=== PATIENT | female | born 1975 | race Caucasian/White ===

== ENCOUNTER 2019-03-17 13:46 | Emergency (ER) | payer MEDICARE, SELFPAY ==
[2019-03-17 13:48] VITALS: BP 171/89; PULSE 76; RESP 16; TEMP 37; O2SAT 97; BMI 28.3
--- NOTE | 2019-03-17 14:15 | ED.VISSUMM ---
- ER Visit Summary Date of Service: 03/17/19 Chief Complaint: [Blister to the left foot] History of Present Illness: The patient is a 43 F [presents to the emergency department with a left foot blister that encompasses the second third and fourth toes. Patient states that she took her shoes off 2 nights ago and noted the blister. Patient is concerned because she is diabetic. Patient states that she left the blister alone and did not pop it. Patient states she is had small blisters in the past of the foot that have resolved on their own. Patient states that she is a dialysis patient and sometimes her feet swell and she may not have noticed that her foot was swollen when it went into her tennis shoe and it may have rubbed the wrong way. Patient also has history of some neuropathy.] Physical Examination: [MIRANDA DO. Cranial nerves II through XII grossly intact. TMs clear. Mucous membranes moist. No adenopathy. Cardiovascular-regular rate and rhythm without murmur or ectopy Lungs-clear to auscultation, chest wall stable without crepitus or subcu emphysema Abdomen-normoactive bowel sounds, soft, nontender, no rebound or rigidity, no peritoneal signs. Extremities-intact ?4, normal range of motion, normal pulses, atraumatic. Left foot-patient has a large blister to the dorsum of the second third and fourth toes. There is clear fluid noted and no evidence of erythema or cellulitis. There is no evidence of abscess. Lymphangitic streaking.] Test Results: [None indicated] Emergency Department Course and Treatment: [Given a postop shoe. Patient will be given a prescription for Keflex should the blister and toes develop signs of infection. 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 Patient to follow-up with podiatry within next 3 to 5 days.] Disposition: [Discharged home in stable condition. Patient advised not to pop the blister.] Impression: [Blister to left foot dorsum of second, third and fourth toes.] This note was generated with [employer] software. It may contain incorrect words, spelling, and punctuation that were not noted in review of the chart prior to signing ED Disposition - Plan for ED Patient: Referrals: Gabriel Beaver MD [Primary Care Provider] -
--- NOTE | 2019-03-17 14:19 | ED.DEP ---
ED Disposition - Plan for ED Patient: Instructions: Blister Prescriptions: Cephalexin [Keflex] 500 mg PO Q6 #40 cap Prescription Printed Referrals: Gabriel Beaver MD [Primary Care Provider] - 3-5 Days Additional Instructions: See your foot doctor in 3-5 days
[2019-03-17 14:41] VITALS: BP 154/76; PULSE 80; RESP 17; O2SAT 97
== END 2019-03-17 14:40 | disposition home or self-care (01) ==
LOC: ED 14:25
PROVIDERS: Emergency Provider Emergency Medicine; Family Provider Family Medicine; PCP Family Medicine
DX: S90.425A Blister (nonthermal), left lesser toe(s), initial encounter (principal); X58.XXXA Exposure to other specified factors, initial encounter; Y93.9 Activity, unspecified; Y92.9 Unspecified place or not applicable; E11.40 Type 2 diabetes mellitus with diabetic neuropathy, unspecified; E11.22 Type 2 diabetes mellitus with diabetic chronic kidney disease; N18.6 End stage renal disease; Z99.2 Dependence on renal dialysis; Z79.02 Long term (current) use of antithrombotics/antiplatelets; Z79.4 Long term (current) use of insulin; Z79.899 Other long term (current) drug therapy
CPT/HCPCS: 99282

== ENCOUNTER 2020-01-23 11:39 | Outpatient (RCR) | payer MEDICARE, MEDICAID, SELFPAY ==
[2020-01-23 11:46] VITALS: BP 153/65; PULSE 78; RESP 16; BMI 27.7
--- NOTE | 2020-01-23 14:18 | HP.PCM_ITS ---
(1) Diabetic foot ulcer Status: Acute Current Visit: Yes Qualifiers: Diabetic foot ulcer location: midfoot Diabetes mellitus type: type 2 Laterality: right Non-pressure ulcer stage: with fat layer exposed Qualified Code(s): E11.621 - Type 2 diabetes mellitus with foot ulcer; L97.412 - Non- pressure chronic ulcer of right heel and midfoot with fat layer exposed Code(s): E11.621 - Type 2 diabetes mellitus with foot ulcer; L97.509 - Non- pressure chronic ulcer of other part of unspecified foot with unspecified severity Comment: berg 2 right 5th metatarsal (2) MRSA (methicillin resistant staph aureus) culture positive Status: Acute Current Visit: No Code(s): Z22.322 - Carrier or suspected carrier of Methicillin resistant Staphylococcus aureus (3) Anemia Status: Chronic Current Visit: No Code(s): D64.9 - Anemia, unspecified (4) Hypertension Status: Chronic Current Visit: No Code(s): I10 - Essential (primary) hypertension (5) Type 2 diabetes mellitus Status: Chronic Current Visit: No Code(s): E11.9 - Type 2 diabetes mellitus without complications History of Present Illness Date of Service: 01/23/20 Chief Complaint: Diabetic foot ulcer right fifth metatarsal History of Wound: This is a 44-year-old white female who presents to the wound [facility] center today after being referred by her territory sales representative to see if hyperbarics is an option. She has a past medical history as listed above significant for type 2 diabetes mellitus (most recent A1c 6.0), end-stage renal disease on dialysis, and also diabetic foot ulcers. The patient states that the ulceration on her right foot started about 1 month ago and has not made much improvement. She is currently using Keyla. She states that she has been following up with her territory sales representative Dr. Hightower who at one point was utilizing a wound VAC, however she is currently on a VAC holiday. She states that she recently completed doxycycline and Keflex after being told that she was positive for MRSA. She does note some drainage. She has an offloading boot and also a knee walker that she reports compliance with for the majority of the time. She does any localized or systemic signs of infection at this time. All other systems reviewed and negative with exception of those listed above. Past Medical History Past Medical History: Chronic Problems Anemia (Chronic) Noncompliance with medication regimen (Chronic) Hypertension (Chronic) Acute renal failure (Chronic) HLD (hyperlipidemia) (Chronic) Type 2 diabetes mellitus (Chronic) Surgical History: - - csection Allergies/Adverse Reactions: Allergies atorvastatin [From Lipitor] Adverse Reaction (Verified 01/23/20 12:00) Nausea/Vom/Diarrhea rosuvastatin [From Crestor] Adverse Reaction (Verified 01/23/20 12:00) Nausea/Vom/Diarrhea Home Medications: Ambulatory Orders Medication Instructions Recorded Insulin Glargine,Hum.rec.anlog 38 unit SQ QHS 02/09/16 [Lantus] Clopidogrel Bisulfate [Plavix] 75 mg PO DAILY #30 tablet 02/13/16 Pantoprazole Sodium [Protonix] 40 mg PO DAILY #14 tablet 02/13/16 Amlodipine [Norvasc] 10 mg PO MOWEFRSA 01/23/20 Fenofibrate Nanocrystallized 145 mg PO DAILY 01/23/20 [Fenofibrate] Insulin Aspart [Novolog Flexpen See Protocol SUBCUT TIDCM 01/23/20 ([facility])] Losartan Potassium [Cozaar] 4 tab PO DAILY 01/23/20 Lovastatin 40 mg PO DAILY 01/23/20 Sevelamer Carbonate 800 mg PO TID 01/23/20 - Family History Maternal - - mother at age 48 with enlarged heart Paternal Diabetes, Heart Disease Smoking Status: Never smoker Review of Systems Constitutional: Denies: Chills, Fever, Weight Change Eyes: Denies: Pain, Vision Change HEENT: Denies: Difficulty Hearing, Difficulty Swallowing, Sinus Congestion Cardiovascular: Denies: Chest Pain, Palpitations Respiratory: Denies: Cough, Shortness of Breath Gastrointestinal: Denies: Diarrhea, Nausea, Vomiting Genitourinary: Denies: Dysuria, Hematuria Skin: Reports: Wounds - See HPI Endocrine: Denies: Heat/ Cold Intolerance, Polydipsia, Polyuria Hematologic/ Lymphatic: Denies: Easy Bruising, Easy Bleeding - Physical Exam Vital Signs Pulse Resp BP 78 16 153/65 H 01/23/20 11:46 01/23/20 11:46 01/23/20 11:46 General: Alert, Oriented x3, Cooperative, No apparent distress HEENT: Atraumatic, PERRLA Oral: Moist Mucosa Lungs: Clear to auscultation, Normal air movement Cardiovascular: Regular rate, Regular Rhythm Abdomen: Soft, Non Tender Extremities: No clubbing, No cyanosis, No edema, Diminished Peripheral Pulses Skin: Ulcer/ Wound - See nursing documentation, diabetic foot ulcer present right fifth metatarsal with small amount of slough, otherwise granular without any signs of obvious infection at this time Wound Measurements and Assessment WC - Nurse 1 - General Ulcer Measurement Start: 01/23/20 11:46 Freq: Status: Active Protocol: Activity Type Activity Date Activity User E-Sign Co-Sign Detail Recorded Client Recorded Date Recorded By Document 01/23/20 11:46 BMF [id number] 01/23/20 11:59 BMF 01/23/20 11:46 Wound Center Nurse 1 [Ulcer Assessment] #2- R LATERAL PLANTAR -Combined with other wound No -Current Size (cm) - Length 0.7 -Current Size (cm) - Width 0.6 -Current Size (cm) - Depth 0.4 -Total Square Cm 0.42 -Date of Last Picture (Recall this 01/23/20 field) -Photo Taken Yes -Epithelialization None Present -Tunneling No -Undermining/Tunneling No -Circular Undermining No -Exudate Amt Small -Exudate Type Serosanguineous -Wound Margin Thickened -Granulation Amt Large (67-100%) -Granulation Quality Pale,Red -Slough/Fibrin No -Necrosis Amt None Present (0 %) -Texture (Colleen-wound Skin Appearance) Assessed, Scarring -Moisture (Colleen-wound Skin Appearance No Abnormality ) -Color (Colleen-wound Skin Appearance) Assessed -Temperature (Colleen-wound Skin No Abnormality Appearance) (Pt Warm) -Tenderness on Palpation (Colleen-wound No Skin Appearance) -Ulcer Cleansing Rinsed/ Irrigated with Saline -Foul Odor after Cleansing No -Anesthetic Used 5% Lidocaine Gel [Edema Assessment] -Lower Limb Edema Present No -Right Calf (cm) 33.2 -Right Ankle (cm) 21 -Left Calf (cm) 36.2 -Left Ankle (cm) 21 WC - Nurse 2 - General Ulcer CM Notes Start: 01/23/20 11:46 Freq: Status: Active Protocol: Activity Type Activity Date Activity User E-Sign Co-Sign Detail Recorded Client Recorded Date Recorded By Document 01/23/20 12:22 MW [id number] 01/23/20 12:30 MW 01/23/20 12:22 Wound Center Nurse 2 [Procedure/Treatment] #2- R LATERAL PLANTAR -Time 12:23 -Correct Patient Yes -Correct Side, Site, Position Yes -Correct Procedure Yes -Procedure Performed Yes -Type of Procedure Debridement -Clinical Debridement Subcutaneous -Tissue Removed Subcutaneous -Post Debridement (cm) - Length 1.0 -Post Debridement (cm) - Width 1.0 -Post Debridement (cm) - Depth 0.7 -Total Square (Post) (cm) 1.00 -Area of Debridement (cm) - Length 1.0 -Area of Debridement (cm) - Width 1.0 -Total Square (Area) (cm) 1.00 -Tunneling No -Undermining/Tunneling No -Circular Undermining No -Wound/Ulcer Outcome Not Healed -Ulcer Cleansing Rinsed/ Irrigated with Saline -Foul Odor after Cleansing No -Bioengineered Tissue No -Bleeding Controlled with Pressure -Offloading No -Treatment Response Procedure Tolerated Well -Debridement - Subq, 1st 20sq cm Yes [See Physician Procedure note for Specifics] Pain Scale: 0-10 Numeric [Pain] -Is Patient Pain Free? Yes - Nurse 3 - General Ulcer D/C NN Start: 01/23/20 11:46 Freq: Status: Active Protocol: Activity Type Activity Date Activity User E-Sign Co-Sign Detail Recorded Client Recorded Date Recorded By Document 01/23/20 12:39 [id number] 01/23/20 12:40 01/23/20 12:39 Wound Care Nurse 3 [Wound Dressing] #2- R LATERAL PLANTAR -Ulcer Cleansing Rinsed/ Irrigated with Saline -Primary Dressing Applied Promogran Keyla Matter -Primary Dressing Covered/Secured Dry Gauze,Dry with Gauze & Roll Gauze,Secured with Tape -Promogran Keyla Matter 1 [Post Procedure Tolerated] -Treatment Response Procedure Tolerated Well Pain Scale: 0-10 Numeric [Pain] -Is Patient Pain Free? Yes Teaching: Wound Center [Wound Center Education] (Items with an * have Printed Materials Available- Please identify what is given to patient under the Teaching materials given to patient and caregiver Section. Dressing Your Wound -Person Taught Patient -Teaching Method Discussion, Demonstration -Response to teaching Verbalize understanding WC - Visit Discharge [Visit Discharge Information] -Discharge Condition Stable -Ambulatory Status Ambulatory -Transportation Private Auto -Medication Reconcilliation completed No & provided to patient/care provider -Clinical Summary of Care Provided Yes Neurological: Neuro grossly intact Psych/Mental Status: Normal Affect, Appropriate, Alert and oriented to time, place, person, mood and affect Debridement Note Post-Debridement Measurements/Treatment NATHAN - Nurse 2 - General Ulcer CM Notes Start: 01/23/20 11:46 Freq: Status: Active Protocol: Activity Type Activity Date Activity User E-Sign Co-Sign Detail Recorded Client Recorded Date Recorded By Document 01/23/20 12:22 MW [id number] 01/23/20 12:30 MW 01/23/20 12:22 Wound Center Nurse 2 #2- R LATERAL PLANTAR -Time 12:23 -Correct Patient Yes -Correct Side, Site, Position Yes -Correct Procedure Yes -Procedure Performed Yes -Type of Procedure Debridement -Clinical Debridement Subcutaneous -Tissue Removed Subcutaneous -Post Debridement (cm) - Length 1.0 -Post Debridement (cm) - Width 1.0 -Post Debridement (cm) - Depth 0.7 -Total Square (Post) (cm) 1.00 -Area of Debridement (cm) - Length 1.0 -Area of Debridement (cm) - Width 1.0 -Total Square (Area) (cm) 1.00 -Tunneling No -Undermining/Tunneling No -Circular Undermining No -Wound/Ulcer Outcome Not Healed -Ulcer Cleansing Rinsed/ Irrigated with Saline -Foul Odor after Cleansing No -Bioengineered Tissue No -Bleeding Controlled with Pressure -Offloading No -Treatment Response Procedure Tolerated Well -Debridement - Subq, 1st 20sq cm Yes Pain Scale: 0-10 Numeric Is Patient Pain Free? Yes - Nurse 3 - General Ulcer D/C NN Start: 01/23/20 11:46 Freq: Status: Active Protocol: Activity Type Activity Date Activity User E-Sign Co-Sign Detail Recorded Client Recorded Date Recorded By Document 01/23/20 12:39 RB [id number] 01/23/20 12:40 RB 01/23/20 12:39 Wound Care Nurse 3 #2- R LATERAL PLANTAR -Ulcer Cleansing Rinsed/ Irrigated with Saline -Primary Dressing Applied Promogran Keyla Matter -Primary Dressing Covered/Secured with Dry Gauze,Dry Gauze & Roll Gauze,Secured with Tape -Promogran Keyla Matter 1 Treatment Response Procedure Tolerated Well Pain Scale: 0-10 Numeric Is Patient Pain Free? Yes Teaching: Wound Center Dressing Your Wound -Person Taught Patient -Teaching Method Discussion, Demonstration -Response to teaching Verbalize understanding WC - Visit Discharge Discharge Condition Stable Ambulatory Status Ambulatory Transportation Private Auto Medication Reconcilliation completed & No provided to patient/care provider Clinical Summary of Care Provided Yes Wound debrided: Berg 2 DFU right fifth metatarsal Laterality: Right Type of Debridement: Excisional debridement Anesthesia Used: 5% Lidocaine Gel Depth: Down to and including healthy tissue, in the subcutaneous layer Percentage of wound debrided: 100 Instrument Used: 3mm curette Tissue Removed: Slough and devitalized tissue Severity: Fat Layer Exposed Amount of bleeding with debridement: Mild Bleeding Controlled with: Pressure Patient tolerated procedure well Assessment/Plan Active Problems Diabetic foot ulcer (Acute) berg 2 right 5th metatarsal Assessment: Berg 2 Right DFU 5th metatarsal Plan: The patient was seen and examined at the wound center today and was updated on the plan of care. A subcutaneous debridement was performed today. The patient tolerated the procedure well. The patients wound care will consist of:continuing keyla dressing. Wound cultures were collected. Vascular studies ordered prior from podiatry, will request records. Patient also had a recent x- ray done which was normal and she has a pending MRI, at this point her diabetic foot ulcer is only a Berg grade 2 and therefore she is not going to be approved for hyperbaric oxygen treatment at this time. If the MRI shows suggestions of osteomyelitis, may change her status and will consider HBO at that time. Patient educated on the importance of diet on wound healing and instructed to increase protein and vitamin C intake. Patient verbalized understanding. Patient will follow up with podiatry. This note was generated with [employer] dictation software. It may contain incorrect words, spelling, and punctuation that were not noted in checking the note before signing. Office Visits / Consults: [id number] OV L4 Est [id number]: [id number] Cheri subq tissue 20 sq cm/<
== END 2020-02-05 23:59 ==
LOC: WC 11:39
PROVIDERS: PCP Family Medicine; Referring Provider Podiatrist Foot & Ankle Surgery; Visit Provider Nurse Practitioner Family
DX: E11.621 Type 2 diabetes mellitus with foot ulcer (principal); L97.412 Non-pressure chronic ulcer of right heel and midfoot with fat layer exposed; L97.512 Non-pressure chronic ulcer of other part of right foot with fat layer exposed; Z22.322 Carrier or suspected carrier of Methicillin resistant Staphylococcus aureus; E11.22 Type 2 diabetes mellitus with diabetic chronic kidney disease; I12.0 Hypertensive chronic kidney disease with stage 5 chronic kidney disease or end stage renal disease; N18.6 End stage renal disease; Z99.2 Dependence on renal dialysis; D64.9 Anemia, unspecified; E78.5 Hyperlipidemia, unspecified; Z91.14 Patient's other noncompliance with medication regimen; Z79.4 Long term (current) use of insulin; Z79.02 Long term (current) use of antithrombotics/antiplatelets; Z79.899 Other long term (current) drug therapy
CPT/HCPCS: 11042; 87070; 87075; 87077; 87186; 87205; 99213; G0463

== ENCOUNTER 2020-08-05 10:15 | Outpatient (RCR) | payer MEDICARE, MEDICAID, SELFPAY ==
[2020-07-08 09:53] VITALS: BP 142/58; PULSE 83; RESP 18; TEMP 37.1; BMI 26.7
--- NOTE | 2020-07-08 12:22 | HP.PCM_ITS ---
(1) Ulcer of right foot with fat layer exposed Status: Acute Code(s): L97.512 - Non-pressure chronic ulcer of other part of right foot with fat layer exposed (2) Pressure ulcer of right heel, stage 3 Status: Acute Code(s): L89.613 - Pressure ulcer of right heel, stage 3 (3) Type 2 diabetes mellitus with diabetic polyneuropathy Status: Chronic Code(s): E11.42 - Type 2 diabetes mellitus with diabetic polyneuropathy (4) Diabetic foot ulcer Status: Chronic Qualifiers: Diabetic foot ulcer location: heel Code(s): E11.621 - Type 2 diabetes mellitus with foot ulcer; L97.509 - Non- pressure chronic ulcer of other part of unspecified foot with unspecified severity Comment: berg 2 right 5th metatarsal (5) Acute renal failure Status: Chronic (6) Xerosis cutis Status: Chronic Code(s): L85.3 - Xerosis cutis History of Present Illness Date of Service: 07/08/20 Chief Complaint: Diabetic foot ulcer right fifth metatarsal History of Wound: This is a 45-year-old female who presents to the wound healing center today for left heel ulcer with an onset of approximately 3 weeks ago. Her is a cdl team truck driver and she had intended on traveling with him for approximately 1 day and then wanted going for several days. During most of the trip, she had her heels on the dashboard did not realize her skin was compromised. She had a black scab and was seen by Dr. Hightower at the [facility] who performed debridements. She also relates she had lab work done, x- rays, and possibly arterial studies. She does have a heel wedge offloading shoe however presents today with anodyne diabetic shoes and is walking on the wound. It is noted she has had chronic diabetes and is also on hemodialysis. She denies redness, odor. She completed a course of antibiotics within this past week and denies fever, chill, nausea, vomiting. She relates she has lotion at home however has not been applying this. Past Medical History Past Medical History: Chronic Problems Diabetic foot ulcer (Chronic) berg 2 right 5th metatarsal Type 2 diabetes mellitus with diabetic polyneuropathy (Chronic) Xerosis cutis (Chronic) Anemia (Chronic) Noncompliance with medication regimen (Chronic) Hypertension (Chronic) Acute renal failure (Chronic) HLD (hyperlipidemia) (Chronic) Type 2 diabetes mellitus (Chronic) Surgical History: - - csection Allergies/Adverse Reactions: Allergies atorvastatin [From Lipitor] Adverse Reaction (Verified 07/08/20 10:20) Nausea/Vom/Diarrhea rosuvastatin [From Crestor] Adverse Reaction (Verified 07/08/20 10:20) Nausea/Vom/Diarrhea Home Medications: Ambulatory Orders Medication Instructions Recorded Insulin Glargine,Hum.rec.anlog 38 unit SQ QHS 02/09/16 [Lantus] Clopidogrel Bisulfate [Plavix] 75 mg PO DAILY #30 tablet 02/13/16 Pantoprazole Sodium [Protonix] 40 mg PO DAILY #14 tablet 02/13/16 Amlodipine [Norvasc] 10 mg PO MOWEFRSA 01/23/20 Fenofibrate Nanocrystallized 145 mg PO DAILY 01/23/20 [Fenofibrate] Insulin Aspart [Novolog Flexpen See Protocol SUBCUT TIDCM 01/23/20 ([facility])] Losartan Potassium [Cozaar] 4 tab PO DAILY 01/23/20 Lovastatin 40 mg PO DAILY 01/23/20 Sevelamer Carbonate 800 mg PO TID 01/23/20 - Family History Maternal - - mother at age 48 with enlarged heart Paternal Diabetes, Heart Disease Smoking Status: Never smoker Review of Systems Constitutional: Denies: Chills, Fever Gastrointestinal: Denies: Nausea, Vomiting Musculoskeletal: Reports: Foot Pain. Denies: Leg Pain Skin: Reports: Skin Changes, Wounds Neurological: Reports: Numbness. Denies: Balance problems - Physical Exam Vital Signs Temp Pulse Resp BP 98.7 F 83 18 142/58 H 07/08/20 09:53 07/08/20 09:53 07/08/20 09:53 07/08/20 09:53 General: Alert, Oriented x3, Cooperative, No apparent distress HEENT: Atraumatic Extremities: No cyanosis, Capillary Refill Less than 3 Seconds - All digits bilateral, No Calf Tenderness - Negative Rani and Marie sign bilateral. Active range of motion digits x10. Compartments remain soft to left lower extremity, Edema - Mild, Peripheral Pulses Normal - 2 out of 4 PT and DP pulses bilateral Skin: Ulcer/ Wound - No purulence, erythema, streaking, odor, infection, or deep tissue exposure. The ulcer is 90% granular healthy base with some minimal fibrous tissue. The adjacent skin is hairless and atrophic., - - Left heel skin is very cracked and dry without skin discontinuity or infection Wound Measurements and Assessment WC - Nurse 1 - General Ulcer Measurement Start: 07/08/20 09:53 Freq: Status: Active Protocol: Activity Type Activity Date Activity User E-Sign Co-Sign Detail Recorded Client Recorded Date Recorded By Document 07/08/20 09:53 DL [id number] 07/08/20 10:18 DL 07/08/20 09:53 Wound Center Nurse 1 [Ulcer Assessment] #3 R Heel -Current Size (cm) - Length 2.8 -Current Size (cm) - Width 2.8 -Current Size (cm) - Depth 0.1 -Total Square Cm 7.84 -Photo Taken Yes -Classification - Berg Grading ( Grade 3 Diabetic Ulcer) -Exudate Amt Medium -Exudate Type Serosanguineous -Wound Margin Thickened -Granulation Amt Medium (34-66%) -Granulation Quality Red -Necrosis Amt Medium (34-66%) -Necrotic Tissue Type Adherent Slough -Structure Exposed N/A -Texture (Colleen-wound Skin Appearance) Callus,Scarring -Moisture (Colleen-wound Skin Appearance No Abnormality ) -Color (Colleen-wound Skin Appearance) No Abnormality -Temperature (Colleen-wound Skin No Abnormality Appearance) (Pt Warm) -Tenderness on Palpation (Colleen-wound No Skin Appearance) -Ulcer Cleansing Wound Cleanser -Foul Odor after Cleansing No -Anesthetic Used 4% Lidocaine Solution [facility] Nurse 2 - General Ulcer CM Notes Start: 07/08/20 09:53 Freq: Status: Active Protocol: Activity Type Activity Date Activity User E-Sign Co-Sign Detail Recorded Client Recorded Date Recorded By Document 07/08/20 10:35 VITO [id number] 07/08/20 10:44 VITO 07/08/20 10:35 Wound Center Nurse 2 [Procedure/Treatment] -Time 10:38 -Correct Patient Yes -Correct Side, Site, Position Yes -Correct Procedure Yes -Procedure Performed Yes -Type of Procedure Debridement -Clinical Debridement Subcutaneous -Tissue Removed Subcutaneous -Post Debridement (cm) - Length 2.9 -Post Debridement (cm) - Width 2.9 -Post Debridement (cm) - Depth 0.2 -Total Square (Post) (cm) 8.41 -Area of Debridement (cm) - Length 2.9 -Area of Debridement (cm) - Width 2.9 -Total Square (Area) (cm) 8.41 -Tunneling No -Undermining/Tunneling No -Circular Undermining No -Wound/Ulcer Outcome Not Healed -Ulcer Cleansing Rinsed/ Irrigated with Saline -Foul Odor after Cleansing No -Bioengineered Tissue No -Bleeding Controlled with Pressure -Offloading Yes -Type of Offloading Surgical Shoe -Treatment Response Procedure Tolerated Well -Debridement - Subq, 1st 20sq cm Yes [See Physician Procedure note for Specifics] Pain Scale: 0-10 Numeric [Pain] -Is Patient Pain Free? Yes - Nurse 3 - General Ulcer D/C NN Start: 07/08/20 09:53 Freq: Status: Active Protocol: Activity Type Activity Date Activity User E-Sign Co-Sign Detail Recorded Client Recorded Date Recorded By Document 07/08/20 10:57 DL [id number] 07/08/20 10:59 DL 07/08/20 10:57 Wound Care Nurse 3 [Wound Dressing] #3 R Heel -Ulcer Cleansing Wound Cleanser -Foul Odor after Cleansing No -Other Dressing hydrogel -Primary Dressing Covered/Secured Dry Gauze & with Roll Gauze, Secured with Tape [Post Procedure Tolerated] -Treatment Response Procedure Tolerated Well Pain Scale: 0-10 Numeric [Pain] -Is Patient Pain Free? Yes - Visit Discharge [Visit Discharge Information] -Discharge Condition Stable -Ambulatory Status Ambulatory -Transportation Private Auto -Notes: Pt to resume Santyl at home. Musculoskeletal: No Tenderness to Palpation of Joints or Extremities, Muscle Wasting Neurological: - - Lack of normal epicritic sensation light touch is consistent neuropathic status Psych/Mental Status: Normal Affect, Appropriate Debridement Note Post-Debridement Measurements/Treatment WC - Nurse 2 - General Ulcer CM Notes Start: 07/08/20 09:53 Freq: Status: Active Protocol: Activity Type Activity Date Activity User E-Sign Co-Sign Detail Recorded Client Recorded Date Recorded By Document 07/08/20 10:35 VITO [id number] 07/08/20 10:44 VITO 07/08/20 10:35 Wound Center Nurse 2 #3 R Heel -Time 10:38 -Correct Patient Yes -Correct Side, Site, Position Yes -Correct Procedure Yes -Procedure Performed Yes -Type of Procedure Debridement -Clinical Debridement Subcutaneous -Tissue Removed Subcutaneous -Post Debridement (cm) - Length 2.9 -Post Debridement (cm) - Width 2.9 -Post Debridement (cm) - Depth 0.2 -Total Square (Post) (cm) 8.41 -Area of Debridement (cm) - Length 2.9 -Area of Debridement (cm) - Width 2.9 -Total Square (Area) (cm) 8.41 -Tunneling No -Undermining/Tunneling No -Circular Undermining No -Wound/Ulcer Outcome Not Healed -Ulcer Cleansing Rinsed/ Irrigated with Saline -Foul Odor after Cleansing No -Bioengineered Tissue No -Bleeding Controlled with Pressure -Offloading Yes -Type of Offloading Surgical Shoe -Treatment Response Procedure Tolerated Well -Debridement - Subq, 1st 20sq cm Yes Pain Scale: 0-10 Numeric Is Patient Pain Free? Yes - Nurse 3 - General Ulcer D/C NN Start: 07/08/20 09:53 Freq: Status: Active Protocol: Activity Type Activity Date Activity User E-Sign Co-Sign Detail Recorded Client Recorded Date Recorded By Document 07/08/20 10:57 DL [id number] 07/08/20 10:59 DL 07/08/20 10:57 Wound Care Nurse 3 #3 R Heel -Ulcer Cleansing Wound Cleanser -Foul Odor after Cleansing No -Other Dressing hydrogel -Primary Dressing Covered/Secured with Dry Gauze & Roll Gauze, Secured with Tape Treatment Response Procedure Tolerated Well Pain Scale: 0-10 Numeric Is Patient Pain Free? Yes WC - Visit Discharge Discharge Condition Stable Ambulatory Status Ambulatory Transportation Private Auto Notes: Pt to resume Santyl at home. Wound debrided: heel Laterality: Right Wound Grade/Stage: grade 1 Type of Debridement: Excisional debridement Anesthesia Used: 5% Lidocaine Gel Depth: in the subcutaneous layer Percentage of wound debrided: 100 Instrument Used: #15 blade Tissue Removed: fibrous, devitalized subcutaneous, biofilm, slough Severity: Fat Layer Exposed Amount of bleeding with debridement: Mild Bleeding Controlled with: Pressure Patient tolerated procedure well Assessment/Plan Active Problems Diabetic foot ulcer (Chronic) berg 2 right 5th metatarsal Type 2 diabetes mellitus with diabetic polyneuropathy (Chronic) Acute renal failure (Chronic) Assessment: berg grade 1, right heel. cellulitis / infection resolved right foot. diabetes. renal failure no hemodialysis. malnutrition suspected. delayed healing. peripheral vascular disease work up in process Plan: The patient was seen and examined at the wound center today and was referred from the [facility]. A subcutaneous debridement was performed today as noted in the clinical panel. The patient tolerated the procedure well. She was advised no local signs of infection at this time and I do not recommend resuming antibiotics. She is already using Santyl and I advised her to continue with this. To apply a nickel thickness daily. To wash with soap and water. It is also okay to shower as her heel wound is not submerged in water. The purpose of offloading offloading techniques was reviewed. I do not recommend that she wears her close diabetic shoe even for short periods of getting in and out of medical facilities multiple times a week. She relates she already has a surgical shoe with heel offloading wedge and she was advised to resume use and to maintain compliance. Although she has palpable pulses I do recommend screening her with a noninvasive vascular study to evaluate for any potential perfusion deficits. She thinks she already had this done within the past 4 years but cannot remember for sure for what location this was performed. Her medical records from the [facility] will be requested including any potential arterial studies, recent labs, x-rays, and last podiatric physician office notes. If these diagnostic data tests have not been completed they will be ordered at her follow-up. I also offered her application of advanced wound healing product which would significantly reduce her healing time. This is medically necessary for limb salvage. We discussed various options and I recommended epifix, placental derived tissue. She is not amendable to proceed at this time. The indications, benefits sterilization process, anticipated application and management were reviewed. Educational information was provided in paper format. We will proceed forward with the a forementioned treatment plan at this time. I also recommended application of lotion to improve her adjacent skin integrity and the skin integrity on her contralateral foot to avoid other ulcers or infections. She has Vaseline intensive care and will proceed with daily use. I answered all of her questions. To return to the wound healing center in 1 week or call sooner if she has any questions or concerns or signs of infection. Note: [employer] speech recognition it technician software was used to create portions of this document. Sound-alike and misspelled words, as well as other it technician errors may be contained in the documentation. The problems addressed require a moderate decision making level which includes one or more chronic illnesses (w/ exacerbation, progression, or side effects), two or more stable chronic illnesses, one undiagnosed new problem w/ uncertain prognosis, one acute illness with systemic symptoms, or one acute complicated injury. The medical decision making level is moderate. There is noted moderate risk of morbidity after considering this treatment plan and diagnostic data. Considerations were given to prescription management, decisions regarding surgical options, or social determinants of health.
[2020-07-15 09:26] VITALS: BP 143/76; PULSE 80; RESP 18; TEMP 36.2; BMI 26.7
--- NOTE | 2020-07-15 09:48 | PN.PCM_ITS ---
(1) Ulcer of right foot with fat layer exposed Status: Acute Code(s): L97.512 - Non-pressure chronic ulcer of other part of right foot with fat layer exposed (2) Pressure ulcer of right heel, stage 3 Status: Acute Code(s): L89.613 - Pressure ulcer of right heel, stage 3 (3) Type 2 diabetes mellitus with diabetic polyneuropathy Status: Chronic Code(s): E11.42 - Type 2 diabetes mellitus with diabetic polyneuropathy (4) Diabetic foot ulcer Status: Chronic Qualifiers: Diabetic foot ulcer location: heel Code(s): E11.621 - Type 2 diabetes mellitus with foot ulcer; L97.509 - Non- pressure chronic ulcer of other part of unspecified foot with unspecified severity Comment: stinson 2 right 5th metatarsal (5) Acute renal failure Status: Chronic (6) Other specified peripheral vascular diseases Status: Ruled-out Code(s): I73.89 - Other specified peripheral vascular diseases Type of Wound Date of Service: 07/15/20 Chief Complaint: Diabetic foot ulcer right fifth metatarsal History of Wound: This is a 45-year-old female who presents to the wound healing center today for left heel ulcer with an onset of approximately 4 weeks ago. Her is a septic pump truck driver and she had intended on traveling with him for approximately 1 day and then wanted going for several days. During most of the trip, she had her heels on the dashboard did not realize her skin was compromised. She had a black scab and was seen by Dr. Hightower at the [facility] who performed debridements. Now wound is pink and she applies Santyl. She also relates she had lab work done, x-rays, and possibly arterial studies. These were requested from [facility] facility and reviewed today. She does have a heel wedge offloading shoe however presents today with anodyne diabetic shoes and is walking on the wound when she travels to all of her doctors appointments and dialysis sessions. It is noted she has had chronic diabetes and is also on hemodialysis. She denies redness, odor. She completed a course of antibiotics previously and denies fever, chill, nausea, vomiting. She refuses advanced wound healing products and relates she is just not this type of person that would use this medical tissue. Progress of Wound: Improving - Physical Exam Vital Signs Temp Pulse Resp BP 97.1 F L 80 18 143/76 H 03/10/21 09:26 07/15/20 09:26 07/15/20 09:26 07/15/20 09:26 General: Alert, Oriented x3, Cooperative, No apparent distress HEENT: Atraumatic Extremities: No cyanosis, Capillary Refill Less than 3 Seconds, No Calf Tenderness, Diminished Peripheral Pulses, Edema Skin: Ulcer/ Wound - No purulence, erythema, streaking, odor, infection. No deep probing, necrosis. The ulcer bed is granular with less than 15% fibrous tissue. There is no eschar. The adjacent skin is atrophic and hairless and is less dry Wound Measurements and Assessment WC - Nurse 1 - General Ulcer Measurement Start: 07/08/20 09:53 Freq: Status: Active Protocol: Activity Type Activity Date Activity User E-Sign Co-Sign Detail Recorded Client Recorded Date Recorded By Document 07/15/20 09:26 DL [id number] 07/15/20 09:28 DL 07/15/20 09:26 Wound Center Nurse 1 [Ulcer Assessment] #4 right heel -Current Size (cm) - Length 2.7 -Current Size (cm) - Width 3 -Current Size (cm) - Depth 0.1 -Total Square Cm 8.1 -Photo Taken No -Exudate Amt Small -Exudate Type Serosanguineous -Wound Margin Thickened -Granulation Amt Medium (34-66%) -Granulation Quality Red -Necrosis Amt Medium (34-66%) -Necrotic Tissue Type Adherent Slough -Structure Exposed N/A -Texture (Colleen-wound Skin Appearance) Callus,Scarring -Moisture (Colleen-wound Skin Appearance Dry/Scaly ) -Color (Colleen-wound Skin Appearance) No Abnormality -Temperature (Colleen-wound Skin No Abnormality Appearance) (Pt Warm) -Tenderness on Palpation (Colleen-wound No Skin Appearance) -Ulcer Cleansing Rinsed/ Irrigated with Saline -Foul Odor after Cleansing No -Anesthetic Used 4% Lidocaine Solution WC - Nurse 2 - General Ulcer CM Notes Start: 07/08/20 09:53 Freq: Status: Active Protocol: Activity Type Activity Date Activity User E-Sign Co-Sign Detail Recorded Client Recorded Date Recorded By Document 07/15/20 09:40 VITO [id number] 07/15/20 09:44 VITO 07/15/20 09:40 Wound Center Nurse 2 [Procedure/Treatment] -Time 09:40 -Correct Patient Yes -Correct Side, Site, Position Yes -Correct Procedure Yes -Procedure Performed Yes -Type of Procedure Debridement -Clinical Debridement Subcutaneous -Tissue Removed Subcutaneous -Post Debridement (cm) - Length 2.8 -Post Debridement (cm) - Width 3 -Post Debridement (cm) - Depth 0.2 -Total Square (Post) (cm) 8.4 -Area of Debridement (cm) - Length 2.8 -Area of Debridement (cm) - Width 3 -Total Square (Area) (cm) 8.4 -Tunneling No -Undermining/Tunneling No -Circular Undermining No -Wound/Ulcer Outcome Not Healed -Ulcer Cleansing Rinsed/ Irrigated with Saline -Foul Odor after Cleansing No -Bioengineered Tissue No -Bleeding Controlled with Pressure -Offloading Yes -Type of Offloading Surgical Shoe -Treatment Response Procedure Tolerated Well -Debridement - Subq, 1st 20sq cm Yes [See Physician Procedure note for Specifics] Pain Scale: 0-10 Numeric [Pain] -Is Patient Pain Free? Yes - Nurse 3 - General Ulcer D/C NN Start: 07/08/20 09:53 Freq: Status: Active Protocol: Activity Type Activity Date Activity User E-Sign Co-Sign Detail Recorded Client Recorded Date Recorded By Document 07/15/20 09:46 VITO [id number] 07/15/20 09:46 VITO 07/15/20 09:46 Wound Care Nurse 3 [Wound Dressing] #4 right heel -Ulcer Cleansing Rinsed/ Irrigated with Saline -Foul Odor after Cleansing No -Primary Dressing Applied C Hydrogel ($) -Primary Dressing Covered/Secured Dry Gauze & with Roll Gauze, Secured with Tape Pain Scale: 0-10 Numeric [Pain] -Is Patient Pain Free? Yes - Visit Discharge [Visit Discharge Information] -Discharge Condition Stable -Ambulatory Status Ambulatory -Transportation Private Auto -Medication Reconcilliation completed Yes & provided to patient/care provider -Clinical Summary of Care Provided Yes Musculoskeletal: No Tenderness to Palpation of Joints or Extremities, Muscle Wasting, - - Compartments soft Neurological: - - Lack of normal epicritic sensation to light touch Psych/Mental Status: Normal Affect, Appropriate Debridement Note Post-Debridement Measurements/Treatment WC - Nurse 2 - General Ulcer CM Notes Start: 07/08/20 09:53 Freq: Status: Active Protocol: Activity Type Activity Date Activity User E-Sign Co-Sign Detail Recorded Client Recorded Date Recorded By Document 07/08/20 10:35 [id number] 07/08/20 10:44 Document 07/15/20 09:40 [id number] 07/15/20 09:44 07/08/20 07/15/20 10:35 09:40 Wound Center Nurse 2 #4 right heel -Time 10:38 09:40 -Correct Patient Yes Yes -Correct Side, Site, Position Yes Yes -Correct Procedure Yes Yes -Procedure Performed Yes Yes -Type of Procedure Debridement Debridement -Clinical Debridement Subcutaneous Subcutaneous -Tissue Removed Subcutaneous Subcutaneous -Post Debridement (cm) - Length 2.9 2.8 -Post Debridement (cm) - Width 2.9 3 -Post Debridement (cm) - Depth 0.2 0.2 -Total Square (Post) (cm) 8.41 8.4 -Area of Debridement (cm) - Length 2.9 2.8 -Area of Debridement (cm) - Width 2.9 3 -Total Square (Area) (cm) 8.41 8.4 -Tunneling No No -Undermining/Tunneling No No -Circular Undermining No No -Wound/Ulcer Outcome Not Healed Not Healed -Ulcer Cleansing Rinsed/ Rinsed/ Irrigated with Irrigated with Saline Saline -Foul Odor after Cleansing No No -Bioengineered Tissue No No -Bleeding Controlled with Pressure Pressure -Offloading Yes Yes -Type of Offloading Surgical Shoe Surgical Shoe -Treatment Response Procedure Procedure Tolerated Well Tolerated Well -Debridement - Subq, 1st 20sq cm Yes Yes Pain Scale: 0-10 Numeric Is Patient Pain Free? Yes Yes - Nurse 3 - General Ulcer D/C NN Start: 07/08/20 09:53 Freq: Status: Active Protocol: Activity Type Activity Date Activity User E-Sign Co-Sign Detail Recorded Client Recorded Date Recorded By Document 07/08/20 10:57 DL [id number] 07/08/20 10:59 DL Document 07/15/20 09:46 [id number] [id number] 07/15/20 09:46 07/08/20 07/15/20 10:57 09:46 Wound Care Nurse 3 #4 right heel -Ulcer Cleansing Wound Cleanser Rinsed/ Irrigated with Saline -Foul Odor after Cleansing No No -Primary Dressing Applied C Hydrogel ($) -Other Dressing hydrogel -Primary Dressing Covered/Secured with Dry Gauze & Dry Gauze & Roll Gauze, Roll Gauze, Secured with Secured with Tape Tape Treatment Response Procedure Tolerated Well Pain Scale: 0-10 Numeric Is Patient Pain Free? Yes Yes WC - Visit Discharge Discharge Condition Stable Stable Ambulatory Status Ambulatory Ambulatory Transportation Private Auto Private Auto Medication Reconcilliation completed & Yes provided to patient/care provider Clinical Summary of Care Provided Yes Notes: Pt to resume Santyl at home. Wound debrided: heel Laterality: Right Wound Grade/Stage: grade 1 Type of Debridement: Excisional debridement Anesthesia Used: 5% Lidocaine Gel Depth: in the subcutaneous layer Percentage of wound debrided: 100 Instrument Used: #15 blade Tissue Removed: fibrous, devitalized subcutaneous, biofilm, slough Severity: Fat Layer Exposed Amount of bleeding with debridement: Mild Bleeding Controlled with: Pressure Patient tolerated procedure well Assessment/Plan Active Problems Diabetic foot ulcer (Chronic) stinson 2 right 5th metatarsal Type 2 diabetes mellitus with diabetic polyneuropathy (Chronic) Ulcer of right foot with fat layer exposed (Acute) Pressure ulcer of right heel, stage 3 (Acute) Xerosis cutis (Chronic) Acute renal failure (Chronic) Assessment: stinson grade 1, right heel. cellulitis / infection resolved right foot. diabetes. renal failure no hemodialysis. malnutrition suspected. delayed healing. peripheral vascular disease work up in process Plan: The patient was seen and examined at the wound center today and was referred from the [facility]. A subcutaneous debridement was performed today as noted in the clinical panel. The patient tolerated the procedure well. She was advised no local signs of infection at this time and I do not recommend resuming antibiotics. She is already using Santyl and I advised her to continue with this. To apply a nickel thickness daily. To wash with soap and water. It is also okay to shower as her heel wound is not submerged in water. The purpose of offloading offloading techniques was reviewed. I do not recommend that she wears her close diabetic shoe even for short periods of getting in and out of medical facilities multiple times a week. She relates she already has a surgical shoe with heel offloading wedge and she was advised to resume use and to maintain compliance. Although she has palpable pulses I do recommend screening her with a noninvasive vascular study to evaluate for any potential perfusion deficits. Her medical records from the [facility] will be requested. Her noninvasive vascular studies were reviewed from [facility] January 07, 2020 with triphasic waveforms bilateral and right ABIs of 1.21 and 1.07 and left ABIs of 1.201.09. The digital pressures were 105 mmHg on the right and 141 mmHg on the left. She also had normal PVR waveforms to the ankle and digital level bilateral. She also had foot x-rays performed on June 25, 2020 to the right foot in which a soft tissue ulceration was identified without radiographic evidence of osteomyelitis. It is noted her lab work from December 27, 2019 demonstrated an A1c level of 6.0%. I also offered her application of advanced wound healing product which would significantly reduce her healing time. This is medically necessary for limb salvage. We discussed various options and I recommended epifix, placental derived tissue. She is not amendable to proceed at this time to the placental derived tissue products, or other products such as TheraSkin. She is very adamant she will not be proceeding forward with any advanced wound healing products and her decision will be respected at this time. The indications, benefits sterilization process, anticipated application and management were reviewed. Educational information was also previously provided in paper format. I also recommended application of lotion to improve her adjacent skin integrity and the skin integrity on her contralateral foot to avoid other ulcers or infections. I answered all of her questions. To return to the wound healing center in 1 week or call sooner if she has any questions or concerns or signs of infection. Note: [employer] speech recognition blender machine operator software was used to create portions of this document. Sound-alike and misspelled words, as well as other blender machine operator errors may be contained in the documentation. The medical decision making level is moderate based on data including at least three of the following: review of prior external notes, review of a test, ordering a test, assessment requiring an independent historian. The medical decision making level is moderate based on data including independent interpretation of a test performed by another qualified health day care center director. The medical decision making level is moderate. There is noted moderate risk of morbidity after considering this treatment plan and diagnostic data. Considerations were given to prescription management, decisions regarding surgical options, or social determinants of health.
[2020-07-22 09:42] VITALS: BP 138/72; PULSE 75; RESP 18; TEMP 36.2; BMI 26.7
--- NOTE | 2020-07-22 10:01 | PCM.WC.PN ---
(1) Ulcer of right foot with fat layer exposed Status: Acute Code(s): L97.512 - Non-pressure chronic ulcer of other part of right foot with fat layer exposed (2) Pressure ulcer of right heel, stage 3 Status: Acute Code(s): L89.613 - Pressure ulcer of right heel, stage 3 (3) Type 2 diabetes mellitus with diabetic polyneuropathy Status: Chronic Code(s): E11.42 - Type 2 diabetes mellitus with diabetic polyneuropathy (4) Diabetic foot ulcer Status: Chronic Qualifiers: Diabetic foot ulcer location: heel Code(s): E11.621 - Type 2 diabetes mellitus with foot ulcer; L97.509 - Non-pressure chronic ulcer of other part of unspecified foot with unspecified severity Comment: stinson 2 right 5th metatarsal (5) Acute renal failure Status: Chronic (6) Other specified peripheral vascular diseases Status: Ruled-out Code(s): I73.89 - Other specified peripheral vascular diseases Type of Wound Date of Service: 07/22/20 Chief Complaint: Diabetic foot ulcer right fifth metatarsal History of Wound: This is a 45-year-old female who presents to the wound healing center today for left heel ulcer (chronic). Her is a national dedicated truck driver and she had intended on traveling with him for approximately 1 day and then wanted going for several days. During most of the trip, she had her heels on the dashboard did not realize her skin was compromised. She had a black scab and was seen by Dr. Hightower at the [facility] who performed debridements. Now wound is pink and she applies Santyl. She denies redness, odor. She completed a course of antibiotics previously and denies fever, chill, nausea, vomiting. Progress of Wound: Improving - Physical Exam Vital Signs Temp Pulse Resp BP 97.2 F L 75 18 138/72 H 07/22/20 09:42 07/22/20 09:42 07/22/20 09:42 07/22/20 09:42 General: Alert, Oriented x3, Cooperative, No apparent distress Extremities: No cyanosis, No edema, Capillary Refill Less than 3 Seconds, No Calf Tenderness, Peripheral Pulses Normal Skin: Ulcer/ Wound - No purulence, erythema, string, odor, infection. Ulcer bed is granular about 95% fibrous 5%. Wound Measurements and Assessment WC - Nurse 1 - General Ulcer Measurement Start: 07/08/20 09:53 Freq: Status: Active Protocol: Activity Type Activity Date Activity User E-Sign Co-Sign Detail Recorded Client Recorded Date Recorded By Document 07/22/20 09:42 RB [id number] 07/22/20 09:45 RB 07/22/20 09:42 Wound Center Nurse 1 [Ulcer Assessment] #4 right heel -Combined with other wound No -Current Size (cm) - Length 2.5 -Current Size (cm) - Width 2.5 -Current Size (cm) - Depth 0.3 -Total Square Cm 6.25 -Tunneling No -Undermining/Tunneling No -Circular Undermining No -Granulation Amt Large (67-100%) -Granulation Quality Paia -Slough/Fibrin Yes -Necrosis Amt Small (1-33%) -Necrotic Tissue Type Adherent Slough -Structure Exposed N/A -Texture (Colleen-wound Skin Appearance) Assessed -Moisture (Colleen-wound Skin Appearance Assessed,Dry/ ) Scaly -Color (Colleen-wound Skin Appearance) Assessed -Temperature (Colleen-wound Skin No Abnormality Appearance) (Pt Warm) -Tenderness on Palpation (Colleen-wound No Skin Appearance) -Ulcer Cleansing Wound Cleanser -Foul Odor after Cleansing No -Anesthetic Used 5% Lidocaine Gel WC - Nurse 2 - General Ulcer CM Notes Start: 07/08/20 09:53 Freq: Status: Active Protocol: Activity Type Activity Date Activity User E-Sign Co-Sign Detail Recorded Client Recorded Date Recorded By Document 07/22/20 09:55 [email or web address] [id number] 07/22/20 09:58 VITO 07/22/20 09:55 Wound Center Nurse 2 [Procedure/Treatment] -Time 09:56 -Correct Patient Yes -Correct Side, Site, Position Yes -Correct Procedure Yes -Procedure Performed Yes -Type of Procedure Debridement -Clinical Debridement Subcutaneous -Tissue Removed Subcutaneous -Post Debridement (cm) - Length 2.6 -Post Debridement (cm) - Width 2.5 -Post Debridement (cm) - Depth 0.3 -Total Square (Post) (cm) 6.50 -Area of Debridement (cm) - Length 2.6 -Area of Debridement (cm) - Width 2.6 -Total Square (Area) (cm) 6.76 -Tunneling No -Undermining/Tunneling No -Circular Undermining No -Wound/Ulcer Outcome Not Healed -Ulcer Cleansing Rinsed/ Irrigated with Saline -Foul Odor after Cleansing No -Bioengineered Tissue No -Bleeding Controlled with Pressure -Offloading Yes -Type of Offloading Surgical Shoe -Treatment Response Procedure Tolerated Well -Debridement - Subq, 1st 20sq cm Yes [See Physician Procedure note for Specifics] Pain Scale: 0-10 Numeric [Pain] -Is Patient Pain Free? Yes Musculoskeletal: Muscle Wasting Neurological: - - Lack of normal epicritic sensation Psych/Mental Status: Normal Affect, Appropriate Debridement Note Post-Debridement Measurements/Treatment WC - Nurse 2 - General Ulcer CM Notes Start: 07/08/20 09:53 Freq: Status: Active Protocol: Activity Type Activity Date Activity User E-Sign Co-Sign Detail Recorded Client Recorded Date Recorded By Document 07/08/20 10:35 [id number] 07/08/20 10:44 Document 07/15/20 09:40 [id number] 07/15/20 09:44 Document 07/22/20 09:55 [id number] 07/22/20 09:58 07/08/20 07/15/20 07/22/20 10:35 09:40 09:55 Wound Center Nurse 2 #4 right heel -Time 10:38 09:40 09:56 -Correct Patient Yes Yes Yes -Correct Side, Site, Position Yes Yes Yes -Correct Procedure Yes Yes Yes -Procedure Performed Yes Yes Yes -Type of Procedure Debridement Debridement Debridement -Clinical Debridement Subcutaneous Subcutaneous Subcutaneous -Tissue Removed Subcutaneous Subcutaneous Subcutaneous -Post Debridement (cm) - Length 2.9 2.8 2.6 -Post Debridement (cm) - Width 2.9 3 2.5 -Post Debridement (cm) - Depth 0.2 0.2 0.3 -Total Square (Post) (cm) 8.41 8.4 6.50 -Area of Debridement (cm) - Length 2.9 2.8 2.6 -Area of Debridement (cm) - Width 2.9 3 2.6 -Total Square (Area) (cm) 8.41 8.4 6.76 -Tunneling No No No -Undermining/Tunneling No No No -Circular Undermining No No No -Wound/Ulcer Outcome Not Healed Not Healed Not Healed -Ulcer Cleansing Rinsed/ Rinsed/ Rinsed/ Irrigated with Irrigated with Irrigated with Saline Saline Saline -Foul Odor after Cleansing No No No -Bioengineered Tissue No No No -Bleeding Controlled with Pressure Pressure Pressure -Offloading Yes Yes Yes -Type of Offloading Surgical Shoe Surgical Shoe Surgical Shoe -Treatment Response Procedure Procedure Procedure Tolerated Well Tolerated Well Tolerated Well -Debridement - Subq, 1st 20sq cm Yes Yes Yes Pain Scale: 0-10 Numeric Is Patient Pain Free? Yes Yes Yes - Nurse 3 - General Ulcer D/C NN Start: 07/08/20 09:53 Freq: Status: Active Protocol: Activity Type Activity Date Activity User E-Sign Co-Sign Detail Recorded Client Recorded Date Recorded By Document 07/08/20 10:57 DL [id number] 07/08/20 10:59 DL Document 07/15/20 09:46 [id number] 07/15/20 09:46 07/08/20 07/15/20 10:57 09:46 Wound Care Nurse 3 #4 right heel -Ulcer Cleansing Wound Cleanser Rinsed/ Irrigated with Saline -Foul Odor after Cleansing No No -Primary Dressing Applied C Hydrogel ($) -Other Dressing hydrogel -Primary Dressing Covered/Secured with Dry Gauze & Dry Gauze & Roll Gauze, Roll Gauze, Secured with Secured with Tape Tape Treatment Response Procedure Tolerated Well Pain Scale: 0-10 Numeric Is Patient Pain Free? Yes Yes - Visit Discharge Discharge Condition Stable Stable Ambulatory Status Ambulatory Ambulatory Transportation Private Auto Private Auto Medication Reconcilliation completed & Yes provided to patient/care provider Clinical Summary of Care Provided Yes Notes: Pt to resume Santyl at home. Wound debrided: heel Laterality: Right Wound Grade/Stage: grade 1 Type of Debridement: Excisional debridement Anesthesia Used: 5% Lidocaine Gel Depth: in the subcutaneous layer Percentage of wound debrided: 100 Instrument Used: #15 blade Tissue Removed: fibrous, devitalized subcutaneous, biofilm, slough Severity: Fat Layer Exposed Amount of bleeding with debridement: Mild Bleeding Controlled with: Pressure Patient tolerated procedure well Assessment/Plan Active Problems Diabetic foot ulcer (Chronic) stinson 2 right 5th metatarsal Type 2 diabetes mellitus with diabetic polyneuropathy (Chronic) Ulcer of right foot with fat layer exposed (Acute) Pressure ulcer of right heel, stage 3 (Acute) Xerosis cutis (Chronic) Acute renal failure (Chronic) Assessment: stinson grade 1, right heel (A1c: 5.8%). cellulitis / infection resolved right foot. diabetes. renal failure no hemodialysis. malnutrition suspected. delayed healing. peripheral vascular disease ruled out Plan: The patient was seen and examined at the wound center today and was referred from the [facility]. A subcutaneous debridement was performed today as noted in the clinical panel. The patient tolerated the procedure well. She was advised no local signs of infection at this time and I do not recommend resuming antibiotics. She is already using Santyl and I recommend transition to Maranda at this time. This was applied today. To wash with soap and water. It is also okay to shower as her heel wound is not submerged in water. The purpose of offloading offloading techniques was reviewed. I do not recommend that she wears her close diabetic shoe even for short periods of getting in and out of medical facilities multiple times a week. She relates she already has a surgical shoe with heel offloading wedge and she was advised to resume use and to maintain compliance. Although she has palpable pulses I do recommend screening her with a noninvasive vascular study to evaluate for any potential perfusion deficits. Her medical records from the [facility] will be requested. Her noninvasive vascular studies were reviewed from [facility] January 07, 2020 with triphasic waveforms bilateral and right ABIs of 1.21 and 1.07 and left ABIs of 1.201.09. The digital pressures were 105 mmHg on the right and 141 mmHg on the left. She also had normal PVR waveforms to the ankle and digital level bilateral. She also had foot x-rays performed on June 25, 2020 to the right foot in which a soft tissue ulceration was identified without radiographic evidence of osteomyelitis. It is noted her lab work from July 08, 2020 demonstrated an A1c level of 5.8 %. I also offered her application of advanced wound healing product which would significantly reduce her healing time. This is medically necessary for limb salvage. We discussed various options and I recommended epifix, placental derived tissue. She is not amendable to proceed at this time to the placental derived tissue products, or other products such as TheraSkin. She is very adamant she will not be proceeding forward with any advanced wound healing products and her decision will be respected at this time. The indications, benefits sterilization process, anticipated application and management were reviewed. Educational information was also previously provided in paper format. I also recommended application of lotion to improve her adjacent skin integrity and the skin integrity on her contralateral foot to avoid other ulcers or infections. I answered all of her questions. To return to the wound healing center in 1 week or call sooner if she has any questions or concerns or signs of infection. Note: [employer] speech recognition rescue boat operator software was used to create portions of this document. Sound-alike and misspelled words, as well as other rescue boat operator errors may be contained in the documentation.
--- NOTE | 2020-07-22 16:31 | WC ---
[facility] called stating Maranda is on backorder, Dr Schneider okay to order promogran instead and a message was sent to Ricky with [facility] to switch order to promogran. Patient was notified of change.
[2020-07-29 09:52] VITALS: BP 150/77; PULSE 84; RESP 16; TEMP 35.9; BMI 26.7
--- NOTE | 2020-07-29 11:13 | PCM.WC.PN ---
(1) Ulcer of right foot with fat layer exposed Status: Acute Code(s): L97.512 - Non-pressure chronic ulcer of other part of right foot with fat layer exposed (2) Pressure ulcer of right heel, stage 3 Status: Acute Code(s): L89.613 - Pressure ulcer of right heel, stage 3 (3) Type 2 diabetes mellitus with diabetic polyneuropathy Status: Chronic Code(s): E11.42 - Type 2 diabetes mellitus with diabetic polyneuropathy (4) Diabetic foot ulcer Status: Chronic Qualifiers: Diabetic foot ulcer location: heel Code(s): E11.621 - Type 2 diabetes mellitus with foot ulcer; L97.509 - Non-pressure chronic ulcer of other part of unspecified foot with unspecified severity Comment: stinson 2 right 5th metatarsal (5) Acute renal failure Status: Chronic (6) Other specified peripheral vascular diseases Status: Ruled-out Code(s): I73.89 - Other specified peripheral vascular diseases Type of Wound Date of Service: 07/29/20 Chief Complaint: heel ulcer History of Wound: This is a 45-year-old female who presents to the wound healing center today for left heel ulcer (chronic). Her is a regional company truck driver and she had intended on traveling with him for approximately 1 day and then wanted going for several days. During most of the trip, she had her heels on the dashboard did not realize her skin was compromised. She had a black scab and was seen by Dr. Hightower at the [facility] who performed debridements. Now wound is pink and she applies Santyl. She denies redness, odor. She completed a course of antibiotics previously and denies fever, chill, nausea, vomiting. She denies new concerns today. Progress of Wound: Improving - Physical Exam Vital Signs Temp Pulse Resp BP 96.6 F L 84 16 150/77 H 07/29/20 09:52 07/29/20 09:52 07/29/20 09:52 07/29/20 09:52 General: Alert, Oriented x3, Cooperative, No apparent distress Extremities: No cyanosis, Capillary Refill Less than 3 Seconds, No Calf Tenderness, Diminished Peripheral Pulses, Edema Skin: Ulcer/ Wound - No purulence, erythema, streaking, odor, infection., - - No deep tissue exposed Wound Measurements and Assessment WC - Nurse 1 - General Ulcer Measurement Start: 07/08/20 09:53 Freq: Status: Active Protocol: Activity Type Activity Date Activity User E-Sign Co-Sign Detail Recorded Client Recorded Date Recorded By Document 07/29/20 09:52 [facility] [id number] 07/29/20 09:58 [facility] 07/29/20 09:52 Wound Center Nurse 1 [Ulcer Assessment] #4 right heel -Combined with other wound No -Current Size (cm) - Length 2.2 -Current Size (cm) - Width 2.9 -Current Size (cm) - Depth 0.3 -Total Square Cm 6.38 -Photo Taken No -Epithelialization Small 1-33% -Tunneling No -Undermining/Tunneling No -Circular Undermining No -Exudate Amt Medium -Exudate Type Serosanguineous -Wound Margin Thickened -Granulation Amt Large (67-100%) -Granulation Quality Pale,Red -Slough/Fibrin Yes -Necrosis Amt Small (1-33%) -Necrotic Tissue Type Adherent Slough -Texture (Colleen-wound Skin Appearance) Assessed, Scarring -Moisture (Colleen-wound Skin Appearance Assessed ) -Color (Colleen-wound Skin Appearance) Assessed -Temperature (Colleen-wound Skin No Abnormality Appearance) (Pt Warm) -Tenderness on Palpation (Colleen-wound Yes Skin Appearance) -Ulcer Cleansing Rinsed/ Irrigated with Saline -Foul Odor after Cleansing No -Anesthetic Used 5% Lidocaine Gel - Nurse 2 - General Ulcer CM Notes Start: 07/08/20 09:53 Freq: Status: Active Protocol: Activity Type Activity Date Activity User E-Sign Co-Sign Detail Recorded Client Recorded Date Recorded By Document 07/29/20 10:24 [id number] 07/29/20 10:27 07/29/20 10:24 Wound Center Nurse 2 [Procedure/Treatment] -Time 10:24 -Correct Patient Yes -Correct Side, Site, Position Yes -Correct Procedure Yes -Procedure Performed Yes -Type of Procedure Debridement -Clinical Debridement Subcutaneous -Tissue Removed Subcutaneous -Post Debridement (cm) - Length 2.6 -Post Debridement (cm) - Width 2.3 -Post Debridement (cm) - Depth 0.2 -Total Square (Post) (cm) 5.98 -Area of Debridement (cm) - Length 2.6 -Area of Debridement (cm) - Width 2.3 -Total Square (Area) (cm) 5.98 -Tunneling No -Undermining/Tunneling No -Circular Undermining No -Wound/Ulcer Outcome Not Healed -Ulcer Cleansing Rinsed/ Irrigated with Saline -Foul Odor after Cleansing No -Bioengineered Tissue No -Bleeding Controlled with Pressure -Offloading Yes -Type of Offloading Surgical Shoe -Treatment Response Procedure Tolerated Well -Debridement - Subq, 1st 20sq cm Yes [See Physician Procedure note for Specifics] Pain Scale: 0-10 Numeric [Pain] -Is Patient Pain Free? Yes - Nurse 3 - General Ulcer D/C NN Start: 07/08/20 09:53 Freq: Status: Active Protocol: Activity Type Activity Date Activity User E-Sign Co-Sign Detail Recorded Client Recorded Date Recorded By Document 07/29/20 10:34 [facility] [id number] 07/29/20 10:34 [facility] 07/29/20 10:34 Wound Care Nurse 3 [Wound Dressing] #4 right heel -Ulcer Cleansing Rinsed/ Irrigated with Saline -Foul Odor after Cleansing No -Primary Dressing Applied Promogran Maranda Matter -Primary Dressing Covered/Secured Dry Gauze & with Roll Gauze, Secured with Tape -Promogran Maranda Matter 1 [Post Procedure Tolerated] -Treatment Response Procedure Tolerated Well Pain Scale: 0-10 Numeric [Pain] -Is Patient Pain Free? Yes - Visit Discharge [Visit Discharge Information] -Discharge Condition Stable -Ambulatory Status Ambulatory -Transportation Private Auto Musculoskeletal: No Tenderness to Palpation of Joints or Extremities, Muscle Wasting Neurological: - - Lack of full epicritic sensation light touch Psych/Mental Status: Normal Affect, Appropriate Debridement Note Post-Debridement Measurements/Treatment - Nurse 2 - General Ulcer CM Notes Start: 07/08/20 09:53 Freq: Status: Active Protocol: Activity Type Activity Date Activity User E-Sign Co-Sign Detail Recorded Client Recorded Date Recorded By Document 07/08/20 10:35 [id number] 07/08/20 10:44 Document 07/15/20 09:40 [id number] 07/15/20 09:44 Document 07/22/20 09:55 [id number] 07/22/20 09:58 Document 07/29/20 10:24 [id number] 07/29/20 10:27 JF 07/08/20 07/15/20 07/22/20 10:35 09:40 09:55 Wound Center Nurse 2 #4 right heel -Time 10:38 09:40 09:56 -Correct Patient Yes Yes Yes -Correct Side, Site, Position Yes Yes Yes -Correct Procedure Yes Yes Yes -Procedure Performed Yes Yes Yes -Type of Procedure Debridement Debridement Debridement -Clinical Debridement Subcutaneous Subcutaneous Subcutaneous -Tissue Removed Subcutaneous Subcutaneous Subcutaneous -Post Debridement (cm) - Length 2.9 2.8 2.6 -Post Debridement (cm) - Width 2.9 3 2.5 -Post Debridement (cm) - Depth 0.2 0.2 0.3 -Total Square (Post) (cm) 8.41 8.4 6.50 -Area of Debridement (cm) - Length 2.9 2.8 2.6 -Area of Debridement (cm) - Width 2.9 3 2.6 -Total Square (Area) (cm) 8.41 8.4 6.76 -Tunneling No No No -Undermining/Tunneling No No No -Circular Undermining No No No -Wound/Ulcer Outcome Not Healed Not Healed Not Healed -Ulcer Cleansing Rinsed/ Rinsed/ Rinsed/ Irrigated with Irrigated with Irrigated with Saline Saline Saline -Foul Odor after Cleansing No No No -Bioengineered Tissue No No No -Bleeding Controlled with Pressure Pressure Pressure -Offloading Yes Yes Yes -Type of Offloading Surgical Shoe Surgical Shoe Surgical Shoe -Treatment Response Procedure Procedure Procedure Tolerated Well Tolerated Well Tolerated Well -Debridement - Subq, 1st 20sq cm Yes Yes Yes Pain Scale: 0-10 Numeric Is Patient Pain Free? Yes Yes Yes 07/29/20 10:24 Wound Center Nurse 2 #4 right heel -Time 10:24 -Correct Patient Yes -Correct Side, Site, Position Yes -Correct Procedure Yes -Procedure Performed Yes -Type of Procedure Debridement -Clinical Debridement Subcutaneous -Tissue Removed Subcutaneous -Post Debridement (cm) - Length 2.6 -Post Debridement (cm) - Width 2.3 -Post Debridement (cm) - Depth 0.2 -Total Square (Post) (cm) 5.98 -Area of Debridement (cm) - Length 2.6 -Area of Debridement (cm) - Width 2.3 -Total Square (Area) (cm) 5.98 -Tunneling No -Undermining/Tunneling No -Circular Undermining No -Wound/Ulcer Outcome Not Healed -Ulcer Cleansing Rinsed/ Irrigated with Saline -Foul Odor after Cleansing No -Bioengineered Tissue No -Bleeding Controlled with Pressure -Offloading Yes -Type of Offloading Surgical Shoe -Treatment Response Procedure Tolerated Well -Debridement - Subq, 1st 20sq cm Yes Pain Scale: 0-10 Numeric Is Patient Pain Free? Yes - Nurse 3 - General Ulcer D/C NN Start: 07/08/20 09:53 Freq: Status: Active Protocol: Activity Type Activity Date Activity User E-Sign Co-Sign Detail Recorded Client Recorded Date Recorded By Document 07/08/20 10:57 DL [id number] 07/08/20 10:59 DL Document 07/15/20 09:46 JF [id number] 07/15/20 09:46 JF Document 07/22/20 10:02 JF [id number] 07/22/20 10:02 Document 07/29/20 10:34 [facility] [id number] 07/29/20 10:34 [facility] 07/08/20 07/15/20 07/22/20 10:57 09:46 10:02 Wound Care Nurse 3 #4 right heel -Ulcer Cleansing Wound Cleanser Rinsed/ Rinsed/ Irrigated with Irrigated with Saline Saline -Foul Odor after Cleansing No No No -Primary Dressing Applied C Hydrogel ($) Promogran Maranda Matter -Other Dressing hydrogel -Primary Dressing Covered/Secured with Dry Gauze & Dry Gauze & Dry Gauze & Roll Gauze, Roll Gauze, Roll Gauze, Secured with Secured with Secured with Tape Tape Tape -Promogran Maranda Matter 1 Treatment Response Procedure Tolerated Well Pain Scale: 0-10 Numeric Is Patient Pain Free? Yes Yes Yes - Visit Discharge Discharge Condition Stable Stable Stable Ambulatory Status Ambulatory Ambulatory Ambulatory Transportation Private Auto Private Auto Private Auto Medication Reconcilliation completed & Yes Yes provided to patient/care provider Clinical Summary of Care Provided Yes Yes Notes: Pt to resume Santyl at home. 07/29/20 10:34 Wound Care Nurse 3 #4 right heel -Ulcer Cleansing Rinsed/ Irrigated with Saline -Foul Odor after Cleansing No -Primary Dressing Applied Promogran Maranda Matter -Other Dressing -Primary Dressing Covered/Secured with Dry Gauze & Roll Gauze, Secured with Tape -Promogran Maranda Matter 1 Treatment Response Procedure Tolerated Well Pain Scale: 0-10 Numeric Is Patient Pain Free? Yes WC - Visit Discharge Discharge Condition Stable Ambulatory Status Ambulatory Transportation Private Auto Medication Reconcilliation completed & provided to patient/care provider Clinical Summary of Care Provided Notes: Wound debrided: heel Laterality: Right Wound Grade/Stage: grade 1 Type of Debridement: Excisional debridement Anesthesia Used: 5% Lidocaine Gel Depth: in the subcutaneous layer Percentage of wound debrided: 100 Instrument Used: #15 blade Tissue Removed: fibrous, devitalized subcutaneous, biofilm, slough Severity: Fat Layer Exposed Amount of bleeding with debridement: Mild Bleeding Controlled with: Pressure Patient tolerated procedure well Assessment/Plan Active Problems Diabetic foot ulcer (Chronic) stinson 2 right 5th metatarsal Type 2 diabetes mellitus with diabetic polyneuropathy (Chronic) Ulcer of right foot with fat layer exposed (Acute) Pressure ulcer of right heel, stage 3 (Acute) Xerosis cutis (Chronic) Acute renal failure (Chronic) Assessment: stinson grade 1, right heel (A1c: 5.8%). cellulitis / infection resolved right foot. diabetes. renal failure no hemodialysis. malnutrition suspected. delayed healing. peripheral vascular disease ruled out Plan: The patient was seen and examined at the wound center today and was referred from the [facility]. A subcutaneous debridement was performed today as noted in the clinical panel. The patient tolerated the procedure well. She was advised no local signs of infection at this time and I do not recommend resuming antibiotics. To continue Maranda dressing. This was applied today. To wash with soap and water. It is also okay to shower as her heel wound is not submerged in water. The purpose of offloading offloading techniques was reviewed. I do not recommend that she wears her close diabetic shoe even for short periods of getting in and out of medical facilities multiple times a week. She relates she already has a surgical shoe with heel offloading wedge and she was advised to resume use and to maintain compliance. Although she has palpable pulses I do recommend screening her with a noninvasive vascular study to evaluate for any potential perfusion deficits. Her medical records from the [facility] will be requested. Her noninvasive vascular studies were reviewed from [facility] January 07, 2020 with triphasic waveforms bilateral and right ABIs of 1.21 and 1.07 and left ABIs of 1.2 and 1.09. The digital pressures were 105 mmHg on the right and 141 mmHg on the left. She also had normal PVR waveforms to the ankle and digital level bilateral. She also had foot x-rays performed on June 25, 2020 to the right foot in which a soft tissue ulceration was identified without radiographic evidence of osteomyelitis. It is noted her lab work from July 08, 2020 demonstrated an A1c level of 5.8 %. I also offered her application of advanced wound healing product which would significantly reduce her healing time. This is medically necessary for limb salvage. We discussed various options and I recommended epifix, placental derived tissue. She is not amendable to proceed at this time to the placental derived tissue products, or other products such as TheraSkin. She is very adamant she will not be proceeding forward with any advanced wound healing products and her decision will be respected at this time. The indications, benefits sterilization process, anticipated application and management were reviewed. Full-thickness skin graft application and harvest is also an option and this will be discussed at her at future visits if she has delayed healing. The benefits are faster healing times and reduced risk of infection with chronic open ulcer. Risks include delayed or nonhealing continued at the ulcer site and also at the donor site. I also recommended application of lotion to improve her adjacent skin integrity and the skin integrity on her contralateral foot to avoid other ulcers or infections. I answered all of her questions. To return to the wound healing center in 1 week or call sooner if she has any questions or concerns or signs of infection. Note: [employer] speech recognition wool washing machine operator software was used to create portions of this document. Sound-alike and misspelled words, as well as other wool washing machine operator errors may be contained in the documentation.
[2020-08-05 10:15] VITALS: BP 134/72; PULSE 80; RESP 16; TEMP 36.4; BMI 26.7
--- NOTE | 2020-08-05 11:38 | PCM.WC.PN ---
(1) Ulcer of right foot with fat layer exposed Status: Chronic Code(s): L97.512 - Non-pressure chronic ulcer of other part of right foot with fat layer exposed (2) Pressure ulcer of right heel, stage 3 Status: Chronic Code(s): L89.613 - Pressure ulcer of right heel, stage 3 (3) Type 2 diabetes mellitus with diabetic polyneuropathy Status: Chronic Code(s): E11.42 - Type 2 diabetes mellitus with diabetic polyneuropathy (4) Diabetic foot ulcer Status: Chronic Qualifiers: Diabetic foot ulcer location: heel Code(s): E11.621 - Type 2 diabetes mellitus with foot ulcer; L97.509 - Non-pressure chronic ulcer of other part of unspecified foot with unspecified severity Comment: stinson 2 right 5th metatarsal (5) Acute renal failure Status: Chronic (6) Other specified peripheral vascular diseases Status: Ruled-out Code(s): I73.89 - Other specified peripheral vascular diseases Type of Wound Date of Service: 08/05/20 Chief Complaint: heel ulcer History of Wound: This is a 45-year-old female who presents to the wound healing center today for left heel ulcer (chronic). The wound is pink and she applies Santyl. She denies redness, odor. She completed a course of antibiotics previously and denies fever, chill, nausea, vomiting. She denies new concerns today. Progress of Wound: Improving - Physical Exam Vital Signs Temp Pulse Resp BP 97.5 F L 80 16 134/72 H 08/05/20 10:15 08/05/20 10:15 08/05/20 10:15 08/05/20 10:15 General: Alert, Oriented x3, Cooperative, No apparent distress Extremities: No cyanosis, No edema, Capillary Refill Less than 3 Seconds, No Calf Tenderness, Diminished Peripheral Pulses, Edema - Mild Skin: Ulcer/ Wound - No purulence, erythema, string, odor, infection Wound Measurements and Assessment WC - Nurse 1 - General Ulcer Measurement Start: 07/08/20 09:53 Freq: Status: Active Protocol: Activity Type Activity Date Activity User E-Sign Co-Sign Detail Recorded Client Recorded Date Recorded By Document 08/05/20 10:15 [facility] [id number] 08/05/20 10:22 [facility] 08/05/20 10:15 Wound Center Nurse 1 [Ulcer Assessment] #4 right heel -Combined with other wound No -Current Size (cm) - Length 2.8 -Current Size (cm) - Width 2.2 -Current Size (cm) - Depth 0.2 -Total Square Cm 6.16 -Photo Taken No -Epithelialization None Present -Tunneling No -Undermining/Tunneling No -Circular Undermining No -Exudate Amt Medium -Exudate Type Serosanguineous -Wound Margin Distinct, Outline Attached -Granulation Amt Medium (34-66%) -Granulation Quality Red -Slough/Fibrin Yes -Necrosis Amt Small (1-33%) -Necrotic Tissue Type Adherent Slough -Texture (Colleen-wound Skin Appearance) Scarring -Moisture (Colleen-wound Skin Appearance Assessed ) -Color (Colleen-wound Skin Appearance) Assessed -Temperature (Colleen-wound Skin No Abnormality Appearance) (Pt Warm) -Tenderness on Palpation (Colleen-wound No Skin Appearance) -Ulcer Cleansing Rinsed/ Irrigated with Saline -Foul Odor after Cleansing No -Anesthetic Used 5% Lidocaine Gel WC - Nurse 2 - General Ulcer CM Notes Start: 07/08/20 09:53 Freq: Status: Active Protocol: Activity Type Activity Date Activity User E-Sign Co-Sign Detail Recorded Client Recorded Date Recorded By Document 08/05/20 10:33 V[facility] [id number] 08/05/20 10:35 VIT[facility] 08/05/20 10:33 Wound Center Nurse 2 [Procedure/Treatment] -Time 10:33 -Correct Patient Yes -Correct Side, Site, Position Yes -Correct Procedure Yes -Procedure Performed Yes -Type of Procedure Debridement -Clinical Debridement Subcutaneous -Tissue Removed Subcutaneous -Post Debridement (cm) - Length 1.8 -Post Debridement (cm) - Width 2.3 -Post Debridement (cm) - Depth 0.2 -Total Square (Post) (cm) 4.14 -Area of Debridement (cm) - Length 1.8 -Area of Debridement (cm) - Width 2.3 -Total Square (Area) (cm) 4.14 -Tunneling No -Undermining/Tunneling No -Circular Undermining No -Wound/Ulcer Outcome Not Healed -Ulcer Cleansing Rinsed/ Irrigated with Saline -Foul Odor after Cleansing No -Bioengineered Tissue No -Bleeding Controlled with Pressure -Offloading Yes -Type of Offloading Surgical Shoe -Treatment Response Procedure Tolerated Well -Debridement - Subq, 1st 20sq cm Yes [See Physician Procedure note for Specifics] Pain Scale: 0-10 Numeric [Pain] -Is Patient Pain Free? Yes - Nurse 3 - General Ulcer D/C NN Start: 07/08/20 09:53 Freq: Status: Active Protocol: Activity Type Activity Date Activity User E-Sign Co-Sign Detail Recorded Client Recorded Date Recorded By Document 08/05/20 10:45 [facility] [id number] 08/05/20 10:47 [facility] 08/05/20 10:45 Wound Care Nurse 3 [Wound Dressing] #4 right heel -Ulcer Cleansing Rinsed/ Irrigated with Saline -Foul Odor after Cleansing No -Primary Dressing Applied Promogran Maranda Matter -Primary Dressing Covered/Secured Dry Gauze, with Secured with Tape -Promogran Maranda Matter 1 [Post Procedure Tolerated] -Treatment Response Procedure Tolerated Well Pain Scale: 0-10 Numeric [Pain] -Is Patient Pain Free? Yes - Visit Discharge [Visit Discharge Information] -Discharge Condition Stable -Ambulatory Status Ambulatory -Transportation Private Auto Musculoskeletal: Muscle Wasting Neurological: - - Lack of full epicritic sensation to light touch Psych/Mental Status: Normal Affect, Appropriate Debridement Note Post-Debridement Measurements/Treatment - Nurse 2 - General Ulcer CM Notes Start: 07/08/20 09:53 Freq: Status: Active Protocol: Activity Type Activity Date Activity User E-Sign Co-Sign Detail Recorded Client Recorded Date Recorded By Document 07/08/20 10:35 [id number] 07/08/20 10:44 Document 07/15/20 09:40 [id number] 07/15/20 09:44 Document 07/22/20 09:55 [id number] 07/22/20 09:58 Document 07/29/20 10:24 [id number] 07/29/20 10:27 Document 08/05/20 10:33 [id number] 08/05/20 10:35 07/08/20 07/15/20 07/22/20 10:35 09:40 09:55 Wound Center Nurse 2 #4 right heel -Time 10:38 09:40 09:56 -Correct Patient Yes Yes Yes -Correct Side, Site, Position Yes Yes Yes -Correct Procedure Yes Yes Yes -Procedure Performed Yes Yes Yes -Type of Procedure Debridement Debridement Debridement -Clinical Debridement Subcutaneous Subcutaneous Subcutaneous -Tissue Removed Subcutaneous Subcutaneous Subcutaneous -Post Debridement (cm) - Length 2.9 2.8 2.6 -Post Debridement (cm) - Width 2.9 3 2.5 -Post Debridement (cm) - Depth 0.2 0.2 0.3 -Total Square (Post) (cm) 8.41 8.4 6.50 -Area of Debridement (cm) - Length 2.9 2.8 2.6 -Area of Debridement (cm) - Width 2.9 3 2.6 -Total Square (Area) (cm) 8.41 8.4 6.76 -Tunneling No No No -Undermining/Tunneling No No No -Circular Undermining No No No -Wound/Ulcer Outcome Not Healed Not Healed Not Healed -Ulcer Cleansing Rinsed/ Rinsed/ Rinsed/ Irrigated with Irrigated with Irrigated with Saline Saline Saline -Foul Odor after Cleansing No No No -Bioengineered Tissue No No No -Bleeding Controlled with Pressure Pressure Pressure -Offloading Yes Yes Yes -Type of Offloading Surgical Shoe Surgical Shoe Surgical Shoe -Treatment Response Procedure Procedure Procedure Tolerated Well Tolerated Well Tolerated Well -Debridement - Subq, 1st 20sq cm Yes Yes Yes Pain Scale: 0-10 Numeric Is Patient Pain Free? Yes Yes Yes 07/29/20 08/05/20 10:24 10:33 Wound Center Nurse 2 #4 right heel -Time 10:24 10:33 -Correct Patient Yes Yes -Correct Side, Site, Position Yes Yes -Correct Procedure Yes Yes -Procedure Performed Yes Yes -Type of Procedure Debridement Debridement -Clinical Debridement Subcutaneous Subcutaneous -Tissue Removed Subcutaneous Subcutaneous -Post Debridement (cm) - Length 2.6 1.8 -Post Debridement (cm) - Width 2.3 2.3 -Post Debridement (cm) - Depth 0.2 0.2 -Total Square (Post) (cm) 5.98 4.14 -Area of Debridement (cm) - Length 2.6 1.8 -Area of Debridement (cm) - Width 2.3 2.3 -Total Square (Area) (cm) 5.98 4.14 -Tunneling No No -Undermining/Tunneling No No -Circular Undermining No No -Wound/Ulcer Outcome Not Healed Not Healed -Ulcer Cleansing Rinsed/ Rinsed/ Irrigated with Irrigated with Saline Saline -Foul Odor after Cleansing No No -Bioengineered Tissue No No -Bleeding Controlled with Pressure Pressure -Offloading Yes Yes -Type of Offloading Surgical Shoe Surgical Shoe -Treatment Response Procedure Procedure Tolerated Well Tolerated Well -Debridement - Subq, 1st 20sq cm Yes Yes Pain Scale: 0-10 Numeric Is Patient Pain Free? Yes Yes - Nurse 3 - General Ulcer D/C NN Start: 07/08/20 09:53 Freq: Status: Active Protocol: Activity Type Activity Date Activity User E-Sign Co-Sign Detail Recorded Client Recorded Date Recorded By Document 07/08/20 10:57 DL [id number] 07/08/20 10:59 DL Document 07/15/20 09:46 JF [id number] 07/15/20 09:46 JF Document 07/22/20 10:02 JF [id number] 07/22/20 10:02 JF Document 07/29/20 10:34 [facility] [id number] 07/29/20 10:34 BM Document 08/05/20 10:45 BM [id number] 08/05/20 10:47 BMF 07/08/20 07/15/20 07/22/20 10:57 09:46 10:02 Wound Care Nurse 3 #4 right heel -Ulcer Cleansing Wound Cleanser Rinsed/ Rinsed/ Irrigated with Irrigated with Saline Saline -Foul Odor after Cleansing No No No -Primary Dressing Applied C Hydrogel ($) Promogran Maranda Matter -Other Dressing hydrogel -Primary Dressing Covered/Secured with Dry Gauze & Dry Gauze & Dry Gauze & Roll Gauze, Roll Gauze, Roll Gauze, Secured with Secured with Secured with Tape Tape Tape -Promogran Maranda Matter 1 Treatment Response Procedure Tolerated Well Pain Scale: 0-10 Numeric Is Patient Pain Free? Yes Yes Yes - Visit Discharge Discharge Condition Stable Stable Stable Ambulatory Status Ambulatory Ambulatory Ambulatory Transportation Private Auto Private Auto Private Auto Medication Reconcilliation completed & Yes Yes provided to patient/care provider Clinical Summary of Care Provided Yes Yes Notes: Pt to resume Santyl at home. 07/29/20 08/05/20 10:34 10:45 Wound Care Nurse 3 #4 right heel -Ulcer Cleansing Rinsed/ Rinsed/ Irrigated with Irrigated with Saline Saline -Foul Odor after Cleansing No No -Primary Dressing Applied Promogran Promogran Maranda Matter Maranda Matter -Other Dressing -Primary Dressing Covered/Secured with Dry Gauze & Dry Gauze, Roll Gauze, Secured with Secured with Tape Tape -Promogran Maranda Matter 1 1 Treatment Response Procedure Procedure Tolerated Well Tolerated Well Pain Scale: 0-10 Numeric Is Patient Pain Free? Yes Yes WC - Visit Discharge Discharge Condition Stable Stable Ambulatory Status Ambulatory Ambulatory Transportation Private Auto Private Auto Medication Reconcilliation completed & provided to patient/care provider Clinical Summary of Care Provided Notes: Wound debrided: heel Laterality: Right Wound Grade/Stage: grade 1 Type of Debridement: Excisional debridement Anesthesia Used: 5% Lidocaine Gel Depth: in the subcutaneous layer Percentage of wound debrided: 100 Instrument Used: #15 blade Tissue Removed: fibrous, devitalized subcutaneous, biofilm, slough Severity: Fat Layer Exposed Amount of bleeding with debridement: Mild Bleeding Controlled with: Pressure Patient tolerated procedure well Assessment/Plan Active Problems Diabetic foot ulcer (Chronic) stinson 2 right 5th metatarsal Type 2 diabetes mellitus with diabetic polyneuropathy (Chronic) Ulcer of right foot with fat layer exposed (Chronic) Pressure ulcer of right heel, stage 3 (Chronic) Xerosis cutis (Chronic) Acute renal failure (Chronic) Assessment: stinson grade 1, right heel (A1c: 5.8%). cellulitis / infection resolved right foot. diabetes. renal failure no hemodialysis. malnutrition suspected. delayed healing. peripheral vascular disease ruled out Plan: The patient was seen and examined at the wound center today and was referred from the [facility]. A subcutaneous debridement was performed today as noted in the clinical panel. The patient tolerated the procedure well. She was advised no local signs of infection at this time and I do not recommend resuming antibiotics. To continue Maranda dressing. This was applied today. To wash with soap and water. It is also okay to shower as her heel wound is not submerged in water. The purpose of offloading offloading techniques was reviewed. I do not recommend that she wears her close diabetic shoe even for short periods of getting in and out of medical facilities multiple times a week. She relates she already has a surgical shoe with heel offloading wedge and she was advised to resume use and to maintain compliance. Although she has palpable pulses I do recommend screening her with a noninvasive vascular study to evaluate for any potential perfusion deficits. Her medical records from the [facility] will be requested. Her noninvasive vascular studies were reviewed from [facility] January 07, 2020 with triphasic waveforms bilateral and right ABIs of 1.21 and 1.07 and left ABIs of 1.2 and 1.09. The digital pressures were 105 mmHg on the right and 141 mmHg on the left. She also had normal PVR waveforms to the ankle and digital level bilateral. She also had foot x-rays performed on June 25, 2020 to the right foot in which a soft tissue ulceration was identified without radiographic evidence of osteomyelitis. It is noted her lab work from July 08, 2020 demonstrated an A1c level of 5.8 %. I also offered her application of advanced wound healing product which would significantly reduce her healing time. This is medically necessary for limb salvage. We discussed various options and I recommended epifix, placental derived tissue. She is not amendable to proceed at this time to the placental derived tissue products, or other products such as TheraSkin. She is very adamant she will not be proceeding forward with any advanced wound healing products and her decision will be respected at this time. The indications, benefits sterilization process, anticipated application and management were reviewed. Full-thickness skin graft application and harvest is also an option and this was discussed also today. She refuses this option.The benefits are faster healing times and reduced risk of infection with chronic open ulcer. Risks include delayed or nonhealing continued at the ulcer site and also at the donor site. I also recommended application of lotion to improve her adjacent skin integrity and the skin integrity on her contralateral foot to avoid other ulcers or infections. I answered all of her questions. To return to the wound healing center in 1 week or call sooner if she has any questions or concerns or signs of infection. Note: [employer] speech recognition showroom sales consultant software was used to create portions of this document. Sound-alike and misspelled words, as well as other showroom sales consultant errors may be contained in the documentation.
== END 2020-08-05 23:59 ==
LOC: WC 10:15
PROVIDERS: PCP Family Medicine; Visit Provider Podiatrist
DX: E11.621 Type 2 diabetes mellitus with foot ulcer (principal); L89.613 Pressure ulcer of right heel, stage 3; E11.51 Type 2 diabetes mellitus with diabetic peripheral angiopathy without gangrene; E11.42 Type 2 diabetes mellitus with diabetic polyneuropathy; E11.22 Type 2 diabetes mellitus with diabetic chronic kidney disease; I10 Essential (primary) hypertension; E78.5 Hyperlipidemia, unspecified; D64.9 Anemia, unspecified; L85.3 Xerosis cutis; Z91.14 Patient's other noncompliance with medication regimen; Z79.02 Long term (current) use of antithrombotics/antiplatelets; Z79.4 Long term (current) use of insulin; Z79.899 Other long term (current) drug therapy; Z99.2 Dependence on renal dialysis
CPT/HCPCS: 11042; 99213; G0463

== ENCOUNTER 2020-08-26 11:30 | Outpatient (RCR) | payer MEDICARE, MEDICAID, SELFPAY ==
[2020-08-06 00:18] VITALS: BP 134/72; PULSE 80; RESP 16; TEMP 36.4
[2020-08-12 09:53] VITALS: BP 156/84; PULSE 76; RESP 16; TEMP 36.2; BMI 26.7
[2020-08-12 10:49] VITALS: BP 150/70
--- NOTE | 2020-08-12 11:28 | PN.PCM_ITS ---
(1) Ulcer of right foot with fat layer exposed Status: Chronic Code(s): L97.512 - Non-pressure chronic ulcer of other part of right foot with fat layer exposed (2) Renal failure Status: Acute Code(s): N19 - Unspecified kidney failure (3) Type 2 diabetes mellitus with diabetic polyneuropathy Status: Chronic Code(s): E11.42 - Type 2 diabetes mellitus with diabetic polyneuropathy (4) Delayed wound healing Status: Acute Code(s): T14.8XXD - Other injury of unspecified body region, subsequent encounter Type of Wound Date of Service: 08/12/20 Chief Complaint: heel ulcer History of Wound: This is a 45-year-old female who presents to the wound healing center today for left heel ulcer (chronic). The wound is pink and she applies Santyl. She denies redness, odor. She completed a course of antibiotics previously and denies fever, chill, nausea, vomiting. She denies new concerns today. She does not want to proceed forth any advanced wound healing products or split-thickness skin graft. She is in the process of getting back on a kidney transplantation list. Progress of Wound: Stable - Physical Exam Vital Signs Temp Pulse Resp BP 97.2 F L 76 16 150/70 H 08/12/20 09:53 08/12/20 09:53 08/12/20 09:53 08/12/20 10:49 General: Alert, Oriented x3, Cooperative, No apparent distress HEENT: Atraumatic Extremities: No cyanosis, No edema, Capillary Refill Less than 3 Seconds, No Calf Tenderness, Diminished Peripheral Pulses Skin: Ulcer/ Wound - Granular base. No purulence, erythema, streaking, odor, infection. Adjacent skin is hairless and atrophic Wound Measurements and Assessment WC - Nurse 1 - General Ulcer Measurement Start: 08/12/20 09:53 Freq: Status: Active Protocol: Activity Type Activity Date Activity User E-Sign Co-Sign Detail Recorded Client Recorded Date Recorded By Document 08/12/20 09:53 MS [id number] 08/12/20 10:01 MS 08/12/20 09:53 Wound Center Nurse 1 [Ulcer Assessment] #4 right heel -Current Size (cm) - Length 2.5 -Current Size (cm) - Width 2.5 -Current Size (cm) - Depth 0.3 -Total Square Cm 6.25 -Exudate Amt Medium -Exudate Type Serosanguineous -Wound Margin Distinct, Outline Attached -Granulation Amt Medium (34-66%) -Slough/Fibrin Yes -Necrosis Amt Medium (34-66%) -Necrotic Tissue Type Adherent Slough -Texture (Colleen-wound Skin Appearance) No Abnormality -Moisture (Colleen-wound Skin Appearance No Abnormality ) -Color (Colleen-wound Skin Appearance) No Abnormality -Temperature (Colleen-wound Skin No Abnormality Appearance) (Pt Warm) -Tenderness on Palpation (Colleen-wound No Skin Appearance) -Ulcer Cleansing soap and water -Anesthetic Used 4% Lidocaine Solution NATHAN - Nurse 2 - General Ulcer CM Notes Start: 08/12/20 09:53 Freq: Status: Active Protocol: Activity Type Activity Date Activity User E-Sign Co-Sign Detail Recorded Client Recorded Date Recorded By Document 08/12/20 10:29 VITO [id number] 08/12/20 10:34 VITO 08/12/20 10:29 Wound Center Nurse 2 [Procedure/Treatment] -Time 10:31 -Correct Patient Yes -Correct Side, Site, Position Yes -Correct Procedure Yes -Procedure Performed Yes -Type of Procedure Debridement -Clinical Debridement Subcutaneous -Tissue Removed Subcutaneous -Post Debridement (cm) - Length 1.8 -Post Debridement (cm) - Width 2.3 -Post Debridement (cm) - Depth 0.2 -Total Square (Post) (cm) 4.14 -Area of Debridement (cm) - Length 1.8 -Area of Debridement (cm) - Width 2.3 -Total Square (Area) (cm) 4.14 -Tunneling No -Undermining/Tunneling No -Circular Undermining No -Wound/Ulcer Outcome Not Healed -Ulcer Cleansing Rinsed/ Irrigated with Saline -Foul Odor after Cleansing No -Bioengineered Tissue No -Bleeding Controlled with Pressure -Offloading Yes -Type of Offloading Surgical Shoe -Treatment Response Procedure Tolerated Well -Debridement - Subq, 1st 20sq cm Yes [See Physician Procedure note for Specifics] Pain Scale: 0-10 Numeric [Pain] -Is Patient Pain Free? Yes NATHAN - Nurse 3 - General Ulcer D/C NN Start: 08/12/20 09:53 Freq: Status: Active Protocol: Activity Type Activity Date Activity User E-Sign Co-Sign Detail Recorded Client Recorded Date Recorded By Document 08/12/20 10:49 RB [id number] 08/12/20 10:51 RB 08/12/20 10:49 Wound Care Nurse 3 [Wound Dressing] #4 right heel -Ulcer Cleansing Rinsed/ Irrigated with Saline -Other Dressing promogran -Primary Dressing Covered/Secured Dry Gauze,Dry with Gauze & Roll Gauze,Secured with Tape [Post Procedure Tolerated] -Treatment Response Procedure Tolerated Well Vital Signs [Blood Pressure] -Blood Pressure (90/60-120/80) 150/70 H -Blood Pressure Mean (mm Hg) 96 -Source Monitor -Position Semi-Fowlers -Blood Pressure Location Left Arm Pain Scale: 0-10 Numeric [Pain] -Is Patient Pain Free? Yes WC - Visit Discharge [Visit Discharge Information] -Discharge Condition Stable -Ambulatory Status Ambulatory -Transportation Private Auto -Medication Reconcilliation completed No & provided to patient/care provider -Clinical Summary of Care Provided Yes Musculoskeletal: Muscle Wasting Neurological: - - Lack of full epicritic sensation light touch is consistent with some neuropathy Psych/Mental Status: Normal Affect, Appropriate Debridement Note Post-Debridement Measurements/Treatment - Nurse 2 - General Ulcer CM Notes Start: 08/12/20 09:53 Freq: Status: Active Protocol: Activity Type Activity Date Activity User E-Sign Co-Sign Detail Recorded Client Recorded Date Recorded By Document 08/12/20 10:29 VITO [id number] 08/12/20 10:34 VITO 08/12/20 10:29 Wound Center Nurse 2 #4 right heel -Time 10:31 -Correct Patient Yes -Correct Side, Site, Position Yes -Correct Procedure Yes -Procedure Performed Yes -Type of Procedure Debridement -Clinical Debridement Subcutaneous -Tissue Removed Subcutaneous -Post Debridement (cm) - Length 1.8 -Post Debridement (cm) - Width 2.3 -Post Debridement (cm) - Depth 0.2 -Total Square (Post) (cm) 4.14 -Area of Debridement (cm) - Length 1.8 -Area of Debridement (cm) - Width 2.3 -Total Square (Area) (cm) 4.14 -Tunneling No -Undermining/Tunneling No -Circular Undermining No -Wound/Ulcer Outcome Not Healed -Ulcer Cleansing Rinsed/ Irrigated with Saline -Foul Odor after Cleansing No -Bioengineered Tissue No -Bleeding Controlled with Pressure -Offloading Yes -Type of Offloading Surgical Shoe -Treatment Response Procedure Tolerated Well -Debridement - Subq, 1st 20sq cm Yes Pain Scale: 0-10 Numeric Is Patient Pain Free? Yes - Nurse 3 - General Ulcer D/C NN Start: 08/12/20 09:53 Freq: Status: Active Protocol: Activity Type Activity Date Activity User E-Sign Co-Sign Detail Recorded Client Recorded Date Recorded By Document 08/12/20 10:49 RB [id number] 08/12/20 10:51 RB 08/12/20 10:49 Wound Care Nurse 3 #4 right heel -Ulcer Cleansing Rinsed/ Irrigated with Saline -Other Dressing promogran -Primary Dressing Covered/Secured with Dry Gauze,Dry Gauze & Roll Gauze,Secured with Tape Treatment Response Procedure Tolerated Well Vital Signs Blood Pressure (90/60-120/80) 150/70 H Blood Pressure Mean (mm Hg) 96 Source Monitor Position Semi-Fowlers Blood Pressure Location Left Arm Pain Scale: 0-10 Numeric Is Patient Pain Free? Yes - Visit Discharge Discharge Condition Stable Ambulatory Status Ambulatory Transportation Private Auto Medication Reconcilliation completed & No provided to patient/care provider Clinical Summary of Care Provided Yes Wound debrided: heel Laterality: Left Wound Grade/Stage: grade 1 Type of Debridement: Excisional debridement Anesthesia Used: 5% Lidocaine Gel Depth: in the subcutaneous layer Percentage of wound debrided: 100 Instrument Used: #15 blade Tissue Removed: fibrous, devitalized subcutaneous, biofilm, slough Severity: Fat Layer Exposed Amount of bleeding with debridement: Mild Bleeding Controlled with: Pressure Patient tolerated procedure well Assessment/Plan Active Problems Delayed wound healing (Acute) Renal failure (Acute) Type 2 diabetes mellitus with diabetic polyneuropathy (Chronic) Ulcer of right foot with fat layer exposed (Chronic) Assessment: stinson grade 1, right heel (A1c: 5.8%). cellulitis / infection resolved right foot. diabetes. renal failure no hemodialysis. malnutrition suspected. delayed healing. peripheral vascular disease ruled out Plan: The patient was seen and examined at the wound center today and was referred from the [facility]. A subcutaneous debridement was performed today as noted in the clinical panel. The patient tolerated the procedure well. She was advised no local signs of infection at this time and I do not recommend resuming antibiotics. To continue Maranda dressing. She defers advanced wound healing product application and even a split thickness skin graft. This would reduce her chance of delayed healing and infection loss of limb. We discussed an additional advanced product called for regranix which is in the gel format and has growth factors to stimulate healing as well. She is amendable to try this. Is medically necessary for limb salvage. Prior authorization will be initiated. To wash with soap and water. It is also okay to shower as her heel wound is not submerged in water. The purpose of offloading offloading techniques was reviewed. I do not recommend that she wears her close diabetic shoe even for short periods of getting in and out of medical facilities multiple times a week. She relates she already has a surgical shoe with heel offloading wedge and she was advised to resume use and to maintain compliance. Although she has palpable pulses I do recommend screening her with a noninvasive vascular study to evaluate for any potential perfusion deficits. Her medical records from the [facility] will be requested. Her noninvasive vascular studies were reviewed from [facility] January 07, 2020 with triphasic waveforms bilateral and right ABIs of 1.21 and 1.07 and left ABIs of 1.2 and 1.09. The digital pressures were 105 mmHg on the right and 141 mmHg on the left. She also had normal PVR waveforms to the ankle and digital level bilateral. She also had foot x-rays performed on June 25, 2020 to the right foot in which a soft tissue ulceration was identified without radiographic evidence of osteomyelitis. It is noted her lab work from July 08, 2020 demonstrated an A1c level of 5.8 %. I also recommended application of lotion to improve her adjacent skin int egrity and the skin integrity on her contralateral foot to avoid other ulcers or infections. I answered all of her questions. To return to the wound healing center in 1 week or call sooner if she has any questions or concerns or signs of infection. Note: [employer] speech recognition pest control worker helper software was used to create portions of this document. Sound-alike and misspelled words, as well as other pest control worker helper errors may be contained in the documentation.
[2020-08-19 11:01] VITALS: BP 130/61; PULSE 82; RESP 18; TEMP 36.6; BMI 26.7
--- NOTE | 2020-08-19 12:07 | PCM.WC.PN ---
(1) Ulcer of right foot with fat layer exposed Status: Chronic Code(s): L97.512 - Non-pressure chronic ulcer of other part of right foot with fat layer exposed (2) Renal failure Status: Acute Code(s): N19 - Unspecified kidney failure (3) Type 2 diabetes mellitus with diabetic polyneuropathy Status: Chronic Code(s): E11.42 - Type 2 diabetes mellitus with diabetic polyneuropathy (4) Delayed wound healing Status: Acute Code(s): T14.8XXD - Other injury of unspecified body region, subsequent encounter Type of Wound Date of Service: 08/19/20 Chief Complaint: heel ulcer History of Wound: This is a 45-year-old female who presents to the wound healing center today for left heel ulcer (chronic). The wound is pink and she applies Santyl. She denies redness, odor. She completed a course of antibiotics previously and denies fever, chill, nausea, vomiting. She does not know the current status of her regranix advanced wound healing product that was ordered last week. She obtained foam boots to wear in bed to protect her heel. Progress of Wound: Stable - Physical Exam Vital Signs Temp Pulse Resp BP 97.9 F 82 18 130/61 H 08/19/20 11:01 08/19/20 11:01 08/19/20 11:01 08/19/20 11:01 General: Alert, Oriented x3, Cooperative, No apparent distress Extremities: No cyanosis, Capillary Refill Less than 3 Seconds, No Calf Tenderness, Diminished Peripheral Pulses, Edema - Mild Skin: Ulcer/ Wound - No purulence, erythema, streaking, odor, infection. Adjacent skin atrophic Wound Measurements and Assessment WC - Nurse 1 - General Ulcer Measurement Start: 08/12/20 09:53 Freq: Status: Active Protocol: Activity Type Activity Date Activity User E-Sign Co-Sign Detail Recorded Client Recorded Date Recorded By Document 08/19/20 11:01 YANETH [id number] 08/19/20 11:07 DL 08/19/20 11:01 Wound Center Nurse 1 [Ulcer Assessment] #4 right heel -Current Size (cm) - Length 1.8 -Current Size (cm) - Width 2 -Current Size (cm) - Depth 0.7 -Total Square Cm 3.6 -Photo Taken No -Exudate Amt Medium -Exudate Type Serosanguineous -Wound Margin Thickened & Rolled Under -Granulation Amt Medium (34-66%) -Granulation Quality Red -Necrosis Amt Medium (34-66%) -Necrotic Tissue Type Adherent Slough -Structure Exposed Fat Layer Exposed -Texture (Colleen-wound Skin Appearance) Callus,Scarring -Moisture (Colleen-wound Skin Appearance No Abnormality ) -Color (Colleen-wound Skin Appearance) No Abnormality -Tenderness on Palpation (Colleen-wound No Skin Appearance) -Ulcer Cleansing Wound Cleanser -Foul Odor after Cleansing No -Anesthetic Used 4% Lidocaine Solution WC - Nurse 2 - General Ulcer CM Notes Start: 08/12/20 09:53 Freq: Status: Active Protocol: Activity Type Activity Date Activity User E-Sign Co-Sign Detail Recorded Client Recorded Date Recorded By Document 08/19/20 11:24 VITO [id number] 08/19/20 11:26 08/19/20 11:24 Wound Center Nurse 2 [Procedure/Treatment] -Time 11:24 -Correct Patient Yes -Correct Side, Site, Position Yes -Correct Procedure Yes -Procedure Performed Yes -Type of Procedure Debridement -Clinical Debridement Subcutaneous -Tissue Removed Subcutaneous -Post Debridement (cm) - Length 1.6 -Post Debridement (cm) - Width 2 -Post Debridement (cm) - Depth 0.3 -Total Square (Post) (cm) 3.2 -Area of Debridement (cm) - Length 1.6 -Area of Debridement (cm) - Width 2 -Total Square (Area) (cm) 3.2 -Tunneling No -Undermining/Tunneling No -Circular Undermining No -Wound/Ulcer Outcome Not Healed -Ulcer Cleansing Rinsed/ Irrigated with Saline -Foul Odor after Cleansing No -Bioengineered Tissue No -Bleeding Controlled with Pressure -Offloading No -Treatment Response Procedure Tolerated Well -Debridement - Subq, 1st 20sq cm Yes [See Physician Procedure note for Specifics] Pain Scale: 0-10 Numeric [Pain] -Is Patient Pain Free? Yes NATHAN - Nurse 3 - General Ulcer D/C NN Start: 08/12/20 09:53 Freq: Status: Active Protocol: Activity Type Activity Date Activity User E-Sign Co-Sign Detail Recorded Client Recorded Date Recorded By Document 08/19/20 11:31 JF [id number] 08/19/20 11:31 VITO 08/19/20 11:31 Wound Care Nurse 3 [Wound Dressing] #4 right heel -Ulcer Cleansing Rinsed/ Irrigated with Saline -Foul Odor after Cleansing No -Primary Dressing Applied Promogran Maranda Matter -Primary Dressing Covered/Secured Dry Gauze & with Roll Gauze, Secured with Tape -Promogran Maranda Matter 0 Pain Scale: 0-10 Numeric [Pain] -Is Patient Pain Free? Yes - Visit Discharge [Visit Discharge Information] -Discharge Condition Stable -Ambulatory Status Ambulatory -Transportation Private Auto -Medication Reconcilliation completed Yes & provided to patient/care provider -Clinical Summary of Care Provided Yes Musculoskeletal: No Tenderness to Palpation of Joints or Extremities, Muscle Wasting Neurological: - - Lack of epicritic sensation to light touch is consistent with neuropathy Psych/Mental Status: Normal Affect, Appropriate Debridement Note Post-Debridement Measurements/Treatment - Nurse 2 - General Ulcer CM Notes Start: 08/12/20 09:53 Freq: Status: Active Protocol: Activity Type Activity Date Activity User E-Sign Co-Sign Detail Recorded Client Recorded Date Recorded By Document 08/12/20 10:29 [id number] 08/12/20 10:34 Document 08/19/20 11:24 [id number] 08/19/20 11:26 08/12/20 08/19/20 10:29 11:24 Wound Center Nurse 2 #4 right heel -Time 10:31 11:24 -Correct Patient Yes Yes -Correct Side, Site, Position Yes Yes -Correct Procedure Yes Yes -Procedure Performed Yes Yes -Type of Procedure Debridement Debridement -Clinical Debridement Subcutaneous Subcutaneous -Tissue Removed Subcutaneous Subcutaneous -Post Debridement (cm) - Length 1.8 1.6 -Post Debridement (cm) - Width 2.3 2 -Post Debridement (cm) - Depth 0.2 0.3 -Total Square (Post) (cm) 4.14 3.2 -Area of Debridement (cm) - Length 1.8 1.6 -Area of Debridement (cm) - Width 2.3 2 -Total Square (Area) (cm) 4.14 3.2 -Tunneling No No -Undermining/Tunneling No No -Circular Undermining No No -Wound/Ulcer Outcome Not Healed Not Healed -Ulcer Cleansing Rinsed/ Rinsed/ Irrigated with Irrigated with Saline Saline -Foul Odor after Cleansing No No -Bioengineered Tissue No No -Bleeding Controlled with Pressure Pressure -Offloading Yes No -Type of Offloading Surgical Shoe -Treatment Response Procedure Procedure Tolerated Well Tolerated Well -Debridement - Subq, 1st 20sq cm Yes Yes Pain Scale: 0-10 Numeric Is Patient Pain Free? Yes Yes - Nurse 3 - General Ulcer D/C NN Start: 08/12/20 09:53 Freq: Status: Active Protocol: Activity Type Activity Date Activity User E-Sign Co-Sign Detail Recorded Client Recorded Date Recorded By Document 08/12/20 10:49 RB [id number] 08/12/20 10:51 RB Document 08/19/20 11:31 [id number] 08/19/20 11:31 08/12/20 08/19/20 10:49 11:31 Wound Care Nurse 3 #4 right heel -Ulcer Cleansing Rinsed/ Rinsed/ Irrigated with Irrigated with Saline Saline -Foul Odor after Cleansing No -Primary Dressing Applied Promogran Maranda Matter -Other Dressing promogran -Primary Dressing Covered/Secured with Dry Gauze,Dry Dry Gauze & Gauze & Roll Roll Gauze, Gauze,Secured Secured with with Tape Tape -Promogran Maranda Matter 0 Treatment Response Procedure Tolerated Well Vital Signs Blood Pressure (90/60-120/80) 150/70 H Blood Pressure Mean (mm Hg) 96 Source Monitor Position Semi-Fowlers Blood Pressure Location Left Arm Pain Scale: 0-10 Numeric Is Patient Pain Free? Yes Yes - Visit Discharge Discharge Condition Stable Stable Ambulatory Status Ambulatory Ambulatory Transportation Private Auto Private Auto Medication Reconcilliation completed & No Yes provided to patient/care provider Clinical Summary of Care Provided Yes Yes Wound debrided: heel Laterality: Right Wound Grade/Stage: grade 1 Type of Debridement: Excisional debridement Anesthesia Used: 5% Lidocaine Gel Depth: in the subcutaneous layer Percentage of wound debrided: 100 Instrument Used: #15 blade Tissue Removed: fibrous, devitalized subcuteanous, biofilm, slough Severity: Fat Layer Exposed Amount of bleeding with debridement: Mild Bleeding Controlled with: Pressure Patient tolerated procedure well Assessment/Plan Active Problems Delayed wound healing (Acute) Renal failure (Acute) Type 2 diabetes mellitus with diabetic polyneuropathy (Chronic) Ulcer of right foot with fat layer exposed (Chronic) Assessment: stinson grade 1, right heel (A1c: 5.8%). cellulitis / infection resolved right foot. diabetes. renal failure no hemodialysis. malnutrition suspected. delayed healing. peripheral vascular disease ruled out Plan: The patient was seen and examined at the wound center today and was referred from the [facility]. A subcutaneous debridement was performed today as noted in the clinical panel. The patient tolerated the procedure well. She was advised no local signs of infection at this time and I do not recommend resuming antibiotics. To continue Maranda dressing. She defers advanced wound healing product application and even a split thickness skin graft. This would reduce her chance of delayed healing and infection loss of limb. We discussed an additional advanced product called for regranix which is in the gel format and has growth factors to stimulate healing as well. She is amendable to try this and prior authorization is still pending. This is medically necessary for limb salvage. Prior authorization will be initiated. To wash with soap and water. It is also okay to shower as her heel wound is not submerged in water. The purpose of offloading offloading techniques was reviewed. I do not recommend that she wears her close diabetic shoe even for short periods of getting in and out of medical facilities multiple times a week. She relates she already has a surgical shoe with heel offloading wedge and she was advised to resume use and to maintain compliance. She relates she also obtained an offloading foam boots to in bed. I advised her to bring these in next week for evaluation to see if they are appropriate. Although she has palpable pulses I do recommend screening her with a noninvasive vascular study to evaluate for any potential perfusion deficits. Her medical records from the [facility] will be requested. Her noninvasive vascular studies were reviewed from [facility] January 07, 2020 with triphasic waveforms bilateral and right ABIs of 1.21 and 1.07 and left ABIs of 1.2 and 1.09. The digital pressures were 105 mmHg on the right and 141 mmHg on the left. She also had normal PVR waveforms to the ankle and digital level bilateral. She also had foot x-rays performed on June 25, 2020 to the right foot in which a soft tissue ulceration was identified without radiographic evidence of osteomyelitis. It is noted her lab work from July 08, 2020 demonstrated an A1c level of 5.8 %. I also recommended application of lotion to improve her adjacent skin integrity and the skin integrity on her contralateral foot to avoid other ulcers or infections. I answered all of her questions. To return to the wound healing center in 1 week or call sooner if she has any questions or concerns or signs of infection. Note: [employer] speech recognition security intelligence analyst software was used to create portions of this document. Sound-alike and misspelled words, as well as other security intelligence analyst errors may be contained in the documentation.
[2020-08-26 11:32] VITALS: BP 127/74; PULSE 92; RESP 18; TEMP 37; BMI 26.7
--- NOTE | 2020-08-26 14:55 | PCM.WC.PN ---
(1) Ulcer of right foot with fat layer exposed Status: Chronic Code(s): L97.512 - Non-pressure chronic ulcer of other part of right foot with fat layer exposed (2) Renal failure Status: Acute Code(s): N19 - Unspecified kidney failure (3) Type 2 diabetes mellitus with diabetic polyneuropathy Status: Chronic Code(s): E11.42 - Type 2 diabetes mellitus with diabetic polyneuropathy (4) Delayed wound healing Status: Acute Code(s): T14.8XXD - Other injury of unspecified body region, subsequent encounter Type of Wound Date of Service: 08/26/20 Chief Complaint: heel ulcer History of Wound: This is a 45-year-old female who presents to the wound healing center today for left heel ulcer (chronic). The wound is pink and she applies keyla. She denies redness, odor. She completed a course of antibiotics previously and denies fever, chill, nausea, vomiting. She does not know the current status of her regranix advanced wound healing product that was ordered last week. She obtained foam boots to wear in bed to protect her heel. She forgot to bring this today for evaluation. Progress of Wound: Stable - Physical Exam Vital Signs Temp Pulse Resp BP 98.6 F 92 18 127/74 H 08/26/20 11:32 08/26/20 11:32 08/26/20 11:32 08/26/20 11:32 General: Alert, Oriented x3, Cooperative, No apparent distress HEENT: Atraumatic Extremities: No cyanosis, Capillary Refill Less than 3 Seconds, No Calf Tenderness, Diminished Peripheral Pulses, Edema Skin: Ulcer/ Wound - No purulence, erythema, string, odor, infection Wound Measurements and Assessment WC - Nurse 1 - General Ulcer Measurement Start: 08/12/20 09:53 Freq: Status: Active Protocol: Activity Type Activity Date Activity User E-Sign Co-Sign Detail Recorded Client Recorded Date Recorded By Document 08/26/20 11:32 RB [id number] 08/26/20 11:38 RB 08/26/20 11:32 Wound Center Nurse 1 [Ulcer Assessment] #4 right heel -Combined with other wound No -Current Size (cm) - Length 1.5 -Current Size (cm) - Width 2 -Current Size (cm) - Depth 0.3 -Total Square Cm 3.0 -Tunneling No -Undermining/Tunneling No -Circular Undermining No -Exudate Amt Small -Exudate Type Serosanguineous -Wound Margin Thickened -Granulation Amt Medium (34-66%) -Granulation Quality [place] -Slough/Fibrin Yes -Necrosis Amt Small (1-33%) -Necrotic Tissue Type Adherent Slough -Structure Exposed N/A -Texture (Colleen-wound Skin Appearance) Assessed,Callus -Moisture (Colleen-wound Skin Appearance Assessed ) -Color (Colleen-wound Skin Appearance) Assessed -Temperature (Colleen-wound Skin No Abnormality Appearance) (Pt Warm) -Tenderness on Palpation (Colleen-wound No Skin Appearance) -Ulcer Cleansing Wound Cleanser -Foul Odor after Cleansing No -Anesthetic Used 4% Lidocaine Solution NATHAN - Nurse 2 - General Ulcer CM Notes Start: 08/12/20 09:53 Freq: Status: Active Protocol: Activity Type Activity Date Activity User E-Sign Co-Sign Detail Recorded Client Recorded Date Recorded By Document 08/26/20 12:00 VITO [id number] 08/26/20 12:07 VITO 08/26/20 12:00 Wound Center Nurse 2 [Procedure/Treatment] -Time 12:06 -Correct Patient Yes -Correct Side, Site, Position Yes -Correct Procedure Yes -Procedure Performed Yes -Type of Procedure Debridement -Clinical Debridement Subcutaneous -Tissue Removed Subcutaneous -Post Debridement (cm) - Length 1.5 -Post Debridement (cm) - Width 2.1 -Post Debridement (cm) - Depth 0.3 -Total Square (Post) (cm) 3.15 -Area of Debridement (cm) - Length 1.5 -Area of Debridement (cm) - Width 2.1 -Total Square (Area) (cm) 3.15 -Tunneling No -Undermining/Tunneling No -Circular Undermining No -Wound/Ulcer Outcome Not Healed -Ulcer Cleansing Rinsed/ Irrigated with Saline -Foul Odor after Cleansing No -Bioengineered Tissue No -Bleeding Controlled with Pressure -Offloading No -Treatment Response Procedure Tolerated Well -Debridement - Subq, 1st 20sq cm Yes [See Physician Procedure note for Specifics] Pain Scale: 0-10 Numeric [Pain] -Is Patient Pain Free? Yes NATHAN - Nurse 3 - General Ulcer D/C NN Start: 08/12/20 09:53 Freq: Status: Active Protocol: Activity Type Activity Date Activity User E-Sign Co-Sign Detail Recorded Client Recorded Date Recorded By Document 08/26/20 12:07 [id number] 08/26/20 12:07 08/26/20 12:07 Wound Care Nurse 3 [Wound Dressing] #4 right heel -Ulcer Cleansing Rinsed/ Irrigated with Saline -Foul Odor after Cleansing No -Primary Dressing Applied Promogran Keyla Matter -Primary Dressing Covered/Secured Dry Gauze & with Roll Gauze, Secured with Tape -Promogran Keyla Matter 1 Pain Scale: 0-10 Numeric [Pain] -Is Patient Pain Free? Yes WC - Visit Discharge [Visit Discharge Information] -Discharge Condition Stable -Ambulatory Status Ambulatory -Transportation Private Auto -Medication Reconcilliation completed Yes & provided to patient/care provider -Clinical Summary of Care Provided Yes Musculoskeletal: No Tenderness to Palpation of Joints or Extremities, Muscle Wasting Neurological: - - Altered limited sensation to light touch Psych/Mental Status: Normal Affect, Appropriate Debridement Note Post-Debridement Measurements/Treatment - Nurse 2 - General Ulcer CM Notes Start: 08/12/20 09:53 Freq: Status: Active Protocol: Activity Type Activity Date Activity User E-Sign Co-Sign Detail Recorded Client Recorded Date Recorded By Document 08/12/20 10:29 [id number] 08/12/20 10:34 Document 08/19/20 11:24 [id number] 08/19/20 11:26 Document 08/26/20 12:00 [id number] 08/26/20 12:07 08/12/20 08/19/20 08/26/20 10:29 11:24 12:00 Wound Center Nurse 2 #4 right heel -Time 10:31 11:24 12:06 -Correct Patient Yes Yes Yes -Correct Side, Site, Position Yes Yes Yes -Correct Procedure Yes Yes Yes -Procedure Performed Yes Yes Yes -Type of Procedure Debridement Debridement Debridement -Clinical Debridement Subcutaneous Subcutaneous Subcutaneous -Tissue Removed Subcutaneous Subcutaneous Subcutaneous -Post Debridement (cm) - Length 1.8 1.6 1.5 -Post Debridement (cm) - Width 2.3 2 2.1 -Post Debridement (cm) - Depth 0.2 0.3 0.3 -Total Square (Post) (cm) 4.14 3.2 3.15 -Area of Debridement (cm) - Length 1.8 1.6 1.5 -Area of Debridement (cm) - Width 2.3 2 2.1 -Total Square (Area) (cm) 4.14 3.2 3.15 -Tunneling No No No -Undermining/Tunneling No No No -Circular Undermining No No No -Wound/Ulcer Outcome Not Healed Not Healed Not Healed -Ulcer Cleansing Rinsed/ Rinsed/ Rinsed/ Irrigated with Irrigated with Irrigated with Saline Saline Saline -Foul Odor after Cleansing No No No -Bioengineered Tissue No No No -Bleeding Controlled with Pressure Pressure Pressure -Offloading Yes No No -Type of Offloading Surgical Shoe -Treatment Response Procedure Procedure Procedure Tolerated Well Tolerated Well Tolerated Well -Debridement - Subq, 1st 20sq cm Yes Yes Yes Pain Scale: 0-10 Numeric Is Patient Pain Free? Yes Yes Yes - Nurse 3 - General Ulcer D/C NN Start: 08/12/20 09:53 Freq: Status: Active Protocol: Activity Type Activity Date Activity User E-Sign Co-Sign Detail Recorded Client Recorded Date Recorded By Document 08/12/20 10:49 [id number] 08/12/20 10:51 RB Document 08/19/20 11:31 [id number] 08/19/20 11:31 Document 08/26/20 12:07 [id number] 08/26/20 12:07 08/12/20 08/19/20 08/26/20 10:49 11:31 12:07 Wound Care Nurse 3 #4 right heel -Ulcer Cleansing Rinsed/ Rinsed/ Rinsed/ Irrigated with Irrigated with Irrigated with Saline Saline Saline -Foul Odor after Cleansing No No -Primary Dressing Applied Promogran Promogran Keyla Matter Keyla Matter -Other Dressing promogran -Primary Dressing Covered/Secured with Dry Gauze,Dry Dry Gauze & Dry Gauze & Gauze & Roll Roll Gauze, Roll Gauze, Gauze,Secured Secured with Secured with with Tape Tape Tape -Promogran Keyla Matter 0 1 Treatment Response Procedure Tolerated Well Vital Signs Blood Pressure (90/60-120/80) 150/70 H Blood Pressure Mean (mm Hg) 96 Source Monitor Position Semi-Fowlers Blood Pressure Location Left Arm Pain Scale: 0-10 Numeric Is Patient Pain Free? Yes Yes Yes - Visit Discharge Discharge Condition Stable Stable Stable Ambulatory Status Ambulatory Ambulatory Ambulatory Transportation Private Auto Private Auto Private Auto Medication Reconcilliation completed & No Yes Yes provided to patient/care provider Clinical Summary of Care Provided Yes Yes Yes Wound debrided: posterior heel Laterality: Left Wound Grade/Stage: 1 Type of Debridement: Excisional debridement Anesthesia Used: 5% Lidocaine Gel Depth: in the subcutaneous layer Percentage of wound debrided: 100 Instrument Used: #15 blade Tissue Removed: fibrous, devitalized subcutaneous, biofilm, slough Severity: Fat Layer Exposed Amount of bleeding with debridement: Mild Bleeding Controlled with: Pressure Patient tolerated procedure well Assessment/Plan Active Problems Delayed wound healing (Acute) Renal failure (Acute) Type 2 diabetes mellitus with diabetic polyneuropathy (Chronic) Ulcer of right foot with fat layer exposed (Chronic) Assessment: stinson grade 1, right heel (A1c: 5.8%). cellulitis / infection resolved right foot. diabetes. renal failure no hemodialysis. malnutrition suspected. delayed healing. peripheral vascular disease ruled out Plan: The patient was seen and examined at the wound center today and was referred from the [facility]. A subcutaneous debridement was performed today as noted in the clinical panel. The patient tolerated the procedure well. She was advised no local signs of infection at this time and I do not recommend resuming antibiotics. To continue Keyla dressing. She defers advanced wound healing product application and even a split thickness skin graft. This would reduce her chance of delayed healing and infection loss of limb. We discussed an additional advanced product called for regranix which is in the gel format and has growth factors to stimulate healing as well. She is amendable to try this and prior authorization is still pending. This is medically necessary for limb salvage. Prior authorization will be initiated. To wash with soap and water. It is also okay to shower as her heel wound is not submerged in water. The purpose of offloading offloading techniques was reviewed. I do not recommend that she wears her close diabetic shoe even for short periods of getting in and out of medical facilities multiple times a week. She relates she already has a surgical shoe with heel offloading wedge and she was advised to resume use and to maintain compliance. She relates she also obtained an offloading foam boots to in bed. I advised her to bring these in next week for evaluation to see if they are appropriate. Although she has palpable pulses I do recommend screening her with a noninvasive vascular study to evaluate for any potential perfusion deficits. Her medical records from the [facility] will be requested. Her noninvasive vascular studies were reviewed from [facility] January 07, 2020 with triphasic waveforms bilateral and right ABIs of 1.21 and 1.07 and left ABIs of 1.2 and 1.09. The digital pressures were 105 mmHg on the right and 141 mmHg on the left. She also had normal PVR waveforms to the ankle and digital level bilateral. She also had foot x-rays performed on June 25, 2020 to the right foot in which a soft tissue ulceration was identified without radiographic evidence of osteomyelitis. It is noted her lab work from July 08, 2020 demonstrated an A1c level of 5.8 %. I also recommended application of lotion to improve her adjacent skin integrity and the skin integrity on her contralateral foot to avoid other ulcers or infections. I answered all of her questions. To return to the wound healing center in 1 week or call sooner if she has any questions or concerns or signs of infection. Note: [employer] speech recognition loss prevention and safety manager software was used to create portions of this document. Sound-alike and misspelled words, as well as other loss prevention and safety manager errors may be contained in the documentation.
== END 2020-09-04 23:59 ==
LOC: WC 11:30
PROVIDERS: PCP Family Medicine; Visit Provider Podiatrist
DX: E11.621 Type 2 diabetes mellitus with foot ulcer (principal); L97.422 Non-pressure chronic ulcer of left heel and midfoot with fat layer exposed; E11.22 Type 2 diabetes mellitus with diabetic chronic kidney disease; N18.9 Chronic kidney disease, unspecified; E11.42 Type 2 diabetes mellitus with diabetic polyneuropathy; Z79.02 Long term (current) use of antithrombotics/antiplatelets; Z79.4 Long term (current) use of insulin; Z79.899 Other long term (current) drug therapy
CPT/HCPCS: 11042

== ENCOUNTER 2020-09-14 23:58 | Inpatient (IN) | payer MEDICARE, MEDICAID, SELFPAY ==
[2020-09-09 09:59] VITALS: BMI 26.7
[2020-09-14 23:59] VITALS: BP 152/73; PULSE 94; RESP 16; TEMP 36.9; O2SAT 96; BMI 29.4
[2020-09-15] VITALS (9 sets, daily range): BP systolic 125–152; BP diastolic 47–73; PULSE 74–94; RESP 14–16; TEMP 36.6–37.2; O2SAT 90–96; BMI 27.1
--- NOTE | 2020-09-15 00:10 | EX.ED.DYSGE1 ---
HPI History of Present Illness Chief Complaint: Wound Narrative Narrative: Patient presents with right foot pain redness and swelling that started yesterday. She has a chronic right heel ulcer over her great toe is involved right now. She has significant neuropathy and has no feelings in her foot and just does not remember if she had any injury. She has no fever or chills. She had dialysis today and has no respiratory symptoms. [facility] Medical History (Updated 09/15/20 @ 01:[address] Rebel Valderrama MD) Acute hemodialysis patient Diabetes Dialysis patient Non-smoker TIA (transient ischemic attack) Home Medications Lantus U-100 Insulin 38 unit SQ QHS 02/09/16 [History Last Taken 02/08/16] clopidogrel 75 mg PO DAILY #30 tablet 02/13/16 [Rx Last Taken Unknown] pantoprazole 40 mg PO DAILY #14 tablet 02/13/16 [Rx Last Taken Unknown] amlodipine 10 mg PO MOWEFRSA 01/23/20 [History Last Taken Unknown] fenofibrate nanocrystallized 145 mg PO DAILY 01/23/20 [History Last Taken Unknown] insulin aspart U-100 See Protocol SUBCUT TIDCM 01/23/20 [History Last Taken Unknown] losartan 4 tab PO DAILY 01/23/20 [History Last Taken Unknown] lovastatin 40 mg PO DAILY 01/23/20 [History Last Taken Unknown] sevelamer carbonate 800 mg PO TID 01/23/20 [History Last Taken Unknown] Allergy/AdvReac Type Severity Reaction Status Date / Time atorvastatin [From Lipitor] AdvReac Nausea/Vom/ Verified 07/08/20 10:20 Diarrhea rosuvastatin [From Crestor] AdvReac Nausea/Vom/ Verified 07/08/20 10:20 Diarrhea Social History Smoking Status: Never smoker ROS ROS ED ROS Narrative Past medical history: Reviewed, includes diabetes with chronic renal failure on hemodialysis Monday, hypertension, hyperlipidemia, diabetic foot ulcer Medications: Reviewed Social history: Noncontributory Review of systems: All systems negative except as indicated General: No fever Eyes: No visual changes ENT: No upper airway congestion, normal voice Neck: No neck pain Cardiovascular: No chest pain Respiratory: No shortness of breath or cough Gastrointestinal: No abdominal pain, nausea vomiting or diarrhea Genitourinary: No dysuria Musculoskeletal: Foot redness as in HPI Skin: Redness is in HPI no other rash. Neurological: No memory loss, confusion or any focal weakness Psych: No recent behavioral changes Hematologic: No easy bleeding or easy bruising EXAM Physical Exam Narrative Exam Narrative: Physical exam General: Patient appears chronically ill. Head: Normocephalic, Atraumatic Eyes: Conjunctiva not pale ENT: Moist mucous membranes Neck: Supple, Nontender, No lymphadenopathy Cardiovascular: Regular rate, Regular rhythm Respiratory: No distress, CTA bilaterally Abdomen: Soft, Nontender, Nondistended Back: Nontender, Normal Inspection. Negative for: CVA tenderness Extremities: Left upper extremity shows the fistula with palpable thrill no signs of infection. Right foot exam shows a heel ulcer which does not show any signs of infection. There is quite a bit of edema and contusion to the great toe although there is the beginning of lymphangitic streaking which goes to the ankle. There is no leg involvement. No calf pain no lower extremity edema. Skin: As above Neurological: Alert, Normal Strength, decreased peripheral sensation Psychological: Normal affect Const Vital Signs: 09/14/20 23:59 09/15/20 00:00 Temperature 98.5 F 98.5 F Temperature Source Oral Oral Pulse Rate 94 94 Respiratory Rate 16 16 Blood Pressure 152/73 H 152/73 H Blood Pressure Mean 99 99 Pulse Ox 96 96 Oxygen Delivery Method Room Air Room Air MDM MDM MDM Narrative Medical decision making narrative: Patient has a toe infection with lymphangitic streaking she is diabetic on dialysis she has impaired wound healing ability. I will put her on IV antibiotics and admit her for observation. At this time there is no evidence of osteomyelitis. Lab Data Labs: Laboratory Results - last 24 hr 09/15/20 09/15/20 00:33 00:33 WBC 10.7 RBC 2.63 L Hgb 9.0 L Hct 28.4 L MCV 108.0 H MCH 34.2 H MCHC 31.7 L RDW Std Deviation 47.7 H RDW Coeff of Bassem 12.0 Plt Count 392 MPV 9.8 Immature Gran % (Auto) 0.600 Neut % (Auto) 81.6 H Lymph % (Auto) 6.3 L [place] % (Auto) 10.8 H Eos % (Auto) 0.3 Baso % (Auto) 0.4 Absolute Neuts (auto) 8.8 H Absolute Lymphs (auto) 0.68 L Nucleated RBC % 0 ESR 116 H Sodium Cancelled Potassium Cancelled Chloride Cancelled Carbon Dioxide Cancelled Anion Gap Cancelled BUN Cancelled Creatinine Cancelled Estim Creat Clear Calc Cancelled Est GFR (MDRD) Af Amer Cancelled Est GFR (MDRD) Non-Af Cancelled BUN/Creatinine Ratio Cancelled Glucose Cancelled Calcium Cancelled Total Bilirubin Cancelled AST Cancelled ALT Cancelled Alkaline Phosphatase Cancelled C-React Prot Ext Range Cancelled Total Protein Cancelled Albumin Cancelled Globulin Cancelled Albumin/Globulin Ratio Cancelled Radiography Diagnostic Testing: Radiology Impression Foot X-Ray 09/15/20 00:40 IMPRESSION: Soft tissue swelling of the great toe. No definitive osteomyelitis Electronically Signed: Phu DO Leo at 1:11 EDT Tel , Service support , Foot x-ray read by radiologist and reviewed by myself soft tissue swelling. No fracture. Discharge Plan Triage Chief Complaint: Wound ED Provider: Rebel Valderrama Dx/Rx/DC Orders Clinical Impression: Diabetic foot Prescriptions: No Action Lantus U-100 Insulin 100 UNIT/ML solution 38 unit SQ QHS RF: 0 pantoprazole 40 MG tablet 40 mg PO DAILY Qty: 14 RF: 0 clopidogrel 75 MG tablet 75 mg PO DAILY Qty: 30 RF: 0 lovastatin 40 MG tablet 40 mg PO DAILY RF: 0 losartan 25 MG tablet 4 tab PO DAILY RF: 0 insulin aspart U-100 100 UNITS/ML insulin pen See Protocol units subcut TIDCM RF: 0 fenofibrate nanocrystallized 145 MG tablet 145 mg PO DAILY RF: 0 sevelamer carbonate 800 MG tablet 800 mg PO TID RF: 0 amlodipine 10 MG tablet 10 mg PO MOWEFRSA RF: 0 Primary Care Provider: Gabriel Beaver Referrals: Gabriel Beaver MD [Primary Care Provider] - Disposition Disposition: Acute Care Hospital [facility]
--- NOTE | 2020-09-15 00:40 | RAD_ITS ---
STUDY: X-RAY - RIGHT FOOT CLINICAL: Female, 45 years old. pain, worsening infection in right great toe. TECHNIQUE: 3 view(s) of the foot. COMPARISON: None. FINDINGS: No acute fracture or dislocation. Soft tissue swelling involving the great toe. No evidence of osteomyelitis. Remainder is within normal limits RAD/Foot min 3 Views IMPRESSION: Soft tissue swelling of the great toe. No definitive osteomyelitis Electronically Signed: Phu Bailey DO at 1:11 EDT Tel , Service support ,
[2020-09-15 00:44] LABS: Absolute Lymphocyte Count 0.68 X10^3/uL (0.83-4.51); Absolute Neutrophil Count 8.8 X10^3/uL (2.0-7.7); Basophil# 0.04 X10^3/uL; Basophil% 0.4 % (0-1); Eosinophil# 0.03 X10^3/uL; Eosinophils% 0.3 % (0-5); Hematocrit 28.4 % (37-47); Lymphocyte # 0.68 X10^3/ul (0.83-4.51); Lymphocyte % 6.3 % (19-41); Mean Corp Hgb Conc 31.7 g/dL (32-36); Mean Corpuscular Hgb 34.2 pg (27.0-32.0); Mean Platelet Vol. 9.8 fl (6.2-12.0); Monocyte# 1.16 X10^3/uL; Monocyte% 10.8 % (0-10); NRBC Flagged by Analyzer 0 % (0-5); Neutrophil # 8.77 X10^3/uL (2.7-7.7); Neutrophil % 81.6 % (47-70); Platelet Count 392 K/mm3 (150-450); RBC Distribution Width SD 47.7 fl (35.1-43.9); Red Blood Count 2.63 M/mm3 (4.2-5.4); White Blood Count 10.7 K/mm3 (4.4-11.0)
[2020-09-15 00:46] LABS: Erythrocyte Sedimentation Rate 116 mm/hr (0-30)
[2020-09-15 01:53] LABS: ALB/GLOB Ratio 0.6 RATIO (0.9-2.4); AST(SGOT) 13 U/L (15-37); Alanine Aminotransfer ALT/SGPT 19 U/L (13-56); Albumin, Serum 2.8 g/dL (3.2-5.0); Alkaline Phosphatase 41 U/L (45-117); Anion Gap 8 (5-15); BUN 46 mg/dL (7-18); BUN/Creat Ratio 6.2 RATIO (10-20); Calcium,Total 8.8 mg/dL (8.5-10.1); Chloride 96 mmol/L (98-107); Creatinine, Serum 7.37 mg/dL (0.55-1.02); EST Glomerular Filtration Rate 6 mL/min (>60); Est Glom Filt Rate - Afr Amer 8 mL/min (>60); Estimated Creatinine Clearance 8.32 ml/min; Globulin 4.4 g/dL (2.2-4.2); Glucose 268 mg/dL (74-106); Potassium 4.4 mmol/L (3.5-5.1); Protein, Total 7.2 g/dL (6.4-8.2); Sodium Level 130 mmol/L (136-145)
--- NOTE | 2020-09-15 01:56 | HP.PCM_ITS ---
HPI - General HPI Narrative PERCY BENJAMIN, is a 45 F who presents today with a right infected toe. Patient reports that she has a chronic right heel ulcer but earlier today she noticed her right big toe was red swollen and tender. Patient is diabetic and has neuropathy and does not remember injuring toe however reports that they were walking on rugged terrain and is concerned patient may have injured it during this time. Right toe and foot noted to have lymphangitic streaking up to ankle. Patient has also on dialysis and had dialysis earlier today. PENDING SALE TO [facility] Medical History (Updated 09/15/20 @ 02:07 by Natalie Moran NP-C) Acute hemodialysis patient Diabetes Dialysis patient Non-smoker TIA (transient ischemic attack) Home Medications Lantus U-100 Insulin 38 unit SQ QHS 02/09/16 [History Last Taken 02/08/16] clopidogrel 75 mg PO DAILY #30 tablet 02/13/16 [Rx Last Taken Unknown] pantoprazole 40 mg PO DAILY #14 tablet 02/13/16 [Rx Last Taken Unknown] amlodipine 10 mg PO MOWEFRSA 01/23/20 [History Last Taken Unknown] fenofibrate nanocrystallized 145 mg PO DAILY 01/23/20 [History Last Taken Unknown] insulin aspart U-100 See Protocol SUBCUT TIDCM 01/23/20 [History Last Taken Unknown] losartan 4 tab PO DAILY 01/23/20 [History Last Taken Unknown] lovastatin 40 mg PO DAILY 01/23/20 [History Last Taken Unknown] sevelamer carbonate 800 mg PO TID 01/23/20 [History Last Taken Unknown] Allergy/AdvReac Type Severity Reaction Status Date / Time atorvastatin [From Lipitor] AdvReac Nausea/Vom/ Verified 07/08/20 10:20 Diarrhea rosuvastatin [From Crestor] AdvReac Nausea/Vom/ Verified 07/08/20 10:20 Diarrhea Social History Smoking Status: Never smoker ROS Constitutional Constitutional: Denies anorexia, chills, fatigue or fever(s) Cardiovascular Cardiovascular: Denies chest pain, edema, palpitations or syncope Respiratory/Chest Respiratory/Chest: Denies cough, hemoptysis or shortness of breath at rest Gastrointestinal Gastrointestinal: Denies abdominal pain, constipation, diarrhea, nausea or vomiting Genitourinary Genitourinary: Denies dysuria Musculoskeletal Musculoskeletal: Denies back pain, extremity pain or joint pain Integumentary Integumentary: Reports wounds; Denies dry skin or rash Neurologic Neurologic: Denies abnormal gait, abnormal speech, confusion or dizziness Psychiatric Psychiatric: Denies anxiety or depression Endocrine Endocrinology: Denies change in body appearance, cold intolerance or heat intolerance Hematologic/Lymphatic Hematologic/Lymphatic: Denies easy bleeding or easy bruising Vital Signs Vital Signs Vital Signs: 09/14/20 23:59 09/15/20 00:00 Temperature 98.5 F 98.5 F Temperature Source Oral Oral Pulse Rate 94 94 Respiratory Rate 16 16 Blood Pressure 152/73 H 152/73 H Blood Pressure Mean 99 99 Pulse Ox 96 96 Oxygen Delivery Method Room Air Room Air Physical Exam Const alert and oriented x3 General Appearance: cooperative HEENT normocephalic and head/scalp atraumatic Eyes PERRL and EOMs intact bilaterally Neck supple, no JVD and thyroid normal General: trachea midline Lymph Lymphatic: no lymphadenopathy noted Resp normal respiratory effort, normal air movement and clear to auscultation bilaterally Cardio regular rate, regular rhythm, S1 normal heart sound and S2 normal heart sound GI normal to inspection, nondistended, normoactive bowel sounds, soft to palpation and non-tender Extremity normal capillary refill and no clubbing, cyanosis or edema General Extremity: no tenderness to palpation of joints or extremities Skin General Skin Exam: no breakdown and turgor normal Lesions: no lesions Rashes: no rashes Wounds: wounds noted bed dusky red, drainage purulent and yellow, margins surrounding erythema and edilma Neuro CN's II-XII intact bilaterally Psych thought process normal, cooperative and affect normal Appearance: appropriate Lab / Micro Data Result Diagrams: 09/15/20 00:33 09/15/20 01:25 Labs: Laboratory Results - last 24 hr 09/15/20 09/15/20 09/15/20 00:33 00:33 01:25 WBC 10.7 RBC 2.63 L Hgb 9.0 L Hct 28.4 L MCV 108.0 H MCH 34.2 H MCHC 31.7 L RDW Std Deviation 47.7 H RDW Coeff of Bassem 12.0 Plt Count 392 MPV 9.8 Immature Gran % (Auto) 0.600 Neut % (Auto) 81.6 H Lymph % (Auto) 6.3 L [place] % (Auto) 10.8 H Eos % (Auto) 0.3 Baso % (Auto) 0.4 Absolute Neuts (auto) 8.8 H Absolute Lymphs (auto) 0.68 L Nucleated RBC % 0 ESR 116 H Sodium Cancelled 130 L Potassium Cancelled 4.4 Chloride Cancelled 96 L Carbon Dioxide Cancelled 26.0 Anion Gap Cancelled 8 BUN Cancelled 46 H Creatinine Cancelled 7.37 H Estim Creat Clear Calc Cancelled 8.32 Est GFR (MDRD) Af Amer Cancelled 8 L Est GFR (MDRD) Non-Af Cancelled 6 L BUN/Creatinine Ratio Cancelled 6.2 L Glucose Cancelled 268 H Calcium Cancelled 8.8 Total Bilirubin Cancelled 0.50 AST Cancelled 13 L ALT Cancelled 19 Alkaline Phosphatase Cancelled 41 L C-React Prot Ext Range Cancelled 241.00 H Total Protein Cancelled 7.2 Albumin Cancelled 2.8 L Globulin Cancelled 4.4 H Albumin/Globulin Ratio Cancelled 0.6 L Radiology Impression Foot X-Ray 09/15/20 00:40 IMPRESSION: Soft tissue swelling of the great toe. 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 Diabetic foot -Admit to MedSurg -Continue IV clindamycin, first dose given in ER -Consult wound nurse -Trend CBC and CMP daily -Vital signs per protocol 2. Type 2 diabetes mellitus -Continue home regimen of Lantus -AC at bedtime blood sugar checks with sliding scale insulin ordered 3. Hyperlipidemia -Continue lovastatin. 4. Hypertension -Continue losartan and amlodipine -Vital signs per protocol 5. Dialysis patient -Patient is Monday dialysis received dialysis prior to coming in -Continue Renvela and fenofibrate 6. Noncompliance with medication regimen DVT prophylaxis-subcu Lovenox This patient was seen by TIEN Allan under the supervision of Dr. Preciado.
[2020-09-15] MEDS: Clopidogrel Bisulfate 75 MG Tablet PO (08:53)
[2020-09-15] MEDS: SEVELAMER CARBONATE 800 MG TABLET PO ×3 (08:53→17:00)
[2020-09-15] MEDS: Losartan Potassium 100 MG Tablet PO (08:53)
[2020-09-15] MEDS: Insulin Lispro 100 UNIT/ML INSULN.PEN SC ×4 (08:53→21:08)
[2020-09-15] MEDS: Pantoprazole Sodium 40 MG Tablet PO (08:53)
[2020-09-15] MEDS: Fenofibrate 145 MG Tablet PO (09:02)
[2020-09-15] MEDS: Enoxaparin 30 MG/0.3 ML Syringe SC (09:04)
[2020-09-15 09:40] LABS: Bedside Glucose 235 mg/dL (70-110)
--- NOTE | 2020-09-15 09:47 | PCM.PN.BLA ---
Progress Note 45-year-old diabetic who was admitted with a 1 day history of right great toe infection She follows with Dr. Schneider in the outpatient. She had a chronic right heel ulcer. Admitting foot x-ray showed no osteomyelitis, showed soft tissue swelling in toe area Vitals are stable. Labs reviewed She had had dialysis yesterday -Monday?Monday?Monday Her last HbA1c was 9.7 in 2016. We will consult podiatry and nephrology Continue on Lantus and insulin sliding scale
[2020-09-15 10:24] LABS: Hemoglobin A1c 6.7 % (3.8-5.6)
--- NOTE | 2020-09-15 11:17 | NURSING ---
wound photo: right great toe
--- NOTE | 2020-09-15 11:17 | NURSING ---
wound photo: right great toe
--- NOTE | 2020-09-15 11:18 | ONC.PHONE ---
wound photo: right heel
[2020-09-15 11:55] LABS: Bedside Glucose 308 mg/dL (70-110)
--- NOTE | 2020-09-15 12:00 | PCM.CONS.R ---
HPI Consult Data Date of Consult: 09/15/20 HPI Narrative HPI Narrative: PERCY BENJAMIN, is a 45 F who presents with a right great toe infection.?She has ESRD due to diabetes on HD MWF at [facility] dialysis center, Dr. Knapp as primary air intercept controller. She received full treatment yesterday. Patient reports that she has a chronic right heel ulcer but earlier today she noticed her right big toe was red swollen and tender.? Patient is a diabetic and has neuropathy and does not remember injuring toe however reported that they were walking on rugged terrain and is concerned patient may have injured it during this time.? Right toe and foot noted to have lymphangitic streaking up to ankle on presentation. Denies fever, chills.? PFSH Medical History Acute hemodialysis patient Diabetes Dialysis patient Non-smoker TIA (transient ischemic attack) Home Medications Lantus U-100 Insulin 38 unit SQ QHS 02/09/16 [History Last Taken 02/08/16] clopidogrel 75 mg PO DAILY #30 tablet 02/13/16 [Rx Last Taken Unknown] pantoprazole 40 mg PO DAILY #14 tablet 02/13/16 [Rx Last Taken Unknown] amlodipine 10 mg PO MOWEFRSA 01/23/20 [History Last Taken Unknown] fenofibrate nanocrystallized 145 mg PO DAILY 01/23/20 [History Last Taken Unknown] insulin aspart U-100 See Protocol SUBCUT TIDCM 01/23/20 [History Last Taken Unknown] losartan 4 tab PO DAILY 01/23/20 [History Last Taken Unknown] lovastatin 40 mg PO DAILY 01/23/20 [History Last Taken Unknown] sevelamer carbonate 800 mg PO TID 01/23/20 [History Last Taken Unknown] Allergy/AdvReac Type Severity Reaction Status Date / Time atorvastatin [From Lipitor] AdvReac Nausea/Vom/ Verified 07/08/20 10:20 Diarrhea rosuvastatin [From Crestor] AdvReac Nausea/Vom/ Verified 07/08/20 10:20 Diarrhea Social History Smoking Status: Never smoker Physical Exam Const alert, oriented x3 and no apparent distress Eyes PERRL Resp clear to auscultation bilaterally Cardio regular rate GI non-tender and non-distended Auscultation: normoactive bowel sounds Palpation: soft no CVA tenderness Extremity General Extremity: AV fistula; Negative for edema Skin Skin Narrative: rt great toe infection with erythema, tenderness Neuro moves all extremities Sensorium / Orientation: awake and alert Psych cooperative Lab / Micro Data Result Diagrams: 09/15/20 00:33 09/15/20 01:25 Labs: Laboratory Results - last 24 hr 09/15/20 09/15/20 09/15/20 00:33 00:33 00:33 WBC 10.7 RBC 2.63 L Hgb 9.0 L Hct 28.4 L MCV 108.0 H MCH 34.2 H MCHC 31.7 L RDW Std Deviation 47.7 H RDW Coeff of Bassem 12.0 Plt Count 392 MPV 9.8 Immature Gran % (Auto) 0.600 Neut % (Auto) 81.6 H Lymph % (Auto) 6.3 L [place] % (Auto) 10.8 H Eos % (Auto) 0.3 Baso % (Auto) 0.4 Absolute Neuts (auto) 8.8 H Absolute Lymphs (auto) 0.68 L Nucleated RBC % 0 ESR 116 H Sodium Cancelled Potassium Cancelled Chloride Cancelled Carbon Dioxide Cancelled Anion Gap Cancelled BUN Cancelled Creatinine Cancelled Estim Creat Clear Calc Cancelled Est GFR (MDRD) Af Amer Cancelled Est GFR (MDRD) Non-Af Cancelled BUN/Creatinine Ratio Cancelled Glucose Cancelled Hemoglobin A1c 6.7 H Calcium Cancelled Total Bilirubin Cancelled AST Cancelled ALT Cancelled Alkaline Phosphatase Cancelled C-React Prot Ext Range Cancelled Total Protein Cancelled Albumin Cancelled Globulin Cancelled Albumin/Globulin Ratio Cancelled POC Glucose 09/15/20 09/15/20 09/15/20 01:25 08:37 11:50 WBC RBC Hgb Hct MCV MCH MCHC RDW Std Deviation RDW Coeff of Bassem Plt Count MPV Immature Gran % (Auto) Neut % (Auto) Lymph % (Auto) [place] % (Auto) Eos % (Auto) Baso % (Auto) Absolute Neuts (auto) Absolute Lymphs (auto) Nucleated RBC % ESR Sodium 130 L Potassium 4.4 Chloride 96 L Carbon Dioxide 26.0 Anion Gap 8 BUN 46 H Creatinine 7.37 H Estim Creat Clear Calc 8.32 Est GFR (MDRD) Af Amer 8 L Est GFR (MDRD) Non-Af 6 L BUN/Creatinine Ratio 6.2 L Glucose 268 H Hemoglobin A1c Calcium 8.8 Total Bilirubin 0.50 AST 13 L ALT 19 Alkaline Phosphatase 41 L C-React Prot Ext Range 241.00 H Total Protein 7.2 Albumin 2.8 L Globulin 4.4 H Albumin/Globulin Ratio 0.6 L POC Glucose 235 H 308 H Radiology Impression Foot X-Ray 09/15/20 00:40 IMPRESSION: Soft tissue swelling of the great toe. No definitive osteomyelitis Electronically Signed: Phu Bailey DO at 1:11 EDT Tel , Service support ,
[2020-09-15 13:28] LABS: M R Staph aureus DNA By PCR POSITIVE (Negative); Probe Check PASS; Specimen Processing Control PASS; Staph aureus DNA By PCR POSITIVE (Negative)
--- NOTE | 2020-09-15 15:52 | PHA.PHARE_ITS ---
Consult Pharmacy has been consulted to manage selected antiobiotic: Vancomycin Type of Consult: New start Suspected Infection: Skin/Soft tissue Labs: Sodium 130 mmol/L (136-145) L 09/15/20 01:25 Potassium 4.4 mmol/L (3.5-5.1) 09/15/20 01:25 Chloride 96 mmol/L (98-107) L 09/15/20 01:25 Carbon Dioxide 26.0 mmol/L (21.0-32.0) 09/15/20 01:25 Anion Gap 8 (5-15) 09/15/20 01:25 BUN 46 mg/dL (7-18) H 09/15/20 01:25 Creatinine 7.37 mg/dL (0.55-1.02) H 09/15/20 01:25 Est GFR (MDRD) Af Amer 8 mL/min (>60) L 09/15/20 01:25 Est GFR (MDRD) Non-Af 6 mL/min (>60) L 09/15/20 01:25 BUN/Creatinine Ratio 6.2 RATIO (10-20) L 09/15/20 01:25 Glucose 268 mg/dL (74-106) H 09/15/20 01:25 Microbiology: Microbiology 09/15/20 10:20 Wound - Toe Gram Stain - Final Weight used for dosin.9 kg Estimated Creatinine Clearance: 8ML/MIN Goal Trough: 15-20 mcg/mL Pharmacy Plan for Drug Dosing: Per [facility] vancomycin dosing for patients on hemodialysis, will give initial dose of 1000mg IV x1 today. The patient gets dialysis on // so after the next dialysis session tomorrow will schedule a 500mg vanc dose (7.5 mg/kg) to be given after dialysis tomorrow. Futher dosing after tomorrow will be guided by pre-dialysis random vanc levels, the first level which will be on Monday. Pharmacy Service will continue to monitor and adjust dosing as required. Follow-Up Labs: Trough Vancomycin - pre-dialysis random level Labs to be done on [date and time ordered]: 09/18/20 0600
--- NOTE | 2020-09-15 17:47 | CON.PCM_ITS ---
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 insulin use: with snf use Qualified Code(s): E11.69 - Type 2 diabetes mellitus with other specified complication; Z79.4 - adjunct faculty for medical terminology (current) use of insulin (4) Onycholysis: (5) Chronic heel ulcer with fat layer exposed: QUALIFIERS: Laterality: right Qualified Code(s): L97.412 - Non- pressure chronic ulcer of right heel and midfoot with fat layer exposed (6) Type 2 diabetes mellitus with diabetic polyneuropathy: QUALIFIERS: Diabetes mellitus long chain dyeing machine operator insulin use: unspecified long chain dyeing machine operator insulin use status Qualified Code(s): E11.42 - Type 2 diabetes mellitus with diabetic polyneuropathy PLAN: Reviewed diagnostic data. Reviewed right foot xrays. There is concern for deep infection to the right 1st toe. The right 1st toenail is lysed and was removed simply without incident, there was purulence noted from the dorsal and medial right 1st toe ulceration which was milked and was flushed out using normal saline solution. A deep wound culture was obtained. There was some superficial slough which was selectively debrided using a 15 blade. Site painted with betadine soln and gauze dressing applied. Change daily - otherwise keep clean, dry and intact. MRI has been ordered for further evaluation and is pending at this time. Discussed with patient she may possibly lose toe due to extent of infection. We will check MRI was noted above and follow cultures at this time. Patient is on IV antibiotics at this time. Noninvasive lower extremity arterial studies were ordered for further evaluation of lower extremity arterial flow. Thank you for consult, podiatry will continue to follow. HPI Consult Data Date of Consult: 09/15/20 HPI Narrative HPI Narrative: PERCY BENJAMIN, is a 45 F who presents for right 1st toe infection. She relates she follows with Dr. Schneider [facility], was last seen last monday. She relates right 1st toe was fine at that time, she relates over weekend she went to look at some property with her husb and and she tripped over a root. She has peripheral neuropathy but thinks she may have injured the toe. The toe has become red, swollen, and discolored, there is some drainage. Patient had xrays of the right foot which were negative for fracture or gas. There has been some drainage. Patient has been admitted for further workup and IV antibiotics. Patient has diabetes, also on dialysis. She denies any pain to the toe. Right heel ulcer has been doing well, has been using keyla. She relates she is suppose to wear surgical shoe but she admits she does not wear it all of the time when on her foot. [facility] Medical History (Updated 09/15/20 @ 18:[address] Aaron Green, DPM) Acute hemodialysis patient Diabetes Dialysis patient Non-smoker TIA (transient ischemic attack) Home Medications Lantus U-100 Insulin 38 unit SQ QHS 02/09/16 [History Last Taken 02/08/16] clopidogrel 75 mg PO DAILY #30 tablet 02/13/16 [Rx Last Taken Unknown] pantoprazole 40 mg PO DAILY #14 tablet 02/13/16 [Rx Last Taken Unknown] amlodipine 10 mg PO MOWEFRSA 01/23/20 [History Last Taken Unknown] fenofibrate nanocrystallized 145 mg PO DAILY 01/23/20 [History Last Taken Unknown] insulin aspart U-100 See Protocol SUBCUT TIDCM 01/23/20 [History Last Taken Unknown] losartan 4 tab PO DAILY 01/23/20 [History Last Taken Unknown] lovastatin 40 mg PO DAILY 01/23/20 [History Last Taken Unknown] sevelamer carbonate 800 mg PO TID 01/23/20 [History Last Taken Unknown] Allergy/AdvReac Type Severity Reaction Status Date / Time atorvastatin [From Lipitor] AdvReac Nausea/Vom/ Verified 07/08/20 10:20 Diarrhea rosuvastatin [From Crestor] AdvReac Nausea/Vom/ Verified 07/08/20 10:20 Diarrhea Social History Smoking Status: Never smoker ROS Constitutional Constitutional: Denies chills or fever(s) Gastrointestinal Gastrointestinal: Denies nausea or vomiting Integumentary Integumentary: Reports wounds Physical Exam Const alert, oriented x3 and no apparent distress General Appearance: cooperative and comfortable Extremity Extremity Narrative: Right 1st toe: there is subungual hematoma with lysed nail and underlying ulcer, there is ulcer to the dorsal aspect of the toe at level of the IPJ, also noted ulcer to the medial toe, there is purulent drainage, there is erythema and edema, there is devitalized tissue to most of the medial aspect - appears deep; there is no maloder, there is some light streaking to the dorsal foot. Right heel ulceration down to subcutaneous tissue, and viable and healthy in appears with no evidence of infection. No other open lesions to the right foot or ankle. CFT< 2 seconds to all toes on the right foot, pedal pulses are palpable. The medial 1st toe on the right foot is devitalized. Sensation significant diminished to the right foot c/w chronic peripheral neuropathy. Lab / Micro Data Result Diagrams: 09/15/20 00:33 09/15/20 01:25 Labs: Laboratory Results - last 24 hr 09/15/20 09/15/20 09/15/20 00:33 00:33 00:33 WBC 10.7 RBC 2.63 L Hgb 9.0 L Hct 28.4 L MCV 108.0 H MCH 34.2 H MCHC 31.7 L RDW Std Deviation 47.7 H RDW Coeff of Bassem 12.0 Plt Count 392 MPV 9.8 Immature Gran % (Auto) 0.600 Neut % (Auto) 81.6 H Lymph % (Auto) 6.3 L [place] % (Auto) 10.8 H Eos % (Auto) 0.3 Baso % (Auto) 0.4 Absolute Neuts (auto) 8.8 H Absolute Lymphs (auto) 0.68 L Nucleated RBC % 0 ESR 116 H Sodium Cancelled Potassium Cancelled Chloride Cancelled Carbon Dioxide Cancelled Anion Gap Cancelled BUN Cancelled Creatinine Cancelled Estim Creat Clear Calc Cancelled Est GFR (MDRD) Af Amer Cancelled Est GFR (MDRD) Non-Af Cancelled BUN/Creatinine Ratio Cancelled Glucose Cancelled Hemoglobin A1c 6.7 H Calcium Cancelled Total Bilirubin Cancelled AST Cancelled ALT Cancelled Alkaline Phosphatase Cancelled C-React Prot Ext Range Cancelled Total Protein Cancelled Albumin Cancelled Globulin Cancelled Albumin/Globulin Ratio Cancelled S.aureus Protein A PCR MRSA (PCR) POC Glucose 09/15/20 09/15/20 09/15/20 01:25 08:37 10:20 WBC RBC Hgb Hct MCV MCH MCHC RDW Std Deviation RDW Coeff of Bassem Plt Count MPV Immature Gran % (Auto) Neut % (Auto) Lymph % (Auto) [place] % (Auto) Eos % (Auto) Baso % (Auto) Absolute Neuts (auto) Absolute Lymphs (auto) Nucleated RBC % ESR Sodium 130 L Potassium 4.4 Chloride 96 L Carbon Dioxide 26.0 Anion Gap 8 BUN 46 H Creatinine 7.37 H Estim Creat Clear Calc 8.32 Est GFR (MDRD) Af Amer 8 L Est GFR (MDRD) Non-Af 6 L BUN/Creatinine Ratio 6.2 L Glucose 268 H Hemoglobin A1c Calcium 8.8 Total Bilirubin 0.50 AST 13 L ALT 19 Alkaline Phosphatase 41 L C-React Prot Ext Range 241.00 H Total Protein 7.2 Albumin 2.8 L Globulin 4.4 H Albumin/Globulin Ratio 0.6 L S.aureus Protein A PCR POSITIVE H MRSA (PCR) POSITIVE H POC Glucose 235 H 09/15/20 11:50 WBC RBC Hgb Hct MCV MCH MCHC RDW Std Deviation RDW Coeff of Bassem Plt Count MPV Immature Gran % (Auto) Neut % (Auto) Lymph % (Auto) [place] % (Auto) Eos % (Auto) Baso % (Auto) Absolute Neuts (auto) Absolute Lymphs (auto) Nucleated RBC % ESR Sodium Potassium Chloride Carbon Dioxide Anion Gap BUN Creatinine Estim Creat Clear Calc Est GFR (MDRD) Af Amer Est GFR (MDRD) Non-Af BUN/Creatinine Ratio Glucose Hemoglobin A1c Calcium Total Bilirubin AST ALT Alkaline Phosphatase C-React Prot Ext Range Total Protein Albumin Globulin Albumin/Globulin Ratio S.aureus Protein A PCR MRSA (PCR) POC Glucose 308 H Micro: Microbiology 09/15/20 10:20 Gram Stain - Final Wound - Toe Radiology Impression Foot X-Ray 09/15/20 00:40 IMPRESSION: Soft tissue swelling of the great toe. No definitive osteomyelitis Electronically Signed: Phu Bailey DO at 1:11 EDT Tel , Service support ,
--- NOTE | 2020-09-15 18:32 | ART_ITS ---
Reason For Study: Ulcer Procedure A bilateral lower extremity continuous wave Doppler with analog waveform analysis,segmental pressures,and ankle brachial indexes without exercise. Left Segmental Pressures Left posterior tibial artery = 136mmHg. Left dorsalis pedis artery = >254mmHg. Left digit = 93 mmHg. The left dorsalis pedis waveforms are triphasic. The left posterior tibial artery waveforms are biphasic. Right Segmental Pressures Right brachial= 118mmHg. Right dorsalis pedis artery = 133mmHg. The right dorsalis pedis waveforms are triphasic. Indices The right ankle brachial index by the dorsalis pedis is 1.13. The left ankle brachial index by the dorsalis pedis is NC. The left ankle brachial index by the posterior tibial artery is 1.15. The left digital-brachial index is 0.79. VL/Lower Ext Art Exam w/o Exercis Interpretation Summary Triphasic Doppler waveforms are noted at ankle level on the right. Triphasic an d biphasic Doppler waveforms are noted at ankle level on the left. Pulse-volume recordings appear satisfactory at all levels bilaterally, though not assessed at digital level on the right. Resting ankle-brachial indices are normal bilaterally. The right digital-brachial index was not determ ined due to the presence of bandages. The left digital-brachial index is normal. There is no evidence of significant arterial occlusive disease in the lower ext remities bilaterally. Ordering Physician: Aaron Green Referring Physician: Gerardo Beaver Performed By: Mercedez Koroma RVT
[2020-09-15] MEDS: Vancomycin IV 1,000 MG/200 ML BAG 200 MG IV (19:27)
[2020-09-15 19:30] LABS: Bedside Glucose 212 mg/dL (70-110)
[2020-09-15 21:15] LABS: Bedside Glucose 296 mg/dL (70-110)
[2020-09-15 22:11] LABS: M R Staph aureus DNA By PCR POSITIVE (Negative); Probe Check PASS; Staph aureus DNA By PCR POSITIVE (Negative)
[2020-09-16] VITALS (7 sets, daily range): BP systolic 113–131; BP diastolic 59–77; PULSE 67–75; RESP 15–20; TEMP 36.1–36.8; O2SAT 95–100
[2020-09-16 05:10] LABS: Absolute Lymphocyte Count 0.91 X10^3/uL (0.83-4.51); Absolute Neutrophil Count 6.1 X10^3/uL (2.0-7.7); Basophil# 0.04 X10^3/uL; Basophil% 0.5 % (0-1); Eosinophil# 0.27 X10^3/uL; Eosinophils% 3.2 % (0-5); Hemoglobin 8.6 g/dL (12.0-15.0); Lymphocyte # 0.91 X10^3/ul (0.83-4.51); Lymphocyte % 10.9 % (19-41); Mean Corp Hgb Conc 31.9 g/dL (32-36); Mean Corpuscular Hgb 33.9 pg (27.0-32.0); Mean Corpuscular Volume 106.3 fL (81-99); Mean Platelet Vol. 9.4 fl (6.2-12.0); Monocyte# 0.94 X10^3/uL; Monocyte% 11.3 % (0-10); NRBC Flagged by Analyzer 0 % (0-5); Neutrophil # 6.12 X10^3/uL (2.7-7.7); Neutrophil % 73.5 % (47-70); Platelet Count 411 K/mm3 (150-450); RBC Distribution Width CV 11.9 % (11.6-14.6); RBC Distribution Width SD 46.9 fl (35.1-43.9); Red Blood Count 2.54 M/mm3 (4.2-5.4); White Blood Count 8.3 K/mm3 (4.4-11.0)
[2020-09-16 05:33] LABS: ALB/GLOB Ratio 0.6 RATIO (0.9-2.4); AST(SGOT) 13 U/L (15-37); Alanine Aminotransfer ALT/SGPT 15 U/L (13-56); Albumin, Serum 2.5 g/dL (3.2-5.0); Alkaline Phosphatase 40 U/L (45-117); Anion Gap 11 (5-15); BUN 68 mg/dL (7-18); BUN/Creat Ratio 7.4 RATIO (10-20); Calcium,Total 8.9 mg/dL (8.5-10.1); Chloride 96 mmol/L (98-107); Creatinine, Serum 9.21 mg/dL (0.55-1.02); EST Glomerular Filtration Rate 5 mL/min (>60); Est Glom Filt Rate - Afr Amer 6 mL/min (>60); Estimated Creatinine Clearance 6.94 ml/min; Globulin 4.3 g/dL (2.2-4.2); Glucose 115 mg/dL (74-106); Potassium 4.8 mmol/L (3.5-5.1); Protein, Total 6.8 g/dL (6.4-8.2); Sodium Level 133 mmol/L (136-145)
--- NOTE | 2020-09-16 07:56 | MRI_ITS ---
STUDY: MRI RIGHT ANKLE WITHOUT CONTRAST REASON FOR EXAM: Female, 45 years old. foot osteomyelitis, HEEL ULCER TECHNIQUE: Standardized fat and water weighted pulse sequences were obtained in all 3 orthogonal planes. COMPARISON: None. FINDINGS: Patient motion. No acute osteomyelitis. No acute fracture or dislocation. Shallow heel ulcer. Soft tissue swelling/cellulitis. Mild plantar surface muscle atrophy with myositis/muscle edema (coronal image 7 series 4). No organized fluid collection. Mild peroneus longus tenosynovitis at the undersurface of the foot. Mild PTT tenosynovitis. Remainder of flexor tendons unremarkable. Normal extensor tendons. Normal Achilles tendon and teno-osseous insertion. Normal plantar fascia. Normal plantar calcaneal tubercles. Normal distal tibiofibular syndesmotic ligamentous complex. Normal lateral ligamentous complex. Normal subtalar ligaments and sinus tarsi. Normal deltoid ligamentous complexes. Normal plantar calcaneonavicular (spring) ligament. Normal tibiotalar articulation. Normal talar dome. Normal subtalar articulations. Normal talonavicular articulation. Normal calcaneocuboid articulation. Normal navicular-cuneiform articulations. MRI/Lower Ext Joint Only (Routine) IMPRESSION: No acute osteomyelitis or abscess Soft tissue swelling/cellulitis with heel ulcer Muscle atrophy with myositis/muscle edema Mild PTT and peroneus longus tenosynovitis Electronically Signed: Shin Dupree DO at 10:49 EDT Tel , Service support ,
[2020-09-16 08:16] LABS: Bedside Glucose 98 mg/dL (70-110)
[2020-09-16] MEDS: Pantoprazole Sodium 40 MG Tablet PO (08:48)
[2020-09-16] MEDS: SEVELAMER CARBONATE 800 MG TABLET PO ×2 (08:49→17:45)
[2020-09-16] MEDS: Losartan Potassium 100 MG Tablet PO (08:49)
[2020-09-16] MEDS: Fenofibrate 145 MG Tablet PO (08:49)
[2020-09-16] MEDS: amLODIPine 10 MG Tablet PO (08:49)
[2020-09-16] MEDS: Enoxaparin 30 MG/0.3 ML Syringe SC (08:49)
--- NOTE | 2020-09-16 09:00 | MRI_ITS ---
STUDY: MRI RIGHT FOREFOOT WITHOUT CONTRAST REASON FOR EXAM: Female, 45 years old. osteomyelitis 1st toe, heel ulcer TECHNIQUE: Standardized fat and water weighted pulse sequences were obtained in all 3 orthogonal planes. COMPARISON: X-ray dated 09/15/2020. FINDINGS: Acute osteomyelitis at the first distal phalanx (sagittal image 8 series 7 and series 8). No acute fracture line. No acute dislocation. Minimal first interphalangeal joint fluid. Fluid collection at the first digit distally measuring 2.2 cm x 2.1 cm x 2 cm. Mild first interphalangeal joint arthrosis. Minimal first metatarsophalangeal joint arthrosis. Second through fifth digits acutely intact with mild joint space narrowing. Second through fifth tarsometatarsal joints intact without significant degenerative changes. Normal midfoot articulations. Normal distal flexor tendons. Normal distal extensor tendons. Normal Lisfranc ligament. Soft tissue swelling/cellulitis. Mild muscle atrophy with diffuse muscle edema/myositis. MRI/Lower Ext/No Jt/w/o IMPRESSION: Acute first distal phalanx osteomyelitis First digit fluid collection/abscess with accompanying cellulitis Mild muscle atrophy with diffuse muscle edema/myositis Trace first IP joint effusion with osseous degenerative changes Electronically Signed: Shin Dupree DO at 11:00 EDT Tel , Service support ,
--- NOTE | 2020-09-16 10:43 | PCM.PN.HOSP ---
Objective Data Objective Data Vital Signs: Vital Signs Temp Pulse Resp BP Pulse Ox 97.0 F L 71 16 129/74 H 99 09/16/20 08:00 09/16/20 08:00 09/16/20 08:00 09/16/20 08:00 09/16/20 08:00 Oxygen Delivery Method Room Air Weight: 73.9 kg Body Mass Index (BMI) 27.1 Finger Stick Blood Glucose 134 Intake & Output: Intake and Output for Last 24 Hours 09/14/20 09/15/20 09/16/20 23:59 23:59 23:59 Intake Total 716.75 / 716.75 50 / 50 Output Total 0 / 0 Balance 716.75 / 716.75 50 / 50 Lab / Micro Data Result Diagrams: 09/16/20 05:00 09/16/20 05:00 Labs: Laboratory Results - last 24 hr 09/15/20 09/15/20 09/15/20 10:20 11:50 16:59 WBC RBC Hgb Hct MCV MCH MCHC RDW Std Deviation RDW Coeff of Bassem Plt Count MPV Immature Gran % (Auto) Neut % (Auto) Lymph % (Auto) [place] % (Auto) Eos % (Auto) Baso % (Auto) Absolute Neuts (auto) Absolute Lymphs (auto) Nucleated RBC % Sodium Potassium Chloride Carbon Dioxide Anion Gap BUN Creatinine Estim Creat Clear Calc Est GFR (MDRD) Af Amer Est GFR (MDRD) Non-Af BUN/Creatinine Ratio Glucose Calcium Total Bilirubin AST ALT Alkaline Phosphatase Total Protein Albumin Globulin Albumin/Globulin Ratio S.aureus Protein A PCR POSITIVE H MRSA (PCR) POSITIVE H POC Glucose 308 H 212 H 09/15/20 09/15/20 09/16/20 18:30 21:07 05:00 WBC 8.3 RBC 2.54 L Hgb 8.6 L Hct 27.0 L MCV 106.3 H MCH 33.9 H MCHC 31.9 L RDW Std Deviation 46.9 H RDW Coeff of Bassem 11.9 Plt Count 411 MPV 9.4 Immature Gran % (Auto) 0.600 Neut % (Auto) 73.5 H Lymph % (Auto) 10.9 L [place] % (Auto) 11.3 H Eos % (Auto) 3.2 Baso % (Auto) 0.5 Absolute Neuts (auto) 6.1 Absolute Lymphs (auto) 0.91 Nucleated RBC % 0 Sodium Potassium Chloride Carbon Dioxide Anion Gap BUN Creatinine Estim Creat Clear Calc Est GFR (MDRD) Af Amer Est GFR (MDRD) Non-Af BUN/Creatinine Ratio Glucose Calcium Total Bilirubin AST ALT Alkaline Phosphatase Total Protein Albumin Globulin Albumin/Globulin Ratio S.aureus Protein A PCR POSITIVE H MRSA (PCR) POSITIVE H POC Glucose 296 H 09/16/20 09/16/20 05:00 08:08 WBC RBC Hgb Hct MCV MCH MCHC RDW Std Deviation RDW Coeff of Bassem Plt Count MPV Immature Gran % (Auto) Neut % (Auto) Lymph % (Auto) [place] % (Auto) Eos % (Auto) Baso % (Auto) Absolute Neuts (auto) Absolute Lymphs (auto) Nucleated RBC % Sodium 133 L Potassium 4.8 Chloride 96 L Carbon Dioxide 26.0 Anion Gap 11 BUN 68 H Creatinine 9.21 H* Estim Creat Clear Calc 6.94 Est GFR (MDRD) Af Amer 6 L Est GFR (MDRD) Non-Af 5 L BUN/Creatinine Ratio 7.4 L Glucose 115 H Calcium 8.9 Total Bilirubin 0.40 AST 13 L ALT 15 Alkaline Phosphatase 40 L Total Protein 6.8 Albumin 2.5 L Globulin 4.3 H Albumin/Globulin Ratio 0.6 L S.aureus Protein A PCR MRSA (PCR) POC Glucose 98 Micro: Microbiology 09/15/20 18:30 Wound Abcess - Toe Gram Stain - Final 09/15/20 10:20 Wound - Toe Gram Stain - Final Physical Exam Narrative General: Alert, Oriented x3, Cooperative, No apparent distress, Well developed HEENT: Atraumatic Oral: Moist Mucosa Neck: Supple Lungs: Clear to auscultation Cardiovascular: HS I+II, regular, no murmurs Abdomen: Bowel Sounds Present, Soft, Non Tender Extremities: No edema Skin: No rashes, No breakdown Neurological: Grossly intact Psych/Mental Status: Appropriate Assessment & Plan Assessment/Plan (1) Diabetic foot: (2) Type 2 diabetes mellitus: QUALIFIERS: Diabetes mellitus complication status: with other specified complication 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 Acute right great toe distal phalanx osteomyelitis/abscess Status post bedside I&D by podiatry MRI of the right foot shows above In a known diabetic diabetic, MRSA PCR positive, wound cultures growing staph aureus Podiatry following, on IV vancomycin and Zosyn ID consulted 2. Rest of chronic medical conditions -ESRD on hemodialysis, hypertension, type II DM Home medications continued Visit Charges Inpatient E&M: 84884 Subs Hosp L2
--- NOTE | 2020-09-16 11:39 | CON.PCM.RE_ITS ---
HPI Consult Data Date of Consult: 09/16/20 HPI Narrative HPI Narrative: PERCY BENJAMIN, is a 45 F who presents [facility] Medical History (Updated 09/16/20 @ 11:[address] Carlos Serrato MD) Acute hemodialysis patient Diabetes Dialysis patient Non-smoker TIA (transient ischemic attack) Home Medications Lantus U-100 Insulin 38 unit SQ QHS 02/09/16 [History Last Taken 02/08/16] clopidogrel 75 mg PO DAILY #30 tablet 02/13/16 [Rx Last Taken Unknown] pantoprazole 40 mg PO DAILY #14 tablet 02/13/16 [Rx Last Taken Unknown] amlodipine 10 mg PO MOWEFRSA 01/23/20 [History Last Taken Unknown] fenofibrate nanocrystallized 145 mg PO DAILY 01/23/20 [History Last Taken Unknown] insulin aspart U-100 See Protocol SUBCUT TIDCM 01/23/20 [History Last Taken Unknown] losartan 4 tab PO DAILY 01/23/20 [History Last Taken Unknown] lovastatin 40 mg PO DAILY 01/23/20 [History Last Taken Unknown] sevelamer carbonate 800 mg PO TID 01/23/20 [History Last Taken Unknown] Allergy/AdvReac Type Severity Reaction Status Date / Time atorvastatin [From Lipitor] AdvReac Nausea/Vom/ Verified 07/08/20 10:20 Diarrhea rosuvastatin [From Crestor] AdvReac Nausea/Vom/ Verified 07/08/20 10:20 Diarrhea Social History Smoking Status: Never smoker Lab / Micro Data Result Diagrams: 09/16/20 05:00 09/16/20 05:00 Labs: Laboratory Results - last 24 hr 09/15/20 09/15/20 09/15/20 10:20 11:50 16:59 WBC RBC Hgb Hct MCV MCH MCHC RDW Std Deviation RDW Coeff of Bassem Plt Count MPV Immature Gran % (Auto) Neut % (Auto) Lymph % (Auto) [place] % (Auto) Eos % (Auto) Baso % (Auto) Absolute Neuts (auto) Absolute Lymphs (auto) Nucleated RBC % Sodium Potassium Chloride Carbon Dioxide Anion Gap BUN Creatinine Estim Creat Clear Calc Est GFR (MDRD) Af Amer Est GFR (MDRD) Non-Af BUN/Creatinine Ratio Glucose Calcium Total Bilirubin AST ALT Alkaline Phosphatase Total Protein Albumin Globulin Albumin/Globulin Ratio S.aureus Protein A PCR POSITIVE H MRSA (PCR) POSITIVE H POC Glucose 308 H 212 H 09/15/20 09/15/20 09/16/20 18:30 21:07 05:00 WBC 8.3 RBC 2.54 L Hgb 8.6 L Hct 27.0 L MCV 106.3 H MCH 33.9 H MCHC 31.9 L RDW Std Deviation 46.9 H RDW Coeff of Bassem 11.9 Plt Count 411 MPV 9.4 Immature Gran % (Auto) 0.600 Neut % (Auto) 73.5 H Lymph % (Auto) 10.9 L [place] % (Auto) 11.3 H Eos % (Auto) 3.2 Baso % (Auto) 0.5 Absolute Neuts (auto) 6.1 Absolute Lymphs (auto) 0.91 Nucleated RBC % 0 Sodium Potassium Chloride Carbon Dioxide Anion Gap BUN Creatinine Estim Creat Clear Calc Est GFR (MDRD) Af Amer Est GFR (MDRD) Non-Af BUN/Creatinine Ratio Glucose Calcium Total Bilirubin AST ALT Alkaline Phosphatase Total Protein Albumin Globulin Albumin/Globulin Ratio S.aureus Protein A PCR POSITIVE H MRSA (PCR) POSITIVE H POC Glucose 296 H 09/16/20 09/16/20 05:00 08:08 WBC RBC Hgb Hct MCV MCH MCHC RDW Std Deviation RDW Coeff of Bassem Plt Count MPV Immature Gran % (Auto) Neut % (Auto) Lymph % (Auto) [place] % (Auto) Eos % (Auto) Baso % (Auto) Absolute Neuts (auto) Absolute Lymphs (auto) Nucleated RBC % Sodium 133 L Potassium 4.8 Chloride 96 L Carbon Dioxide 26.0 Anion Gap 11 BUN 68 H Creatinine 9.21 H* Estim Creat Clear Calc 6.94 Est GFR (MDRD) Af Amer 6 L Est GFR (MDRD) Non-Af 5 L BUN/Creatinine Ratio 7.4 L Glucose 115 H Calcium 8.9 Total Bilirubin 0.40 AST 13 L ALT 15 Alkaline Phosphatase 40 L Total Protein 6.8 Albumin 2.5 L Globulin 4.3 H Albumin/Globulin Ratio 0.6 L S.aureus Protein A PCR MRSA (PCR) POC Glucose 98 Micro: Microbiology 09/15/20 18:30 Gram Stain - Final Wound Abcess - Toe 09/15/20 10:20 Gram Stain - Final Wound - Toe Radiology Impression Lower Extremity MRI 09/16/20 07:56 IMPRESSION: No acute osteomyelitis or abscess Soft tissue swelling/cellulitis with heel ulcer Muscle atrophy with myositis/muscle edema Mild PTT and peroneus longus tenosynovitis Electronically Signed: hSin Dupree DO at 10:49 EDT Tel , Service support , Lower Extremity MRI 09/16/20 09:00 IMPRESSION: Acute first distal phalanx osteomyelitis First digit fluid collection/abscess with accompanying cellulitis Mild muscle atrophy with diffuse muscle edema/myositis Trace first IP joint effusion with osseous degenerative changes Electronically Signed: Shin Dupree DO at 11:00 EDT Tel , Service support ,
--- NOTE | 2020-09-16 11:43 | PCM.CONS.R ---
Assessment & Plan Assessment/Plan (1) ESRD (end stage renal disease): PLAN: Continue Monday dialysis seen on dialysis tolerating well (2) Secondary renal hyperparathyroidism: PLAN: Continue binders monitor periodically calcium and phosphorus (3) Hypertension: QUALIFIERS: Hypertension type: essential hypertension Qualified Code(s): I10 - Essential (primary) hypertension PLAN: Controlled continue losartan and amlodipine (4) Anemia: PLAN: KELLI if prolonged hospital stay (5) Cellulitis of toe of right foot: PLAN: Antibiotics per primary team. Follow-up MRI. Podiatry following. HPI Consult Data Date of Consult: 09/16/20 HPI Narrative Reason for Consultation: ESRD HPI Narrative: PERCY BENJAMIN, is a 45 F with past medical history as below who presents with infected right toe. She has a chronic right heel ulcer but earlier she noticed that her big toe was red swollen and tender. The patient has diabetic neuropathy and does not recall any injury to her toe. Per family she was walking on a rug terrain and there was a concern that she might have injured it during that time. She was noted to have lymphangitic streaking up to the ankle. She is on Monday dialysis. The patient had some chills on Monday but no fever no chest pain or shortness of breath no abdominal pain no nausea vomiting diarrhea. She still has minimal residual urine output. She has no other complaints. Review of systems is otherwise negative unless noted in the HPI. [facility] Medical History (Updated 09/16/20 @ 11:[address] Carlos Serrato MD) Acute hemodialysis patient Diabetes Dialysis patient Non-smoker TIA (transient ischemic attack) Home Medications Lantus U-100 Insulin 38 unit SQ QHS 02/09/16 [History Last Taken 02/08/16] clopidogrel 75 mg PO DAILY #30 tablet 02/13/16 [Rx Last Taken Unknown] pantoprazole 40 mg PO DAILY #14 tablet 02/13/16 [Rx Last Taken Unknown] amlodipine 10 mg PO MOWEFRSA 01/23/20 [History Last Taken Unknown] fenofibrate nanocrystallized 145 mg PO DAILY 01/23/20 [History Last Taken Unknown] insulin aspart U-100 See Protocol SUBCUT TIDCM 01/23/20 [History Last Taken Unknown] losartan 4 tab PO DAILY 01/23/20 [History Last Taken Unknown] lovastatin 40 mg PO DAILY 01/23/20 [History Last Taken Unknown] sevelamer carbonate 800 mg PO TID 01/23/20 [History Last Taken Unknown] Allergy/AdvReac Type Severity Reaction Status Date / Time atorvastatin [From Lipitor] AdvReac Nausea/Vom/ Verified 07/08/20 10:20 Diarrhea rosuvastatin [From Crestor] AdvReac Nausea/Vom/ Verified 07/08/20 10:20 Diarrhea Social History Smoking Status: Never smoker Physical Exam Const alert and no apparent distress General Appearance: comfortable HEENT normocephalic HEENT Narrative: atraumatic Neck General: normal visual inspection and trachea midline Resp normal respiratory effort and clear to auscultation bilaterally Cardio regular rate, regular rhythm, S1 normal heart sound and S2 normal heart sound GI soft to palpation and non-tender Extremity no clubbing, cyanosis or edema Extremity Narrative: Boot on the right foot no discharge. Left forearm AV fistula dialysis needles seen no discharge Neuro Sensorium / Orientation: awake and alert Lab / Micro Data Result Diagrams: 09/16/20 05:00 09/16/20 05:00 Labs: Laboratory Results - last 24 hr 09/15/20 09/15/20 09/15/20 10:20 11:50 16:59 WBC RBC Hgb Hct MCV MCH MCHC RDW Std Deviation RDW Coeff of Bassem Plt Count MPV Immature Gran % (Auto) Neut % (Auto) Lymph % (Auto) [place] % (Auto) Eos % (Auto) Baso % (Auto) Absolute Neuts (auto) Absolute Lymphs (auto) Nucleated RBC % Sodium Potassium Chloride Carbon Dioxide Anion Gap BUN Creatinine Estim Creat Clear Calc Est GFR (MDRD) Af Amer Est GFR (MDRD) Non-Af BUN/Creatinine Ratio Glucose Calcium Total Bilirubin AST ALT Alkaline Phosphatase Total Protein Albumin Globulin Albumin/Globulin Ratio S.aureus Protein A PCR POSITIVE H MRSA (PCR) POSITIVE H POC Glucose 308 H 212 H 09/15/20 09/15/20 09/16/20 18:30 21:07 05:00 WBC 8.3 RBC 2.54 L Hgb 8.6 L Hct 27.0 L MCV 106.3 H MCH 33.9 H MCHC 31.9 L RDW Std Deviation 46.9 H RDW Coeff of Bassem 11.9 Plt Count 411 MPV 9.4 Immature Gran % (Auto) 0.600 Neut % (Auto) 73.5 H Lymph % (Auto) 10.9 L [place] % (Auto) 11.3 H Eos % (Auto) 3.2 Baso % (Auto) 0.5 Absolute Neuts (auto) 6.1 Absolute Lymphs (auto) 0.91 Nucleated RBC % 0 Sodium Potassium Chloride Carbon Dioxide Anion Gap BUN Creatinine Estim Creat Clear Calc Est GFR (MDRD) Af Amer Est GFR (MDRD) Non-Af BUN/Creatinine Ratio Glucose Calcium Total Bilirubin AST ALT Alkaline Phosphatase Total Protein Albumin Globulin Albumin/Globulin Ratio S.aureus Protein A PCR POSITIVE H MRSA (PCR) POSITIVE H POC Glucose 296 H 09/16/20 09/16/20 05:00 08:08 WBC RBC Hgb Hct MCV MCH MCHC RDW Std Deviation RDW Coeff of Bassem Plt Count MPV Immature Gran % (Auto) Neut % (Auto) Lymph % (Auto) [place] % (Auto) Eos % (Auto) Baso % (Auto) Absolute Neuts (auto) Absolute Lymphs (auto) Nucleated RBC % Sodium 133 L Potassium 4.8 Chloride 96 L Carbon Dioxide 26.0 Anion Gap 11 BUN 68 H Creatinine 9.21 H* Estim Creat Clear Calc 6.94 Est GFR (MDRD) Af Amer 6 L Est GFR (MDRD) Non-Af 5 L BUN/Creatinine Ratio 7.4 L Glucose 115 H Calcium 8.9 Total Bilirubin 0.40 AST 13 L ALT 15 Alkaline Phosphatase 40 L Total Protein 6.8 Albumin 2.5 L Globulin 4.3 H Albumin/Globulin Ratio 0.6 L S.aureus Protein A PCR MRSA (PCR) POC Glucose 98 Micro: Microbiology 09/15/20 18:30 Gram Stain - Final Wound Abcess - Toe 09/15/20 10:20 Gram Stain - Final Wound - Toe Radiology Impression Lower Extremity MRI 09/16/20 07:56 IMPRESSION: No acute osteomyelitis or abscess Soft tissue swelling/cellulitis with heel ulcer Muscle atrophy with myositis/muscle edema Mild PTT and peroneus longus tenosynovitis Electronically Signed: Shin Dupree DO at 10:49 EDT Tel , Service support , Lower Extremity MRI 09/16/20 09:00 IMPRESSION: Acute first distal phalanx osteomyelitis First digit fluid collection/abscess with accompanying cellulitis Mild muscle atrophy with diffuse muscle edema/myositis Trace first IP joint effusion with osseous degenerative changes Electronically Signed: Shin Dupree DO at 11:00 EDT Tel , Service support ,
--- NOTE | 2020-09-16 11:45 | NURSING ---
RN CM Assessment Introduced role of RN CM to patient. Patient is alert, oriented and able to participate in RN CM Assessment. Care providers, pharmacy, and demographics verified. Admit Dx: Right big toe infection Re-Admit: No Barriers/Issues: HD at [facility] M/W/F, chair start: 629. 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 Per patient his work will keep his routes local while patient is in the hospital. PCP: Gerardo Beaver Specialists: None Preferred Pharmacy: [facility] Insurance: [employer] [facility] Rx Benefit: Yes LNOK: [place] LW/HPOA: None, information provided. Made aware can complete as an outpatient and if chooses to complete on this admission to notify staff. Living Arrangements: Lives with her in a Mobile home. 5 steps to enter home. ADL?s: Independent with ambulation and ADLs. Has a [employer] shoe on that she has been walking with recently. Transportation: Both patient and DME: [employer] HHC: Past with [facility] SNF: Past in 2011 in [place] Goal: Home and does not think will have any needs, issues or concerns. States if HH needed for wound care or IV Abx she can be taught. RNCM remains available for any emerging needs. RNCM f/u on MRI and podiatry consult for plan of care. DC PLAN: Home and possible HH. DYLON Curry
[2020-09-16 13:01] LABS: Bedside Glucose 124 mg/dL (70-110)
--- NOTE | 2020-09-16 13:48 | CON.PCM.ID_ITS ---
Assessment & Plan Assessment/Plan (1) Osteomyelitis: PLAN: R 1st toe MRSA abscess and osteo - pcr (+), wound cx with staph aureus so far. On vanc/zosyn. Podiatry following. Getting HD today. Counseled her re:importance of covid vaccine and gave printed material, she will think about it. Will follow, thank you (2) ESRD (end stage renal disease): (3) Type 2 diabetes mellitus with diabetic polyneuropathy: QUALIFIERS: Diabetes mellitus senior living insulin use: unspecified senior living insulin use status Qualified Code(s): E11.42 - Type 2 diabetes mellitus with diabetic polyneuropathy HPI Consult Data Date of Consult: 09/16/20 HPI Narrative HPI Narrative: PERCY BENJAMIN, is a 45 F with h/o ESRD, DM neuropathy, previous MRSA abscess, admitted 09/15 from the ED with 2-3 days of R 1st toe swelling, redness, drainage. Thinks she tripped over something a day or two prior. No pain due to neuropathy. Had fever and chills, no outpt abx. Redness streaking up her foot. Came to ED, admitted on vanc/zosyn, seen by podiatry, purulence expressed at the bedside, MRI done. Pt reports having covid in April, refuses vaccine. Full ROS performed and neg except as noted above. [facility] Medical History Acute hemodialysis patient Diabetes Dialysis patient Non-smoker TIA (transient ischemic attack) Home Medications Lantus U-100 Insulin 38 unit SQ QHS 02/09/16 [History Last Taken 02/08/16] clopidogrel 75 mg PO DAILY #30 tablet 02/13/16 [Rx Last Taken Unknown] pantoprazole 40 mg PO DAILY #14 tablet 02/13/16 [Rx Last Taken Unknown] amlodipine 10 mg PO MOWEFRSA 01/23/20 [History Last Taken Unknown] fenofibrate nanocrystallized 145 mg PO DAILY 01/23/20 [History Last Taken Unknown] insulin aspart U-100 See Protocol SUBCUT TIDCM 01/23/20 [History Last Taken Unknown] losartan 4 tab PO DAILY 01/23/20 [History Last Taken Unknown] lovastatin 40 mg PO DAILY 01/23/20 [History Last Taken Unknown] sevelamer carbonate 800 mg PO TID 01/23/20 [History Last Taken Unknown] Allergy/AdvReac Type Severity Reaction Status Date / Time atorvastatin [From Lipitor] AdvReac Nausea/Vom/ Verified 07/08/20 10:20 Diarrhea rosuvastatin [From Crestor] AdvReac Nausea/Vom/ Verified 07/08/20 10:20 Diarrhea Social History Smoking Status: Never smoker Physical Exam Const alert, oriented x3 and no apparent distress General Appearance: cooperative HEENT normocephalic and head/scalp atraumatic Eyes PERRL and EOMs intact bilaterally Neck supple and No nodes Resp normal air movement and clear to auscultation bilaterally Cardio regular rate and regular rhythm GI normal to inspection, nondistended, normoactive bowel sounds Extremity no clubbing, cyanosis or edema Skin Skin Narrative: reviewed photos of R foot Neuro CN's II-XII intact bilaterally Lab / Micro Data Result Diagrams: 09/16/20 05:00 09/16/20 05:00 Labs: Laboratory Results - last 24 hr 09/15/20 09/15/20 09/15/20 10:20 16:59 18:30 WBC RBC Hgb Hct MCV MCH MCHC RDW Std Deviation RDW Coeff of Bassem Plt Count MPV Immature Gran % (Auto) Neut % (Auto) Lymph % (Auto) [place] % (Auto) Eos % (Auto) Baso % (Auto) Absolute Neuts (auto) Absolute Lymphs (auto) Nucleated RBC % Sodium Potassium Chloride Carbon Dioxide Anion Gap BUN Creatinine Estim Creat Clear Calc Est GFR (MDRD) Af Amer Est GFR (MDRD) Non-Af BUN/Creatinine Ratio Glucose Calcium Total Bilirubin AST ALT Alkaline Phosphatase Total Protein Albumin Globulin Albumin/Globulin Ratio S.aureus Protein A PCR POSITIVE H POSITIVE H MRSA (PCR) POSITIVE H POSITIVE H POC Glucose 212 H 09/15/20 09/16/20 09/16/20 21:07 05:00 05:00 WBC 8.3 RBC 2.54 L Hgb 8.6 L Hct 27.0 L MCV 106.3 H MCH 33.9 H MCHC 31.9 L RDW Std Deviation 46.9 H RDW Coeff of Bassem 11.9 Plt Count 411 MPV 9.4 Immature Gran % (Auto) 0.600 Neut % (Auto) 73.5 H Lymph % (Auto) 10.9 L [place] % (Auto) 11.3 H Eos % (Auto) 3.2 Baso % (Auto) 0.5 Absolute Neuts (auto) 6.1 Absolute Lymphs (auto) 0.91 Nucleated RBC % 0 Sodium 133 L Potassium 4.8 Chloride 96 L Carbon Dioxide 26.0 Anion Gap 11 BUN 68 H Creatinine 9.21 H* Estim Creat Clear Calc 6.94 Est GFR (MDRD) Af Amer 6 L Est GFR (MDRD) Non-Af 5 L BUN/Creatinine Ratio 7.4 L Glucose 115 H Calcium 8.9 Total Bilirubin 0.40 AST 13 L ALT 15 Alkaline Phosphatase 40 L Total Protein 6.8 Albumin 2.5 L Globulin 4.3 H Albumin/Globulin Ratio 0.6 L S.aureus Protein A PCR MRSA (PCR) POC Glucose 296 H 09/16/20 09/16/20 08:08 12:55 WBC RBC Hgb Hct MCV MCH MCHC RDW Std Deviation RDW Coeff of Bassem Plt Count MPV Immature Gran % (Auto) Neut % (Auto) Lymph % (Auto) [place] % (Auto) Eos % (Auto) Baso % (Auto) Absolute Neuts (auto) Absolute Lymphs (auto) Nucleated RBC % Sodium Potassium Chloride Carbon Dioxide Anion Gap BUN Creatinine Estim Creat Clear Calc Est GFR (MDRD) Af Amer Est GFR (MDRD) Non-Af BUN/Creatinine Ratio Glucose Calcium Total Bilirubin AST ALT Alkaline Phosphatase Total Protein Albumin Globulin Albumin/Globulin Ratio S.aureus Protein A PCR MRSA (PCR) POC Glucose 98 124 H Micro: Microbiology 09/15/20 18:30 Gram Stain - Final Wound Abcess - Toe Wound Culture - Preliminary Staphylococcus aureus 09/15/20 10:20 Gram Stain - Final Wound - Toe Wound Culture - Preliminary Staphylococcus aureus Radiology Impression Lower Extremity MRI 09/16/20 07:56 IMPRESSION: No acute osteomyelitis or abscess Soft tissue swelling/cellulitis with heel ulcer Muscle atrophy with myositis/muscle edema Mild PTT and peroneus longus tenosynovitis Electronically Signed: Shin Dupree DO at 10:49 EDT Tel , Service support , Lower Extremity MRI 09/16/20 09:00 IMPRESSION: Acute first distal phalanx osteomyelitis First digit fluid collection/abscess with accompanying cellulitis Mild muscle atrophy with diffuse muscle edema/myositis Trace first IP joint effusion with osseous degenerative changes Electronically Signed: Shin Dupree DO at 11:00 EDT Tel , Service support ,
--- NOTE | 2020-09-16 14:56 | NURSING ---
wound photo: right great toe (medial view)
--- NOTE | 2020-09-16 14:56 | NURSING ---
wound photo: right great toe (dorsal view)
[2020-09-16] MEDS: DAKIN'S SOL HALF STRENGTH (=0.25%) 1 APPLIC TOPICAL (15:13)
[2020-09-16] MEDS: 0.9% Saline Lock 10 ML Syringe IV (15:13)
--- NOTE | 2020-09-16 16:22 | DIALYSIS ---
Pt tolerated 3hr HD tx well. Net UF -1000ml using crit line. See flow record for tx data.
[2020-09-16 17:30] LABS: Bedside Glucose 235 mg/dL (70-110)
--- NOTE | 2020-09-16 17:31 | PCM.PROGNOTE ---
Subjective Subjective Patient was seen today for follow up on right 1st toe. Patient does not relate to any fever, chills, nausea, or vomiting. She had MRI today. Objective Data Objective Data Vital Signs: Vital Signs Temp Pulse Resp BP Pulse Ox 97.1 F L 72 20 H 120/67 100 09/16/20 15:00 09/16/20 15:00 09/16/20 15:00 09/16/20 15:00 09/16/20 14:30 Oxygen Delivery Method Room Air Weight: 73.9 kg Body Mass Index (BMI) 27.1 Finger Stick Blood Glucose 134 Intake & Output: Intake and Output for Last 24 Hours 09/14/20 09/15/20 09/16/20 23:59 23:59 23:59 Intake Total 716.75 / 716.75 50 / 50 Output Total 0 / 0 1999 Balance 716.75 / 716.75 -1950 / -1950 Lab / Micro Data Result Diagrams: 09/16/20 05:00 09/16/20 05:00 Labs: Laboratory Results - last 24 hr 09/15/20 09/15/20 09/15/20 10:20 16:59 18:30 WBC RBC Hgb Hct MCV MCH MCHC RDW Std Deviation RDW Coeff of Bassem Plt Count MPV Immature Gran % (Auto) Neut % (Auto) Lymph % (Auto) [place] % (Auto) Eos % (Auto) Baso % (Auto) Absolute Neuts (auto) Absolute Lymphs (auto) Nucleated RBC % Sodium Potassium Chloride Carbon Dioxide Anion Gap BUN Creatinine Estim Creat Clear Calc Est GFR (MDRD) Af Amer Est GFR (MDRD) Non-Af BUN/Creatinine Ratio Glucose Calcium Total Bilirubin AST ALT Alkaline Phosphatase Total Protein Albumin Globulin Albumin/Globulin Ratio S.aureus Protein A PCR POSITIVE H POSITIVE H MRSA (PCR) POSITIVE H POSITIVE H POC Glucose 212 H 09/15/20 09/16/20 09/16/20 21:07 05:00 05:00 WBC 8.3 RBC 2.54 L Hgb 8.6 L Hct 27.0 L MCV 106.3 H MCH 33.9 H MCHC 31.9 L RDW Std Deviation 46.9 H RDW Coeff of Bassem 11.9 Plt Count 411 MPV 9.4 Immature Gran % (Auto) 0.600 Neut % (Auto) 73.5 H Lymph % (Auto) 10.9 L [place] % (Auto) 11.3 H Eos % (Auto) 3.2 Baso % (Auto) 0.5 Absolute Neuts (auto) 6.1 Absolute Lymphs (auto) 0.91 Nucleated RBC % 0 Sodium 133 L Potassium 4.8 Chloride 96 L Carbon Dioxide 26.0 Anion Gap 11 BUN 68 H Creatinine 9.21 H* Estim Creat Clear Calc 6.94 Est GFR (MDRD) Af Amer 6 L Est GFR (MDRD) Non-Af 5 L BUN/Creatinine Ratio 7.4 L Glucose 115 H Calcium 8.9 Total Bilirubin 0.40 AST 13 L ALT 15 Alkaline Phosphatase 40 L Total Protein 6.8 Albumin 2.5 L Globulin 4.3 H Albumin/Globulin Ratio 0.6 L S.aureus Protein A PCR MRSA (PCR) POC Glucose 296 H 09/16/20 09/16/20 09/16/20 08:08 12:55 17:25 WBC RBC Hgb Hct MCV MCH MCHC RDW Std Deviation RDW Coeff of Bassem Plt Count MPV Immature Gran % (Auto) Neut % (Auto) Lymph % (Auto) [place] % (Auto) Eos % (Auto) Baso % (Auto) Absolute Neuts (auto) Absolute Lymphs (auto) Nucleated RBC % Sodium Potassium Chloride Carbon Dioxide Anion Gap BUN Creatinine Estim Creat Clear Calc Est GFR (MDRD) Af Amer Est GFR (MDRD) Non-Af BUN/Creatinine Ratio Glucose Calcium Total Bilirubin AST ALT Alkaline Phosphatase Total Protein Albumin Globulin Albumin/Globulin Ratio S.aureus Protein A PCR MRSA (PCR) POC Glucose 98 124 H 235 H Micro: Microbiology 09/15/20 18:30 Wound Abcess - Toe Gram Stain - Final 09/15/20 18:30 Wound Abcess - Toe Wound Culture - Preliminary Staphylococcus aureus 09/15/20 10:20 Wound - Toe Gram Stain - Final 09/15/20 10:20 Wound - Toe Wound Culture - Preliminary Staphylococcus aureus Radiography Diagnostic Testing: Radiology Impression Lower Extremity MRI 09/16/20 07:56 IMPRESSION: No acute osteomyelitis or abscess Soft tissue swelling/cellulitis with heel ulcer Muscle atrophy with myositis/muscle edema Mild PTT and peroneus longus tenosynovitis Electronically Signed: Shin Dupree DO at 10:49 EDT Tel , Service support , Lower Extremity MRI 09/16/20 09:00 IMPRESSION: Acute first distal phalanx osteomyelitis First digit fluid collection/abscess with accompanying cellulitis Mild muscle atrophy with diffuse muscle edema/myositis Trace first IP joint effusion with osseous degenerative changes Electronically Signed: Shin Dupree, DO at 11:00 EDT Tel , Service support , Physical Exam Const alert, oriented x3 and no apparent distress General Appearance: cooperative and comfortable Extremity normal capillary refill Extremity Narrative: There is cellulitis and abscess formation to the right 1st toe, there is nonviable tissue to the dorsal and medial 1st toe with ulceration present with purulent drainage x 2, streaking is resolved. Heel ulcer right side is viable with no evidence of infection. There no evidence of acute ischemia to the foot or ankle, right. CFT < 2 seconds to all toes right foot. Assessment & Plan Assessment/Plan (1) Abscess: PLAN: Reviewed MRI right foot - there is evidence of osteomyelitis and abscess right 1st toe. This was discussed with patient. There is noted to be some clinical improvement to the right 1st toe today compared to yesterday, however there is still purulent drainage from the toe. We discussed bedside I+D to the right 1st toe - this was discussed with patient in detail. The consent form was reviewed with her and she freely signed it. After consent was obtained the right 1st toe was cleansed with 70% Isopropyl alcohol, and I+D was performed to the right 1st toe in which two incisions were made - dorsal medial and plantar medial at site of the abscess site clinically with the most purulence. The site was debrided of nonviable and necrotic tissue in selective fashion using a 15 blade. Was debrided down to more healthy and viable tissue and all purulence was expressed. However there was still nonviable questionable tissue which may not survive - this extended down to deep subcutaneous tissue. Site was cleansed with normal saline solution. Site was packed with betadine gauze dressing and overlying dry gauze dressing applied. Patient tolerated well with no complications. There was minimal blood loss. Area debrided measured 6cm x 3.5cm x 0.5cm in depth. We will monitor the toe let it demarcate, the toe may be salvageable, however advised patient is may not be salvageable. We will follow the toe and see how it does. She will remain on IV antibiotics - she is on Vanc and Zosyn, and ID/Dr. Herrera will be consulted. Reviewed culture results which are available at this time. New LEAS have been ordered and pending. Podiatry will continue to follow. Discussed with Dr. Hernandez. (2) Osteomyelitis: QUALIFIERS: Laterality: right Osteomyelitis location: foot Osteomyelitis type: other acute Qualified Code(s): M86.171 - Other acute osteomyelitis, right ankle and foot (3) Type 2 diabetes mellitus with diabetic polyneuropathy: QUALIFIERS: Diabetes mellitus nursing home insulin use: unspecified rehab/pre vocational counselor insulin use status Qualified Code(s): E11.42 - Type 2 diabetes mellitus with diabetic polyneuropathy (4) Chronic heel ulcer with fat layer exposed: QUALIFIERS: Laterality: right Qualified Code(s): L97.412 - Non-pressure chronic ulcer of right heel and midfoot with fat layer exposed (5) Onycholysis: (6) Cellulitis of toe of right foot:
[2020-09-16] MEDS: Insulin Lispro 100 UNIT/ML INSULN.PEN SC ×2 (17:45→23:34)
[2020-09-16] MEDS: Vancomycin IV 500 MG/100 ML BAG 100 MG IV (21:34)
[2020-09-16 23:45] LABS: Bedside Glucose 286 mg/dL (70-110)
[2020-09-17 02:00] VITALS: BP 129/64; PULSE 51; RESP 16; TEMP 36.6; O2SAT 90
[2020-09-17 04:00] VITALS: BP 128/65; PULSE 89; RESP 16; TEMP 36.2; O2SAT 96
[2020-09-17 05:05] LABS: Absolute Lymphocyte Count 1.07 X10^3/uL (0.83-4.51); Absolute Neutrophil Count 4.7 X10^3/uL (2.0-7.7); Basophil# 0.05 X10^3/uL; Basophil% 0.7 % (0-1); Eosinophil# 0.34 X10^3/uL; Eosinophils% 4.9 % (0-5); Lymphocyte # 1.07 X10^3/ul (0.83-4.51); Lymphocyte % 15.4 % (19-41); Mean Corp Hgb Conc 32.1 g/dL (32-36); Mean Corpuscular Hgb 34.9 pg (27.0-32.0); Mean Corpuscular Volume 108.5 fL (81-99); Mean Platelet Vol. 9.6 fl (6.2-12.0); Monocyte% 10.1 % (0-10); NRBC Flagged by Analyzer 0 % (0-5); Neutrophil # 4.74 X10^3/uL (2.7-7.7); Neutrophil % 68.2 % (47-70); Platelet Count 411 K/mm3 (150-450); RBC Distribution Width SD 47.7 fl (35.1-43.9); Red Blood Count 2.58 M/mm3 (4.2-5.4)
[2020-09-17 05:23] LABS: ALB/GLOB Ratio 0.6 RATIO (0.9-2.4); AST(SGOT) 14 U/L (15-37); Alanine Aminotransfer ALT/SGPT 14 U/L (13-56); Albumin, Serum 2.5 g/dL (3.2-5.0); Alkaline Phosphatase 34 U/L (45-117); Anion Gap 11 (5-15); BUN 41 mg/dL (7-18); BUN/Creat Ratio 6.7 RATIO (10-20); Calcium,Total 8.6 mg/dL (8.5-10.1); Chloride 95 mmol/L (98-107); Creatinine, Serum 6.12 mg/dL (0.55-1.02); EST Glomerular Filtration Rate 8 mL/min (>60); Est Glom Filt Rate - Afr Amer 10 mL/min (>60); Estimated Creatinine Clearance 10.45 ml/min; Globulin 4.4 g/dL (2.2-4.2); Glucose 164 mg/dL (74-106); Potassium 4.2 mmol/L (3.5-5.1); Protein, Total 6.9 g/dL (6.4-8.2); Sodium Level 133 mmol/L (136-145)
[2020-09-17] MEDS: DAKIN'S SOL HALF STRENGTH (=0.25%) 1 APPLIC TOPICAL ×2 (07:35→22:00)
--- NOTE | 2020-09-17 07:37 | PN_ITS ---
Subjective Subjective Patient was seen this morning for follow up on right foot. She denies any pain, no complaints of fever, chills, nausea or vomiting. Objective Data Objective Data Vital Signs: Vital Signs Temp Pulse Resp BP Pulse Ox 97.2 F L 89 16 128/65 H 96 09/17/20 04:00 09/17/20 04:00 09/17/20 04:00 09/17/20 04:00 09/17/20 04:00 Oxygen Delivery Method Room Air Weight: 73.6 kg Body Mass Index (BMI) 27.1 Finger Stick Blood Glucose 134 Intake & Output: Intake and Output for Last 24 Hours 09/15/20 09/16/20 09/17/20 23:59 23:59 23:59 Intake Total 716.75 / 716.75 399.25 / 759.25 510 / 510 Output Total 0 / 0 1999 Balance 716.75 / 716.75 -1600.75 / -1240.75 510 / 510 Lab / Micro Data Result Diagrams: 09/17/20 04:55 09/17/20 04:55 Labs: Laboratory Results - last 24 hr 09/15/20 09/16/20 09/16/20 10:20 08:08 12:55 WBC RBC Hgb Hct MCV MCH MCHC RDW Std Deviation RDW Coeff of Bassem Plt Count MPV Immature Gran % (Auto) Neut % (Auto) Lymph % (Auto) [place] % (Auto) Eos % (Auto) Baso % (Auto) Absolute Neuts (auto) Absolute Lymphs (auto) Nucleated RBC % Sodium Potassium Chloride Carbon Dioxide Anion Gap BUN Creatinine Estim Creat Clear Calc Est GFR (MDRD) Af Amer Est GFR (MDRD) Non-Af BUN/Creatinine Ratio Glucose Calcium Total Bilirubin AST ALT Alkaline Phosphatase Total Protein Albumin Globulin Albumin/Globulin Ratio S.aureus Protein A PCR POSITIVE H MRSA (PCR) POSITIVE H POC Glucose 98 124 H 09/16/20 09/16/20 09/17/20 17:25 23:31 04:55 WBC RBC Hgb Hct MCV MCH MCHC RDW Std Deviation RDW Coeff of Bassem Plt Count MPV Immature Gran % (Auto) Neut % (Auto) Lymph % (Auto) [place] % (Auto) Eos % (Auto) Baso % (Auto) Absolute Neuts (auto) Absolute Lymphs (auto) Nucleated RBC % Sodium 133 L Potassium 4.2 Chloride 95 L Carbon Dioxide 27.0 Anion Gap 11 BUN 41 H Creatinine 6.12 H Estim Creat Clear Calc 10.45 Est GFR (MDRD) Af Amer 10 L Est GFR (MDRD) Non-Af 8 L BUN/Creatinine Ratio 6.7 L Glucose 164 H Calcium 8.6 Total Bilirubin 0.40 AST 14 L ALT 14 Alkaline Phosphatase 34 L Total Protein 6.9 Albumin 2.5 L Globulin 4.4 H Albumin/Globulin Ratio 0.6 L S.aureus Protein A PCR MRSA (PCR) POC Glucose 235 H 286 H 09/17/20 04:55 WBC 7.0 RBC 2.58 L Hgb 9.0 L Hct 28.0 L MCV 108.5 H MCH 34.9 H MCHC 32.1 RDW Std Deviation 47.7 H RDW Coeff of Bassem 12.0 Plt Count 411 MPV 9.6 Immature Gran % (Auto) 0.700 Neut % (Auto) 68.2 Lymph % (Auto) 15.4 L [place] % (Auto) 10.1 H Eos % (Auto) 4.9 Baso % (Auto) 0.7 Absolute Neuts (auto) 4.7 Absolute Lymphs (auto) 1.07 Nucleated RBC % 0 Sodium Potassium Chloride Carbon Dioxide Anion Gap BUN Creatinine Estim Creat Clear Calc Est GFR (MDRD) Af Amer Est GFR (MDRD) Non-Af BUN/Creatinine Ratio Glucose Calcium Total Bilirubin AST ALT Alkaline Phosphatase Total Protein Albumin Globulin Albumin/Globulin Ratio S.aureus Protein A PCR MRSA (PCR) POC Glucose Micro: Microbiology 09/15/20 18:30 Wound Abcess - Toe Gram Stain - Final 09/15/20 18:30 Wound Abcess - Toe Wound Culture - Preliminary Staphylococcus aureus 09/15/20 10:20 Wound - Toe Gram Stain - Final 09/15/20 10:20 Wound - Toe Wound Culture - Preliminary Staphylococcus aureus Radiography Diagnostic Testing: Radiology Impression Lower Extremity MRI 09/16/20 07:56 IMPRESSION: No acute osteomyelitis or abscess Soft tissue swelling/cellulitis with heel ulcer Muscle atrophy with myositis/muscle edema Mild PTT and peroneus longus tenosynovitis Electronically Signed: Shin Dupree DO at 10:49 EDT Tel , Service support , Lower Extremity MRI 09/16/20 09:00 IMPRESSION: Acute first distal phalanx osteomyelitis First digit fluid collection/abscess with accompanying cellulitis Mild muscle atrophy with diffuse muscle edema/myositis Trace first IP joint effusion with osseous degenerative changes Electronically Signed: Shin Dupree, DO at 11:00 EDT Tel , Service support , Physical Exam Const alert, oriented x3 and no apparent distress Extremity normal capillary refill Extremity Narrative: There is resolving cellulitis to the right 1st toe, there is improved tissue to the dorsal and medial 1st toe with ulceration present with scant purulent drainage - much improved, there is some residual nonviable tissue but improved, streaking is resolved. Heel ulcer right side is viable with no evidence of infection. There no evidence of acute ischemia to the foot or ankle, right. CFT < 2 seconds to all toes right foot. Assessment & Plan Assessment/Plan (1) Abscess: (2) Osteomyelitis: QUALIFIERS: Osteomyelitis type: other acute Osteomyelitis location: foot Laterality: right Qualified Code(s): M86.171 - Other acute osteomyelitis, right ankle and foot (3) Cellulitis of toe of right foot: (4) Onycholysis: (5) Dialysis patient: (6) Diabetic foot: (7) Type 2 diabetes mellitus: QUALIFIERS: Diabetes mellitus complication status: with other s pecified complication Diabetes mellitus long term acute care registered nurse insulin use: with long term acute care registered nurse use Qualified Code(s): E11.69 - Type 2 diabetes mellitus with other specified complication; Z79.4 - prison (current) use of insulin (8) Chronic heel ulcer with fat layer exposed: QUALIFIERS: Laterality: right Qualified Code(s): L97.412 - Non- pressure chronic ulcer of right heel and midfoot with fat layer exposed (9) Type 2 diabetes mellitus with diabetic polyneuropathy: QUALIFIERS: Diabetes mellitus fdc insulin use: unspecified long term acute care registered nurse insulin use status Qualified Code(s): E11.42 - Type 2 diabetes mellitus with diabetic polyneuropathy PLAN: Reviewed diagnostic data. Reviewed MRI right foot - there is evidence of osteomyelitis and abscess right 1st toe. I+D has been completed. There is noted improvement to the toe today. Continue to monitor the toe let it demarcate. We will follow the toe and see how it does. She is on IV antibiotics - she is on Vanc and Zosyn, and ID/Dr. Herrera is on consult. Reviewed culture results which are available at this time. Wound care right 1st toe: Hystat gauze wet to dry dressing changes. Right heel - keyla daily dressing changes. Keep offloaded at all times. New LEAS have been ordered and have been obtained - formal read pending but appears to have good arterial flow to foot based on results. Podiatry will continue to follow.
[2020-09-17 08:00] VITALS: BP 118/74; PULSE 72; RESP 18; TEMP 36.6; O2SAT 100
[2020-09-17 08:11] LABS: Bedside Glucose 97 mg/dL (70-110)
[2020-09-17] MEDS: Enoxaparin 30 MG/0.3 ML Syringe SC (09:00)
[2020-09-17] MEDS: Pantoprazole Sodium 40 MG Tablet PO (09:00)
[2020-09-17] MEDS: Losartan Potassium 100 MG Tablet PO (09:00)
[2020-09-17] MEDS: SEVELAMER CARBONATE 800 MG TABLET PO ×2 (09:00→12:30)
[2020-09-17] MEDS: Fenofibrate 145 MG Tablet PO (09:01)
--- NOTE | 2020-09-17 09:58 | PCM.PN.ID ---
Physical Exam Narrative Feeling better, minimal pain. Had episode of diarrhea last night, not since. No fever. Const alert General Appearance: cooperative Resp normal air movement and clear to auscultation bilaterally Cardio regular rate and regular rhythm GI normal to inspection, nondistended, normoactive bowel sounds Skin Skin Narrative: foot wrapped ID ID: Route of nutrition/ use of supplements: [] Nutritional Intake: [] IV Site: [] Echevarria Catheter: [] Assessment & Plan Assessment/Plan (1) Osteomyelitis: QUALIFIERS: Osteomyelitis type: other acute Osteomyelitis location: foot Laterality: right Qualified Code(s): M86.171 - Other acute osteomyelitis, right ankle and foot PLAN: R 1st toe MRSA abscess and osteo - pcr (+), wound cx with MRSA so far. On vanc/zosyn. Podiatry following. Will order picc. Counseled her re:importance of covid vaccine and gave printed material, she will think about it. 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
[2020-09-17] MEDS: 0.9% Saline Lock 10 ML Syringe IV ×2 (10:19→21:59)
--- NOTE | 2020-09-17 10:38 | CASEMGMT ---
Social Work SW informed by physician that pt is requesting to go to [facility] at discharge. SW met with pt and introduced self and role. Pt states she lives at home with her but he is an over the road tier truck driver and is unable to assist with wound care or IV ATB at home. Pt states she has no other friends or family that can assist. Pt was provided a list of SNF providers including quality and resource use data and consistent with the patient's preferred geographic region, medical needs, and insurance network. Pt preferred provider continues to be [facility]. Second choice is [facility]. Pt [facility] go [facility] for Dialysis MWF 6:30. Pt states she ususally drives herself or uses transportation through insurance ( [employer]) provide a ride). Pt states she would not have anyone who can transport pt to dialysis while at SNF. Referral made to [facility]. Will await return call for determination. ROSE Peña
--- NOTE | 2020-09-17 11:29 | PN.HOSP_ITS ---
Subjective Subjective Patient was seen and examined. Denied any new complaints. She feels improved. Objective Data Objective Data Vital Signs: Vital Signs Temp Pulse Resp BP Pulse Ox 97.9 F 72 18 118/74 100 09/17/20 08:00 09/17/20 08:00 09/17/20 08:00 09/17/20 08:00 09/17/20 08:00 Oxygen Delivery Method Room Air Weight: 73.6 kg Body Mass Index (BMI) 27.1 Intake & Output: Intake and Output for Last 24 Hours 09/15/20 09/16/20 09/17/20 23:59 23:59 23:59 Intake Total 716.75 / 716.75 399.25 / 759.25 710 / 710 Output Total 0 / 0 1999 / 1999 Balance 716.75 / 716.75 -1600.75 / -1240.75 710 / 710 Lab / Micro Data Result Diagrams: 09/17/20 04:55 09/17/20 04:55 Labs: Laboratory Results - last 24 hr 09/15/20 09/16/20 09/16/20 10:20 12:55 17:25 WBC RBC Hgb Hct MCV MCH MCHC RDW Std Deviation RDW Coeff of Bassem Plt Count MPV Immature Gran % (Auto) Neut % (Auto) Lymph % (Auto) [place] % (Auto) Eos % (Auto) Baso % (Auto) Absolute Neuts (auto) Absolute Lymphs (auto) Nucleated RBC % Sodium Potassium Chloride Carbon Dioxide Anion Gap BUN Creatinine Estim Creat Clear Calc Est GFR (MDRD) Af Amer Est GFR (MDRD) Non-Af BUN/Creatinine Ratio Glucose Calcium Total Bilirubin AST ALT Alkaline Phosphatase Total Protein Albumin Globulin Albumin/Globulin Ratio S.aureus Protein A PCR POSITIVE H MRSA (PCR) POSITIVE H POC Glucose 124 H 235 H 09/16/20 09/17/20 09/17/20 23:31 04:55 04:55 WBC 7.0 RBC 2.58 L Hgb 9.0 L Hct 28.0 L MCV 108.5 H MCH 34.9 H MCHC 32.1 RDW Std Deviation 47.7 H RDW Coeff of Bassem 12.0 Plt Count 411 MPV 9.6 Immature Gran % (Auto) 0.700 Neut % (Auto) 68.2 Lymph % (Auto) 15.4 L [place] % (Auto) 10.1 H Eos % (Auto) 4.9 Baso % (Auto) 0.7 Absolute Neuts (auto) 4.7 Absolute Lymphs (auto) 1.07 Nucleated RBC % 0 Sodium 133 L Potassium 4.2 Chloride 95 L Carbon Dioxide 27.0 Anion Gap 11 BUN 41 H Creatinine 6.12 H Estim Creat Clear Calc 10.45 Est GFR (MDRD) Af Amer 10 L Est GFR (MDRD) Non-Af 8 L BUN/Creatinine Ratio 6.7 L Glucose 164 H Calcium 8.6 Total Bilirubin 0.40 AST 14 L ALT 14 Alkaline Phosphatase 34 L Total Protein 6.9 Albumin 2.5 L Globulin 4.4 H Albumin/Globulin Ratio 0.6 L S.aureus Protein A PCR MRSA (PCR) POC Glucose 286 H 09/17/20 08:07 WBC RBC Hgb Hct MCV MCH MCHC RDW Std Deviation RDW Coeff of Bassem Plt Count MPV Immature Gran % (Auto) Neut % (Auto) Lymph % (Auto) [place] % (Auto) Eos % (Auto) Baso % (Auto) Absolute Neuts (auto) Absolute Lymphs (auto) Nucleated RBC % Sodium Potassium Chloride Carbon Dioxide Anion Gap BUN Creatinine Estim Creat Clear Calc Est GFR (MDRD) Af Amer Est GFR (MDRD) Non-Af BUN/Creatinine Ratio Glucose Calcium Total Bilirubin AST ALT Alkaline Phosphatase Total Protein Albumin Globulin Albumin/Globulin Ratio S.aureus Protein A PCR MRSA (PCR) POC Glucose 97 Micro: Microbiology 09/15/20 18:30 Wound Abcess - Toe Gram Stain - Final 09/15/20 18:30 Wound Abcess - Toe Wound Culture - Final Meth. resistant Staph. aureus 09/15/20 10:20 Wound - Toe Gram Stain - Final 09/15/20 10:20 Wound - Toe Wound Culture - Final Meth. resistant Staph. aureus 09/15/20 00:33 Blood Culture (Wb) - Right Hand Blood Culture - Preliminary No growth in 48 hours. 09/15/20 01:25 Blood Culture (Wb) - Right Wrist Blood Culture - Preliminary No growth in 48 hours. Physical Exam Narrative General: Alert, Oriented x3, Cooperative, No apparent distress, Well developed HEENT: Atraumatic Oral: Moist Mucosa Neck: Supple Lungs: Clear to auscultation Cardiovascular: HS I+II, regular, no murmurs Abdomen: Bowel Sounds Present, Soft, Non Tender Extremities: No edema, dressing over the right foot Skin: No rashes, No breakdown Neurological: Grossly intact Psych/Mental Status: Appropriate Assessment & Plan Assessment/Plan (1) Diabetic foot: (2) Type 2 diabetes mellitus: QUALIFIERS: Diabetes mellitus complication status: with other specified complication Diabetes mellitus long term acute care registered nurse insulin use: with long term acute care registered nurse use Qualified Code(s): E11.69 - Type 2 diabetes mellitus with other specified complication; 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 (3) HLD (hyperlipidemia): QUALIFIERS: Hyperlipidemia type: mixed hyperlipidemia Qualified Code(s): E78.2 - Mixed hyperlipidemia (4) Hypertension: QUALIFIERS: Hypertension type: essential hypertension Qualified Code(s): I10 - Essential (primary) hypertension (5) Noncompliance with medication regimen: (6) Osteomyelitis: QUALIFIERS: Osteomyelitis type: other acute Osteomyelitis location: foot Laterality: right Qualified Code(s): M86.171 - Other acute osteomyelitis, right ankle and foot (7) MRSA (methicillin resistant staph aureus) culture positive: (8) Abscess: (9) ESRD (end stage renal disease): (10) Anemia: PLAN: 1. Acute right great toe distal phalanx osteomyelitis/abscess/diabetic foot infection Status post bedside I&D on 09/15/20 by podiatry MRI of the right foot shows above MRSA PCR positive, wound cultures growing MRSA Blood cultures are negative Podiatry and ID following, on IV vancomycin and Zosyn Antibiotics planned after dialysis 2. Acute Hyponatremia related to ESRD, will trend whilst on dialysis 3. Anemia of CKD, chronic, Hb appears stable at 9.0 4. ESRD on HD. Nephrology consulted 5. Rest of chronic medical conditions -hypertension, type II DM -remains stable, complicates USP medications continued Visit Charges Inpatient E&M: 91634 Subs Hosp L2
[2020-09-17 12:30] LABS: Bedside Glucose 233 mg/dL (70-110)
[2020-09-17] MEDS: Insulin Lispro 100 UNIT/ML INSULN.PEN SC ×3 (12:31→22:01)
[2020-09-17 14:00] VITALS: BP 117/70; PULSE 83; RESP 18; TEMP 36.8; O2SAT 94
--- NOTE | 2020-09-17 14:11 | CASEMGMT ---
Social Work Return call from [facility] and they are unable to accept pt. Pt second choice is [facility]. Referral made to the [facility], they do have beds available. SW will await determination if they can accept patient. Pt made aware. ROSE Peña
--- NOTE | 2020-09-17 14:56 | PN.RENAL_ITS ---
Subjective Subjective no pain in the foot no c/o Objective Data Objective Data Vital Signs: Vital Signs Temp Pulse Resp BP Pulse Ox 97.9 F 72 18 118/74 100 09/17/20 08:00 09/17/20 08:00 09/17/20 08:00 09/17/20 08:00 09/17/20 08:00 Oxygen Delivery Method Room Air Weight: 73.6 kg Body Mass Index (BMI) 27.1 Intake & Output: Intake and Output for Last 24 Hours 09/15/20 09/16/20 09/17/20 23:59 23:59 23:59 Intake Total 716.75 / 716.75 399.25 / 759.25 930 / 930 Output Total 0 / 0 1999 Balance 716.75 / 716.75 -1600.75 / -1240.75 930 / 930 Lab / Micro Data Result Diagrams: 09/17/20 04:55 09/17/20 04:55 Labs: Laboratory Results - last 24 hr 09/16/20 09/16/20 09/17/20 17:25 23:31 04:55 WBC RBC Hgb Hct MCV MCH MCHC RDW Std Deviation RDW Coeff of Bassem Plt Count MPV Immature Gran % (Auto) Neut % (Auto) Lymph % (Auto) [place] % (Auto) Eos % (Auto) Baso % (Auto) Absolute Neuts (auto) Absolute Lymphs (auto) Nucleated RBC % Sodium 133 L Potassium 4.2 Chloride 95 L Carbon Dioxide 27.0 Anion Gap 11 BUN 41 H Creatinine 6.12 H Estim Creat Clear Calc 10.45 Est GFR (MDRD) Af Amer 10 L Est GFR (MDRD) Non-Af 8 L BUN/Creatinine Ratio 6.7 L Glucose 164 H Calcium 8.6 Total Bilirubin 0.40 AST 14 L ALT 14 Alkaline Phosphatase 34 L Total Protein 6.9 Albumin 2.5 L Globulin 4.4 H Albumin/Globulin Ratio 0.6 L POC Glucose 235 H 286 H 09/17/20 09/17/20 09/17/20 04:55 08:07 12:28 WBC 7.0 RBC 2.58 L Hgb 9.0 L Hct 28.0 L MCV 108.5 H MCH 34.9 H MCHC 32.1 RDW Std Deviation 47.7 H RDW Coeff of Bassem 12.0 Plt Count 411 MPV 9.6 Immature Gran % (Auto) 0.700 Neut % (Auto) 68.2 Lymph % (Auto) 15.4 L [place] % (Auto) 10.1 H Eos % (Auto) 4.9 Baso % (Auto) 0.7 Absolute Neuts (auto) 4.7 Absolute Lymphs (auto) 1.07 Nucleated RBC % 0 Sodium Potassium Chloride Carbon Dioxide Anion Gap BUN Creatinine Estim Creat Clear Calc Est GFR (MDRD) Af Amer Est GFR (MDRD) Non-Af BUN/Creatinine Ratio Glucose Calcium Total Bilirubin AST ALT Alkaline Phosphatase Total Protein Albumin Globulin Albumin/Globulin Ratio POC Glucose 97 233 H Micro: Microbiology 09/15/20 18:30 Wound Abcess - Toe Gram Stain - Final 09/15/20 18:30 Wound Abcess - Toe Wound Culture - Final Meth. resistant Staph. aureus 09/15/20 10:20 Wound - Toe Gram Stain - Final 09/15/20 10:20 Wound - Toe Wound Culture - Final Meth. resistant Staph. aureus 09/15/20 00:33 Blood Culture (Wb) - Right Hand Blood Culture - Preliminary No growth in 48 hours. 09/15/20 01:25 Blood Culture (Wb) - Right Wrist Blood Culture - Preliminary No growth in 48 hours. Physical Exam Const alert and no apparent distress General Appearance: comfortable HEENT normocephalic HEENT Narrative: atraumatic Neck General: normal visual inspection and trachea midline Resp normal respiratory effort and clear to auscultation bilaterally Cardio regular rate, regular rhythm, S1 normal heart sound and S2 normal heart sound GI soft to palpation and non-tender Extremity no clubbing, cyanosis or edema Neuro Sensorium / Orientation: awake and alert Assessment & Plan Assessment/Plan (1) ESRD (end stage renal disease): PLAN: Continue Monday dialysis for dialysis tomorrow (2) Secondary renal hyperparathyroidism: PLAN: Continue binders monitor periodically calcium and phosphorus (3) Hypertension: QUALIFIERS: Hypertension type: essential hypertension Qualified Code(s): I10 - Essential (primary) hypertension PLAN: Controlled continue losartan and amlodipine (4) Anemia: QUALIFIERS: Anemia type: due to chronic kidney disease Chronic kidney disease stage: on chronic dialysis Qualified Code(s): N18.6 - End stage renal disease; D63.1 - Anemia in chronic kidney disease; Z99.2 - Dependence on renal dialysis PLAN: [facility]I if prolonged hospital stay (5) Cellulitis of toe of right foot: PLAN: Antibiotics per ID . Podiatry following. (6) Osteomyelitis: QUALIFIERS: Osteomyelitis type: other acute Osteomyelitis location: foot Laterality: right Qualified Code(s): M86.171 - Other acute osteomyelitis, right ankle and foot PLAN: abx per ID and podiatry on board too.
[2020-09-17 16:40] LABS: Bedside Glucose 250 mg/dL (70-110)
[2020-09-17 18:58] VITALS: BP 121/75; PULSE 78; RESP 18; TEMP 36.7; O2SAT 93
[2020-09-17 21:42] VITALS: BP 135/73; PULSE 78; RESP 18; TEMP 36.3; O2SAT 100
[2020-09-17] MEDS: Ondansetron 4 MG/2 ML Vial IV (22:00)
[2020-09-17 22:35] LABS: Bedside Glucose 242 mg/dL (70-110)
[2020-09-18 02:31] VITALS: BP 119/61; PULSE 70; RESP 18; TEMP 36.6; O2SAT 100
[2020-09-18 06:41] LABS: Bedside Glucose 97 mg/dL (70-110)
--- NOTE | 2020-09-18 07:19 | PN_ITS ---
Subjective Subjective Patient was seen this morning for follow up on right 1st toe and heel ulcer. She is resting comfortably in bed, no complaints of fever, chills, nausea, vomiting or calf pain. Objective Data Objective Data Vital Signs: Vital Signs Temp Pulse Resp BP Pulse Ox 97.9 F 70 18 119/61 100 09/18/20 02:31 09/18/20 02:31 09/18/20 02:31 09/18/20 02:31 09/18/20 02:31 Oxygen Delivery Method Room Air Weight: 73.5 kg Body Mass Index (BMI) 27.1 Intake & Output: Intake and Output for Last 24 Hours 09/16/20 09/17/20 09/18/20 23:59 23:59 23:59 Intake Total 399.25 / 759.25 1525.75 / 1525.75 90 / 90 Output Total 1999 Balance -1600.75 / -1240.75 1525.75 / 1525.75 90 / 90 Lab / Micro Data Result Diagrams: 09/17/20 04:55 09/17/20 04:55 Labs: Laboratory Results - last 24 hr 09/17/20 09/17/20 09/17/20 08:07 12:28 16:36 POC Glucose 97 233 H 250 H 09/17/20 09/18/20 21:49 06:38 POC Glucose 242 H 97 Micro: Microbiology 09/15/20 18:30 Wound Abcess - Toe Gram Stain - Final 09/15/20 18:30 Wound Abcess - Toe Wound Culture - Final Meth. resistant Staph. aureus 09/15/20 10:20 Wound - Toe Gram Stain - Final 09/15/20 10:20 Wound - Toe Wound Culture - Final Meth. resistant Staph. aureus 09/15/20 00:33 Blood Culture (Wb) - Right Hand Blood Culture - Preliminary No growth in 48 hours. 09/15/20 01:25 Blood Culture (Wb) - Right Wrist Blood Culture - Preliminary No growth in 48 hours. Radiography Diagnostic Testing: Radiology Impression Extremity Arterial Study 09/15/20 18:32 Interpretation Summary Triphasic Doppler waveforms are noted at ankle level on the right. Triphasic and biphasic Doppler waveforms are noted at ankle level on the left. Pulse-volume recordings appear satisfactory at all levels bilaterally, though not assessed at digital level on the right. Resting ankle-brachial indices are normal bilaterally. The right digital-brachial index was not determined due to the presence of bandages. The left digital-brachial index is normal. There is no evidence of significant arterial occlusive disease in the lower extremities bilaterally. Ordering Physician: Aaron Green Referring Physician: Gerardo Beaver Performed By: Mercedez Koroma RVT Physical Exam Const alert, oriented x3 and no apparent distress General Appearance: cooperative and comfortable Extremity normal capillary refill Extremity Narrative: There is significant less cellulitis to the right 1st toe, there is improved tissue to the dorsal and medial 1st toe with ulceration present with scant purulent drainage dorsally - much improved, there is residual stable nonviable tissue but continues to improve, streaking is resolved. Heel ulcer right side is viable with no evidence of infection. There no evidence of acute ischemia to the foot or ankle, right. CFT < 2 seconds to all toes right foot. 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 MRI right foot - there is evidence of osteomyelitis and abscess right 1st toe. I+D has been completed. There is continued improvement to the toe today. Continue to monitor the toe let it demarcate. We will follow the toe and see how it does. Reviewed cultures of the toe which are MRSA+ ; she is on IV antibiotics - she is on Vanc and Zosyn, and ID/Dr. Herrera is on consult. Wound care right 1st toe: Hysept gauze wet to dry dressing changes. Right heel - keyla daily dressing changes. Keep offloaded at all times. New LEAS have been ordered and have been obtained - appears to have good arterial flow to foot based on results. Podiatry will continue to follow. 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
[2020-09-18 07:29] VITALS: BP 122/71; PULSE 63; RESP 16; TEMP 36.7; O2SAT 96
[2020-09-18 07:35] VITALS: PULSE 70
[2020-09-18 07:42] LABS: Vancomycin, Random Level 18.7 ug/mL (0.0-15.0)
--- NOTE | 2020-09-18 08:05 | PCM.RX.CS ---
Consult Pharmacy has been consulted to manage selected antiobiotic: Vancomycin Type of Consult: Follow-up Suspected Infection: Skin/Soft tissue, Osteomyelitis Prior Doses of Antibiotics Received/Current Regimen: Last dose was 500mg iv x 1 post dialysis on 09.16.20. Labs: Sodium 133 mmol/L (136-145) L 09/17/20 04:55 Potassium 4.2 mmol/L (3.5-5.1) 09/17/20 04:55 Chloride 95 mmol/L (98-107) L 09/17/20 04:55 Carbon Dioxide 27.0 mmol/L (21.0-32.0) 09/17/20 04:55 Anion Gap 11 (5-15) 09/17/20 04:55 BUN 41 mg/dL (7-18) H 09/17/20 04:55 Creatinine 6.12 mg/dL (0.55-1.02) H 09/17/20 04:55 Est GFR (MDRD) Af Amer 10 mL/min (>60) L 09/17/20 04:55 Est GFR (MDRD) Non-Af 8 mL/min (>60) L 09/17/20 04:55 BUN/Creatinine Ratio 6.7 RATIO (10-20) L 09/17/20 04:55 Glucose 164 mg/dL (74-106) H 09/17/20 04:55 Random Vancomycin 18.7 ug/mL (0.0-15.0) H 09/18/20 06:20 Microbiology: Microbiology 09/15/20 18:30 Wound Abcess - Toe Gram Stain - Final 09/15/20 18:30 Wound Abcess - Toe Wound Culture - Final Meth. resistant Staph. aureus 09/15/20 10:20 Wound - Toe Gram Stain - Final 09/15/20 10:20 Wound - Toe Wound Culture - Final Meth. resistant Staph. aureus 09/15/20 00:33 Blood Culture (Wb) - Right Hand Blood Culture - Preliminary No growth in 48 hours. 09/15/20 01:25 Blood Culture (Wb) - Right Wrist Blood Culture - Preliminary No growth in 48 hours. Weight used for dosin.5 kg Estimated Creatinine Clearance: ~11ml/min Goal Trough: 15-20 mcg/mL Pharmacy Plan for Drug Dosing: Today's random level was 18.7. Will order 500mg iv x 1 post dialysis today per protocol. Another random level ordered for 09.21.20 in AM pre dialysis. Pharmacy Service will continue to monitor and adjust dosing as required. Follow-Up Labs: Trough Vancomycin - random level 09.21.20 @0600
[2020-09-18] MEDS: SEVELAMER CARBONATE 800 MG TABLET PO ×3 (09:26→17:10)
[2020-09-18] MEDS: Enoxaparin 30 MG/0.3 ML Syringe SC (09:26)
[2020-09-18] MEDS: DAKIN'S SOL HALF STRENGTH (=0.25%) 1 APPLIC TOPICAL ×2 (09:26→22:41)
[2020-09-18] MEDS: Pantoprazole Sodium 40 MG Tablet PO (09:27)
--- NOTE | 2020-09-18 09:29 | CASEMGMT ---
Social Work Call received from the [facility] and they are able to accept and precert will be started at this time. Physical Therapy notes faxed to [facility]. ROSE Tabares. ROSE Peña
[2020-09-18 09:31] VITALS: O2SAT 98
--- NOTE | 2020-09-18 09:52 | PN.RENAL_ITS ---
Subjective Subjective no worsening breathing. No N/V Objective Data Objective Data Vital Signs: Vital Signs Temp Pulse Resp BP Pulse Ox 98.0 F 63 16 122/71 H 98 09/18/20 07:29 09/18/20 07:29 09/18/20 07:29 09/18/20 07:29 09/18/20 09:31 Oxygen Delivery Method Room Air Weight: 73.5 kg Body Mass Index (BMI) 27.1 Intake & Output: Intake and Output for Last 24 Hours 09/16/20 09/17/20 09/18/20 23:59 23:59 23:59 Intake Total 399.25 / 759.25 1525.75 / 1525.75 90 / 90 Output Total 1999 Balance -1600.75 / -1240.75 1525.75 / 1525.75 90 / 90 Lab / Micro Data Result Diagrams: 09/17/20 04:55 09/17/20 04:55 Labs: Laboratory Results - last 24 hr 09/17/20 09/17/20 09/17/20 12:28 16:36 21:49 Random Vancomycin POC Glucose 233 H 250 H 242 H 09/18/20 09/18/20 06:20 06:38 Random Vancomycin 18.7 H POC Glucose 97 Micro: Microbiology 09/15/20 18:30 Wound Abcess - Toe Gram Stain - Final 09/15/20 18:30 Wound Abcess - Toe Wound Culture - Final Meth. resistant Staph. aureus 09/15/20 18:30 Wound Abcess - Toe Anaerobic Culture - Preliminary Checking for anaerobes, further studies to follow. 09/15/20 10:20 Wound - Toe Gram Stain - Final 09/15/20 10:20 Wound - Toe Wound Culture - Final Meth. resistant Staph. aureus 09/15/20 00:33 Blood Culture (Wb) - Right Hand Blood Culture - Preliminary No growth in 48 hours. 09/15/20 01:25 Blood Culture (Wb) - Right Wrist Blood Culture - Preliminary No growth in 48 hours. Radiography Diagnostic Testing: Radiology Impression Extremity Arterial Study 09/15/20 18:32 Interpretation Summary Triphasic Doppler waveforms are noted at ankle level on the right. Triphasic and biphasic Doppler waveforms are noted at ankle level on the left. Pulse-volume recordings appear satisfactory at all levels bilaterally, though not assessed at digital level on the right. Resting ankle-brachial indices are normal bilaterally. The right digital-brachial index was not determined due to the presence of bandages. The left digital-brachial index is normal. There is no evidence of significant arterial occlusive disease in the lower extremities bilaterally. Ordering Physician: Aaron Green Referring Physician: Gerardo Beaver Performed By: Mercedez Koroma RVT Physical Exam Const alert and no apparent distress General Appearance: comfortable HEENT normocephalic Neck General: normal visual inspection and trachea midline Resp normal respiratory effort and clear to auscultation bilaterally Cardio regular rate, regular rhythm, S1 normal heart sound and S2 normal heart sound GI soft to palpation and non-tender Extremity no clubbing, cyanosis or edema Neuro Sensorium / Orientation: awake and alert Assessment & Plan Assessment/Plan (1) ESRD (end stage renal disease): PLAN: Continue Monday . HD today (2) Secondary renal hyperparathyroidism: PLAN: Continue binders monitor periodically calcium and phosphorus (3) Hypertension: QUALIFIERS: Hypertension type: essential hypertension Qualified Code(s): I10 - Essential (primary) hypertension PLAN: Controlled continue losartan and amlodipine (4) Anemia: QUALIFIERS: Anemia type: due to chronic kidney disease Chronic kidney disease stage: on chronic dialysis Qualified Code(s): N18.6 - End stage renal disease; D63.1 - Anemia in chronic kidney disease; Z99.2 - Dependence on renal dialysis PLAN: KELLI if prolonged hospital stay. Hgb is close to target for KELLI (5) Cellulitis of toe of right foot: PLAN: Antibiotics per ID . Podiatry following. (6) Osteomyelitis: QUALIFIERS: Osteomyelitis type: other acute Osteomyelitis location: foot Laterality: right Qualified Code(s): M86.171 - Other acute o steomyelitis, right ankle and foot PLAN: abx per ID and podiatry on board too.
--- NOTE | 2020-09-18 10:30 | CASEMGMT ---
Palliative screening tool completed at this time. Patient meets criteria for palliative referral. Hospitalist updated and no referral at this time.
--- NOTE | 2020-09-18 10:39 | CASEMGMT ---
Addendum entered by Mercedez Mann 09/18/20 12:59: SW faxed IV antibiotic script to [facility]. Original Note: Social Work Note SW placed a call to Destinee at [facility] and let her know pt is now on this worker's floor and to call this worker when pre-cert is obtained. Destinee states understanding. SW in to speak with pt. BESS introduced self and role at [facility]. SW updated pt that [facility] is not able to accept pt but [facility] is pending pre-cert approval. Pt states understanding. Plan: [facility] pending pre-cert Mercedez Mann SALES ASSISTANT, REHAB ASSISTANT
[2020-09-18 10:41] VITALS: O2SAT 96
[2020-09-18] MEDS: Insulin Lispro 100 UNIT/ML INSULN.PEN SC ×2 (11:34→22:40)
[2020-09-18 11:41] LABS: Bedside Glucose 186 mg/dL (70-110)
[2020-09-18] MEDS: Lidocaine/Prilocaine HCl 5 GM Tube TOPICAL (13:03)
--- NOTE | 2020-09-18 14:17 | CASEMGMT ---
ZHANG VASQUEZ called and updated [facility] HD center in [place] that patient will be discharging with IV ATB with HD. Per [facility], SNF will need to supply IV ATB and send with patient. ZHANG VASQUEZ faxed script to [facility]. ZHANG VASQUEZ called [facility] and updated regarding [facility]B with HD and that they would need to supply IV ATB. Destinee voiced understanding.
--- NOTE | 2020-09-18 15:13 | CASEMGMT ---
Social Work Note BESS placed a call to Destinee at [facility], pre-cert is still pending. BESS completed convalescent 7000 in HENS. BESS placed Green sheet, transport forms, HENS, and COVID tool on pt's chart in the event pre-cert is obtained. Pt will need COVID test on the day of discharge. Plan: [facility] pending pre-cert Mercedez Mann ROUGE MIXER, STOCK LIFTER
--- NOTE | 2020-09-18 15:59 | PN.HOSP_ITS ---
Subjective Subjective Patient was seen and examined. No new complaints. Waiting on pre-CERT for discharge. Objective Data Objective Data Vital Signs: Vital Signs Temp Pulse Resp BP Pulse Ox 98.0 F 70 16 122/71 H 96 09/18/20 07:29 09/18/20 07:35 09/18/20 07:29 09/18/20 07:29 09/18/20 10:41 Oxygen Delivery Method Room Air Weight: 73.5 kg Body Mass Index (BMI) 27.1 Intake & Output: Intake and Output for Last 24 Hours 09/16/20 09/17/20 09/18/20 23:59 23:59 23:59 Intake Total 399.25 / 759.25 1525.75 / 1525.75 90 / 90 Output Total 1999 Balance -1600.75 / -1240.75 1525.75 / 1525.75 90 / 90 Lab / Micro Data Result Diagrams: 09/17/20 04:55 09/17/20 04:55 Labs: Laboratory Results - last 24 hr 09/17/20 09/17/20 09/18/20 16:36 21:49 06:20 Random Vancomycin 18.7 H POC Glucose 250 H 242 H 09/18/20 09/18/20 06:38 11:32 Random Vancomycin POC Glucose 97 186 H Micro: Microbiology 09/15/20 18:30 Wound Abcess - Toe Gram Stain - Final 09/15/20 18:30 Wound Abcess - Toe Wound Culture - Final Meth. resistant Staph. aureus 09/15/20 18:30 Wound Abcess - Toe Anaerobic Culture - Preliminary Checking for anaerobes, further studies to follow. 09/15/20 10:20 Wound - Toe Gram Stain - Final 09/15/20 10:20 Wound - Toe Wound Culture - Final Meth. resistant Staph. aureus 09/15/20 00:33 Blood Culture (Wb) - Right Hand Blood Culture - Preliminary No growth in 48 hours. 09/15/20 01:25 Blood Culture (Wb) - Right Wrist Blood Culture - Preliminary No growth in 48 hours. Radiography Diagnostic Testing: Radiology Impression Extremity Arterial Study 09/15/20 18:32 Interpretation Summary Triphasic Doppler waveforms are noted at ankle level on the right. Triphasic and biphasic Doppler waveforms are noted at ankle level on the left. Pulse-volume recordings appear satisfactory at all levels bilaterally, though not assessed at digital level on the right. Resting ankle-brachial indices are normal bilaterally. The right digital-brachial index was not determined due to the presence of bandages. The left digital-brachial index is normal. There is no evidence of significant arterial occlusive disease in the lower extremities bilaterally. Ordering Physician: Aaron Green Referring Physician: Gerardo Beaver Performed By: Mercedez Koroma RVT Physical Exam Narrative General: Alert, Oriented x3, Cooperative, No apparent distress, Well developed HEENT: Atraumatic Oral: Moist Mucosa Neck: Supple Lungs: Clear to auscultation Cardiovascular: HS I+II, regular, no murmurs Abdomen: Bowel Sounds Present, Soft, Non Tender Extremities: No edema, dressing over the right foot Skin: No rashes, No breakdown Neurological: Grossly intact Psych/Mental Status: Appropriate Const alert and oriented x3 General Appearance: cooperative HEENT normocephalic and head/scalp atraumatic Eyes PERRL and EOMs intact bilaterally Neck supple, no JVD and thyroid normal General: trachea midline Lymph Lymphatic: no lymphadenopathy noted Resp normal respiratory effort, normal air movement and clear to auscultation bilaterally Cardio regular rate, regular rhythm, S1 normal heart sound and S2 normal heart sound GI normal to inspection, nondistended, normoactive bowel sounds, soft to palpation and non-tender Extremity normal capillary refill and no clubbing, cyanosis or edema General Extremity: no tenderness to palpation of joints or extremities Skin General Skin Exam: no breakdown and turgor normal Lesions: no lesions Rashes: no rashes Wounds: wounds noted bed dusky red, drainage purulent and yellow, margins surrounding erythema and edilma Neuro CN's II-XII intact bilaterally Psych thought process normal, cooperative and affect normal Appearance: appropriate Assessment & Plan Assessment/Plan (1) Diabetic foot: (2) Type 2 diabetes mellitus: QUALIFIERS: Diabetes mellitus complication status: with other specified complication Diabetes mellitus long-term insulin use: with keno terminal operator use Qualified Code(s): E11.69 - Type 2 diabetes mellitus with other specified complication; Z79.4 - skilled nursing (current) use of insulin (3) HLD (hyperlipidemia): QUALIFIERS: Hyperlipidemia type: mixed hyperlipidemia Qualified Code(s): E78.2 - Mixed hyperlipidemia (4) Hypertension: QUALIFIERS: Hypertension type: essential hypertension Qualified Code(s): I10 - Essential (primary) hypertension (5) Noncompliance with medication regimen: (6) Osteomyelitis: QUALIFIERS: Osteomyelitis type: other acute Osteomyelitis location: foot Laterality: right Qualified Code(s): M86.171 - Other acute osteomyelitis, right ankle and foot (7) MRSA (methicillin resistant staph aureus) culture positive: (8) Abscess: (9) ESRD (end stage renal disease): (10) Anemia: QUALIFIERS: Anemia type: due to chronic kidney disease Chronic kidney disease stage: on chronic dialysis Qualified Code(s): N18.6 - End stage renal disease; D63.1 - Anemia in chronic kidney disease; Z99.2 - Dependence on renal dialysis PLAN: 1. Acute right great toe distal phalanx osteomyelitis/abscess/diabetic foot infection Status post bedside I&D on 09/15/20 by podiatry MRI of the right foot shows above MRSA PCR positive, wound cultures growing MRSA Blood cultures are negative Podiatry and ID following, on IV vancomycin and Zosyn Antibiotics planned after dialysis 2. Acute Hyponatremia related to ESRD, will trend whilst on dialysis 3. Anemia of CKD, chronic, Hb appears stable at 9.0 4. ESRD on HD. Nephrology consulted 5. Rest of chronic medical conditions -hypertension, type II DM -remains stable, complicates nursing home medications continued Visit Charges Inpatient E&M: 91147 Subs Hosp L2
[2020-09-18 16:06] LABS: Bedside Glucose 101 mg/dL (70-110)
[2020-09-18] MEDS: 0.9% Saline Lock 10 ML Syringe IV (16:43)
--- NOTE | 2020-09-18 16:56 | DIALYSIS ---
HD X 3 HOURS ON 3K BATH UF-1500ML TOLERATED TX WELL. STASIS AT [facility] AT SITES REPORT TO TRAY RN
[2020-09-18 19:47] VITALS: BP 131/62; PULSE 74; RESP 18; TEMP 36.7; O2SAT 100
[2020-09-18] MEDS: Vancomycin IV 500 MG/100 ML BAG 100 MG IV (22:40)
[2020-09-18 23:10] LABS: Bedside Glucose 213 mg/dL (70-110)
[2020-09-19 02:05] VITALS: BP 128/71; PULSE 74; RESP 16; TEMP 36.8; O2SAT 96
[2020-09-19 06:55] LABS: Bedside Glucose 87 mg/dL (70-110)
[2020-09-19 08:02] VITALS: BP 100/67; PULSE 68; RESP 16; TEMP 36.6; O2SAT 98
[2020-09-19] MEDS: SEVELAMER CARBONATE 800 MG TABLET PO ×3 (08:41→16:19)
--- NOTE | 2020-09-19 09:43 | PN_ITS ---
Subjective Subjective Patient was seen this morning for follow up on left foot. She denies any fever, chills, nausea, vomiting, chest pain, shortness of breath or calf pain. Objective Data Objective Data Vital Signs: Vital Signs Temp Pulse Resp BP Pulse Ox 97.8 F 68 16 100/67 98 09/19/20 08:02 09/19/20 08:02 09/19/20 08:02 09/19/20 08:02 09/19/20 08:02 Oxygen Delivery Method Room Air Weight: 73.261 kg Body Mass Index (BMI) 27.1 Intake & Output: Intake and Output for Last 24 Hours 09/17/20 09/18/20 09/19/20 23:59 23:59 23:59 Intake Total 1525.75 / 1525.75 474.25 / 474.25 Output Total 1800 / 1800 Balance 1525.75 / 1525.75 -1325.75 / -1325.75 Lab / Micro Data Result Diagrams: 09/17/20 04:55 09/17/20 04:55 Labs: Laboratory Results - last 24 hr 09/18/20 09/18/20 09/18/20 11:32 16:01 22:39 POC Glucose 186 H 101 213 H 09/19/20 06:38 POC Glucose 87 Micro: Microbiology 09/15/20 18:30 Wound Abcess - Toe Gram Stain - Final 09/15/20 18:30 Wound Abcess - Toe Wound Culture - Final Meth. resistant Staph. aureus 09/15/20 18:30 Wound Abcess - Toe Anaerobic Culture - Preliminary Checking for anaerobes, further studies to follow. 09/15/20 10:20 Wound - Toe Gram Stain - Final 09/15/20 10:20 Wound - Toe Wound Culture - Final Meth. resistant Staph. aureus 09/15/20 00:33 Blood Culture (Wb) - Right Hand Blood Culture - Preliminary No growth in 48 hours. 09/15/20 01:25 Blood Culture (Wb) - Right Wrist Blood Culture - Preliminary No growth in 48 hours. Physical Exam Const alert, oriented x3 and no apparent distress General Appearance: cooperative and comfortable Extremity normal capillary refill Extremity Narrative: Cellulitis right 1st toe resolved, there is improved tissue to the dorsal and medial 1st toe with ulceration present with very scant purulent drainage dorsally - overall much improved, there is residual stable nonviable tissue but continues to improve, streaking is resolved. Heel ulcer right side is viable, granular, with no evidence of infection - down to subcutaneous tissue. There no evidence of acute ischemia to the foot or ankle, right. CFT < 2 seconds to all toes right foot. Assessment & Plan Assessment/Plan (1) Abscess: (2) Osteomyelitis: QUALIFIERS: Osteomyelitis type: other acute Osteomyelitis location: foot Laterality: right Qualified Code(s): M86.171 - Other acute osteomyelitis, right ankle and foot (3) Chronic heel ulcer with fat layer exposed: QUALIFIERS: Laterality: right Qualified Code(s): L97.412 - Non- pressure chronic ulcer of right heel and midfoot with fat layer exposed (4) Type 2 diabetes mellitus with diabetic polyneuropathy: QUALIFIERS: Diabetes mellitus senior living insulin use: unspecified senior living insulin use status Qualified Code(s): E11.42 - Type 2 diabetes mellitus with diabetic polyneuropathy PLAN: Reviewed diagnostic data. MRI right foot - there is evidence of osteomyelitis and abscess right 1st toe. I+D has been completed. There is continued improvement to the toe today. Continue to monitor the toe let it demarcate. It is improving. We will follow the toe and see how it does. Reviewed cultures of the toe which are MRSA+ ; she is on IV antibiotics - she is on Vanc and Zosyn, and ID/Dr. Herrera is on consult. Wound care right 1st toe: Hysept gauze wet to dry dressing changes. Right heel - keyla daily dressing changes. Keep offloaded at all times. New LEAS have been ordered and have been obtained - appears to have good arterial flow to foot based on results. Podiatry will continue to follow. (5) ESRD (end stage renal disease): (6) Cellulitis of toe of right foot: (7) Onycholysis: (8) Dialysis patient: (9) Diabetic foot: (10) Type 2 diabetes mellitus: QUALIFIERS: Diabetes mellitus complication status: with other specified complication Diabetes mellitus supervisor intermediates insulin use: with senior living use Qualified Code(s): E11.69 - Type 2 diabetes mellitus with other specified complication; Z79.4 - supervisor intermediates (current) use of insulin
[2020-09-19] MEDS: Losartan Potassium 100 MG Tablet PO (10:03)
[2020-09-19] MEDS: Fenofibrate 145 MG Tablet PO (10:03)
[2020-09-19] MEDS: amLODIPine 10 MG Tablet PO (10:03)
[2020-09-19] MEDS: Pantoprazole Sodium 40 MG Tablet PO (10:04)
[2020-09-19] MEDS: DAKIN'S SOL HALF STRENGTH (=0.25%) 1 APPLIC TOPICAL ×2 (10:04→22:09)
[2020-09-19] MEDS: Enoxaparin 30 MG/0.3 ML Syringe SC (10:08)
[2020-09-19] MEDS: 0.9% Saline Lock 10 ML Syringe IV ×2 (10:08→22:14)
[2020-09-19] MEDS: Insulin Lispro 100 UNIT/ML INSULN.PEN SC ×2 (11:26→22:09)
[2020-09-19 11:31] LABS: Bedside Glucose 151 mg/dL (70-110)
--- NOTE | 2020-09-19 11:54 | PN.HOSP_ITS ---
Subjective Subjective No acute events. Waiting on insurance precertification for discharge. Objective Data Objective Data Vital Signs: Vital Signs Temp Pulse Resp BP Pulse Ox 97.8 F 68 16 100/67 98 09/19/20 08:02 09/19/20 08:02 09/19/20 08:02 09/19/20 08:02 09/19/20 08:02 Oxygen Delivery Method Room Air Weight: 73.261 kg Body Mass Index (BMI) 27.1 Intake & Output: Intake and Output for Last 24 Hours 09/17/20 09/18/20 09/19/20 23:59 23:59 23:59 Intake Total 1525.75 / 1525.75 474.25 / 474.25 Output Total 1800 / 1800 Balance 1525.75 / 1525.75 -1325.75 / -1325.75 Lab / Micro Data Result Diagrams: 09/17/20 04:55 09/17/20 04:55 Labs: Laboratory Results - last 24 hr 09/18/20 09/18/20 09/19/20 16:01 22:39 06:38 POC Glucose 101 213 H 87 09/19/20 11:25 POC Glucose 151 H Micro: Microbiology 09/15/20 18:30 Wound Abcess - Toe Gram Stain - Final 09/15/20 18:30 Wound Abcess - Toe Wound Culture - Final Meth. resistant Staph. aureus 09/15/20 18:30 Wound Abcess - Toe Anaerobic Culture - Preliminary Checking for anaerobes, further studies to follow. 09/15/20 10:20 Wound - Toe Gram Stain - Final 09/15/20 10:20 Wound - Toe Wound Culture - Final Meth. resistant Staph. aureus 09/15/20 00:33 Blood Culture (Wb) - Right Hand Blood Culture - Preliminary No growth in 48 hours. 09/15/20 01:25 Blood Culture (Wb) - Right Wrist Blood Culture - Preliminary No growth in 48 hours. Physical Exam Narrative General: Alert, Oriented x3, Cooperative, No apparent distress, Well developed HEENT: Atraumatic Oral: Moist Mucosa Neck: Supple Lungs: Clear to auscultation Cardiovascular: HS I+II, regular, no murmurs Abdomen: Bowel Sounds Present, Soft, Non Tender Extremities: No edema, dressing over the right foot Skin: No rashes, No breakdown Neurological: Grossly intact Psych/Mental Status: Appropriate Assessment & Plan Assessment/Plan (1) Diabetic foot: (2) Type 2 diabetes mellitus: QUALIFIERS: Diabetes mellitus complication status: with other specified complication Diabetes mellitus truck terminal manager insulin use: with truck terminal manager use Qualified Code(s): E11.69 - Type 2 diabetes mellitus with other specified complication; Z79.4 - residential (current) use of insulin (3) HLD (hyperlipidemia): QUALIFIERS: Hyperlipidemia type: mixed hyperlipidemia Qualified Code(s): E78.2 - Mixed hyperlipidemia (4) Hypertension: QUALIFIERS: Hypertension type: essential hypertension Qualified Code(s): I10 - Essential (primary) hypertension (5) Noncompliance with medication regimen: (6) Osteomyelitis: QUALIFIERS: Laterality: right Osteomyelitis location: foot Osteomyelitis type: other acute Qualified Code(s): M86.171 - Other acute osteomyelitis, right ankle and foot (7) MRSA (methicillin resistant staph aureus) culture positive: (8) Abscess: (9) ESRD (end stage renal disease): (10) Anemia: QUALIFIERS: Anemia type: due to chronic kidney disease Chronic kidney disease stage: on chronic dialysis Qualified Code(s): N18.6 - End stage renal disease; D63.1 - Anemia in chronic kidney disease; Z99.2 - Dependence on renal dialysis PLAN: 1. Acute right great toe distal phalanx os teomyelitis/abscess/diabetic foot infection Status post bedside I&D on 09/15/20 by podiatry MRI of the right foot shows above MRSA PCR positive, wound cultures growing MRSA Blood cultures are negative Podiatry and ID following, on IV vancomycin and Zosyn IV vancomycin after dialysis 2. Acute Hyponatremia related to ESRD, will trend whilst on dialysis 3. Anemia of CKD, chronic, Hb appears stable at 9.0 4. ESRD on HD. Nephrology consulted 5. Rest of chronic medical conditions -hypertension, type II DM -remains stable, complicates residential medications continued Visit Charges Inpatient E&M: 14648 Subs Hosp L2
[2020-09-19 13:31] VITALS: O2SAT 98
[2020-09-19 14:01] VITALS: BP 122/62; PULSE 76; RESP 16; TEMP 36.8; O2SAT 97
[2020-09-19 16:46] LABS: Bedside Glucose 136 mg/dL (70-110)
[2020-09-19 20:10] VITALS: BP 106/69; PULSE 71; RESP 16; TEMP 37.2; O2SAT 97
[2020-09-19 22:35] LABS: Bedside Glucose 167 mg/dL (70-110)
[2020-09-20 02:10] VITALS: BP 104/68; PULSE 72; RESP 16; TEMP 36.8; O2SAT 98
[2020-09-20 04:46] LABS: Bedside Glucose 54 mg/dL (70-110)
[2020-09-20 05:06] LABS: Bedside Glucose 71 mg/dL (70-110)
[2020-09-20 06:31] LABS: Bedside Glucose 147 mg/dL (70-110)
--- NOTE | 2020-09-20 08:13 | PN_ITS ---
Subjective Subjective Patient was seen this morning for follow up on right 1st toe and heel ulcer. Patient resting comfortably in bed. She relates she had an episode of low blood sugar overnight, but not corrected. No complaints. Objective Data Objective Data Vital Signs: Vital Signs Temp Pulse Resp BP Pulse Ox 98.3 F 72 16 104/68 98 09/20/20 02:10 09/20/20 02:10 09/20/20 02:10 09/20/20 02:10 09/20/20 02:10 Oxygen Delivery Method Room Air Weight: 73.261 kg Body Mass Index (BMI) 27.1 Intake & Output: Intake and Output for Last 24 Hours 09/18/20 09/19/20 09/20/20 23:59 23:59 23:59 Intake Total 474.25 / 474.25 50 / 50 530 / 530 Output Total 1800 / 1800 Balance -1325.75 / -1325.75 50 / 50 530 / 530 Lab / Micro Data Result Diagrams: 09/17/20 04:55 09/17/20 04:55 Labs: Laboratory Results - last 24 hr 09/19/20 09/19/20 09/19/20 11:25 16:13 22:06 POC Glucose 151 H 136 H 167 H 09/20/20 09/20/20 09/20/20 04:38 05:02 06:24 POC Glucose 54 L 71 147 H Micro: Microbiology 09/15/20 01:25 Blood Culture (Wb) - Right Wrist Blood Culture - Final No growth in 5 days. 09/15/20 00:33 Blood Culture (Wb) - Right Hand Blood Culture - Final No growth in 5 days. 09/15/20 18:30 Wound Abcess - Toe Gram Stain - Final 09/15/20 18:30 Wound Abcess - Toe Wound Culture - Final Meth. resistant Staph. aureus 09/15/20 18:30 Wound Abcess - Toe Anaerobic Culture - Preliminary Checking for anaerobes, further studies to follow. 09/15/20 10:20 Wound - Toe Gram Stain - Final 09/15/20 10:20 Wound - Toe Wound Culture - Final Meth. resistant Staph. aureus Physical Exam Const alert, oriented x3 and no apparent distress General Appearance: cooperative and comfortable Extremity normal capillary refill Extremity Narrative: Cellulitis right 1st toe resolved, there is improved tissue to the dorsal and medial 1st toe with ulceration present with no purulent drainage - continues to improve, there is residual stable nonviable tissue but again continues to improve, streaking is resolved. Heel ulcer right side is viable, granular, with no evidence of infection - down to subcutaneous tissue. There no evidence of acute ischemia to the foot or ankle, right. CFT < 2 seconds to all toes right foot. No calf pain present. Assessment & Plan Assessment/Plan (1) Abscess: (2) Osteomyelitis: QUALIFIERS: Osteomyelitis type: other acute Osteomyelitis location: foot Laterality: right Qualified Code(s): M86.171 - Other acute osteomyelitis, right ankle and foot (3) Chronic heel ulcer with fat layer exposed: QUALIFIERS: Laterality: right Qualified Code(s): L97.412 - Non- pressure chronic ulcer of right heel and midfoot with fat layer exposed (4) Type 2 diabetes mellitus with diabetic polyneuropathy: QUALIFIERS: Diabetes mellitus buttermaker helper insulin use: unspecified [place] [facility] insulin use status Qualified Code(s): E11.42 - Type 2 diabetes mellitus with diabetic polyneuropathy PLAN: Reviewed diagnostic data. MRI right foot - there is evidence of osteomyelitis and abscess right 1st toe. I+D has been completed. There is continued improvement to the toe. Continue to monitor the toe let it demarcate. We will continue to follow the toe and see how it does. Reviewed cultures of the toe which are MRSA+ ; she is on IV antibiotics - she is on Vanc and Zosyn, and ID/Dr. Herrera is on consult. Wound care right 1st toe: Hysept gauze wet to dry dressing changes. Right heel - keyla daily dressing changes. Keep offloaded at all times. New LEAS have been ordered and have been obtained - appears to have good arterial flow to foot based on results. Podiatry will continue to follow. (5) ESRD (end stage renal disease): (6) Cellulitis of toe of right foot: (7) Onycholysis: (8) Dialysis patient: (9) Diabetic foot: (10) Type 2 diabetes mellitus: QUALIFIERS: Diabetes mellitus complication status: with other specified complication Diabetes mellitus buttermaker helper insulin use: with buttermaker helper use Qualified Code(s): E11.69 - Type 2 diabetes mellitus with other specified complication; Z79.4 - long term acute care registered nurse (current) use of insulin
[2020-09-20 08:30] VITALS: BP 130/79; PULSE 71; RESP 18; TEMP 36.4; O2SAT 98
[2020-09-20] MEDS: SEVELAMER CARBONATE 800 MG TABLET PO ×3 (09:08→17:21)
[2020-09-20] MEDS: Losartan Potassium 100 MG Tablet PO (09:08)
[2020-09-20] MEDS: Pantoprazole Sodium 40 MG Tablet PO (09:08)
[2020-09-20] MEDS: DAKIN'S SOL HALF STRENGTH (=0.25%) 1 APPLIC TOPICAL ×2 (09:09→22:24)
[2020-09-20] MEDS: Fenofibrate 145 MG Tablet PO (09:09)
[2020-09-20] MEDS: Enoxaparin 30 MG/0.3 ML Syringe SC (09:14)
[2020-09-20] MEDS: 0.9% Saline Lock 10 ML Syringe IV ×2 (09:14→22:32)
[2020-09-20] MEDS: Insulin Lispro 100 UNIT/ML INSULN.PEN SC ×3 (12:05→22:26)
[2020-09-20 12:20] LABS: Bedside Glucose 170 mg/dL (70-110)
--- NOTE | 2020-09-20 12:21 | PCM.PN.HOSP ---
Subjective Subjective Patient was seen and examined. No new complaints. No acute event. Objective Data Objective Data Vital Signs: Vital Signs Temp Pulse Resp BP Pulse Ox 97.6 F L 71 18 130/79 H 98 09/20/20 08:30 09/20/20 08:30 09/20/20 08:30 09/20/20 08:30 09/20/20 08:30 Oxygen Delivery Method Room Air Weight: 73.261 kg Body Mass Index (BMI) 27.1 Intake & Output: Intake and Output for Last 24 Hours 09/18/20 09/19/20 09/20/20 23:59 23:59 23:59 Intake Total 474.25 / 474.25 50 / 50 530 / 530 Output Total 1800 / 1800 Balance -1325.75 / -1325.75 50 / 50 530 / 530 Lab / Micro Data Result Diagrams: 09/17/20 04:55 09/17/20 04:55 Labs: Laboratory Results - last 24 hr 09/19/20 09/19/20 09/20/20 16:13 22:06 04:38 POC Glucose 136 H 167 H 54 L 09/20/20 09/20/20 09/20/20 05:02 06:24 12:03 POC Glucose 71 147 H 170 H Micro: Microbiology 09/15/20 01:25 Blood Culture (Wb) - Right Wrist Blood Culture - Final No growth in 5 days. 09/15/20 00:33 Blood Culture (Wb) - Right Hand Blood Culture - Final No growth in 5 days. 09/15/20 18:30 Wound Abcess - Toe Gram Stain - Final 09/15/20 18:30 Wound Abcess - Toe Wound Culture - Final Meth. resistant Staph. aureus 09/15/20 18:30 Wound Abcess - Toe Anaerobic Culture - Preliminary Checking for anaerobes, further studies to follow. 09/15/20 10:20 Wound - Toe Gram Stain - Final 09/15/20 10:20 Wound - Toe Wound Culture - Final Meth. resistant Staph. aureus Physical Exam Narrative General: Alert, Oriented x3, Cooperative, No apparent distress, Well developed HEENT: Atraumatic Oral: Moist Mucosa Neck: Supple Lungs: Clear to auscultation Cardiovascular: HS I+II, regular, no murmurs Abdomen: Bowel Sounds Present, Soft, Non Tender Extremities: No edema, dressing over the right foot Skin: No rashes, No breakdown Neurological: Grossly intact Psych/Mental Status: Appropriate Assessment & Plan Assessment/Plan (1) Diabetic foot: (2) Type 2 diabetes mellitus: QUALIFIERS: Diabetes mellitus complication status: with other specified complication Diabetes mellitus prison insulin use: with prison use Qualified Code(s): E11.69 - Type 2 diabetes mellitus with other specified complication; Z79.4 - half-way (current) use of insulin (3) HLD (hyperlipidemia): QUALIFIERS: Hyperlipidemia type: mixed hyperlipidemia Qualified Code(s): E78.2 - Mixed hyperlipidemia (4) Hypertension: QUALIFIERS: Hypertension type: essential hypertension Qualified Code(s): I10 - Essential (primary) hypertension (5) Noncompliance with medication regimen: (6) Osteomyelitis: QUALIFIERS: Osteomyelitis type: other acute Osteomyelitis location: foot Laterality: right Qualified Code(s): M86.171 - Other acute osteomyelitis, right ankle and foot (7) MRSA (methicillin resistant staph aureus) culture positive: (8) Abscess: (9) ESRD (end stage renal disease): (10) Anemia: QUALIFIERS: Anemia type: due to chronic kidney disease Chronic kidney disease stage: on chronic dialysis Qualified Code(s): N18.6 - End stage renal disease; D63.1 - Anemia in chronic kidney disease; Z99.2 - Dependence on renal dialysis PLAN: Summary: 45-year-old female with past medical history of ESRD on hemodialysis?Monday?Monday?Monday, type II DM complicated by neuropathy and chronic right heel ulcer, follows with Dr. Schneidre in the outpatient who comes in with a right great toe pain and wound that was noticed on the day of admission. 1. Acute right great toe distal phalanx osteomyelitis/abscess/diabetic foot infection Status post bedside I&D on 09/15/20 by podiatry. MRI of the right foot shows osteomyelitis MRSA PCR positive, wound cultures growing MRSA. Blood cultures are negative Podiatry and ID following, on IV vancomycin and Zosyn Plan is for patient to receive IV vancomycin after dialysis. PICC line in place for IV Zosyn 2. Acute Hyponatremia related to ESRD, stable, labs in am 3. Anemia of CKD, chronic, stable 4. ESRD on HD. Nephrology consulted 5. Rest of chronic medical conditions -hypertension, type II DM -remains stable, complicates residential medications continued Disposition: Awaiting pre-CERT for discharge to assisted facility Visit Charges Inpatient E&M: 74072 Subs Hosp L2
[2020-09-20 14:30] VITALS: BP 123/61; PULSE 72; RESP 18; TEMP 36.6; O2SAT 99
[2020-09-20 17:26] LABS: Bedside Glucose 246 mg/dL (70-110)
[2020-09-20 20:30] VITALS: BP 160/76; PULSE 72; RESP 16; TEMP 36.8; O2SAT 98
[2020-09-20 22:31] LABS: Bedside Glucose 254 mg/dL (70-110)
[2020-09-21 02:30] VITALS: BP 125/66; PULSE 72; RESP 16; TEMP 36.7; O2SAT 98
[2020-09-21 03:01] LABS: Bedside Glucose 183 mg/dL (70-110)
[2020-09-21 06:08] LABS: Absolute Lymphocyte Count 1.59 X10^3/uL (0.83-4.51); Basophil# 0.07 X10^3/uL; Basophil% 0.7 % (0-1); Eosinophil# 0.29 X10^3/uL; Hematocrit 27.8 % (37-47); Hemoglobin 8.7 g/dL (12.0-15.0); Lymphocyte # 1.59 X10^3/ul (0.83-4.51); Lymphocyte % 16.4 % (19-41); Mean Corp Hgb Conc 31.3 g/dL (32-36); Mean Corpuscular Volume 108.6 fL (81-99); Mean Platelet Vol. 9.7 fl (6.2-12.0); Monocyte# 0.58 X10^3/uL; NRBC Flagged by Analyzer 0 % (0-5); Neutrophil # 7.04 X10^3/uL (2.7-7.7); Neutrophil % 72.7 % (47-70); Platelet Count 497 K/mm3 (150-450); RBC Distribution Width CV 11.9 % (11.6-14.6); Red Blood Count 2.56 M/mm3 (4.2-5.4); White Blood Count 9.7 K/mm3 (4.4-11.0)
--- NOTE | 2020-09-21 06:16 | PCM.PROGNOTE ---
Subjective Subjective This patient was seen bedside for chronic heel ulcer and also hallux wound with underlying osteomyelitis (acute). She had prior bedside procedure performed and is on IV antibiotics. She denies fever, chills, nausea, vomiting, calf pain, or foot pain. Objective Data Objective Data Vital Signs: Vital Signs Temp Pulse Resp BP Pulse Ox 98.1 F 72 16 125/66 H 98 09/21/20 02:30 09/21/20 02:30 09/21/20 02:30 09/21/20 02:30 09/21/20 02:30 Oxygen Delivery Method Room Air Weight: 73.261 kg Body Mass Index (BMI) 27.1 Intake & Output: Intake and Output for Last 24 Hours 09/19/20 09/20/20 09/21/20 23:59 23:59 23:59 Intake Total 50 / 50 584 / 584 57.25 / 57.25 Balance 50 / 50 584 / 584 57.25 / 57.25 Lab / Micro Data Result Diagrams: 09/21/20 05:22 09/21/20 05:22 Labs: Laboratory Results - last 24 hr 09/20/20 09/20/20 09/20/20 06:24 12:03 17:19 WBC RBC Hgb Hct MCV MCH MCHC RDW Std Deviation RDW Coeff of Bassem Plt Count MPV Immature Gran % (Auto) Neut % (Auto) Lymph % (Auto) Morrison % (Auto) Eos % (Auto) Baso % (Auto) Absolute Neuts (auto) Absolute Lymphs (auto) Nucleated RBC % POC Glucose 147 H 170 H 246 H 09/20/20 09/21/20 09/21/20 22:23 02:53 05:22 WBC 9.7 RBC 2.56 L Hgb 8.7 L Hct 27.8 L MCV 108.6 H MCH 34.0 H MCHC 31.3 L RDW Std Deviation 47.0 H RDW Coeff of Bassem 11.9 Plt Count 497 H MPV 9.7 Immature Gran % (Auto) 1.200 H Neut % (Auto) 72.7 H Lymph % (Auto) 16.4 L Morrison % (Auto) 6.0 Eos % (Auto) 3.0 Baso % (Auto) 0.7 Absolute Neuts (auto) 7.0 Absolute Lymphs (auto) 1.59 Nucleated RBC % 0 POC Glucose 254 H 183 H Micro: Microbiology 09/15/20 18:30 Wound Abcess - Toe Gram Stain - Final 09/15/20 18:30 Wound Abcess - Toe Wound Culture - Final Meth. resistant Staph. aureus 09/15/20 18:30 Wound Abcess - Toe Anaerobic Culture - Final Anaerobic cocci 09/15/20 01:25 Blood Culture (Wb) - Right Wrist Blood Culture - Final No growth in 5 days. 09/15/20 00:33 Blood Culture (Wb) - Right Hand Blood Culture - Final No growth in 5 days. 09/15/20 10:20 Wound - Toe Gram Stain - Final 09/15/20 10:20 Wound - Toe Wound Culture - Final Meth. resistant Staph. aureus Physical Exam Const alert, oriented x3 and no apparent distress General Appearance: cooperative and comfortable HEENT normocephalic Extremity normal capillary refill Extremity Narrative: no cyanosis, no calf tenderness, diminished pulses muscle wasting noted. no tenderness. General Extremity: edema Skin Skin Narrative: no purulence, no erythema, no streaking, no odor, no infection. Adjacent skin is atrophic. Reduced heel ulcer size noted with granular healthy base. Hallus ulcer dorsal and medial aspect with exposed white bone noted with granular and peripheral fibrous base; no necrosis Neuro Neuro Narrative: lack of normal epicritic sensation via light touch consistent with neuropathy Assessment & Plan Assessment/Plan (1) Abscess: (2) Osteomyelitis: QUALIFIERS: Osteomyelitis type: other acute Osteomyelitis location: foot Laterality: right Qualified Code(s): M86.171 - Other acute osteomyelitis, right ankle and foot (3) Chronic heel ulcer with fat layer exposed: QUALIFIERS: Laterality: right Qualified Code(s): L97.412 - Non-pressure chronic ulcer of right heel and midfoot with fat layer exposed (4) Type 2 diabetes mellitus with diabetic polyneuropathy: QUALIFIERS: Diabetes mellitus exterminator helper insulin use: unspecified exterminator helper insulin use status Qualified Code(s): E11.42 - Type 2 diabetes mellitus with diabetic polyneuropathy (5) ESRD (end stage renal disease): (6) Cellulitis of toe of right foot: (7) Onycholysis: (8) Dialysis patient: (9) Diabetic foot: (10) Type 2 diabetes mellitus: QUALIFIERS: Diabetes mellitus complication status: with other specified complication Diabetes mellitus exterminator helper insulin use: with correction use Qualified Code(s): E11.69 - Type 2 diabetes mellitus with other specified complication; Z79.4 - correction (current) use of insulin PLAN: I reviewed and discussed her case including diagnostic data. Prior MRI right foot - there is evidence of osteomyelitis and abscess right 1st toe. I+D has been completed. There is continued improvement to the toe. Continue to monitor the toe let it demarcate. We will continue to follow the toe and see how it does to proceed with wound care vs amputation. Reviewed cultures of the toe which are MRSA+ and anaerobic cocci; she is on IV antibiotics - she is on Vanc and Zosyn, and ID/Dr. Herrera is on consult. Blood cultures negative so far. Wound care right 1st toe: Hysept gauze wet to dry dressing changes. Right heel - keyla daily dressing changes. Keep offloaded at all times. Changed this morning. New LEAS have been ordered and have been obtained - appears to have good arterial flow to foot based on results. Non weightbearing status recommended. Medical management and DVT prophylaxis per hospitalist is appreciated. Continue with nutritional supplementation to optimize healing. Prior authorization to [place] [facility] facility placement is pending. Ok to d/c from a podiatry standpoint. To follow up at wound care center within a week of discharge is recommended. Podiatry will continue to follow. Please call if questions. Hanane Schneider DPM, [facility] [phone]
[2020-09-21] MEDS: Insulin Lispro 100 UNIT/ML INSULN.PEN SC ×2 (06:20→17:10)
[2020-09-21] MEDS: 0.9% Saline Lock 10 ML Syringe IV ×2 (06:22→17:10)
[2020-09-21 06:39] LABS: Vancomycin, Random Level 16.3 ug/mL (0.0-15.0)
[2020-09-21 06:40] LABS: ALB/GLOB Ratio 0.6 RATIO (0.9-2.4); AST(SGOT) 19 U/L (15-37); Alanine Aminotransfer ALT/SGPT 18 U/L (13-56); Albumin, Serum 2.5 g/dL (3.2-5.0); Alkaline Phosphatase 36 U/L (45-117); Anion Gap 10 (5-15); BUN 68 mg/dL (7-18); BUN/Creat Ratio 8.4 RATIO (10-20); Chloride 102 mmol/L (98-107); Creatinine, Serum 8.05 mg/dL (0.55-1.02); EST Glomerular Filtration Rate 6 mL/min (>60); Est Glom Filt Rate - Afr Amer 7 mL/min (>60); Estimated Creatinine Clearance 7.94 ml/min; Globulin 4.3 g/dL (2.2-4.2); Glucose 197 mg/dL (74-106); Potassium 5.4 mmol/L (3.5-5.1); Protein, Total 6.8 g/dL (6.4-8.2); Sodium Level 134 mmol/L (136-145)
[2020-09-21 06:45] LABS: Bedside Glucose 173 mg/dL (70-110)
--- NOTE | 2020-09-21 07:48 | NURSING ---
Dr Schneider had been in and changed dressing to the right foot today.
[2020-09-21] MEDS: SEVELAMER CARBONATE 800 MG TABLET PO ×2 (08:15→17:10)
[2020-09-21 08:30] VITALS: BP 142/71; PULSE 60; RESP 16; TEMP 36.4; O2SAT 100
--- NOTE | 2020-09-21 09:22 | PCM.RX.CS ---
Consult Pharmacy has been consulted to manage selected antiobiotic: Vancomycin Type of Consult: Follow-up Suspected Infection: Other Labs: Sodium 134 mmol/L (136-145) L 09/21/20 05:22 Potassium 5.4 mmol/L (3.5-5.1) H 09/21/20 05:22 Chloride 102 mmol/L (98-107) 09/21/20 05:22 Carbon Dioxide 22.0 mmol/L (21.0-32.0) 09/21/20 05:22 Anion Gap 10 (5-15) 09/21/20 05:22 BUN 68 mg/dL (7-18) H 09/21/20 05:22 Creatinine 8.05 mg/dL (0.55-1.02) H* 09/21/20 05:22 Est GFR (MDRD) Af Amer 7 mL/min (>60) L 09/21/20 05:22 Est GFR (MDRD) Non-Af 6 mL/min (>60) L 09/21/20 05:22 BUN/Creatinine Ratio 8.4 RATIO (10-20) L 09/21/20 05:22 Glucose 197 mg/dL (74-106) H 09/21/20 05:22 Random Vancomycin 16.3 ug/mL (0.0-15.0) H 09/21/20 05:22 Microbiology: Microbiology 09/15/20 18:30 Wound Abcess - Toe Gram Stain - Final 09/15/20 18:30 Wound Abcess - Toe Wound Culture - Final Meth. resistant Staph. aureus 09/15/20 18:30 Wound Abcess - Toe Anaerobic Culture - Final Anaerobic cocci 09/15/20 01:25 Blood Culture (Wb) - Right Wrist Blood Culture - Final No growth in 5 days. 09/15/20 00:33 Blood Culture (Wb) - Right Hand Blood Culture - Final No growth in 5 days. 09/15/20 10:20 Wound - Toe Gram Stain - Final 09/15/20 10:20 Wound - Toe Wound Culture - Final Meth. resistant Staph. aureus Pharmacy Plan for Drug Dosing: VANCOMYCIN LEVEL RECEIVED Current Vancomycin Dose: Last dose received was 500mg x1 on 09/18/20 post dialysis Number of Doses Received: x3 Vancomycin Level: 16.3 (random level drawn 09/21/20 at 0522) Hours Since Last Dose: ~54.5 Renal Function: SrCr 8.05 Renal Function Trend: relatively stable (pt on HD) Lab/Micro: Vancomycin Plan/Comments: recommend 500mg IV x1 starting 09/21/20 to be given post dialysis Pending Level: 09/23/20 at 0600 Pharmacy Service will continue to monitor and adjust dosing as required. Follow-Up Labs: Trough Vancomycin - 09/23/20 @ 0600
--- NOTE | 2020-09-21 09:51 | CASEMGMT ---
Social Work Note SW faxed updated clinicals to Destinee at [facility]. Plan: [facility] pending pre-cert [employer] DATABASE MANAGEMENT SPECIALIST, COMMISSIONED SALES ASSOCIATE
--- NOTE | 2020-09-21 10:17 | TREXTCAR_ITS ---
Diet 09/16/20 15:13 Diet: Renal - ConsCHO - Lloyd Cont Food consistency:: Regular Liquid Consistency:: Regular/Thin Dietary Modifications:: Sodium Restricted Potassium Restricted Phosphorus Restricted Type of Dietary Supplement:: Varun Is pt able to select menu?: Yes Fluid restriction:: 1500 mL Diet Comments: no pro-restriction;Varun in cran juice BID w/B & D;120ml van Nepro w/ lunch How many daily calories?: 2000 calorie Routine Orders/Code Status Suppository Type: Dulcolax 10mg Suppository Frequency: Daily PRN Routine Lab Work: CBC, BMP (Weekly on IV vancomycin during dialysis) and - (LFT weekly while on vancomycin.) Wound(s) RIGHT GREAT TOE: Wound Type: Neuropathic/Diabetic Foot Ulcer Dressing Change: packing with Dakins right heel: Wound Type: Neuropathic/Diabetic Foot Ulcer Dressing Change: Keyla Therapies Weight Bearing: Non weight bearing Extremity Affected:: Bilateral Lower Physical Therapy: Eval and Treat Occupational Therapy: Eval and Treat Speech Therapy: Eval and Treat Problem/Diagnosis (1) Abscess: Status: Acute (2) Osteomyelitis: Status: Acute (3) Chronic heel ulcer with fat layer exposed: Status: Chronic (4) Type 2 diabetes mellitus with diabetic polyneuropathy: Status: Acute (5) ESRD (end stage renal disease): Status: Acute (6) Cellulitis of toe of right foot: Status: Acute (7) Onycholysis: Status: Acute (8) Dialysis patient: Status: Acute (9) Diabetic foot: Status: Acute (10) Type 2 diabetes mellitus: Status: Chronic Allergies/Procedures Done in Hospital Allergies atorvastatin [From Lipitor] Adverse Reaction (Verified 07/08/20 10:20) Nausea/Vom/Diarrhea rosuvastatin [From Crestor] Adverse Reaction (Verified 07/08/20 10:20) Nausea/Vom/Diarrhea Type of Care/Length of Stay Estimated LOS: Convalescent Care Less Than 30 days Type of Care Needed: Skilled Rehab Potential: Good Prognosis: Good Additional Orders/Day of Discharge Day of Discharge: 09/21/20 Dietary and Speech Recommendations Dietitian Recommendations/Changes: Continue 2000 calorie; consistent carbohydrate; renal diet without protein-restriction. Will add Varun BID mixed in cranberry juice w/ breakfast and dinner; will add 120ml vanilla Nepro w/ lunch. Additional diet education as needed--pt seems well informed on renal/carb- controlled diet; will call dietitian as needed. Follow Up Care Please follow up with your Primary Care Physician in: in 2 weeks Discharge Plan Admission Admit Date/Time: 09/16/20 11:26 Primary Reason for Your Visit: Abscess and osteomyelitis of right first toe Attending Provider: Mike Matute Primary Care Provider: Gabriel Beaver Consulting Providers: Aaron Green ; Jayson Price ; Sagar Herrera ; Hanane Schneider Instructions Patient Instructions: ED Diabetic Foot Care Additional Instructions / Restrictions: To remain non weight bearing right foot with surgical shoe and use of assistive devices. Offload heel by hanging foot over stacked blankets or pillows to float heel in the air. Change heel dressing daily with keyla and gauze. Change hallux ulcer daily with quarter strength dakin solution. Wash foot with antibacterial soap and water between dressing changes; do not soak. Follow up at the wound healing center on Monday (~ 1 week after hospital discharge) with Dr. Schneider. Call [phone] to confirm appointment time and date. Discharge Orders/Prescriptions Prescriptions: New vancomycin in 0.9 % sodium chl 500 mg/100 mL piggyback 500 mg IV .as directed 38 Days Qty: 16 RF: 0 acetaminophen [Tylenol] 325 mg Tablet 650 mg PO Q6H PRN PRN (Reason: Pain Score 1-10/Temp > 100.7 F) Qty: 0 RF: 0 enoxaparin 30 mg/0.3 mL Syringe 30 mg subcut DAILY Qty: 0 RF: 0 insulin lispro [Humalog KwikPen Insulin] 100 unit/mL Insulin Pen See Protocol unit subcut ACHS Qty: 0 RF: 0 oxycodone 5 mg Tablet 5 mg PO Q4H PRN PRN (Reason: Pain Score 4-5) Qty: 0 RF: 0 Continued pantoprazole 40 MG tablet 40 mg PO DAILY Qty: 14 RF: 0 clopidogrel 75 MG tablet 75 mg PO DAILY Qty: 30 RF: 0 lovastatin 40 MG tablet 40 mg PO DAILY RF: 0 losartan 25 MG tablet 4 tab PO DAILY RF: 0 fenofibrate nanocrystallized 145 MG tablet 145 mg PO DAILY RF: 0 sevelamer carbonate 800 MG tablet 800 mg PO TID RF: 0 amlodipine 10 MG tablet 10 mg PO MOWE RF: 0 Discontinued insulin aspart U-100 100 UNITS/ML insulin pen See Protocol units subcut TIDCM RF: 0 No Action Lantus U-100 Insulin 100 UNIT/ML solution 38 unit SQ QHS RF: 0 Referrals / Follow Up: Gabriel Beaver MD [Primary Care Provider] - Hanane Schneider DPM [STAFF PHYSICIAN] - Disposition Disposition (needs filled in before D/C Order can be placed): Nursing Home Facility
--- NOTE | 2020-09-21 10:17 | DS.PCM_ITS ---
Providers Date of Admission: 09/16/20 Primary Care Physician: Dr. Gabriel Beaver MD Consultations 09/15/20 03:13 Consult: Onc/Wound/criminal research specialist Routine Comment: Reason for Consult:: chronic right foot ulcer 09/15/20 09:41 Consult: Podiatry Routine Consulting Provider: Aaron Green Reason for Consult: Right diabetic foot infection EMERGENT Consult: No MD Notified: Yes Date Notified:: 09/15/20 Time Notified: 10:19 Method of Notification: Verbal 09/15/20 12:29 Consult: Nephrology Routine Consulting Provider: Jayson Hewitt Reason for Consult: ESRD on HD EMERGENT Consult: No MD Notified: Yes Date Notified:: 09/15/20 Time Notified: 12:29 Method of Notification: Answering Service 09/16/20 13:00 Consult: Infectious Disease Routine Consulting Provider: Sagar Herrera Reason for Consult: osteomyelitis EMERGENT Consult: No MD Notified: Yes Date Notified:: 09/16/20 Time Notified: 13:00 Method of Notification: Text Reason For Visit: RIGHT BIG TOE INFECTION Diagnosis Discharge Diagnosis (1) Abscess: Status: Acute Code(s): L02.91 - Cutaneous abscess, unspecified (2) Osteomyelitis: Status: Acute Code(s): M86.9 - Osteomyelitis, unspecified Qualifiers: Laterality: right Osteomyelitis location: foot Osteomyelitis type: other acute Qualified Code(s): M86.171 - Other acute osteomyelitis, right ankle and foot (3) Chronic heel ulcer with fat layer exposed: Status: Chronic Code(s): L97.402 - Non-pressure chronic ulcer of unspecified heel and midfoot with fat layer exposed Qualifiers: Laterality: right Qualified Code(s): L97.412 - Non-pressure chronic ulcer of right heel and midfoot with fat layer exposed (4) Type 2 diabetes mellitus with diabetic polyneuropathy: Status: Acute Code(s): E11.42 - Type 2 diabetes mellitus with diabetic polyneuropathy Qualifiers: Diabetes mellitus prison insulin use: unspecified prison insulin use status Qualified Code(s): E11.42 - Type 2 diabetes mellitus with diabetic polyneuropathy (5) ESRD (end stage renal disease): Status: Acute Code(s): N18.6 - End stage renal disease (6) Cellulitis of toe of right foot: Status: Acute Code(s): L03.031 - Cellulitis of right toe (7) Onycholysis: Status: Acute Code(s): L60.1 - Onycholysis (8) Dialysis patient: Status: Acute Code(s): Z99.2 - Dependence on renal dialysis (9) Diabetic foot: Status: Acute Code(s): E11.8 - Type 2 diabetes mellitus with unspecified complications (10) Type 2 diabetes mellitus: Status: Chronic Code(s): E11.9 - Type 2 diabetes mellitus without complications Qualifiers: Diabetes mellitus complication status: with other specified complication Diabetes mellitus prison insulin use: with prison use Qualified Code(s): E11.69 - Type 2 diabetes mellitus with other specified complication; Z79.4 - intermediate manager (current) use of insulin Medications at Discharge Home Medications Lantus U-100 Insulin 38 unit SQ QHS 02/09/16 clopidogrel 75 mg PO DAILY #30 tablet 02/13/16 pantoprazole 40 mg PO DAILY #14 tablet 02/13/16 amlodipine 10 mg PO MOWEFRSA 01/23/20 fenofibrate nanocrystallized 145 mg PO DAILY 01/23/20 lovastatin 40 mg PO DAILY 01/23/20 sevelamer carbonate 800 mg PO TID 01/23/20 vancomycin in 0.9 % sodium chl 500 mg IV .as directed 38 Days #16 dose 09/18/20 acetaminophen [Tylenol] 650 mg PO Q6H PRN PRN #0 tab 09/21/20 enoxaparin 30 mg SUBCUT DAILY #0 ml 09/21/20 insulin lispro [Humalog KwikPen Insulin] See Protocol SUBCUT ACHS #0 ml 09/21/20 losartan 100 mg PO DAILY #0 tab 09/21/20 Hospital Course Summary of Care Provided Minutes Spent on Discharge: 35 Hospital Course: This is 45-year-old female with past medical history of ESRD on hemodialysis?Monday?Monday?Monday, type II DM complicated by neuropathy, left eye retinopathy with retinal detachment and chronic right heel ulcer, follows with Dr. Schneider in the outpatient was admitted with right great toe pain and wound that was noticed on the day of admission. 1.? Acute right great toe distal phalanx osteomyelitis with abscess and localized cellulitis: Patient was admitted to [facility] floor. Patient had bedside incision and drainage in department on 09/15/2020 by water treatment technician. MRI of the right foot shows osteomyelitis.MRSA PCR positive, wound cultures growing MRSA. Blood cultures are negative. No fever or chills. Lower extremity arterial study showed good arterial flow to foot. On nonweightbearing. Initially started on IV vancomycin and Zosyn but was narrowed to vancomycin for MRSA coverage. ID recommended vancomycin on the days of hemodialysis. 2. Acute Hyponatremia related to ESRD, stable, patient follows [facility] specialist Dr. HEWITT. Potassium 5.4. Avoid medications which can cause hyperkalemia. 3. Anemia of CKD, H&H stable 8.7. 4. ESRD on HD. Nephrology consulted 5. 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 Continue Lantus and short-acting insulin. Glucose is less than 200 mg/dL. Rest of chronic medical conditions -hypertension, stable. Discharge medication reconciliation done. Discharge follow-up instructions completed. Discharge process discussed with the patient and all questions were answered to patient's satisfaction. Total time spent, exact 35 minutes on discharge meds reconciliation, examination, coordination of care with nurses and ancillary staff, review of imaging and blood test and discussion with the patient on follow-up instructions Physical Exam Narrative General: Alert, Oriented x3, Cooperative HEENT: Atraumatic, PERRLA, EOMI, Normocephalic Oral: No Gingival or Mucosal Lesions/ Ulcerations Neck: Supple, No JVD, Negative Carotid Bruits Lungs: Air entry diminished in bilateral lung bases. No crepitation/rhonchi Cardiovascular: Regular rate, Regular Rhythm, Normal S1, Normal S2, No murmurs Abdomen: Bowel Sounds Present, Soft, Non Tender, Non-Distended : No renal angle tenderness. No suprapubic tenderness. Extremities: No edema, Capillary Refill Less than 3 Seconds Skin: Ulcer over right great toe with osteomyelitis. Adjacent to skin is atrophic. Decreased heel ulcer size with internal healthy tissue on base. Musculoskeletal: No Tenderness to Palpation of Joints or Extremities Neurological: Decreased sensation in the plantar aspect of both feet, right more than left. Cranial nerves II-XII grossly intact, Deep Tendon Reflexes 2+/4 and Symmetrical. Psych/Mental Status: Normal Affect, Appropriate. ABG / Lab / Microbiology Data Result Diagrams: 09/21/20 05:22 09/21/20 05:22 Laboratory: Laboratory Results - last 24 hr 09/20/20 09/20/20 09/20/20 12:03 17:19 22:23 WBC RBC Hgb Hct MCV MCH MCHC RDW Std Deviation RDW Coeff of Bassem Plt Count MPV Immature Gran % (Auto) Neut % (Auto) Lymph % (Auto) Bradley % (Auto) Eos % (Auto) Baso % (Auto) Absolute Neuts (auto) Absolute Lymphs (auto) Nucleated RBC % Sodium Potassium Chloride Carbon Dioxide Anion Gap BUN Creatinine Estim Creat Clear Calc Est GFR (MDRD) Af Amer Est GFR (MDRD) Non-Af BUN/Creatinine Ratio Glucose Calcium Total Bilirubin AST ALT Alkaline Phosphatase Total Protein Albumin Globulin Albumin/Globulin Ratio Random Vancomycin POC Glucose 170 H 246 H 254 H 09/21/20 09/21/20 09/21/20 02:53 05:22 05:22 WBC 9.7 RBC 2.56 L Hgb 8.7 L Hct 27.8 L MCV 108.6 H MCH 34.0 H MCHC 31.3 L RDW Std Deviation 47.0 H RDW Coeff of Bassem 11.9 Plt Count 497 H MPV 9.7 Immature Gran % (Auto) 1.200 H Neut % (Auto) 72.7 H Lymph % (Auto) 16.4 L Bradley % (Auto) 6.0 Eos % (Auto) 3.0 Baso % (Auto) 0.7 Absolute Neuts (auto) 7.0 Absolute Lymphs (auto) 1.59 Nucleated RBC % 0 Sodium Potassium Chloride Carbon Dioxide Anion Gap BUN Creatinine Estim Creat Clear Calc Est GFR (MDRD) Af Amer Est GFR (MDRD) Non-Af BUN/Creatinine Ratio Glucose Calcium Total Bilirubin AST ALT Alkaline Phosphatase Total Protein Albumin Globulin Albumin/Globulin Ratio Random Vancomycin 16.3 H POC Glucose 183 H 09/21/20 09/21/20 05:22 06:19 WBC RBC Hgb Hct MCV MCH MCHC RDW Std Deviation RDW Coeff of Bassem Plt Count MPV Immature Gran % (Auto) Neut % (Auto) Lymph % (Auto) Bradley % (Auto) Eos % (Auto) Baso % (Auto) Absolute Neuts (auto) Absolute Lymphs (auto) Nucleated RBC % Sodium 134 L Potassium 5.4 H Chloride 102 Carbon Dioxide 22.0 Anion Gap 10 BUN 68 H Creatinine 8.05 H* Estim Creat Clear Calc 7.94 Est GFR (MDRD) Af Amer 7 L Est GFR (MDRD) Non-Af 6 L BUN/Creatinine Ratio 8.4 L Glucose 197 H Calcium 9.0 Total Bilirubin 0.40 AST 19 ALT 18 Alkaline Phosphatase 36 L Total Protein 6.8 Albumin 2.5 L Globulin 4.3 H Albumin/Globulin Ratio 0.6 L Random Vancomycin POC Glucose 173 H Microbiology: Microbiology 09/15/20 18:30 Gram Stain - Final Wound Abcess - Toe Wound Culture - Final Meth. resistant Staph. aureus Anaerobic Culture - Final Anaerobic cocci 09/15/20 01:25 Blood Culture - Final Blood Culture (Wb) - Right Wrist No growth in 5 days. 09/15/20 00:33 Blood Culture - Final Blood Culture (Wb) - Right Hand No growth in 5 days. Microbiology 09/15/20 18:30 Wound Abcess - Toe Gram Stain - Final 09/15/20 18:30 Wound Abcess - Toe Wound Culture - Final Meth. resistant Staph. aureus 09/15/20 18:30 Wound Abcess - Toe Anaerobic Culture - Final Anaerobic cocci 09/15/20 01:25 Blood Culture (Wb) - Right Wrist Blood Culture - Final No growth in 5 days. 09/15/20 00:33 Blood Culture (Wb) - Right Hand Blood Culture - Final No growth in 5 days. 09/15/20 10:20 Wound - Toe Gram Stain - Final 09/15/20 10:20 Wound - Toe Wound Culture - Final Meth. resistant Staph. aureus Meaningful Use Info Meaningful Use Diagnoses (Choose all that apply): None applicable Discharge Plan Admission Admit Date/Time: 09/16/20 11:26 Primary Reason for Your Visit: Abscess and osteomyelitis of right first toe Attending Provider: Mike Matute Primary Care Provider: Gabriel Beaver Consulting Providers: Aaron Green ; Jayson Hewitt ; Sagar Herrera ; Hanane Schneider Instructions Patient Instructions: ED Diabetic Foot Care Additional Instructions / Restrictions: To remain non weight bearing right foot with surgical shoe and use of assistive devices. Offload heel by hanging foot over stacked blankets or pillows to float heel in the air. Change heel dressing daily with keyla and gauze. Change hallux ulcer daily with quarter strength dakin solution. Wash foot with antibacterial soap and water between dressing changes; do not soak. Follow up at the wound healing center on Monday (~ 1 week after hospital discharge) with Dr. Schneider. Call [phone] to confirm appointment time and date. Discharge Orders/Prescriptions Prescriptions: New vancomycin in 0.9 % sodium chl 500 mg/100 mL piggyback 500 mg IV .as directed 38 Days Qty: 16 RF: 0 acetaminophen [Tylenol] 325 mg Tablet 650 mg PO Q6H PRN PRN (Reason: Pain Score 1-10/Temp > 100.7 F) Qty: 0 RF: 0 enoxaparin 30 mg/0.3 mL Syringe 30 mg subcut DAILY Qty: 0 RF: 0 insulin lispro [Humalog KwikPen Insulin] 100 unit/mL Insulin Pen See Protocol unit subcut ACHS Qty: 0 RF: 0 losartan 100 mg Tablet 100 mg PO DAILY Qty: 0 RF: 0 Continued pantoprazole 40 MG tablet 40 mg PO DAILY Qty: 14 RF: 0 clopidogrel 75 MG tablet 75 mg PO DAILY Qty: 30 RF: 0 lovastatin 40 MG tablet 40 mg PO DAILY RF: 0 fenofibrate nanocrystallized 145 MG tablet 145 mg PO DAILY RF: 0 sevelamer carbonate 800 MG tablet 800 mg PO TID RF: 0 amlodipine 10 MG tablet 10 mg PO MOWEFRSA RF: 0 Discontinued losartan 25 MG tablet 4 tab PO DAILY RF: 0 insulin aspart U-100 100 UNITS/ML insulin pen See Protocol units subcut TIDCM RF: 0 No Action Lantus U-100 Insulin 100 UNIT/ML solution 38 unit SQ QHS RF: 0 Referrals / Follow Up: Gabriel Beaver MD [Primary Care Provider] - (In 2 weeks) Jayson Hewitt MD [STAFF PHYSICIAN] - (In 2 weeks) Hanane Schneider DPM [STAFF PHYSICIAN] - (Every week in wound center) Disposition Disposition (needs filled in before D/C Order can be placed): [facility] Facility Visit Charges Inpatient E&M: 65644 Disch Hosp
--- NOTE | 2020-09-21 11:55 | NURSING ---
Patients iv site has been taken out. This nurse and another tried to restart. Dr. Matute aware that we are unable to get another site. No new orders.
--- NOTE | 2020-09-21 14:11 | PHA.DC.MR ---
Pharmacy Service has performed discharge medication reconciliation for this patient. The patient's discharge medication list was reviewed for discrepancies and discrepancies were resolved. Home Medications Lantus U-100 Insulin 38 unit SQ QHS 02/09/16 clopidogrel 75 mg PO DAILY #30 tablet 02/13/16 pantoprazole 40 mg PO DAILY #14 tablet 02/13/16 amlodipine 10 mg PO MOWEFRSA 01/23/20 fenofibrate nanocrystallized 145 mg PO DAILY 01/23/20 lovastatin 40 mg PO DAILY 01/23/20 sevelamer carbonate 800 mg PO TID 01/23/20 vancomycin in 0.9 % sodium chl 500 mg IV .as directed 38 Days #16 dose 09/18/20 acetaminophen [Tylenol] 650 mg PO Q6H PRN PRN #0 tab 09/21/20 enoxaparin 30 mg SUBCUT DAILY #0 ml 09/21/20 insulin lispro [Humalog KwikPen Insulin] See Protocol SUBCUT ACHS #0 ml 09/21/20 losartan 100 mg PO DAILY #0 tab 09/21/20
--- NOTE | 2020-09-21 14:26 | PN.ID_ITS ---
Physical Exam Narrative Feeling better, HD this afternoon, no fever Const alert and no apparent distress General Appearance: cooperative Resp normal air movement and clear to auscultation bilaterally Cardio regular rate and regular rhythm GI normal to inspection, nondistended, normoactive bowel sounds Skin Skin Narrative: wound bandaged ID ID: Route of nutrition/ use of supplements: [] Nutritional Intake: [] IV Site: [] Echevarria Catheter: [] Assessment & Plan Assessment/Plan (1) Osteomyelitis: QUALIFIERS: Osteomyelitis type: other acute Osteomyelitis location: foot Laterality: right Qualified Code(s): M86.171 - Other acute osteomyelitis, right ankle and foot PLAN: R 1st toe MRSA abscess and osteo - pcr (+), wound cx with MRSA and anaerobe. On vanc/zosyn. Podiatry following. Discharge to [facility]CF on iv vanc dosed with HD, stop date 10/27/20, and po augmentin. Counseled her re:importance of covid vaccine and gave printed material, she will think about it. Will follow, ID followup in 2 weeks. (2) ESRD (end stage renal disease): (3) Type 2 diabetes mellitus with diabetic polyneuropathy: QUALIFIERS: Diabetes mellitus group home insulin use: unspecified group home insulin use status Qualified Code(s): E11.42 - Type 2 diabetes mellitus with diabetic polyneuropathy
[2020-09-21 14:30] VITALS: BP 126/70; PULSE 73; RESP 16; TEMP 36.7; O2SAT 99
--- NOTE | 2020-09-21 14:48 | CASEMGMT ---
Social Work Note SW received call from Destinee at [facility] stating pre-cert has been obtained and pt can discharge to [facility] today. Pt will need dialysis before pt can discharge. BESS faxed completed discharge paperwork to [facility] including transfer to extended care facility, signed medication list, any scripts, COVID test and COVID tool. Original in SNF folder and copy on pt's chart. BESS spoke with RN, Pt's dialysis will be done at 5:30pm and pt can transport via wheelchair van. SW accessed trip assist and arranged transportation via wheelchair van for 6:30pm. Transportation form completed and placed on SNF folder and copy on pt's chart. SW updated RN on transportation time. BESS placed a call to Destinee at [facility] and updated her on transportation time. SW updated pt on discharge and transportation time. Pt states understanding. Plan: [facility] today with physician's transporting pt via wheelchair van at 6:30pm Mercedez Mann MSW, REFRIGERATED CARGO CLERK
[2020-09-21 16:01] LABS: Bedside Glucose 161 mg/dL (70-110)
[2020-09-21] MEDS: Vancomycin IV 500 MG/100 ML BAG 100 MG IV (18:05)
--- NOTE | 2020-09-21 18:48 | NURSING ---
Report called to [facility]. I spoke with Jen.
[2020-09-21 18:50] VITALS: BP 126/70; PULSE 73; RESP 18; TEMP 36.7; O2SAT 97
== END 2020-09-21 19:10 | disposition skilled nursing facility (03) | DRG 623 ==
LOC: ED 09-15 01:24 → ICU 09-15 04:43 → MS3 09-17 18:49
PROVIDERS: Internal Medicine; Podiatrist; Admitting Provider Family Medicine; Emergency Provider Emergency Medicine; PCP Family Medicine; Visit Provider Internal Medicine
DX: E11.621 Type 2 diabetes mellitus with foot ulcer (principal); I12.0 Hypertensive chronic kidney disease with stage 5 chronic kidney disease or end stage renal disease; L97.412 Non-pressure chronic ulcer of right heel and midfoot with fat layer exposed; L02.611 Cutaneous abscess of right foot; M86.171 Other acute osteomyelitis, right ankle and foot; L03.031 Cellulitis of right toe; B95.62 Methicillin resistant Staphylococcus aureus infection as the cause of diseases classified elsewhere; D63.1 Anemia in chronic kidney disease; E11.22 Type 2 diabetes mellitus with diabetic chronic kidney disease; R19.7 Diarrhea, unspecified; L60.1 Onycholysis; E11.42 Type 2 diabetes mellitus with diabetic polyneuropathy; E11.69 Type 2 diabetes mellitus with other specified complication; E78.2 Mixed hyperlipidemia; N18.6 End stage renal disease; Z79.4 Long term (current) use of insulin; Z86.14 Personal history of Methicillin resistant Staphylococcus aureus infection; Z86.16 Personal history of COVID-19; Z91.14 Patient's other noncompliance with medication regimen; Z99.2 Dependence on renal dialysis; Z86.73 Personal history of transient ischemic attack (TIA), and cerebral infarction without residual deficits; Z79.899 Other long term (current) drug therapy; Z79.02 Long term (current) use of antithrombotics/antiplatelets
CPT/HCPCS: 36415; 73630; 73718; 73721; 80053; 80202; 82962; 83036; 85025; 85652; 86140; 87040; 87070; 87075; 87077; 87186; 87205; 87426; 87640; 90937; 93923; 97110; 97162; 97530; 99284; J7030; J7050; A4216; G0257; J2405

== ENCOUNTER 2020-09-30 13:30 | Outpatient (RCR) | payer MEDICARE, MEDICAID, SELFPAY ==
[2020-09-05 00:20] VITALS: BP 127/74; PULSE 92; RESP 18; TEMP 37
[2020-09-09 09:59] VITALS: BP 126/61; PULSE 84; RESP 18; TEMP 36.1; BMI 26.7
--- NOTE | 2020-09-09 13:22 | PN.PCM_ITS ---
History of Present Illness Date of Service: 09/09/20 Chief Complaint: heel ulcer History of Wound: This is a 45-year-old female who presents to the wound healing center today for right heel ulcer (chronic). The wound is pink and she applies keyla. She denies redness, odor. She completed a course of antibiotics previously and denies fever, chill, nausea, vomiting. She does not know the current status of her regranix advanced wound healing product that was ordered previously. She obtained foam boots to wear in bed to protect her heel. She brought this for evaluation today. She wears a close athletic sneaker while going in and out of dialysis and medical appointments. She also has a new ulcer to the forefoot that she is unaware of. She relates several months ago she stepped on a Lego and is not sure if this is related. Progress of Wound: Stable Objective Data Objective Data Vital Signs: Vital Signs Temp Pulse Resp BP 97 F L 84 18 126/61 H 09/09/20 09:59 09/09/20 09:59 09/09/20 09:59 09/09/20 09:59 Weight: 72.91 kg Body Mass Index (BMI) 26.7 Finger Stick Blood Glucose 134 Assessment & Plan Assessment/Plan (1) Other specified peripheral vascular diseases: Status: Ruled-out Code(s): I73.89 - Other specified peripheral vascular diseases (2) Delayed wound healing: Status: Acute Code(s): T14.8XXD - Other injury of unspecified body region, subsequent encounter (3) Type 2 diabetes mellitus with diabetic polyneuropathy: Status: Chronic Code(s): E11.42 - Type 2 diabetes mellitus with diabetic polyneuropathy (4) Ulcer of right foot with fat layer exposed: Status: Chronic Code(s): L97.512 - Non-pressure chronic ulcer of other part of right foot with fat layer exposed (5) Pressure ulcer of right heel, stage 3: Status: Chronic Code(s): L89.613 - Pressure ulcer of right heel, stage 3 (6) Renal failure: Status: Acute Code(s): N19 - Unspecified kidney failure Plan: The patient was seen and examined at the wound center today and was referred from the [facility]. A subcutaneous debridement was performed today as noted in the clinical panel. It is noted she has a new ulcer to the plantar forefoot. The patient tolerated the procedure well. She was advised no local signs of infection at this time and I do not recommend resuming antibiotics. To continue Keyla dressing. To wash with soap and water. She defers advanced wound healing product application and even a split thickness skin graft. This would reduce her chance of delayed healing and infection loss of limb. We discussed an additional advanced product called for regranix which is in the gel format and has growth factors to stimulate healing as well. She is amendable to try this and prior authorization is still pending. This is medically necessary for limb salvage. Prior authorization will be initiated. The purpose of offloading offloading techniques was reviewed. I do not recommend that she wears her close diabetic shoe even for short periods of getting in and out of medical facilities multiple times a week. She relates she already has a surgical shoe with heel offloading wedge and she was advised to resume use and to maintain compliance. It is noted she continues to wear closed athletic sneakers which is a problem for healing. She relates she also obtained an offloading foam boots to in bed. She brought in her offloading boot which will not reduce significant pressure. I recommend she hangs her heel over stacked blankets or pillows while in bed to keep pressure off of the ulcer. Although she has palpable pulses I do recommend screening her with a noninvasive vascular study to evaluate for any potential perfusion deficits. Her medical records from the [facility] will be requested. Her noninvasive vascular studies were reviewed from [facility] January 07, 2020 with triphasic waveforms bilateral and right ABIs of 1.21 and 1.07 and left ABIs of 1.2 and 1.09. The digital pressures were 105 mmHg on the right and 141 mmHg on the left. She also had normal PVR waveforms to the ankle and digital level bilateral. She also had foot x-rays performed on June 25, 2020 to the right foot in which a soft tissue ulceration was identified without radiographic evidence of osteomyelitis. It is noted her lab work from July 08, 2020 demonstrated an A1c level of 5.8 %. I also recommended application of lotion to improve her adjacent skin integrity and the skin integrity on her contralateral foot to avoid other ulcers or infections. I answered all of her questions. To return to the wound healing center in 1 week or call sooner if she has any questions or concerns or signs of infection. Note: [employer] speech recognition machine sweeper brush maker software was used to create portions of this document. Sound-alike and misspelled words, as well as other machine sweeper brush maker errors may be contained in the documentation. 20 minutes was spent on this encounter. This included face to face and non face to face care including preparing for the visit, reviewing the history, performing the exam, counseling and providing education to the patient, family, or caregiver, ordering medications/test/ procedures if indicated as documented, communicating with other healthcare providers, documenting information in the medical record, interpreting / sharing this information when indicated as documented, and care coordination. Physical Exam Const alert and oriented x3 General Appearance: cooperative HEENT normocephalic Extremity Extremity Narrative: No calf tenderness Diminished pulses Muscle wasting noted General Extremity: edema and no tenderness to palpation of joints or extremities; Negative for cyanosis Skin Skin Narrative: no purulence, no streaking, no odor, no infection. Granular base with intermittent fibrous tissue. No deep tissue necrosis. New skin discontinuity plantar central metatarsal head is superficial without deep tissue exposure or infection or fluctuance on palpation General Skin Exam: Negative for erythema Neuro Neuro Narrative: lack of normal epicritic sensation via light touch is consistent with neuropathy status Psych cooperative and affect normal Debridement Note Debridement Note Post-Debridement Measurements and Additional Note: [predebridement right heel 1.4x1.4x0.2 cm, plantar forefoot right 1x 2 x 1 mm] Post-Debridement Measurements/Treatment WC - Nurse 2 - General Ulcer CM Notes Start: 09/09/20 09:58 Freq: Status: Active Protocol: Activity Type Activity Date Activity User E-Sign Co-Sign Detail Recorded Client Recorded Date Recorded By Document 09/09/20 10:17 VITO [id number] 09/09/20 10:21 VITO 09/09/20 10:17 Wound Center Nurse 2 5-right plantar foot -Time 10:20 -Correct Patient Yes -Correct Side, Site, Position Yes -Correct Procedure Yes -Procedure Performed Yes -Type of Procedure Debridement -Clinical Debridement Subcutaneous -Tissue Removed Subcutaneous -Post Debridement (cm) - Length 0.3 -Post Debridement (cm) - Width 0.2 -Post Debridement (cm) - Depth 0.1 -Total Square (Post) (cm) 0.06 -Area of Debridement (cm) - Length 0.3 -Area of Debridement (cm) - Width 0.2 -Total Square (Area) (cm) 0.06 -Tunneling No -Undermining/Tunneling No -Circular Undermining No -Wound/Ulcer Outcome Not Healed -Bioengineered Tissue No -Bleeding Controlled with Pressure -Offloading No -Type of Offloading Knee Walker -Debridement - Subq, 1st 20sq cm No #4 right heel -Time 10:18 -Correct Patient Yes -Correct Side, Site, Position Yes -Correct Procedure Yes -Procedure Performed Yes -Type of Procedure Debridement -Clinical Debridement Subcutaneous -Tissue Removed Subcutaneous -Post Debridement (cm) - Length 1.5 -Post Debridement (cm) - Width 1.5 -Post Debridement (cm) - Depth 0.2 -Total Square (Post) (cm) 2.25 -Area of Debridement (cm) - Length 1.5 -Area of Debridement (cm) - Width 1.5 -Total Square (Area) (cm) 2.25 -Tunneling No -Undermining/Tunneling No -Circular Undermining No -Wound/Ulcer Outcome Not Healed -Ulcer Cleansing Rinsed/ Irrigated with Saline -Foul Odor after Cleansing No -Bioengineered Tissue No -Bleeding Controlled with Pressure -Offloading Yes -Type of Offloading Surgical Shoe -Treatment Response Procedure Tolerated Well -Debridement - Subq, 1st 20sq cm Yes Pain Scale: 0-10 Numeric Is Patient Pain Free? Yes - Nurse 3 - General Ulcer D/C NN Start: 09/09/20 09:58 Freq: Status: Active Protocol: Activity Type Activity Date Activity User E-Sign Co-Sign Detail Recorded Client Recorded Date Recorded By Document 09/09/20 11:17 VITO [id number] 09/09/20 11:18 VITO 09/09/20 11:17 Wound Care Nurse 3 5-right plantar foot -Ulcer Cleansing Rinsed/ Irrigated with Saline -Foul Odor after Cleansing No -Primary Dressing Applied Promogran Keyla Matter -Primary Dressing Covered/Secured with Dry Gauze & Roll Gauze, Secured with Tape -Promogran Keyla Matter 0 #4 right heel -Ulcer Cleansing Rinsed/ Irrigated with Saline -Foul Odor after Cleansing No -Primary Dressing Applied Promogran Keyla Matter -Primary Dressing Covered/Secured with Dry Gauze & Roll Gauze, Secured with Tape -Promogran Keyla Matter 0 Pain Scale: 0-10 Numeric Is Patient Pain Free? Yes - Visit Discharge Discharge Condition Stable Ambulatory Status Ambulatory Transportation Private Auto Medication Reconcilliation completed & Yes provided to patient/care provider Clinical Summary of Care Provided Yes Wound debrided: right heel and plantar forefoot Wound Grade/Stage: 1 Type of Debridement: Excisional debridement Anesthesia Used: 4% Lidocaine Solution Depth: in the subcutaneous layer Percentage of wound debrided: 100 Instrument Used: #15 blade Tissue Removed: fibrous, devitalized subcutaneous, biofilm, slough Severity: Fat Layer Exposed Amount of bleeding with debridement: Mild Bleeding Controlled with: Pressure Patient tolerated procedure: Patient tolerated procedure well
[2020-09-30 13:20] VITALS: BP 122/73; PULSE 88; RESP 18; TEMP 36.4; BMI 26.7
--- NOTE | 2020-09-30 16:05 | PCM.WC.PN ---
History of Present Illness Date of Service: 10/02/20 Chief Complaint: heel ulcer History of Wound: She [facility] after her recent hospital admission. She was diagnosed with right hallux osteomyelitis and had a bedside debridement performed by Dr. Green. The onset of this ulcer was 09-12-20 when she had increased toe walking while looking at some property with her . She has neuropathy and really does not feel her foot. She was also seen by infectious disease and is currently continuing on IV vancomycin and Zosyn. The vancomycin is scheduled with hemodialysis. She is also on oral Augmentin with a stop date of 10/27 completing an antibiotic course for treatment of osteomyelitis. This is a 45-year-old female who presents to the wound healing center today for right heel ulcer (chronic). The wound is pink, reduced in size. she applies keyla. She currently does not wear shoe and is residing in a jail facility. She denies redness, odor. She denies current fever, chill, nausea, vomiting. She is worried about needing an amputation and is amendable to proceed forward with advanced wound healing products and other advanced treatments at this time. Progress of Wound: improving heel new toe ulcer Objective Data Objective Data Vital Signs: Vital Signs Temp Pulse Resp BP 97.6 F L 88 18 122/73 H 09/30/20 13:20 09/30/20 13:20 09/30/20 13:20 09/30/20 13:20 Weight: 72.91 kg Body Mass Index (BMI) 26.7 Physical Exam Const alert and oriented x3 General Appearance: cooperative HEENT normocephalic Extremity Extremity Narrative: No calf tenderness Diminished pulses Muscle wasting noted General Extremity: edema and no tenderness to palpation of joints or extremities; Negative for cyanosis Skin Skin Narrative: no purulence, no streaking, no odor. Granular base with intermittent fibrous tissue; significant ulcer size reduction noted.skin discontinuity plantar central metatarsal head has healed and is fully epithelialized. Right hallux ulcer x2 has exposed bone that is white and firm and this corresponds with osteomyelitis findings on MRI. There is no necrosis. There is improvement in granulation tissue however over half of the wound bed is still fibrous. Upon debridement there is hematogenous drainage General Skin Exam: Negative for erythema Neuro Neuro Narrative: lack of normal epicritic sensation via light touch is consistent with neuropathy status Psych cooperative and affect normal Debridement Note Debridement Note Post-Debridement Measurements and Additional Note: Post-Debridement Measurements/Treatment - Nurse 1 - General Ulcer Assessment Start: 09/09/20 09:58 Freq: Status: Active Protocol: DAVID Activity Type Activity Date Activity User E-Sign Co-Sign Detail Recorded Client Recorded Date Recorded By Document 09/09/20 09:59 RB [id number] 09/09/20 10:06 RB Document 09/30/20 13:20 DL [id number] 09/30/20 13:33 DL 09/09/20 09/30/20 09:59 13:20 WC - Today's Visit Information Type of service Follow-up Visit Follow-up Visit (Physician/NEGATIVE TURNER APPRENTICE (Physician/NEGATIVE TURNER APPRENTICE ) ) Arrival Mode Ambulatory Wheelchair Transfer Assistance None None Patient Identification Verified (Name & Yes ) Patient Requires Transmission-Based No No Precautions Safety Precautions NA Finger Stick Blood Sugar(mg/dl) (if 95 indicated): Blood Sugar Stated by Patient Height and Weight Body Mass Index (BMI) 26.7 26.7 BMI Classification Overweight Overweight Vital Signs Temperature (97.8 F-99.1 F) 97 F L 97.6 F L Temperature Source Temporal Temporal Pulse Rate (60-100) 84 88 Pulse Location Monitor Monitor Respiratory Rate (12-18) 18 18 Respiratory rate source Observation Observation Blood Pressure (90/60-120/80) 126/61 H 122/73 H Blood Pressure Mean (mm Hg) 82 89 Source Monitor Monitor Position Semi-Fowlers Blood Pressure Location Left Arm History Since Last Visit- (Skip if this is Patient's initial visit) Have you changed medications since your No No last visit? Any new allergies or adverse reactions No No Had a fall/change in ADL's that may No No increase risk of falls Signs or symptoms of abuse and/or No No neglect since last visit Have you been in the hospital since your No No last visit? Has dressing in place as prescribed Yes Yes Has compression in place as prescribed No N/A Has offloadiing in place as prescribed No Yes Experienced any changes in pain level or No No management Left Footwear Regular Shoe Right Footwear Regular Shoe No Footwear Pain Scale: 0-10 Numeric Is Patient Pain Free? Yes Yes NATHAN - Nurse 1 - General Ulcer Measurement Start: 09/09/20 09:58 Freq: Status: Active Protocol: Activity Type Activity Date Activity User E-Sign Co-Sign Detail Recorded Client Recorded Date Recorded By Document 09/09/20 09:59 RB [id number] 09/09/20 10:06 RB Document 09/30/20 13:20 DL [id number] 09/30/20 13:33 DL 09/09/20 09/30/20 09:59 13:20 Wound Center Nurse 1 #6 R Grt Toe -Current Size (cm) - Length 3 -Current Size (cm) - Width 4.6 -Current Size (cm) - Depth 0.6 -Total Square Cm 13.8 -Photo Taken Yes -Exudate Amt Medium -Exudate Type Serosanguineous -Wound Margin Distinct, Outline Attached -Granulation Amt Small (1-33%) -Granulation Quality [place] -Necrosis Amt Small (1-33%) -Necrotic Tissue Type Adherent Slough -Structure Exposed Bone -Texture (Colleen-wound Skin Appearance) Localized Edema ,Scarring -Moisture (Colleen-wound Skin Appearance) Dry/Scaly -Color (Colleen-wound Skin Appearance) No Abnormality -Temperature (Colleen-wound Skin No Abnormality Appearance) (Pt Warm) -Tenderness on Palpation (Colleen-wound No Skin Appearance) -Ulcer Cleansing Wound Cleanser -Foul Odor after Cleansing No -Anesthetic Used 4% Lidocaine Solution 5-right plantar foot -Photo Taken No #4 right heel -Combined with other wound No -Current Size (cm) - Length 1.2 0.8 -Current Size (cm) - Width 1.6 1 -Current Size (cm) - Depth 0.4 0.1 -Total Square Cm 1.92 0.8 -Photo Taken No No -Tunneling No -Undermining/Tunneling No -Circular Undermining No -Exudate Amt Medium None Present -Exudate Type Serosanguineous -Wound Margin Thickened & Thickened Rolled Under -Granulation Amt Medium (34-66%) None Present (0 %) -Granulation Quality [place] -Slough/Fibrin Yes -Necrosis Amt Small (1-33%) Large (67-100%) -Necrotic Tissue Type Adherent Slough Eschar -Structure Exposed N/A N/A -Texture (Colleen-wound Skin Appearance) Callus Scarring -Moisture (Colleen-wound Skin Appearance) Assessed Dry/Scaly -Color (Colleen-wound Skin Appearance) Assessed No Abnormality -Temperature (Colleen-wound Skin No Abnormality No Abnormality Appearance) (Pt Warm) (Pt Warm) -Tenderness on Palpation (Colleen-wound No No Skin Appearance) -Ulcer Cleansing Wound Cleanser Rinsed/ Irrigated with Saline -Foul Odor after Cleansing No No -Anesthetic Used 4% Lidocaine 4% Lidocaine Solution Solution WC - Nurse 2 - General Ulcer CM Notes Start: 09/09/20 09:58 Freq: Status: Active Protocol: Activity Type Activity Date Activity User E-Sign Co-Sign Detail Recorded Client Recorded Date Recorded By Document 09/09/20 10:17 JF [id number] 09/09/20 10:21 JF Document 09/30/20 14:19 PL [id number] 09/30/20 14:28 PL 09/09/20 09/30/20 10:17 14:19 Wound Center Nurse 2 #6 R Grt Toe -Time 13:52 -Correct Patient Yes -Correct Side, Site, Position Yes -Correct Procedure Yes -Procedure Performed Yes -Type of Procedure Debridement -Clinical Debridement Subcutaneous -Tissue Removed Subcutaneous -Post Debridement (cm) - Length 3 -Post Debridement (cm) - Width 4.6 -Post Debridement (cm) - Depth 0.6 -Total Square (Post) (cm) 13.8 -Area of Debridement (cm) - Length 3 -Area of Debridement (cm) - Width 4.6 -Total Square (Area) (cm) 13.8 -Tunneling No -Undermining/Tunneling No -Circular Undermining No -Wound/Ulcer Outcome Not Healed -Ulcer Cleansing Rinsed/ Irrigated with Saline -Foul Odor after Cleansing No -Bioengineered Tissue No -Debridement - Subq, 1st 20sq cm Yes 5-right plantar foot -Time 10:20 -Correct Patient Yes -Correct Side, Site, Position Yes -Correct Procedure Yes -Procedure Performed Yes -Type of Procedure Debridement -Clinical Debridement Subcutaneous -Tissue Removed Subcutaneous -Post Debridement (cm) - Length 0.3 -Post Debridement (cm) - Width 0.2 -Post Debridement (cm) - Depth 0.1 -Total Square (Post) (cm) 0.06 -Area of Debridement (cm) - Length 0.3 -Area of Debridement (cm) - Width 0.2 -Total Square (Area) (cm) 0.06 -Tunneling No -Undermining/Tunneling No -Circular Undermining No -Wound/Ulcer Outcome Not Healed -Foul Odor after Cleansing No -Bioengineered Tissue No -Bleeding Controlled with Pressure -Offloading No -Type of Offloading Knee Walker -Debridement - Subq, 1st 20sq cm No #4 right heel -Time 10:18 13:52 -Correct Patient Yes Yes -Correct Side, Site, Position Yes Yes -Correct Procedure Yes Yes -Procedure Performed Yes Yes -Type of Procedure Debridement Debridement -Clinical Debridement Subcutaneous Subcutaneous -Tissue Removed Subcutaneous Subcutaneous -Post Debridement (cm) - Length 1.5 0.8 -Post Debridement (cm) - Width 1.5 1.0 -Post Debridement (cm) - Depth 0.2 0.1 -Total Square (Post) (cm) 2.25 0.80 -Area of Debridement (cm) - Length 1.5 0.8 -Area of Debridement (cm) - Width 1.5 1.0 -Total Square (Area) (cm) 2.25 0.80 -Tunneling No No -Undermining/Tunneling No No -Circular Undermining No No -Wound/Ulcer Outcome Not Healed Not Healed -Ulcer Cleansing Rinsed/ Rinsed/ Irrigated with Irrigated with Saline Saline -Foul Odor after Cleansing No No -Bioengineered Tissue No No -Bleeding Controlled with Pressure Pressure -Offloading Yes -Type of Offloading Surgical Shoe -Treatment Response Procedure Procedure Tolerated Well Tolerated Well -Debridement - Subq, 1st 20sq cm Yes No Pain Scale: 0-10 Numeric Is Patient Pain Free? Yes Yes - Nurse 3 - General Ulcer D/C NN Start: 09/09/20 09:58 Freq: Status: Active Protocol: Activity Type Activity Date Activity User E-Sign Co-Sign Detail Recorded Client Recorded Date Recorded By Document 09/09/20 11:17 [id number] 09/09/20 11:18 Document 09/30/20 14:04 [facility] [id number] 09/30/20 14:06 [facility] 09/09/20 09/30/20 11:17 14:04 Wound Care Nurse 3 #6 R Grt Toe -Ulcer Cleansing Rinsed/ Irrigated with Saline -Foul Odor after Cleansing No -Primary Dressing Applied Other -Other Dressing moist to dry per rb rn -Primary Dressing Covered/Secured with Dry Gauze, Secured with Tape 5-right plantar foot -Ulcer Cleansing Rinsed/ Irrigated with Saline -Foul Odor after Cleansing No -Primary Dressing Applied Promogran Keyla Matter -Primary Dressing Covered/Secured with Dry Gauze & Roll Gauze, Secured with Tape -Promogran Keyla Matter 0 #4 right heel -Ulcer Cleansing Rinsed/ Rinsed/ Irrigated with Irrigated with Saline Saline -Foul Odor after Cleansing No No -Primary Dressing Applied Promogran Promogran Keyla Matter Keyla Matter -Primary Dressing Covered/Secured with Dry Gauze & Dry Gauze & Roll Gauze, Roll Gauze, Secured with Secured with Tape Tape -Other Covering per rb rn -Promogran Keyla Matter 0 1 Treatment Response Procedure Tolerated Well Pain Scale: 0-10 Numeric Is Patient Pain Free? Yes Yes WC - Visit Discharge Discharge Condition Stable Stable Ambulatory Status Ambulatory Wheelchair Transportation [facility] Medication Reconcilliation completed & Yes provided to patient/care provider Clinical Summary of Care Provided Yes Facility Type Instructional Support Technician Care Facility Wound debrided: right heel Wound Grade/Stage: 1 Type of Debridement: Excisional debridement Anesthesia Used: 4% Lidocaine Solution Depth: in the subcutaneous layer Percentage of wound debrided: 100 Instrument Used: #15 blade Tissue Removed: fibrous, devitalized subcutaneous, biofilm, slough Severity: Fat Layer Exposed Amount of bleeding with debridement: Mild Bleeding Controlled with: Pressure Patient tolerated procedure: Patient tolerated procedure well Assessment/Plan Assessment/Plan (1) Other specified peripheral vascular diseases: CODE(S): I73.89 - Other specified peripheral vascular diseases (2) Delayed wound healing: CODE(S): T14.8XXD - Other injury of unspecified body region, subsequent encounter (3) Type 2 diabetes mellitus with diabetic polyneuropathy: CODE(S): E11.42 - Type 2 diabetes mellitus with diabetic polyneuropathy (4) Ulcer of right foot with fat layer exposed: CODE(S): L97.512 - Non-pressure chronic ulcer of other part of right foot with fat layer exposed (5) Pressure ulcer of right heel, stage 3: CODE(S): L89.613 - Pressure ulcer of right heel, stage 3 (6) Renal failure: CODE(S): N19 - Unspecified kidney failure (7) Osteomyelitis: CODE(S): M86.9 - Osteomyelitis, unspecified QUALIFIERS: Laterality: right Osteomyelitis location: foot Osteomyelitis type: other acute Qualified Code(s): M86.171 - Other acute osteomyelitis, right ankle and foot (8) Type 2 diabetes mellitus with diabetic polyneuropathy: CODE(S): E11.42 - Type 2 diabetes mellitus with diabetic polyneuropathy QUALIFIERS: Diabetes mellitus prison insulin use: unspecified remote computer terminal operator insulin use status Qualified Code(s): E11.42 - Type 2 diabetes mellitus with diabetic polyneuropathy (9) Chronic heel ulcer with fat layer exposed: CODE(S): L97.402 - Non-pressure chronic ulcer of unspecified heel and midfoot with fat layer exposed QUALIFIERS: Laterality: right Qualified Code(s): L97.412 - Non-pressure chronic ulcer of right heel and midfoot with fat layer exposed (10) Cellulitis of toe of right foot: CODE(S): L03.031 - Cellulitis of right toe (11) Dialysis patient: CODE(S): Z99.2 - Dependence on renal dialysis (12) MRSA (methicillin resistant staph aureus) culture positive: CODE(S): Z22.322 - Carrier or suspected carrier of Methicillin resistant Staphylococcus aureus (13) Non-pressure chronic ulcer of other part of right foot with necrosis of bone: CODE(S): L97.514 - Non-pressure chronic ulcer of other part of right foot with necrosis of bone PLAN: Procedure- Location: hallux, right grade 3 Excisional debridement performed Anesthesia: 5% lidocaine plain Debridement layer: subcutaneous Amount of debridement: 100% Instrumentation used: 15 blade Tissue debrided: fibrous, devitalized subcutaneous, biofilm, slough, minimal eschar Exposed tissue: fat layer Bleeding: mild Hemostasis controlled: pressure The patient tolerated the procedure well The patient was seen and examined at the wound center today and was referred from the [facility]. A subcutaneous debridement was performed today as noted in the clinical panel to hallux and heel. The plantar forefoot ulcer site has healed. I The patient tolerated the procedure well. To continue Keyla dressing to right heel. To continue Dakin to hallux of right foot to wash with soap and water and avoid soaking. She previously refused advanced wound healing products and is now amendable to use these on her toe to attempt avoiding an amputation. Therefore recommend application of advanced wound healing product epi cord which is placental and umbilical cord dry. The indications, benefits, anticipated application and management were reviewed. Insurance prior authorization will be completed. The purpose of offloading offloading techniques was reviewed. I do not recommend that she wears her close diabetic shoe even for short periods. I recommend she hangs her heel over stacked blankets or pillows while in bed to keep pressure off of the ulcer. Although she has palpable pulses I do recommend screening her with a noninvasive vascular study to evaluate for any potential perfusion deficits. Her medical records from the [facility] will be requested. Her noninvasive vascular studies were reviewed from [facility] January 07, 2020 with triphasic waveforms bilateral and right ABIs of 1.21 and 1.07 and left ABIs of 1.2 and 1.09. The digital pressures were 105 mmHg on the right and 141 mmHg on the left. She also had normal PVR waveforms to the ankle and digital level bilateral. X-rays and MRI of the right foot were reviewed from her last hospital admission. MRI from 09-16-20 supports osteomyelitis of phalanx of right hallux. She is also treated for osteomyelitis under the management of infectious disease specialist. She is on IV Zosyn and vancomycin. Vancomycin is coordinated with her hemodialysis schedule. She is also on oral Augmentin with a stop date of 10-27-20. She had cultures previously with MRSA and anaerobic growth. Her labs from were reviewed. She had resolution of leukocytosis prior to hospital discharge. Her last ESR was on 09-15-20 and was 116. We also discussed advanced treatment of hyperbaric oxygen therapy due to her diabetic static, history of delayed healing, and osteomyelitis diagnosis. The indications, benefits, requirements and process were reviewed. She denies having claustrophobia and would consider this if her insurance covers it and if she is able to confirm transportation from her jail facility. We will start with seeing if this is even a treatment option for her at this time and then medical screening will be pursued. She is at continued risk for limb loss. Hyperbaric oxygen therapy and advancing healing product application recommended and are medically necessary for limb salvage. To return to the wound healing center in 1 week or call sooner if she has any questions or concerns or signs of infection. I answered all of her questions today. Note: [employer] speech recognition medical office coordinator software was used to create portions of this document. Sound-alike and misspelled words, as well as other medical office coordinator errors may be contained in the documentation. 20 minutes was spent on this encounter. This included face to face and non face to face care including preparing for the visit, reviewing the history, performing the exam, counseling and providing education to the patient, family, or caregiver, ordering medications/test/ procedures if indicated as documented, communicating with other healthcare providers, documenting information in the medical record, interpreting / sharing this information when indicated as documented, and care coordination.
--- NOTE | 2020-10-21 13:46 | WC ---
#5 I 09/09/20
== END 2020-10-05 23:59 ==
LOC: WC 13:30
PROVIDERS: PCP Family Medicine; Visit Provider Podiatrist
DX: E11.621 Type 2 diabetes mellitus with foot ulcer (principal); E11.69 Type 2 diabetes mellitus with other specified complication; M86.171 Other acute osteomyelitis, right ankle and foot; L97.514 Non-pressure chronic ulcer of other part of right foot with necrosis of bone; L97.412 Non-pressure chronic ulcer of right heel and midfoot with fat layer exposed; N19 Unspecified kidney failure; E11.42 Type 2 diabetes mellitus with diabetic polyneuropathy; E66.3 Overweight; Z68.26 Body mass index [BMI] 26.0-26.9, adult; Z99.2 Dependence on renal dialysis; Z79.02 Long term (current) use of antithrombotics/antiplatelets; Z79.4 Long term (current) use of insulin; Z79.899 Other long term (current) drug therapy; Z22.322 Carrier or suspected carrier of Methicillin resistant Staphylococcus aureus
CPT/HCPCS: 11042

== ENCOUNTER 2020-11-04 11:15 | Outpatient (RCR) | payer MEDICARE, MEDICAID, SELFPAY ==
[2020-10-06 00:11] VITALS: BP 122/73; PULSE 88; RESP 18; TEMP 36.4; BMI 27.1
[2020-10-07 14:26] VITALS: BP 144/83; PULSE 88; RESP 16; TEMP 36.2; BMI 27.1
--- NOTE | 2020-10-07 15:39 | PCM.WC.PN ---
History of Present Illness Date of Service: 10/07/20 Chief Complaint: heel ulcer hallux ulcers History of Wound: She was seen today for right heel and hallux ulcerations. Her recent hospitalization is noted and [facility]. She has now been transition back home in which she is administering IV vancomycin with hemodialysis, and performs dressing changes on her own. She was diagnosed with right hallux osteomyelitis and had a bedside debridement performed by Dr. Green. The onset of this ulcer was 09-12-20 when she had increased toe walking while looking at some property with her . She is also on oral Augmentin with a stop date of 10/27 completing an antibiotic course for treatment of osteomyelitis. She denies current fever, chill, nausea, vomiting. She is worried about needing an amputation and is amendable to proceed forward with advanced wound healing products and other advanced treatments at this time. The prior authorization is still pending. Progress of Wound: Improving Objective Data Objective Data Vital Signs: Vital Signs Temp Pulse Resp BP 97.2 F L 88 16 144/83 H 10/07/20 14:26 10/07/20 14:26 10/07/20 14:26 10/07/20 14:26 Weight: 72.91 kg Body Mass Index (BMI) 27.1 Physical Exam Const alert and oriented x3 General Appearance: cooperative HEENT normocephalic Extremity Extremity Narrative: No calf tenderness Diminished pulses Muscle wasting noted General Extremity: edema and no tenderness to palpation of joints or extremities; Negative for cyanosis Skin Skin Narrative: no purulence, no streaking, no odor, no infection. Skin is atrophic and hairless. The heel ulcer is significantly reduced in size with now a granular base. The hallux ulcer is less deep however there is still exposed hallux dorsally. There is fibrous, adipose, and minimal granulation tissue noted. Resolved necrosis General Skin Exam: Negative for erythema Neuro Neuro Narrative: lack of normal epicritic sensation via light touch is consistent with neuropathy status Psych cooperative and affect normal Debridement Note Debridement Note Post-Debridement Measurements and Additional Note: Post-Debridement Measurements/Treatment NATHAN - Nurse 1 - General Ulcer Assessment Start: 10/07/20 14:26 Freq: Status: Active Protocol: DAVID Activity Type Activity Date Activity User E-Sign Co-Sign Detail Recorded Client Recorded Date Recorded By Document 10/07/20 14:26 MS [id number] 10/07/20 14:39 RI 10/07/20 14:26 WC - Today's Visit Information Type of service 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 ) Arrival Mode Ambulatory, Other Transfer Assistance None Patient Identification Verified (Name & Yes ) Patient Requires Transmission-Based No Precautions Safety Precautions NA Finger Stick Blood Sugar(mg/dl) (if 77 indicated): Blood Sugar Stated by Patient Height and Weight Body Mass Index (BMI) 27.1 BMI Classification Overweight Vital Signs Temperature (97.8 F-99.1 F) 97.2 F L Temperature Source Temporal Pulse Rate (60-100) 88 Pulse Location Monitor Respiratory Rate (12-18) 16 Respiratory rate source Observation Blood Pressure (90/60-120/80) 144/83 H Blood Pressure Mean (mm Hg) 103 Source Monitor Position Sitting Blood Pressure Location Left Arm History Since Last Visit- (Skip if this is Patient's initial visit) Have you changed medications since your No last visit? Any new allergies or adverse reactions No Had a fall/change in ADL's that may No increase risk of falls Signs or symptoms of abuse and/or No neglect since last visit Have you been in the hospital since your No last visit? Has dressing in place as prescribed Yes Has compression in place as prescribed N/A Has offloadiing in place as prescribed N/A Experienced any changes in pain level or No management Left Footwear Regular Shoe Right Footwear Regular Shoe Pain Scale: 0-10 Numeric Is Patient Pain Free? Yes - Nurse 1 - General Ulcer Measurement Start: 10/07/20 14:26 Freq: Status: Active Protocol: Activity Type Activity Date Activity User E-Sign Co-Sign Detail Recorded Client Recorded Date Recorded By Document 10/07/20 14:26 RI [id number] 10/07/20 14:39 RI 10/07/20 14:26 Wound Center Nurse 1 #6 R Grt Toe -Current Size (cm) - Length 2 -Current Size (cm) - Width 3 -Current Size (cm) - Depth 0.3 -Total Square Cm 6 -Exudate Amt Medium -Exudate Type Serosanguineous -Wound Margin Distinct, Outline Attached -Granulation Amt Medium (34-66%) -Granulation Quality [place] -Slough/Fibrin Yes -Necrosis Amt Medium (34-66%) -Necrotic Tissue Type Adherent Slough -Texture (Colleen-wound Skin Appearance) No Abnormality -Moisture (Colleen-wound Skin Appearance) No Abnormality -Color (Colleen-wound Skin Appearance) No Abnormality -Temperature (Colleen-wound Skin No Abnormality Appearance) (Pt Warm) -Tenderness on Palpation (Colleen-wound No Skin Appearance) -Ulcer Cleansing Wound Cleanser -Foul Odor after Cleansing No -Anesthetic Used 4% Lidocaine Solution 5-right plantar foot -Current Size (cm) - Length 0.1 -Current Size (cm) - Width 0.1 -Current Size (cm) - Depth 0.1 -Total Square Cm 0.01 -Exudate Amt Small -Exudate Type Serosanguineous -Wound Margin Distinct, Outline Attached -Granulation Amt Medium (34-66%) -Slough/Fibrin No -Necrosis Amt None Present (0 %) -Texture (Colleen-wound Skin Appearance) No Abnormality -Moisture (Colleen-wound Skin Appearance) No Abnormality -Color (Colleen-wound Skin Appearance) No Abnormality -Temperature (Colleen-wound Skin No Abnormality Appearance) (Pt Warm) -Tenderness on Palpation (Colleen-wound No Skin Appearance) -Ulcer Cleansing Rinsed/ Irrigated with Saline #4 right heel -Current Size (cm) - Length 0.1 -Current Size (cm) - Width 0.1 -Current Size (cm) - Depth 0.1 -Total Square Cm 0.01 -Exudate Amt Small -Exudate Type Serosanguineous -Wound Margin Distinct, Outline Attached -Granulation Amt Medium (34-66%) -Slough/Fibrin Yes -Necrosis Amt Medium (34-66%) -Necrotic Tissue Type Adherent Slough -Texture (Colleen-wound Skin Appearance) No Abnormality -Moisture (Colleen-wound Skin Appearance) No Abnormality -Color (Colleen-wound Skin Appearance) No Abnormality -Temperature (Colleen-wound Skin No Abnormality Appearance) (Pt Warm) -Ulcer Cleansing Wound Cleanser -Foul Odor after Cleansing No -Anesthetic Used 4% Lidocaine Solution WC - Nurse 2 - General Ulcer CM Notes Start: 10/07/20 14:26 Freq: Status: Active Protocol: Activity Type Activity Date Activity User E-Sign Co-Sign Detail Recorded Client Recorded Date Recorded By Document 10/07/20 15:11 JF [id number] 10/07/20 15:22 VITO 10/07/20 15:11 Wound Center Nurse 2 #6 R Grt Toe -Time 15:12 -Correct Patient Yes -Correct Side, Site, Position Yes -Correct Procedure Yes -Procedure Performed Yes -Type of Procedure Debridement -Clinical Debridement Subcutaneous -Tissue Removed Subcutaneous -Post Debridement (cm) - Length 1.7 -Post Debridement (cm) - Width 3.5 -Post Debridement (cm) - Depth 0.5 -Total Square (Post) (cm) 5.95 -Area of Debridement (cm) - Length 1.7 -Area of Debridement (cm) - Width 3.5 -Total Square (Area) (cm) 5.95 -Tunneling No -Undermining/Tunneling No -Circular Undermining No -Wound/Ulcer Outcome Not Healed -Ulcer Cleansing Rinsed/ Irrigated with Saline -Foul Odor after Cleansing No -Bioengineered Tissue No -Bleeding Controlled with Pressure -Offloading Yes -Type of Offloading Knee Walker -Treatment Response Procedure Tolerated Well -Debridement - Subq, 1st 20sq cm Yes 5-right plantar foot -Time 15:14 -Correct Patient No -Correct Side, Site, Position No -Correct Procedure No -Procedure Performed No -Post Debridement (cm) - Length 0 -Post Debridement (cm) - Width 0 -Post Debridement (cm) - Depth 0 -Total Square (Post) (cm) 0 -Area of Debridement (cm) - Length 0 -Area of Debridement (cm) - Width 0 -Total Square (Area) (cm) 0 -Tunneling No -Undermining/Tunneling No -Circular Undermining No -Wound/Ulcer Outcome Healed- Epithelialized -Offloading Yes -Type of Offloading Knee Walker #4 right heel -Time 15:13 -Correct Patient Yes -Correct Side, Site, Position Yes -Correct Procedure Yes -Procedure Performed Yes -Type of Procedure Debridement -Clinical Debridement Subcutaneous -Tissue Removed Subcutaneous -Post Debridement (cm) - Length 0.3 -Post Debridement (cm) - Width 0.6 -Post Debridement (cm) - Depth 0.2 -Total Square (Post) (cm) 0.18 -Area of Debridement (cm) - Length 0.3 -Area of Debridement (cm) - Width 0.6 -Total Square (Area) (cm) 0.18 -Tunneling No -Undermining/Tunneling No -Circular Undermining No -Wound/Ulcer Outcome Healed- Surgical Closure -Bioengineered Tissue No -Bleeding Controlled with Pressure -Offloading No -Treatment Response Procedure Tolerated Well -Debridement - Subq, 1st 20sq cm No Pain Scale: 0-10 Numeric Is Patient Pain Free? 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: unspecified shelter insulin use status Qualified Code(s): E11.42 - Type 2 diabetes mellitus with diabetic polyneuropathy (4) Type 2 diabetes mellitus with diabetic polyneuropathy: CODE(S): E11.42 - Type 2 diabetes mellitus with diabetic polyneuropathy (5) Delayed wound healing: CODE(S): T14.8XXD - Other injury of unspecified body region, subsequent encounter (6) Renal failure: CODE(S): N19 - Unspecified kidney failure (7) Chronic heel ulcer with fat layer exposed: CODE(S): L97.402 - Non-pressure chronic ulcer of unspecified heel and midfoot with fat layer exposed QUALIFIERS: Laterality: right Qualified Code(s): L97.412 - Non-pressure chronic ulcer of right heel and midfoot with fat layer exposed PLAN: Procedure- Location: hallux, right (dorsal and medial hallux) grade 3 Excisional debridement performed Anesthesia: 5% lidocaine plain Debridement layer: subcutaneous Amount of debridement: 100% Instrumentation used: 15 blade Tissue debrided: fibrous, devitalized subcutaneous, biofilm, slough, minimal eschar Exposed tissue: fat layer Bleeding: mild Hemostasis controlled: pressure The patient tolerated the procedure well The patient was seen and examined at the wound center today and was referred from the [facility]. A subcutaneous debridement was performed today as noted in the clinical panel to hallux and heel. The plantar forefoot ulcer site has remained healed. The patient tolerated the procedure well. To continue Maranda dressing to right heel. To continue sterile gauze packing to hallux of right foot to wash with soap and water and avoid soaking. Ok to clean with dakin solution also. She previously refused advanced wound healing products and is now amendable to use these on her toe to attempt avoiding an amputation. Therefore recommend application of advanced wound healing product epi cord which is placental and umbilical cord dry. The indications, benefits, anticipated application and management were reviewed. Insurance prior authorization will be completed. Prior authorization is still pending. The purpose of offloading offloading techniques was reviewed. I do not recommend that she wears her close diabetic shoe even for short periods. I recommend she hangs her heel over stacked blankets or pillows while in bed to keep pressure off of the ulcer. Although she has palpable pulses I do recommend screening her with a noninvasive vascular study to evaluate for any potential perfusion deficits. Her medical records from the [facility] will be requested. Her noninvasive vascular studies were reviewed from [facility] January 07, 2020 with triphasic waveforms bilateral and right ABIs of 1.21 and 1.07 and left ABIs of 1.2 and 1.09. The digital pressures were 105 mmHg on the right and 141 mmHg on the left. She also had normal PVR waveforms to the ankle and digital level bilateral. X-rays and MRI of the right foot were reviewed from her last hospital admission. MRI from 09-16-20 supports osteomyelitis of phalanx of right hallux. She is also treated for osteomyelitis under the management of infectious disease specialist. She is on IV Zosyn and vancomycin. Vancomycin is coordinated with her hemodialysis schedule. She is also on oral Augmentin with a stop date of 10-27-20. She had cultures previously with MRSA and anaerobic growth. Her labs from were reviewed. She had resolution of leukocytosis prior to hospital discharge. Her last ESR was on 09-15-20 and was 116. We also discussed advanced treatment of hyperbaric oxygen therapy due to her diabetic static, history of delayed healing, and osteomyelitis diagnosis. The indications, benefits, requirements and process were reviewed. She denies having claustrophobia and would consider this if her insurance covers it and if she is able to confirm transportation from her jail facility. We will start with seeing if this is even a treatment option for her at this time and then medical screening will be pursued. She is at continued risk for limb loss. Hyperbaric oxygen therapy and advancing healing product application recommended and are medically necessary for limb salvage. To return to the wound healing center in 1 week or call sooner if she has any questions or concerns or signs of infection. I answered all of her questions today. Note: SEAT 4a speech recognition utilization manager software was used to create portions of this document. Sound-alike and misspelled words, as well as other utilization manager errors may be contained in the documentation.
[2020-10-14 15:13] VITALS: BP 130/68; PULSE 86; RESP 16; TEMP 36.3; BMI 27.1
--- NOTE | 2020-10-14 16:23 | PN.PCM_ITS ---
History of Present Illness Date of Service: 10/14/20 Chief Complaint: heel ulcer hallux ulcers History of Wound: She was seen today for right heel and hallux ulcerations. Her recent hospitalization is noted and she was residing in a senior living facility. She has now been transition back home in which she is administering IV vancomycin with hemodialysis, and performs dressing changes on her own. She was diagnosed with right hallux osteomyelitis and had a bedside debridement performed by Dr. Green. The onset of this ulcer was 09-12-20 when she had increased toe walking while looking at some property with her . She is also on oral Augmentin with a stop date of 10/27 completing an antibiotic course for treatment of osteomyelitis. She was also evaluated by infectious disease specialist, Dr. Herrera today. She denies current fever, chill, nausea, vomiting. She is amenable to proceed forward with advanced wound healing product, epi cord today. She continues to diligently offload both ulcer sites as advised. Progress of Wound: Improving hallux ulcers although bone is still exposed Healed heel ulcer Objective Data Objective Data Vital Signs: Vital Signs Temp Pulse Resp BP 97.3 F L 86 16 130/68 H 10/14/20 15:13 10/14/20 15:13 10/14/20 15:13 10/14/20 15:13 Weight: 72.91 kg Body Mass Index (BMI) 27.1 Physical Exam Const alert and oriented x3 General Appearance: cooperative HEENT normocephalic Extremity Extremity Narrative: No calf tenderness Diminished pulses Muscle wasting noted General Extremity: edema and no tenderness to palpation of joints or extremities; Negative for cyanosis Skin Skin Narrative: no purulence, no streaking, no odor, no infection. Skin is atrophic and hairless. The heel ulcer is healed with full epithelialization. The hallux ulcer is less deep however there is still exposed hallux bone dorsally. There is reduced fibrous, adipose, and increased granulation tissue noted. Resolved necrosis General Skin Exam: Negative for erythema Neuro Neuro Narrative: lack of normal epicritic sensation via light touch is consistent with neuropathy status Psych cooperative and affect normal Debridement Note Debridement Note Post-Debridement Measurements and Additional Note: Post-Debridement Measurements/Treatment NATHAN - Nurse 1 - General Ulcer Assessment Start: 10/07/20 14:26 Freq: Status: Active Protocol: DAVID Activity Type Activity Date Activity User E-Sign Co-Sign Detail Recorded Client Recorded Date Recorded By Document 10/07/20 14:26 MS [id number] 10/07/20 14:39 MS Document 10/14/20 15:13 MS [id number] 10/14/20 15:21 MS 10/07/20 10/14/20 14:26 15:13 - Today's Visit Information Type of service Follow-up Visit Follow-up Visit (Physician/PEER TUTOR (Physician/PEER TUTOR ) ) Arrival Mode Ambulatory, Ambulatory Other Transfer Assistance None None Patient Identification Verified (Name & Yes Yes ) Patient Requires Transmission-Based No No Precautions Safety Precautions NA NA Finger Stick Blood Sugar(mg/dl) (if 77 84 indicated): Blood Sugar Stated by Stated by Patient Patient Height and Weight Body Mass Index (BMI) 27.1 27.1 BMI Classification Overweight Overweight Vital Signs Temperature (97.8 F-99.1 F) 97.2 F L 97.3 F L Temperature Source Temporal Temporal Pulse Rate (60-100) 88 86 Pulse Location Monitor Monitor Respiratory Rate (12-18) 16 16 Respiratory rate source Observation Observation Blood Pressure (90/60-120/80) 144/83 H 130/68 H Blood Pressure Mean (mm Hg) 103 88 Source Monitor Monitor Position Sitting Sitting Blood Pressure Location Left Arm Left Arm History Since Last Visit- (Skip if this is Patient's initial visit) Have you changed medications since your No No last visit? Any new allergies or adverse reactions No No Had a fall/change in ADL's that may No No increase risk of falls Signs or symptoms of abuse and/or No No neglect since last visit Have you been in the hospital since your No No last visit? Has dressing in place as prescribed Yes Yes Has compression in place as prescribed N/A N/A Has offloadiing in place as prescribed N/A N/A Experienced any changes in pain level or No No management Left Footwear Regular Shoe Regular Shoe Right Footwear Regular Shoe Surgical Shoe with pressure relief insole Pain Scale: 0-10 Numeric Is Patient Pain Free? Yes - Nurse 1 - General Ulcer Measurement Start: 10/07/20 14:26 Freq: Status: Active Protocol: Activity Type Activity Date Activity User E-Sign Co-Sign Detail Recorded Client Recorded Date Recorded By Document 10/07/20 14:26 MS [id number] 10/07/20 14:39 MS Document 10/14/20 15:13 MS [id number] 10/14/20 15:21 MS 10/07/20 10/14/20 14:26 15:13 Wound Center Nurse 1 #6 R Grt Toe -Current Size (cm) - Length 2 3 -Current Size (cm) - Width 3 2.4 -Current Size (cm) - Depth 0.3 0.3 -Total Square Cm 6 7.2 -Exudate Amt Medium Medium -Exudate Type Serosanguineous Serosanguineous -Wound Margin Distinct, Outline Attached -Granulation Amt Medium (34-66%) -Granulation Quality [place] Red -Slough/Fibrin Yes -Necrosis Amt Medium (34-66%) -Necrotic Tissue Type Adherent Slough Adherent Slough -Texture (Colleen-wound Skin Appearance) No Abnormality No Abnormality -Moisture (Colleen-wound Skin Appearance) No Abnormality No Abnormality -Color (Colleen-wound Skin Appearance) No Abnormality No Abnormality -Temperature (Colleen-wound Skin No Abnormality No Abnormality Appearance) (Pt Warm) (Pt Warm) -Tenderness on Palpation (Colleen-wound No Skin Appearance) -Ulcer Cleansing Wound Cleanser Rinsed/ Irrigated with Saline -Foul Odor after Cleansing No No -Anesthetic Used 4% Lidocaine 4% Lidocaine Solution Solution 5-right plantar foot -Current Size (cm) - Length 0.1 -Current Size (cm) - Width 0.1 -Current Size (cm) - Depth 0.1 -Total Square Cm 0.01 -Exudate Amt Small -Exudate Type Serosanguineous -Wound Margin Distinct, Outline Attached -Granulation Amt Medium (34-66%) -Slough/Fibrin No -Necrosis Amt None Present (0 %) -Texture (Colleen-wound Skin Appearance) No Abnormality -Moisture (Colleen-wound Skin Appearance) No Abnormality -Color (Colleen-wound Skin Appearance) No Abnormality -Temperature (Colleen-wound Skin No Abnormality Appearance) (Pt Warm) -Tenderness on Palpation (Colleen-wound No Skin Appearance) -Ulcer Cleansing Rinsed/ Irrigated with Saline #4 right heel -Current Size (cm) - Length 0.1 1 -Current Size (cm) - Width 0.1 1 -Current Size (cm) - Depth 0.1 0.3 -Total Square Cm 0.01 1 -Exudate Amt Small Medium -Exudate Type Serosanguineous Serosanguineous -Wound Margin Distinct, Outline Attached -Granulation Amt Medium (34-66%) Medium (34-66%) -Granulation Quality [place] -Slough/Fibrin Yes -Necrosis Amt Medium (34-66%) -Necrotic Tissue Type Adherent Slough Adherent Slough -Texture (Colleen-wound Skin Appearance) No Abnormality No Abnormality -Moisture (Colleen-wound Skin Appearance) No Abnormality No Abnormality -Color (Colleen-wound Skin Appearance) No Abnormality No Abnormality -Temperature (Colleen-wound Skin No Abnormality Appearance) (Pt Warm) -Ulcer Cleansing Wound Cleanser Rinsed/ Irrigated with Saline -Foul Odor after Cleansing No -Anesthetic Used 4% Lidocaine 4% Lidocaine Solution Solution WC - Nurse 2 - General Ulcer CM Notes Start: 10/07/20 14:26 Freq: Status: Active Protocol: Activity Type Activity Date Activity User E-Sign Co-Sign Detail Recorded Client Recorded Date Recorded By Document 10/07/20 15:11 [id number] 10/07/20 15:22 Document 10/14/20 15:38 [id number] 10/14/20 15:45 10/07/20 10/14/20 15:11 15:38 Wound Center Nurse 2 #6 R Grt Toe -Time 15:12 15:39 -Correct Patient Yes Yes -Correct Side, Site, Position Yes Yes -Correct Procedure Yes Yes -Procedure Performed Yes Yes -Type of Procedure Debridement Debridement -Clinical Debridement Subcutaneous Subcutaneous -Tissue Removed Subcutaneous Subcutaneous -Post Debridement (cm) - Length 1.7 3 -Post Debridement (cm) - Width 3.5 2.5 -Post Debridement (cm) - Depth 0.5 0.3 -Total Square (Post) (cm) 5.95 7.5 -Area of Debridement (cm) - Length 1.7 3.0 -Area of Debridement (cm) - Width 3.5 2.5 -Total Square (Area) (cm) 5.95 7.50 -Tunneling No No -Undermining/Tunneling No No -Circular Undermining No No -Wound/Ulcer Outcome Not Healed Not Healed -Ulcer Cleansing Rinsed/ Rinsed/ Irrigated with Irrigated with Saline Saline -Foul Odor after Cleansing No No -Bioengineered Tissue No Yes -Type of Bioengineered Tissue Epicord -Expiration Date 09/05/24 -Product Lot Number [id number] -Percent Used 100 -Lot number of Saline Used [id number] -Bleeding Controlled with Pressure Pressure -Offloading Yes Yes -Type of Offloading Knee Walker Knee Walker -Treatment Response Procedure Procedure Tolerated Well Tolerated Well -Debridement - Subq, 1st 20sq cm Yes No -Apply Skin Sub - 1st 25 sq cm - Feet 1 -Epicord (per sq cm) 6 5-right plantar foot -Time 15:14 -Correct Patient No -Correct Side, Site, Position No -Correct Procedure No -Procedure Performed No -Post Debridement (cm) - Length 0 -Post Debridement (cm) - Width 0 -Post Debridement (cm) - Depth 0 -Total Square (Post) (cm) 0 -Area of Debridement (cm) - Length 0 -Area of Debridement (cm) - Width 0 -Total Square (Area) (cm) 0 -Tunneling No -Undermining/Tunneling No -Circular Undermining No -Wound/Ulcer Outcome Healed- Epithelialized -Offloading Yes -Type of Offloading Knee Walker #4 right heel -Time 15:13 -Correct Patient Yes No -Correct Side, Site, Position Yes No -Correct Procedure Yes No -Procedure Performed Yes No -Type of Procedure Debridement -Clinical Debridement Subcutaneous -Tissue Removed Subcutaneous -Post Debridement (cm) - Length 0.3 0 -Post Debridement (cm) - Width 0.6 0 -Post Debridement (cm) - Depth 0.2 0 -Total Square (Post) (cm) 0.18 0 -Area of Debridement (cm) - Length 0.3 0 -Area of Debridement (cm) - Width 0.6 0 -Total Square (Area) (cm) 0.18 0 -Tunneling No -Undermining/Tunneling No -Circular Undermining No -Wound/Ulcer Outcome Healed- Healed- Surgical Epithelialized Closure -Bioengineered Tissue No -Bleeding Controlled with Pressure -Offloading No -Treatment Response Procedure Tolerated Well -Debridement - Subq, 1st 20sq cm No Pain Scale: 0-10 Numeric Is Patient Pain Free? Yes Yes WC - Nurse 3 - General Ulcer D/C NN Start: 10/07/20 14:26 Freq: Status: Active Protocol: Activity Type Activity Date Activity User E-Sign Co-Sign Detail Recorded Client Recorded Date Recorded By Document 10/07/20 15:40 RB [id number] 10/07/20 15:42 RB Document 10/14/20 15:55 RB [id number] 10/14/20 15:55 RB 10/07/20 10/14/20 15:40 15:55 Wound Care Nurse 3 #6 R Grt Toe -Ulcer Cleansing Wound Cleanser -Primary Dressing Applied Nugauze, Plain Iodoform -Primary Dressing Covered/Secured with Dry Gauze,Dry Dry Gauze,Dry Gauze & Roll Gauze & Roll Gauze,Secured Gauze,Secured with Tape with Tape -Nugauze, Plain Iodoform 1/4 1 #4 right heel -Primary Dressing Applied Promogran Maranda Matter -Primary Dressing Covered/Secured with Dry Gauze,Dry Gauze & Roll Gauze,Secured with Tape -Promogran Maranda Matter 1 Treatment Response Procedure Tolerated Well Pain Scale: 0-10 Numeric Is Patient Pain Free? Yes Yes WC - Visit Discharge Discharge Condition Stable Stable Ambulatory Status Ambulatory, Ambulatory Walker Transportation Private Auto Private Auto Medication Reconcilliation completed & No No provided to patient/care provider Clinical Summary of Care Provided Yes Yes Notes: kneewalker knee walker Wound debrided: dorsal and medial right hallux Wound Grade/Stage: 3 Type of Debridement: Excisional debridement Anesthesia Used: 4% Lidocaine Solution Depth: in the subcutaneous layer Percentage of wound debrided: 100 Instrument Used: #15 blade Tissue Removed: fibrous, devitalized subcutaneous, biofilm, slough Severity: Fat Layer Exposed Amount of bleeding with debridement: Mild Bleeding Controlled with: Pressure Patient tolerated procedure: Patient tolerated procedure well Assessment/Plan Assessment/Plan (1) Non-pressure chronic ulcer of other part of right foot with necrosis of bone: CODE(S): L97.514 - Non-pressure chronic ulcer of other part of right foot with necrosis of bone (2) Chronic heel ulcer with fat layer exposed: CODE(S): L97.402 - Non-pressure chronic ulcer of unspecified heel and midfoot with fat layer exposed QUALIFIERS: Laterality: right Qualified Code(s): L97.412 - Non- pressure chronic ulcer of right heel and midfoot with fat layer exposed (3) Type 2 diabetes mellitus with diabetic polyneuropathy: CODE(S): E11.42 - Type 2 diabetes mellitus with diabetic polyneuropathy QUALIFIERS: Diabetes mellitus intermediate project manager insulin use: unspecified intermediate project manager insulin use status Qualified Code(s): E11.42 - Type 2 diabetes mellitus with diabetic polyneuropathy (4) Osteomyelitis: CODE(S): M86.9 - Osteomyelitis, unspecified QUALIFIERS: Osteomyelitis type: other acute Osteomyelitis location: foot Laterality: right Qualified Code(s): M86.171 - Other acute osteomyelitis, right ankle and foot (5) Delayed wound healing: CODE(S): T14.8XXD - Other injury of unspecified body region, subsequent encounter PLAN: The patient was seen and examined at the wound center today and her case was reviewed. A subcutaneous debridement was performed today as noted in the clinical panel to hallux. Her heel ulcer has healed. The plantar forefoot ulcer site has remained healed also. The patient tolerated the procedure well. To discontinue dressing to the heel. Verbal consent was obtained for application of advanced wound healing product dry from placental and umbilical cord tissue, epi cord. This was applied according to standard protocol and was secured in place with a wound veil and Steri-Strips. 100% of product was utilized. She was advised keep this clean, dry, and intact until follow-up visit next week. She understands the indications, benefits, application process, and anticipated healing course. She tolerated this well. A secondary dressing of gauze was applied also. The purpose of offloading offloading techniques was reviewed. I do not recommend that she wears her close diabetic shoe even for short periods. I recommend she hangs her heel over stacked blankets or pillows while in bed to keep pressure off of the ulcer. Although she has palpable pulses I do recommend screening her with a noninvasive vascular study to evaluate for any potential perfusion deficits. Her medical records from the [facility] will be requested. Her noninvasive vascular studies were reviewed from [facility] January 07, 2020 with triphasic waveforms bilateral and right ABIs of 1.21 and 1.07 and left ABIs of 1.2 and 1.09. The digital pressures were 105 mmHg on the right and 141 mmHg on the left. She also had normal PVR waveforms to the ankle and digital level bilateral. X-rays and MRI of the right foot were reviewed from her last hospital admission. MRI from 09-16-20 supports osteomyelitis of phalanx of right hallux. She is also treated for osteomyelitis under the management of infectious disease specialist. She is on IV Zosyn and vancomycin. Vancomycin is coordinated with her hemodialysis schedule. She is also on oral Augmentin with a stop date of 10-27-20. She had cultures previously with MRSA and anaerobic growth. Her labs from were reviewed. She had resolution of leukocytosis prior to hospital discharge. Her last ESR was on 09-15-20 and was 116. She is at continued risk for limb loss. Hyperbaric oxygen therapy and advancing healing product application recommended and are medically necessary for limb salvage. To return to the wound healing center in 1 week or call sooner if she has any questions or concerns or signs of infection. I answered all of her questions today. Note: [employer] speech recognition hide mill worker software was used to create portions of this document. Sound-alike and misspelled words, as well as other hide mill worker errors may be contained in the documentation.
[2020-10-21 11:01] VITALS: BP 121/67; PULSE 84; RESP 20; TEMP 36.3; BMI 27.1
--- NOTE | 2020-10-21 13:06 | PCM.WC.PN ---
History of Present Illness Date of Service: 10/21/20 Chief Complaint: hallux ulcers History of Wound: She was seen today for right heel and hallux ulcerations. Her recent hospitalization is noted and she was residing in a care home facility. She has now been transition back home in which she is administering IV vancomycin with hemodialysis, and performs dressing changes on her own. She was diagnosed with right hallux osteomyelitis and had a bedside debridement performed by Dr. Green. The onset of this ulcer was 09-12-20 when she had increased toe walking while looking at some property with her . She is also on oral Augmentin with a stop date of 10/27 completing an antibiotic course for treatment of osteomyelitis. She is also under the management of infectious disease specialist, Dr. Herrera. She denies current fever, chill, nausea, vomiting. She is amenable to proceed forward with advanced wound healing product, epi cord today. She continues to diligently offload her ulcer site and recently healed ulcer site. Progress of Wound: Improving hallux ulcers Objective Data Objective Data Vital Signs: Vital Signs Temp Pulse Resp BP 97.3 F L 84 20 H 121/67 H 10/21/20 11:01 10/21/20 11:01 10/21/20 11:01 10/21/20 11:01 Weight: 72.91 kg Body Mass Index (BMI) 27.1 Physical Exam Const alert and oriented x3 General Appearance: cooperative HEENT normocephalic Extremity Extremity Narrative: No calf tenderness Diminished pulses Muscle wasting noted General Extremity: edema and no tenderness to palpation of joints or extremities; Negative for cyanosis Skin Skin Narrative: no purulence, no streaking, no odor, no infection. Skin is atrophic and hairless. The heel ulcer is healed with full epithelialization. The hallux ulcer is less deep without bone seen today. There is reduced fibrous, adipose, and increased granulation tissue noted. Resolved necrosis General Skin Exam: Negative for erythema Neuro Neuro Narrative: lack of normal epicritic sensation via light touch is consistent with neuropathy status Psych cooperative and affect normal Debridement Note Debridement Note Post-Debridement Measurements and Additional Note: Post-Debridement Measurements/Treatment NATHAN - Nurse 1 - General Ulcer Assessment Start: 10/07/20 14:26 Freq: Status: Active Protocol: DAVID Activity Type Activity Date Activity User E-Sign Co-Sign Detail Recorded Client Recorded Date Recorded By Document 10/07/20 14:26 MS [id number] 10/07/20 14:39 MS Document 10/14/20 15:13 MS [id number] 10/14/20 15:21 MS Document 10/21/20 11:01 DL [id number] 10/21/20 11:09 DL Edit Result 10/21/20 11:01 DL (1) [id number] 10/21/20 11:11 DL (1) Comment => EpiCord left => inplace. 10/07/20 10/14/20 10/21/20 14:26 15:13 11:01 WC - Today's Visit Information Type of service Follow-up Visit Follow-up Visit Follow-up Visit (Physician/BUYING AGENT (Physician/BUYING AGENT (Physician/BUYING AGENT ) ) ) Arrival Mode Ambulatory, Ambulatory Ambulatory Other Transfer Assistance None None None Patient Identification Verified (Name & Yes Yes Yes ) Patient Requires Transmission-Based No No No Precautions Safety Precautions NA NA Finger Stick Blood Sugar(mg/dl) (if 77 84 121 indicated): Blood Sugar Stated by Stated by Stated by Patient Patient Patient Height and Weight Body Mass Index (BMI) 27.1 27.1 27.1 BMI Classification Overweight Overweight Overweight Vital Signs Temperature (97.8 F-99.1 F) 97.2 F L 97.3 F L 97.3 F L Temperature Source Temporal Temporal Temporal Pulse Rate (60-100) 88 86 84 Pulse Location Monitor Monitor Monitor Respiratory Rate (12-18) 16 16 20 H Respiratory rate source Observation Observation Observation Blood Pressure (90/60-120/80) 144/83 H 130/68 H 121/67 H Blood Pressure Mean (mm Hg) 103 88 85 Source Monitor Monitor Monitor Position Sitting Sitting Blood Pressure Location Left Arm Left Arm Comment EpiCord left inplace. History Since Last Visit- (Skip if this is Patient's initial visit) Have you changed medications since your No No No last visit? Any new allergies or adverse reactions No No No Had a fall/change in ADL's that may No No No increase risk of falls Signs or symptoms of abuse and/or No No No neglect since last visit Have you been in the hospital since your No No No last visit? Has dressing in place as prescribed Yes Yes Yes Has compression in place as prescribed N/A N/A N/A Has offloadiing in place as prescribed N/A N/A Yes Experienced any changes in pain level or No No No management Left Footwear Regular Shoe Regular Shoe Right Footwear Regular Shoe Surgical Shoe Surgical Shoe with pressure with pressure relief insole relief insole Pain Scale: 0-10 Numeric Is Patient Pain Free? Yes Yes WC - Nurse 1 - General Ulcer Measurement Start: 10/07/20 14:26 Freq: Status: Active Protocol: Activity Type Activity Date Activity User E-Sign Co-Sign Detail Recorded Client Recorded Date Recorded By Document 10/07/20 14:26 MS [id number] 10/07/20 14:39 MS Document 10/14/20 15:13 MS [id number] 10/14/20 15:21 MS Document 10/21/20 11:10 DL [id number] 10/21/20 11:10 DL 10/07/20 10/14/20 10/21/20 14:26 15:13 11:10 Wound Center Nurse 1 #6 R Grt Toe -Current Size (cm) - Length 2 3 0.1 -Current Size (cm) - Width 3 2.4 0.1 -Current Size (cm) - Depth 0.3 0.3 0.1 -Total Square Cm 6 7.2 0.01 -Photo Taken No -Exudate Amt Medium Medium Small -Exudate Type Serosanguineous Serosanguineous Serosanguineous -Wound Margin Distinct, Distinct, Outline Outline Attached Attached -Granulation Amt Medium (34-66%) Medium (34-66%) -Granulation Quality [place] Red Pale -Slough/Fibrin Yes -Necrosis Amt Medium (34-66%) Medium (34-66%) -Necrotic Tissue Type Adherent Slough Adherent Slough Adherent Slough -Structure Exposed N/A -Texture (Colleen-wound Skin Appearance) No Abnormality No Abnormality Scarring -Moisture (Colleen-wound Skin Appearance) No Abnormality No Abnormality Dry/Scaly -Color (Colleen-wound Skin Appearance) No Abnormality No Abnormality No Abnormality -Temperature (Colleen-wound Skin No Abnormality No Abnormality No Abnormality Appearance) (Pt Warm) (Pt Warm) (Pt Warm) -Tenderness on Palpation (Colleen-wound No No Skin Appearance) -Ulcer Cleansing Wound Cleanser Rinsed/ Wound Cleanser Irrigated with Saline -Foul Odor after Cleansing No No Yes, Due to Product Use -Anesthetic Used 4% Lidocaine 4% Lidocaine Solution Solution 5-right plantar foot -Current Size (cm) - Length 0.1 -Current Size (cm) - Width 0.1 -Current Size (cm) - Depth 0.1 -Total Square Cm 0.01 -Exudate Amt Small -Exudate Type Serosanguineous -Wound Margin Distinct, Outline Attached -Granulation Amt Medium (34-66%) -Slough/Fibrin No -Necrosis Amt None Present (0 %) -Texture (Colleen-wound Skin Appearance) No Abnormality -Moisture (Colleen-wound Skin Appearance) No Abnormality -Color (Colleen-wound Skin Appearance) No Abnormality -Temperature (Colleen-wound Skin No Abnormality Appearance) (Pt Warm) -Tenderness on Palpation (Colleen-wound No Skin Appearance) -Ulcer Cleansing Rinsed/ Irrigated with Saline #4 right heel -Current Size (cm) - Length 0.1 1 -Current Size (cm) - Width 0.1 1 -Current Size (cm) - Depth 0.1 0.3 -Total Square Cm 0.01 1 -Exudate Amt Small Medium -Exudate Type Serosanguineous Serosanguineous -Wound Margin Distinct, Outline Attached -Granulation Amt Medium (34-66%) Medium (34-66%) -Granulation Quality [place] -Slough/Fibrin Yes -Necrosis Amt Medium (34-66%) -Necrotic Tissue Type Adherent Slough Adherent Slough -Texture (Colleen-wound Skin Appearance) No Abnormality No Abnormality -Moisture (Colleen-wound Skin Appearance) No Abnormality No Abnormality -Color (Colleen-wound Skin Appearance) No Abnormality No Abnormality -Temperature (Colleen-wound Skin No Abnormality Appearance) (Pt Warm) -Ulcer Cleansing Wound Cleanser Rinsed/ Irrigated with Saline -Foul Odor after Cleansing No -Anesthetic Used 4% Lidocaine 4% Lidocaine Solution Solution WC - Nurse 2 - General Ulcer CM Notes Start: 10/07/20 14:26 Freq: Status: Active Protocol: Activity Type Activity Date Activity User E-Sign Co-Sign Detail Recorded Client Recorded Date Recorded By Document 10/07/20 15:11 VITO [id number] 10/07/20 15:22 JF Document 10/14/20 15:38 JF [id number] 10/14/20 15:45 JF Document 10/21/20 12:21 PL [id number] 10/21/20 12:23 PL 10/07/20 10/14/20 10/21/20 15:11 15:38 12:21 Wound Center Nurse 2 #6 R Grt Toe -Time 15:12 15:39 11:44 -Correct Patient Yes Yes Yes -Correct Side, Site, Position Yes Yes Yes -Correct Procedure Yes Yes Yes -Procedure Performed Yes Yes Yes -Type of Procedure Debridement Debridement Debridement -Clinical Debridement Subcutaneous Subcutaneous Subcutaneous -Tissue Removed Subcutaneous Subcutaneous Subcutaneous -Post Debridement (cm) - Length 1.7 3 2.3 -Post Debridement (cm) - Width 3.5 2.5 0.9 -Post Debridement (cm) - Depth 0.5 0.3 0.4 -Total Square (Post) (cm) 5.95 7.5 2.07 -Area of Debridement (cm) - Length 1.7 3.0 2.3 -Area of Debridement (cm) - Width 3.5 2.5 0.9 -Total Square (Area) (cm) 5.95 7.50 2.07 -Tunneling No No No -Undermining/Tunneling No No No -Circular Undermining No No No -Wound/Ulcer Outcome Not Healed Not Healed Not Healed -Ulcer Cleansing Rinsed/ Rinsed/ Rinsed/ Irrigated with Irrigated with Irrigated with Saline Saline Saline -Foul Odor after Cleansing No No No -Bioengineered Tissue No Yes Yes -Type of Bioengineered Tissue Epicord Epicord -Expiration Date 09/05/24 08/06/25 -Product Lot Number [id number] -Percent Used 100 100 -Lot number of Saline Used [id number] -Bleeding Controlled with Pressure Pressure Pressure -Offloading Yes Yes -Type of Offloading Knee Walker Knee Walker -Treatment Response Procedure Procedure Procedure Tolerated Well Tolerated Well Tolerated Well -Debridement - Subq, 1st 20sq cm Yes No No -Apply Skin Sub - 1st 25 sq cm - Feet 1 1 -Epicord (per sq cm) 6 6 5-right plantar foot -Time 15:14 -Correct Patient No -Correct Side, Site, Position No -Correct Procedure No -Procedure Performed No -Post Debridement (cm) - Length 0 -Post Debridement (cm) - Width 0 -Post Debridement (cm) - Depth 0 -Total Square (Post) (cm) 0 -Area of Debridement (cm) - Length 0 -Area of Debridement (cm) - Width 0 -Total Square (Area) (cm) 0 -Tunneling No -Undermining/Tunneling No -Circular Undermining No -Wound/Ulcer Outcome Healed- Epithelialized -Offloading Yes -Type of Offloading Knee Walker #4 right heel -Time 15:13 -Correct Patient Yes No -Correct Side, Site, Position Yes No -Correct Procedure Yes No -Procedure Performed Yes No -Type of Procedure Debridement -Clinical Debridement Subcutaneous -Tissue Removed Subcutaneous -Post Debridement (cm) - Length 0.3 0 -Post Debridement (cm) - Width 0.6 0 -Post Debridement (cm) - Depth 0.2 0 -Total Square (Post) (cm) 0.18 0 -Area of Debridement (cm) - Length 0.3 0 -Area of Debridement (cm) - Width 0.6 0 -Total Square (Area) (cm) 0.18 0 -Tunneling No -Undermining/Tunneling No -Circular Undermining No -Wound/Ulcer Outcome Healed- Healed- Surgical Epithelialized Closure -Bioengineered Tissue No -Bleeding Controlled with Pressure -Offloading No -Treatment Response Procedure Tolerated Well -Debridement - Subq, 1st 20sq cm No Pain Scale: 0-10 Numeric Is Patient Pain Free? Yes Yes Yes WC - Nurse 3 - General Ulcer D/C NN Start: 10/07/20 14:26 Freq: Status: Active Protocol: Activity Type Activity Date Activity User E-Sign Co-Sign Detail Recorded Client Recorded Date Recorded By Document 10/07/20 15:40 RB [id number] 10/07/20 15:42 RB Document 10/14/20 15:55 RB [id number] 10/14/20 15:55 RB Document 10/21/20 11:55 RB [id number] 10/21/20 11:56 RB 10/07/20 10/14/20 10/21/20 15:40 15:55 11:55 Wound Care Nurse 3 #6 R Grt Toe -Ulcer Cleansing Wound Cleanser -Primary Dressing Applied Nugauze, Plain Iodoform -Primary Dressing Covered/Secured with Dry Gauze,Dry Dry Gauze,Dry Dry Gauze, Gauze & Roll Gauze & Roll Secured with Gauze,Secured Gauze,Secured Tape with Tape with Tape -Nugauze, Plain Iodoform / 1 #4 right heel -Primary Dressing Applied Promogran Maranda Matter -Primary Dressing Covered/Secured with Dry Gauze,Dry Gauze & Roll Gauze,Secured with Tape -Promogran Maranda Matter 1 Treatment Response Procedure Procedure Tolerated Well Tolerated Well Pain Scale: 0-10 Numeric Is Patient Pain Free? Yes Yes Yes WC - Visit Discharge Discharge Condition Stable Stable Stable Ambulatory Status Ambulatory, Ambulatory Ambulatory Walker Transportation Private Auto Private Auto Private Auto Medication Reconcilliation completed & No No No provided to patient/care provider Clinical Summary of Care Provided Yes Yes Yes Notes: kneewalker knee walker Wound debrided: dorsal and lateral right hallux Wound Grade/Stage: 3 Type of Debridement: Excisional debridement Anesthesia Used: 4% Lidocaine Solution Depth: in the subcutaneous layer Percentage of wound debrided: 100 Instrument Used: #15 blade Tissue Removed: fibrous, devitalized subcutaneous, biofilm, slough Severity: Fat Layer Exposed Amount of bleeding with debridement: Mild Bleeding Controlled with: Pressure Patient tolerated procedure: Patient tolerated procedure well Assessment/Plan Assessment/Plan (1) Non-pressure chronic ulcer of other part of right foot with necrosis of bone: CODE(S): L97.514 - Non-pressure chronic ulcer of other part of right foot with necrosis of bone (2) Chronic heel ulcer with fat layer exposed: CODE(S): L97.402 - Non-pressure chronic ulcer of unspecified heel and midfoot with fat layer exposed QUALIFIERS: Laterality: right Qualified Code(s): L97.412 - Non-pressure chronic ulcer of right heel and midfoot with fat layer exposed (3) Type 2 diabetes mellitus with diabetic polyneuropathy: CODE(S): E11.42 - Type 2 diabetes mellitus with diabetic polyneuropathy QUALIFIERS: Diabetes mellitus marine oil terminal superintendent insulin use: unspecified marine oil terminal superintendent insulin use status Qualified Code(s): E11.42 - Type 2 diabetes mellitus with diabetic polyneuropathy (4) Osteomyelitis: CODE(S): M86.9 - Osteomyelitis, unspecified QUALIFIERS: Osteomyelitis type: other acute Osteomyelitis location: foot Laterality: right Qualified Code(s): M86.171 - Other acute osteomyelitis, right ankle and foot (5) Delayed wound healing: CODE(S): T14.8XXD - Other injury of unspecified body region, subsequent encounter PLAN: The patient was seen and examined at the wound center today and her case was reviewed. A subcutaneous debridement was performed today as noted in the clinical panel to hallux. Her heel ulcer has remained healed. The plantar forefoot ulcer site has remained healed also. The patient tolerated the procedure well. To discontinue dressing to the heel. Verbal consent was obtained for application of advanced wound healing product dry from placental and umbilical cord tissue, epi cord. This was applied according to standard protocol and was secured in place with a wound veil and Steri-Strips. 100% of product was utilized. She was advised keep this clean, dry, and intact until follow-up visit next week. She understands the indications, benefits, application process, and anticipated healing course. She tolerated this well. A secondary dressing of gauze was applied also. The purpose of offloading offloading techniques was reviewed. I do not recommend that she wears her close diabetic shoe even for short periods. I recommend she hangs her heel over stacked blankets or pillows while in bed to keep pressure off of the ulcer. Although she has palpable pulses I do recommend screening her with a noninvasive vascular study to evaluate for any potential perfusion deficits. Her medical records from the [facility] will be requested. Her noninvasive vascular studies were reviewed from [facility] January 07, 2020 with triphasic waveforms bilateral and right ABIs of 1.21 and 1.07 and left ABIs of 1.2 and 1.09. The digital pressures were 105 mmHg on the right and 141 mmHg on the left. She also had normal PVR waveforms to the ankle and digital level bilateral. X-rays and MRI of the right foot were reviewed from her last hospital admission. MRI from 09-16-20 supports osteomyelitis of phalanx of right hallux. She is also treated for osteomyelitis under the management of infectious disease specialist. She is on IV Zosyn and vancomycin. Vancomycin is coordinated with her hemodialysis schedule. She is also on oral Augmentin. The stop date planned for both antibiotics is 10-27-20. She had cultures previously with MRSA and anaerobic growth. Her labs from were reviewed. She had resolution of leukocytosis prior to hospital discharge. Her last ESR was on 09-15-20 and was 116. She is at continued risk for limb loss. Hyperbaric oxygen therapy and advancing healing product application recommended and are medically necessary for limb salvage. To return to the wound healing center in 1 week or call sooner if she has any questions or concerns or signs of infection. I answered all of her questions today. Note: [email or web address] speech recognition waste collection driver software was used to create portions of this document. Sound-alike and misspelled words, as well as other waste collection driver errors may be contained in the documentation.
[2020-10-28 11:25] VITALS: BP 123/71; PULSE 90; RESP 18; TEMP 36.3; BMI 27.1
--- NOTE | 2020-10-28 12:03 | PN.PCM_ITS ---
History of Present Illness Date of Service: 10/28/20 Chief Complaint: hallux ulcers History of Wound: She was seen today for right heel and hallux ulcerations. During her hospital mission she was diagnosed with right hallux osteomyelitis and had a bedside debridement performed by Dr. Green. The onset of this ulcer was 09-12-20 when she had increased toe walking while looking at some property with her . She is also on oral Augmentin with a stop date of 10/27 completing an antibiotic course for treatment of osteomyelitis. She is also under the management of infectious disease specialist, Dr. Herrera. She denies current fever, chill, nausea, vomiting. She is amenable to proceed fo rward with advanced wound healing product, epi cord today. Her previous heel ulcer was healed however it appears to be open again today. She has been doing a lot of yard work. Progress of Wound: Improving hallux ulcers Return heel ulcer Objective Data Objective Data Vital Signs: Vital Signs Temp Pulse Resp BP 97.4 F L 90 18 123/71 H 10/28/20 11:25 10/28/20 11:25 10/28/20 11:25 10/28/20 11:25 Weight: 72.91 kg Body Mass Index (BMI) 27.1 Physical Exam Const alert and oriented x3 General Appearance: cooperative HEENT normocephalic Extremity Extremity Narrative: No calf tenderness Diminished pulses Muscle wasting noted General Extremity: edema and no tenderness to palpation of joints or extremities; Negative for cyanosis Skin Skin Narrative: no purulence, no streaking, no odor, no infection. Skin is atrophic and hairless. The heel ulcer is healed with full epithelialization. The hallux ulcer is less deep without bone seen today. There is reduced fibrous, adipose, and increased granulation tissue noted. Resolved necrosis. Return to skin discontinuity to the heel with granular base General Skin Exam: Negative for erythema Neuro Neuro Narrative: lack of normal epicritic sensation via light touch is consistent with neuropathy status Psych cooperative and affect normal Debridement Note Debridement Note Post-Debridement Measurements and Additional Note: Post-Debridement Measureme nts/Treatment WC - Nurse 1 - General Ulcer Assessment Start: 10/07/20 14:26 Freq: Status: Active Protocol: [email or web address] Activity Type Activity Date Activity User E-Sign Co-Sign Detail Recorded Client Recorded Date Recorded By Document 10/07/20 14:26 ML [id number] 10/07/20 14:39 ML Document 10/14/20 15:13 ML [id number] 10/14/20 15:21 ML Document 10/21/20 11:01 DL [id number] 10/21/20 11:09 DL Edit Result 10/21/20 11:01 DL (1) [id number] 10/21/20 11:11 DL Document 10/28/20 11:25 DL [id number] 10/28/20 11:30 DL (1) Comment => EpiCord left => inplace. 10/07/20 10/14/20 10/21/20 14:26 15:13 11:01 WC - Today's Visit Information Type of service Follow-up Visit Follow-up Visit Follow-up Visit (Physician/BUSINESS REPORTER (Physician/BUSINESS REPORTER (Physician/BUSINESS REPORTER ) ) ) Arrival Mode Ambulatory, Ambulatory Ambulatory Other Transfer Assistance None None None Patient Identification Verified (Name & Yes Yes Yes ) Patient Requires Transmission-Based No No No Precautions Safety Precautions NA NA Finger Stick Blood Sugar(mg/dl) (if 77 84 121 indicated): Blood Sugar Stated by Stated by Stated by Patient Patient Patient Height and Weight Body Mass Index (BMI) 27.1 27.1 27.1 BMI Classification Overweight Overweight Overweight Vital Signs Temperature (97.8 F-99.1 F) 97.2 F L 97.3 F L 97.3 F L Temperature Source Temporal Temporal Temporal Pulse Rate (60-100) 88 86 84 Pulse Location Monitor Monitor Monitor Respiratory Rate (12-18) 16 16 20 H Respiratory rate source Observation Observation Observation Blood Pressure (90/60-120/80) 144/83 H 130/68 H 121/67 H Blood Pressure Mean (mm Hg) 103 88 85 Source Monitor Monitor Monitor Position Sitting Sitting Blood Pressure Location Left Arm Left Arm Comment EpiCord left inplace. History Since Last Visit- (Skip if this is Patient's initial visit) Have you changed medications since your No No No last visit? Any new allergies or adverse reactions No No No Had a fall/change in ADL's that may No No No increase risk of falls Signs or symptoms of abuse and/or No No No neglect since last visit Have you been in the hospital since your No No No last visit? Has dressing in place as prescribed Yes Yes Yes Has compression in place as prescribed N/A N/A N/A Has offloadiing in place as prescribed N/A N/A Yes Experienced any changes in pain level or No No No management Left Footwear Regular Shoe Regular Shoe Right Footwear Regular Shoe Surgical Shoe Surgical Shoe with pressure with pressure relief insole relief insole Pain Scale: 0-10 Numeric Is Patient Pain Free? Yes Yes 10/28/20 11:25 - Today's Visit Information Type of service Follow-up Visit (Physician/BUSINESS REPORTER ) Arrival Mode Ambulatory Transfer Assistance None Patient Identification Verified (Name & Yes ) Patient Requires Transmission-Based No Precautions Safety Precautions Finger Stick Blood Sugar(mg/dl) (if didnt check indicated): Blood Sugar Stated by Patient Height and Weight Body Mass Index (BMI) 27.1 BMI Classification Overweight Vital Signs Temperature (97.8 F-99.1 F) 97.4 F L Temperature Source Temporal Pulse Rate (60-100) 90 Pulse Location Monitor Respiratory Rate (12-18) 18 Respiratory rate source Observation Blood Pressure (90/60-120/80) 123/71 H Blood Pressure Mean (mm Hg) 88 Source Monitor Position Blood Pressure Location Comment History Since Last Visit- (Skip if this is Patient's initial visit) Have you changed medications since your No last visit? Any new allergies or adverse reactions No Had a fall/change in ADL's that may No increase risk of falls Signs or symptoms of abuse and/or No neglect since last visit Have you been in the hospital since your No last visit? Has dressing in place as prescribed Yes Has compression in place as prescribed N/A Has offloadiing in place as prescribed Yes Experienced any changes in pain level or No management Left Footwear Right Footwear Removable Cast Walker/Walking Boot Pain Scale: 0-10 Numeric Is Patient Pain Free? Yes - Nurse 1 - General Ulcer Measurement Start: 10/07/20 14:26 Freq: Status: Active Protocol: Activity Type Activity Date Activity User E-Sign Co-Sign Detail Recorded Client Recorded Date Recorded By Document 10/07/20 14:26 ML [id number] 10/07/20 14:39 ML Document 10/14/20 15:13 ML [id number] 10/14/20 15:21 ML Document 10/21/20 11:10 DL [id number] 10/21/20 11:10 DL Document 10/28/20 11:25 DL [id number] 10/28/20 11:30 DL 10/07/20 10/14/20 10/21/20 14:26 15:13 11:10 Wound Center Nurse 1 #6 R Grt Toe -Current Size (cm) - Length 2 3 0.1 -Current Size (cm) - Width 3 2.4 0.1 -Current Size (cm) - Depth 0.3 0.3 0.1 -Total Square Cm 6 7.2 0.01 -Photo Taken No -Exudate Amt Medium Medium Small -Exudate Type Serosanguineous Serosanguineous Serosanguineous -Wound Margin Distinct, Distinct, Outline Outline Attached Attached -Granulation Amt Medium (34-66%) Medium (34-66%) -Granulation Quality Lookingglass Red Pale -Slough/Fibrin Yes -Necrosis Amt Medium (34-66%) Medium (34-66%) -Necrotic Tissue Type Adherent Slough Adherent Slough Adherent Slough -Structure Exposed N/A -Texture (Colleen-wound Skin Appearance) No Abnormality No Abnormality Scarring -Moisture (Colleen-wound Skin Appearance) No Abnormality No Abnormality Dry/Scaly -Color (Colleen-wound Skin Appearance) No Abnormality No Abnormality No Abnormality -Temperature (Colleen-wound Skin No Abnormality No Abnormality No Abnormality Appearance) (Pt Warm) (Pt Warm) (Pt Warm) -Tenderness on Palpation (Colleen-wound No No Skin Appearance) -Ulcer Cleansing Wound Cleanser Rinsed/ Wound Cleanser Irrigated with Saline -Foul Odor after Cleansing No No Yes, Due to Product Use -Anesthetic Used 4% Lidocaine 4% Lidocaine Solution Solution 5-right plantar foot -Current Size (cm) - Length 0.1 -Current Size (cm) - Width 0.1 -Current Size (cm) - Depth 0.1 -Total Square Cm 0.01 -Exudate Amt Small -Exudate Type Serosanguineous -Wound Margin Distinct, Outline Attached -Granulation Amt Medium (34-66%) -Slough/Fibrin No -Necrosis Amt None Present (0 %) -Texture (Colleen-wound Skin Appearance) No Abnormality -Moisture (Colleen-wound Skin Appearance) No Abnormality -Color (Colleen-wound Skin Appearance) No Abnormality -Temperature (Colleen-wound Skin No Abnormality Appearance) (Pt Warm) -Tenderness on Palpation (Colleen-wound No Skin Appearance) -Ulcer Cleansing Rinsed/ Irrigated with Saline #4 right heel -Current Size (cm) - Length 0.1 1 -Current Size (cm) - Width 0.1 1 -Current Size (cm) - Depth 0.1 0.3 -Total Square Cm 0.01 1 -Exudate Amt Small Medium -Exudate Type Serosanguineous Serosanguineous -Wound Margin Distinct, Outline Attached -Granulation Amt Medium (34-66%) Medium (34-66%) -Granulation Quality Lookingglass -Slough/Fibrin Yes -Necrosis Amt Medium (34-66%) -Necrotic Tissue Type Adherent Slough Adherent Slough -Texture (Colleen-wound Skin Appearance) No Abnormality No Abnormality -Moisture (Colleen-wound Skin Appearance) No Abnormality No Abnormality -Color (Colleen-wound Skin Appearance) No Abnormality No Abnormality -Temperature (Colleen-wound Skin No Abnormality Appearance) (Pt Warm) -Ulcer Cleansing Wound Cleanser Rinsed/ Irrigated with Saline -Foul Odor after Cleansing No -Anesthetic Used 4% Lidocaine 4% Lidocaine Solution Solution 10/28/20 11:25 Wound Center Nurse 1 #6 R Grt Toe -Current Size (cm) - Length 0.2 -Current Size (cm) - Width 0.2 -Current Size (cm) - Depth 0.3 -Total Square Cm 0.04 -Photo Taken No -Exudate Amt None Present -Exudate Type -Wound Margin Thickened -Granulation Amt Small (1-33%) -Granulation Quality Red -Slough/Fibrin -Necrosis Amt Large (67-100%) -Necrotic Tissue Type Adherent Slough -Structure Exposed N/A -Texture (Colleen-wound Skin Appearance) Scarring -Moisture (Colleen-wound Skin Appearance) Dry/Scaly -Color (Colleen-wound Skin Appearance) No Abnormality -Temperature (Colleen-wound Skin No Abnormality Appearance) (Pt Warm) -Tenderness on Palpation (Colleen-wound Skin Appearance) -Ulcer Cleansing Wound Cleanser -Foul Odor after Cleansing No -Anesthetic Used 4% Lidocaine Solution 5-right plantar foot -Current Size (cm) - Length -Current Size (cm) - Width -Current Size (cm) - Depth -Total Square Cm -Exudate Amt -Exudate Type -Wound Margin -Granulation Amt -Slough/Fibrin -Necrosis Amt -Texture (Colleen-wound Skin Appearance) -Moisture (Colleen-wound Skin Appearance) -Color (Colleen-wound Skin Appearance) -Temperature (Colleen-wound Skin Appearance) -Tenderness on Palpation (Collene-wound Skin Appearance) -Ulcer Cleansing #4 right heel -Current Size (cm) - Length -Current Size (cm) - Width -Current Size (cm) - Depth -Total Square Cm -Exudate Amt -Exudate Type -Wound Margin -Granulation Amt -Granulation Quality -Slough/Fibrin -Necrosis Amt -Necrotic Tissue Type -Texture (Colleen-wound Skin Appearance) -Moisture (Colleen-wound Skin Appearance) -Color (Colleen-wound Skin Appearance) -Temperature (Colleen-wound Skin Appearance) -Ulcer Cleansing -Foul Odor after Cleansing -Anesthetic Used WC - Nurse 2 - General Ulcer CM Notes Start: 10/07/20 14:26 Freq: Status: Active Protocol: Activity Type Activity Date Activity User E-Sign Co-Sign Detail Recorded Client Recorded Date Recorded By Document 10/07/20 15:11 [id number] 10/07/20 15:22 Document 10/14/20 15:38 [id number] 10/14/20 15:45 Document 10/21/20 12:21 PL [id number] 10/21/20 12:23 PL Document 10/28/20 11:48 [id number] 10/28/20 11:56 10/07/20 10/14/20 10/21/20 15:11 15:38 12:21 Wound Center Nurse 2 #6 R Grt Toe -Time 15:12 15:39 11:44 -Correct Patient Yes Yes Yes -Correct Side, Site, Position Yes Yes Yes -Correct Procedure Yes Yes Yes -Procedure Performed Yes Yes Yes -Type of Procedure Debridement Debridement Debridement -Clinical Debridement Subcutaneous Subcutaneous Subcutaneous -Tissue Removed Subcutaneous Subcutaneous Subcutaneous -Post Debridement (cm) - Length 1.7 3 2.3 -Post Debridement (cm) - Width 3.5 2.5 0.9 -Post Debridement (cm) - Depth 0.5 0.3 0.4 -Total Square (Post) (cm) 5.95 7.5 2.07 -Area of Debridement (cm) - Length 1.7 3.0 2.3 -Area of Debridement (cm) - Width 3.5 2.5 0.9 -Total Square (Area) (cm) 5.95 7.50 2.07 -Tunneling No No No -Undermining/Tunneling No No No -Circular Undermining No No No -Wound/Ulcer Outcome Not Healed Not Healed Not Healed -Ulcer Cleansing Rinsed/ Rinsed/ Rinsed/ Irrigated with Irrigated with Irrigated with Saline Saline Saline -Foul Odor after Cleansing No No No -Bioengineered Tissue No Yes Yes -Type of Bioengineered Tissue Epicord Epicord -Expiration Date 09/05/24 08/06/25 -Product Lot Number [id number] -Percent Used 100 100 -Lot number of Saline Used [id number] -Bleeding Controlled with Pressure Pressure Pressure -Offloading Yes Yes -Type of Offloading Knee Walker Knee Walker -Treatment Response Procedure Procedure Procedure Tolerated Well Tolerated Well Tolerated Well -Debridement - Subq, 1st 20sq cm Yes No No -Apply Skin Sub - 1st 25 sq cm - Feet 1 1 -Epicord (per sq cm) 6 6 5-right plantar foot -Time 15:14 -Correct Patient No -Correct Side, Site, Position No -Correct Procedure No -Procedure Performed No -Post Debridement (cm) - Length 0 -Post Debridement (cm) - Width 0 -Post Debridement (cm) - Depth 0 -Total Square (Post) (cm) 0 -Area of Debridement (cm) - Length 0 -Area of Debridement (cm) - Width 0 -Total Square (Area) (cm) 0 -Tunneling No -Undermining/Tunneling No -Circular Undermining No -Wound/Ulcer Outcome Healed- Epithelialized -Offloading Yes -Type of Offloading Knee Walker #4 right heel -Time 15:13 -Correct Patient Yes No -Correct Side, Site, Position Yes No -Correct Procedure Yes No -Procedure Performed Yes No -Type of Procedure Debridement -Clinical Debridement Subcutaneous -Tissue Removed Subcutaneous -Post Debridement (cm) - Length 0.3 0 -Post Debridement (cm) - Width 0.6 0 -Post Debridement (cm) - Depth 0.2 0 -Total Square (Post) (cm) 0.18 0 -Area of Debridement (cm) - Length 0.3 0 -Area of Debridement (cm) - Width 0.6 0 -Total Square (Area) (cm) 0.18 0 -Tunneling No -Undermining/Tunneling No -Circular Undermining No -Wound/Ulcer Outcome Healed- Healed- Surgical Epithelialized Closure -Ulcer Cleansing -Foul Odor after Cleansing -Bioengineered Tissue No -Bleeding Controlled with Pressure -Offloading No -Type of Offloading -Treatment Response Procedure Tolerated Well -Debridement - Subq, 1st 20sq cm No Pain Scale: 0-10 Numeric Is Patient Pain Free? Yes Yes Yes 10/28/20 11:48 Wound Center Nurse 2 #6 R Grt Toe -Time 11:49 -Correct Patient Yes -Correct Side, Site, Position Yes -Correct Procedure Yes -Procedure Performed Yes -Type of Procedure Debridement -Clinical Debridement Subcutaneous -Tissue Removed Subcutaneous -Post Debridement (cm) - Length 1.6 -Post Debridement (cm) - Width 2.8 -Post Debridement (cm) - Depth 0.7 -Total Square (Post) (cm) 4.48 -Area of Debridement (cm) - Length 1.6 -Area of Debridement (cm) - Width 2.8 -Total Square (Area) (cm) 4.48 -Tunneling No -Undermining/Tunneling No -Circular Undermining No -Wound/Ulcer Outcome Not Healed -Ulcer Cleansing Rinsed/ Irrigated with Saline -Foul Odor after Cleansing No -Bioengineered Tissue Yes -Type of Bioengineered Tissue Epicord -Expiration Date 08/06/25 -Product Lot Number [id number] -Percent Used 100 -Lot number of Saline Used [id number] -Bleeding Controlled with Pressure -Offloading Yes -Type of Offloading Surgical Shoe -Treatment Response Procedure Tolerated Well -Debridement - Subq, 1st 20sq cm No -Apply Skin Sub - 1st 25 sq cm - Feet 1 -Epicord (per sq cm) 6 5-right plantar foot -Time -Correct Patient -Correct Side, Site, Position -Correct Procedure -Procedure Performed -Post Debridement (cm) - Length -Post Debridement (cm) - Width -Post Debridement (cm) - Depth -Total Square (Post) (cm) -Area of Debridement (cm) - Length -Area of Debridement (cm) - Width -Total Square (Area) (cm) -Tunneling -Undermining/Tunneling -Circular Undermining -Wound/Ulcer Outcome -Offloading -Type of Offloading #4 right heel -Time 11:51 -Correct Patient Yes -Correct Side, Site, Position Yes -Correct Procedure Yes -Procedure Performed Yes -Type of Procedure Debridement -Clinical Debridement Subcutaneous -Tissue Removed Subcutaneous -Post Debridement (cm) - Length 1.6 -Post Debridement (cm) - Width 2.8 -Post Debridement (cm) - Depth 0.7 -Total Square (Post) (cm) 4.48 -Area of Debridement (cm) - Length 1.6 -Area of Debridement (cm) - Width 2.8 -Total Square (Area) (cm) 4.48 -Tunneling No -Undermining/Tunneling No -Circular Undermining No -Wound/Ulcer Outcome Not Healed -Ulcer Cleansing Rinsed/ Irrigated with Saline -Foul Odor after Cleansing No -Bioengineered Tissue No -Bleeding Controlled with Pressure -Offloading Yes -Type of Offloading Surgical Shoe -Treatment Response Procedure Tolerated Well -Debridement - Subq, 1st 20sq cm Yes Pain Scale: 0-10 Numeric Is Patient Pain Free? Yes - Nurse 3 - General Ulcer D/C NN Start: 10/07/20 14:26 Freq: Status: Active Protocol: Activity Type Activity Date Activity User E-Sign Co-Sign Detail Recorded Client Recorded Date Recorded By Document 10/07/20 15:40 RB [id number] 10/07/20 15:42 RB Document 10/14/20 15:55 RB [id number] 10/14/20 15:55 RB Document 10/21/20 11:55 RB [id number] 10/21/20 11:56 RB 10/07/20 10/14/20 10/21/20 15:40 15:55 11:55 Wound Care Nurse 3 #6 R Grt Toe -Ulcer Cleansing Wound Cleanser -Primary Dressing Applied Nugauze, Plain Iodoform -Primary Dressing Covered/Secured with Dry Gauze,Dry Dry Gauze,Dry Dry Gauze, Gauze & Roll Gauze & Roll Secured with Gauze,Secured Gauze,Secured Tape with Tape with Tape -Nugauze, Plain Iodoform 1/4 1 #4 right heel -Primary Dressing Applied Promogran Maranda Matter -Primary Dressing Covered/Secured with Dry Gauze,Dry Gauze & Roll Gauze,Secured with Tape -Promogran Maranda Matter 1 Treatment Response Procedure Procedure Tolerated Well Tolerated Well Pain Scale: 0-10 Numeric Is Patient Pain Free? Yes Yes Yes - Visit Discharge Discharge Condition Stable Stable Stable Ambulatory Status Ambulatory, Ambulatory Ambulatory Walker Transportation Private Auto Private Auto Private Auto Medication Reconcilliation completed & No No No provided to patient/care provider Clinical Summary of Care Provided Yes Yes Yes Notes: kneewalker knee walker Assessment/Plan Assessment/Plan (1) Non-pressure chronic ulcer of other part of right foot with necrosis of bone: CODE(S): L97.514 - Non-pressure chronic ulcer of other part of right foot with necrosis of bone (2) Chronic heel ulcer with fat layer exposed: CODE(S): L97.402 - Non-pressure chronic ulcer of unspecified heel and midfoot with fat layer exposed QUALIFIERS: Laterality: right Qualified Code(s): L97.412 - Non- pressure chronic ulcer of right heel and midfoot with fat layer exposed (3) Type 2 diabetes mellitus with diabetic polyneuropathy: CODE(S): E11.42 - Type 2 diabetes mellitus with diabetic polyneuropathy QUALIFIERS: Diabetes mellitus mcc insulin use: unspecified mcc insulin use status Qualified Code(s): E11.42 - Type 2 diabetes mellitus with diabetic polyneuropathy (4) Osteomyelitis: CODE(S): M86.9 - Osteomyelitis, unspecified QUALIFIERS: Osteomyelitis type: other acute Osteomyelitis location: foot Laterality: right Qualified Code(s): M86.171 - Other acute osteomyelitis, right ankle and foot (5) Delayed wound healing: CODE(S): T14.8XXD - Other injury of unspecified body region, subsequent encounter PLAN: Procedure- Location: right heel grade 1 Excisional debridement performed Anesthesia: 5% lidocaine plain Debridement layer: subcutaneous Amount of debridement: 100% Instrumentation used: 15 blade Tissue debrided: fibrous, devitalized subcutaneous, biofilm, slough Exposed tissue: fat layer Bleeding: mild Hemostasis controlled: pressure The patient tolerated the procedure well Procedure- Location: hallux (cluster of dorsal and lateral) grade 3 Excisional debridement performed Anesthesia: 5% lidocaine plain Debridement layer: subcutaneous Amount of debridement: 100% Instrumentation used: 15 blade Tissue debrided: fibrous, devitalized subcutaneous, biofilm, slough Exposed tissue: fat layer Bleeding: mild Hemostasis controlled: pressure The patient tolerated the procedure well The patient was seen and examined at the wound center today and her case was reviewed. A subcutaneous debridement was performed today as noted in the cli nical panel to hallux and heel. Return heel ulcer is noted. The patient tolerated the procedure well. Verbal consent was obtained for application of advanced wound healing product dry from placental and umbilical cord tissue, epi cord. This was applied according to standard protocol and was secured in place with a wound veil and Steri-Strips. 100% of product was utilized. She was advised keep this clean, dry, and intact until follow-up visit next week. She understands the indications, benefits, application process, and anticipated healing course. She tolerated this well. A secondary dressing of gauze was applied also. The purpose of offloading offloading techniques was reviewed. I do not recommend that she wears her close diabetic shoe even for short periods. I recommend she hangs her heel over stacked blankets or pillows while in bed to keep pressure off of the ulcer. She is advised to avoid yard work because this is not appropriate with her exposed deep tissue and ulcer that has returned to her heel. She is at risk for amputation further illness of limb loss. Although she has palpable pulses I do recommend screening her with a noninvasive vascular study to evaluate for any potential perfusion deficits. Her medical records from the [facility] will be requested. Her noninvasive vascular studies were reviewed from [facility] January 07, 2020 with triphasic waveforms bilateral and right ABIs of 1.21 and 1.07 and left ABIs of 1.2 and 1.09. The digital pressures were 105 mmHg on the right and 141 mmHg on the left. She also had normal PVR waveforms to the ankle and digital level bilateral. X-rays and MRI of the right foot were reviewed from her last hospital admission. MRI from 09-16-20 supports osteomyelitis of phalanx of right hallux. She is also treated for osteomyelitis under the management of infectious disease specialist. She is on IV Zosyn and vancomycin. Vancomycin was oordinated with her hemodialysis schedule. She was also on oral Augmentin. She completed both antibiotics is 10-27-20. She had cultures previously with MRSA and anaerobic growth. Her labs from were reviewed. She had resolution of leukocytosis prior to hospital discharge. Her last ESR was on 09-15-20 and was 116. She is at continued risk for limb loss. Hyperbaric oxygen therapy and advancing healing product application recommended and are medically necessary for limb salvage. To return to the wound healing center in 1 week or call sooner if she has any questions or concerns or signs of infection. I answered all of her questions today. Note: [employer] speech recognition research administrator software was used to create portions of this document. Sound-alike and misspelled words, as well as other research administrator errors may be contained in the documentation. The medical decision making level is low. There is noted low risk of morbidity after considering this treatment plan and diagnostic data. The problems addressed require a low medical decision making level which includes two or more problems, a stable chronic illness, or an acute uncomplicated illness or injury.
[2020-11-04 11:07] VITALS: BP 158/89; PULSE 77; RESP 18; TEMP 36.6; BMI 27.1
--- NOTE | 2020-11-04 11:10 | WC ---
wound veil and steristrips intact . Wounds not meaured today
--- NOTE | 2020-11-04 11:49 | PCM.WC.PN ---
History of Present Illness Date of Service: 11/04/20 Chief Complaint: hallux ulcers History of Wound: She was seen today for right heel and hallux ulcerations. During her hospital admission she was diagnosed with right hallux osteomyelitis and had a bedside debridement performed by Dr. Green. The onset of this ulcer was 09-12-20 when she had increased toe walking while looking at some property with her . She is also on oral Augmentin with a stop date of 10/27 completing an antibiotic course for treatment of osteomyelitis. She is also under the management of infectious disease specialist, Dr. Herrera. She denies current fever, chill, nausea, vomiting. She is having trouble offloading as advised. She left her epi cord dressing as intact as she could. Progress of Wound: Stable hallux and heel ulcers Objective Data Objective Data Vital Signs: Vital Signs Temp Pulse Resp BP 97.8 F 77 18 158/89 H 11/04/20 11:07 11/04/20 11:07 11/04/20 11:07 11/04/20 11:07 Weight: 72.91 kg Body Mass Index (BMI) 27.1 Physical Exam Const alert and oriented x3 General Appearance: cooperative HEENT normocephalic Extremity Extremity Narrative: No calf tenderness Diminished pulses Muscle wasting noted General Extremity: edema and no tenderness to palpation of joints or extremities; Negative for cyanosis Skin Skin Narrative: no purulence, no streaking, no odor, no infection. Skin is atrophic and hairless. Both hallux ulcer sites and the heel ulcer site have epi cord in place with wound veil. Incorporation is noted. General Skin Exam: Negative for erythema Neuro Neuro Narrative: lack of normal epicritic sensation via light touch is consistent with neuropathy status Psych cooperative and affect normal Debridement Note Debridement Note Post-Debridement Measurements and Additional Note: Post-Debridement Measurements/Treatment NATHAN - Nurse 1 - General Ulcer Assessment Start: 10/07/20 14:26 Freq: Status: Active Protocol: DAVID Activity Type Activity Date Activity User E-Sign Co-Sign Detail Recorded Client Recorded Date Recorded By Document 10/07/20 14:26 ML [id number] 10/07/20 14:39 ML Document 10/14/20 15:13 ML [id number] 10/14/20 15:21 ML Document 10/21/20 11:01 DL [id number] 10/21/20 11:09 DL Edit Result 10/21/20 11:01 DL (1) [id number] 10/21/20 11:11 DL Document 10/28/20 11:25 DL [id number] 10/28/20 11:30 DL Document 11/04/20 11:07 RB Desktop 11/04/20 11:11 RB (1) Comment => EpiCord left => inplace. 10/07/20 10/14/20 10/21/20 14:26 15:13 11:01 WC - Today's Visit Information Type of service Follow-up Visit Follow-up Visit Follow-up Visit (Physician/CUT PLUG PACKER (Physician/CUT PLUG PACKER (Physician/CUT PLUG PACKER ) ) ) Arrival Mode Ambulatory, Ambulatory Ambulatory Other Transfer Assistance None None None Patient Identification Verified (Name & Yes Yes Yes ) Patient Requires Transmission-Based No No No Precautions Safety Precautions NA NA Finger Stick Blood Sugar(mg/dl) (if 77 84 121 indicated): Blood Sugar Stated by Stated by Stated by Patient Patient Patient Height and Weight Body Mass Index (BMI) 27.1 27.1 27.1 BMI Classification Overweight Overweight Overweight Vital Signs Temperature (97.8 F-99.1 F) 97.2 F L 97.3 F L 97.3 F L Temperature Source Temporal Temporal Temporal Pulse Rate (60-100) 88 86 84 Pulse Location Monitor Monitor Monitor Respiratory Rate (12-18) 16 16 20 H Respiratory rate source Observation Observation Observation Blood Pressure (90/60-120/80) 144/83 H 130/68 H 121/67 H Blood Pressure Mean (mm Hg) 103 88 85 Source Monitor Monitor Monitor Position Sitting Sitting Blood Pressure Location Left Arm Left Arm Comment EpiCord left inplace. History Since Last Visit- (Skip if this is Patient's initial visit) Have you changed medications since your No No No last visit? Any new allergies or adverse reactions No No No Had a fall/change in ADL's that may No No No increase risk of falls Signs or symptoms of abuse and/or No No No neglect since last visit Have you been in the hospital since your No No No last visit? Has dressing in place as prescribed Yes Yes Yes Has compression in place as prescribed N/A N/A N/A Has offloadiing in place as prescribed N/A N/A Yes Experienced any changes in pain level or No No No management Left Footwear Regular Shoe Regular Shoe Right Footwear Regular Shoe Surgical Shoe Surgical Shoe with pressure with pressure relief insole relief insole Pain Scale: 0-10 Numeric Is Patient Pain Free? Yes Yes 10/28/20 11/04/20 11:25 11:07 WC - Today's Visit Information Type of service Follow-up Visit Follow-up Visit (Physician/CUT PLUG PACKER (Physician/CUT PLUG PACKER ) ) Arrival Mode Ambulatory Ambulatory Transfer Assistance None None Patient Identification Verified (Name & Yes Yes ) Patient Requires Transmission-Based No No Precautions Safety Precautions Finger Stick Blood Sugar(mg/dl) (if didnt check indicated): Blood Sugar Stated by Patient Height and Weight Body Mass Index (BMI) 27.1 27.1 BMI Classification Overweight Overweight Vital Signs Temperature (97.8 F-99.1 F) 97.4 F L 97.8 F Temperature Source Temporal Temporal Pulse Rate (60-100) 90 77 Pulse Location Monitor Monitor Respiratory Rate (12-18) 18 18 Respiratory rate source Observation Observation Blood Pressure (90/60-120/80) 123/71 H 158/89 H Blood Pressure Mean (mm Hg) 88 112 Source Monitor Monitor Position Semi-Fowlers Blood Pressure Location Left Arm Comment History Since Last Visit- (Skip if this is Patient's initial visit) Have you changed medications since your No No last visit? Any new allergies or adverse reactions No No Had a fall/change in ADL's that may No No increase risk of falls Signs or symptoms of abuse and/or No No neglect since last visit Have you been in the hospital since your No No last visit? Has dressing in place as prescribed Yes Yes Has compression in place as prescribed N/A No Has offloadiing in place as prescribed Yes No Experienced any changes in pain level or No No management Left Footwear Right Footwear Removable Cast Walker/Walking Boot Pain Scale: 0-10 Numeric Is Patient Pain Free? Yes Yes - Nurse 1 - General Ulcer Measurement Start: 10/07/20 14:26 Freq: Status: Active Protocol: Activity Type Activity Date Activity User E-Sign Co-Sign Detail Recorded Client Recorded Date Recorded By Document 10/07/20 14:26 ML [id number] 10/07/20 14:39 ML Document 10/14/20 15:13 ML [id number] 10/14/20 15:21 ML Document 10/21/20 11:10 DL [id number] 10/21/20 11:10 DL Document 10/28/20 11:25 DL [id number] 10/28/20 11:30 DL Document 11/04/20 11:07 RB Desktop 11/04/20 11:11 RB 10/07/20 10/14/20 10/21/20 14:26 15:13 11:10 Wound Center Nurse 1 #6 R Grt Toe -Current Size (cm) - Length 2 3 0.1 -Current Size (cm) - Width 3 2.4 0.1 -Current Size (cm) - Depth 0.3 0.3 0.1 -Total Square Cm 6 7.2 0.01 -Photo Taken No -Tunneling -Undermining/Tunneling -Circular Undermining -Exudate Amt Medium Medium Small -Exudate Type Serosanguineous Serosanguineous Serosanguineous -Wound Margin Distinct, Distinct, Outline Outline Attached Attached -Granulation Amt Medium (34-66%) Medium (34-66%) -Granulation Quality [place] Red Pale -Slough/Fibrin Yes -Necrosis Amt Medium (34-66%) Medium (34-66%) -Necrotic Tissue Type Adherent Slough Adherent Slough Adherent Slough -Structure Exposed N/A -Texture (Colleen-wound Skin Appearance) No Abnormality No Abnormality Scarring -Moisture (Colleen-wound Skin Appearance) No Abnormality No Abnormality Dry/Scaly -Color (Colleen-wound Skin Appearance) No Abnormality No Abnormality No Abnormality -Temperature (Colleen-wound Skin No Abnormality No Abnormality No Abnormality Appearance) (Pt Warm) (Pt Warm) (Pt Warm) -Tenderness on Palpation (Colleen-wound No No Skin Appearance) -Ulcer Cleansing Wound Cleanser Rinsed/ Wound Cleanser Irrigated with Saline -Foul Odor after Cleansing No No Yes, Due to Product Use -Anesthetic Used 4% Lidocaine 4% Lidocaine Solution Solution 5-right plantar foot -Current Size (cm) - Length 0.1 -Current Size (cm) - Width 0.1 -Current Size (cm) - Depth 0.1 -Total Square Cm 0.01 -Exudate Amt Small -Exudate Type Serosanguineous -Wound Margin Distinct, Outline Attached -Granulation Amt Medium (34-66%) -Slough/Fibrin No -Necrosis Amt None Present (0 %) -Texture (Colleen-wound Skin Appearance) No Abnormality -Moisture (Colleen-wound Skin Appearance) No Abnormality -Color (Colleen-wound Skin Appearance) No Abnormality -Temperature (Colleen-wound Skin No Abnormality Appearance) (Pt Warm) -Tenderness on Palpation (Colleen-wound No Skin Appearance) -Ulcer Cleansing Rinsed/ Irrigated with Saline #4 right heel -Current Size (cm) - Length 0.1 1 -Current Size (cm) - Width 0.1 1 -Current Size (cm) - Depth 0.1 0.3 -Total Square Cm 0.01 1 -Tunneling -Undermining/Tunneling -Circular Undermining -Exudate Amt Small Medium -Exudate Type Serosanguineous Serosanguineous -Wound Margin Distinct, Outline Attached -Granulation Amt Medium (34-66%) Medium (34-66%) -Granulation Quality [place] -Slough/Fibrin Yes -Necrosis Amt Medium (34-66%) -Necrotic Tissue Type Adherent Slough Adherent Slough -Texture (Colleen-wound Skin Appearance) No Abnormality No Abnormality -Moisture (Colleen-wound Skin Appearance) No Abnormality No Abnormality -Color (Colleen-wound Skin Appearance) No Abnormality No Abnormality -Temperature (Colleen-wound Skin No Abnormality Appearance) (Pt Warm) -Tenderness on Palpation (Colleen-wound Skin Appearance) -Ulcer Cleansing Wound Cleanser Rinsed/ Irrigated with Saline -Foul Odor after Cleansing No -Anesthetic Used 4% Lidocaine 4% Lidocaine Solution Solution 10/28/20 11/04/20 11:25 11:07 Wound Center Nurse 1 #6 R Grt Toe -Current Size (cm) - Length 0.2 -Current Size (cm) - Width 0.2 -Current Size (cm) - Depth 0.3 -Total Square Cm 0.04 -Photo Taken No -Tunneling No -Undermining/Tunneling No -Circular Undermining No -Exudate Amt None Present Small -Exudate Type Serosanguineous -Wound Margin Thickened Flat & Intact -Granulation Amt Small (1-33%) -Granulation Quality Red -Slough/Fibrin -Necrosis Amt Large (67-100%) -Necrotic Tissue Type Adherent Slough -Structure Exposed N/A -Texture (Colleen-wound Skin Appearance) Scarring Assessed -Moisture (Colleen-wound Skin Appearance) Dry/Scaly Assessed -Color (Colleen-wound Skin Appearance) No Abnormality Assessed -Temperature (Colleen-wound Skin No Abnormality No Abnormality Appearance) (Pt Warm) (Pt Warm) -Tenderness on Palpation (Colleen-wound No Skin Appearance) -Ulcer Cleansing Wound Cleanser -Foul Odor after Cleansing No -Anesthetic Used 4% Lidocaine Solution 5-right plantar foot -Current Size (cm) - Length -Current Size (cm) - Width -Current Size (cm) - Depth -Total Square Cm -Exudate Amt -Exudate Type -Wound Margin -Granulation Amt -Slough/Fibrin -Necrosis Amt -Texture (Colleen-wound Skin Appearance) -Moisture (Colleen-wound Skin Appearance) -Color (Colleen-wound Skin Appearance) -Temperature (Colleen-wound Skin Appearance) -Tenderness on Palpation (Colleen-wound Skin Appearance) -Ulcer Cleansing #4 right heel -Current Size (cm) - Length -Current Size (cm) - Width -Current Size (cm) - Depth -Total Square Cm -Tunneling No -Undermining/Tunneling No -Circular Undermining No -Exudate Amt Small -Exudate Type Serosanguineous -Wound Margin -Granulation Amt -Granulation Quality -Slough/Fibrin -Necrosis Amt -Necrotic Tissue Type -Texture (Colleen-wound Skin Appearance) Assessed -Moisture (Colleen-wound Skin Appearance) Assessed -Color (Colleen-wound Skin Appearance) Assessed -Temperature (Colleen-wound Skin No Abnormality Appearance) (Pt Warm) -Tenderness on Palpation (Colleen-wound No Skin Appearance) -Ulcer Cleansing Wound Cleanser -Foul Odor after Cleansing No -Anesthetic Used 11/04/20 11:10 Wound Center by Evita Turcios wound veil and steristrips intact . Wounds not meaured today Initialized on 11/04/20 11:10 - END OF NOTE WC - Nurse 2 - General Ulcer CM Notes Start: 10/07/20 14:26 Freq: Status: Active Protocol: Activity Type Activity Date Activity User E-Sign Co-Sign Detail Recorded Client Recorded Date Recorded By Document 10/07/20 15:11 VITO [id number] 10/07/20 15:22 JF Document 10/14/20 15:38 VITO [id number] 10/14/20 15:45 JF Document 10/21/20 12:21 PL [id number] 10/21/20 12:23 PL Document 10/28/20 11:48 JF [id number] 10/28/20 11:56 JF Document 11/04/20 11:15 [id number] 11/04/20 11:17 10/07/20 10/14/20 10/21/20 15:11 15:38 12:21 Wound Center Nurse 2 #6 R Grt Toe -Time 15:12 15:39 11:44 -Correct Patient Yes Yes Yes -Correct Side, Site, Position Yes Yes Yes -Correct Procedure Yes Yes Yes -Procedure Performed Yes Yes Yes -Type of Procedure Debridement Debridement Debridement -Clinical Debridement Subcutaneous Subcutaneous Subcutaneous -Tissue Removed Subcutaneous Subcutaneous Subcutaneous -Post Debridement (cm) - Length 1.7 3 2.3 -Post Debridement (cm) - Width 3.5 2.5 0.9 -Post Debridement (cm) - Depth 0.5 0.3 0.4 -Total Square (Post) (cm) 5.95 7.5 2.07 -Area of Debridement (cm) - Length 1.7 3.0 2.3 -Area of Debridement (cm) - Width 3.5 2.5 0.9 -Total Square (Area) (cm) 5.95 7.50 2.07 -Tunneling No No No -Undermining/Tunneling No No No -Circular Undermining No No No -Wound/Ulcer Outcome Not Healed Not Healed Not Healed -Ulcer Cleansing Rinsed/ Rinsed/ Rinsed/ Irrigated with Irrigated with Irrigated with Saline Saline Saline -Foul Odor after Cleansing No No No -Bioengineered Tissue No Yes Yes -Type of Bioengineered Tissue Epicord Epicord -Expiration Date 09/05/24 08/06/25 -Product Lot Number [id number] -Percent Used 100 100 -Lot number of Saline Used [id number] -Bleeding Controlled with Pressure Pressure Pressure -Offloading Yes Yes -Type of Offloading Knee Walker Knee Walker -Treatment Response Procedure Procedure Procedure Tolerated Well Tolerated Well Tolerated Well -Debridement - Subq, 1st 20sq cm Yes No No -Apply Skin Sub - 1st 25 sq cm - Feet 1 1 -Epicord (per sq cm) 6 6 5-right plantar foot -Time 15:14 -Correct Patient No -Correct Side, Site, Position No -Correct Procedure No -Procedure Performed No -Post Debridement (cm) - Length 0 -Post Debridement (cm) - Width 0 -Post Debridement (cm) - Depth 0 -Total Square (Post) (cm) 0 -Area of Debridement (cm) - Length 0 -Area of Debridement (cm) - Width 0 -Total Square (Area) (cm) 0 -Tunneling No -Undermining/Tunneling No -Circular Undermining No -Wound/Ulcer Outcome Healed- Epithelialized -Offloading Yes -Type of Offloading Knee Walker #4 right heel -Time 15:13 -Correct Patient Yes No -Correct Side, Site, Position Yes No -Correct Procedure Yes No -Procedure Performed Yes No -Type of Procedure Debridement -Clinical Debridement Subcutaneous -Tissue Removed Subcutaneous -Post Debridement (cm) - Length 0.3 0 -Post Debridement (cm) - Width 0.6 0 -Post Debridement (cm) - Depth 0.2 0 -Total Square (Post) (cm) 0.18 0 -Area of Debridement (cm) - Length 0.3 0 -Area of Debridement (cm) - Width 0.6 0 -Total Square (Area) (cm) 0.18 0 -Tunneling No -Undermining/Tunneling No -Circular Undermining No -Wound/Ulcer Outcome Healed- Healed- Surgical Epithelialized Closure -Ulcer Cleansing -Foul Odor after Cleansing -Bioengineered Tissue No -Bleeding Controlled with Pressure -Offloading No -Type of Offloading -Treatment Response Procedure Tolerated Well -Debridement - Subq, 1st 20sq cm No Pain Scale: 0-10 Numeric Is Patient Pain Free? Yes Yes Yes 10/28/20 11/04/20 11:48 11:15 Wound Center Nurse 2 #6 R Grt Toe -Time 11:49 -Correct Patient Yes No -Correct Side, Site, Position Yes No -Correct Procedure Yes No -Procedure Performed Yes No -Type of Procedure Debridement -Clinical Debridement Subcutaneous -Tissue Removed Subcutaneous -Post Debridement (cm) - Length 1.6 -Post Debridement (cm) - Width 2.8 -Post Debridement (cm) - Depth 0.7 -Total Square (Post) (cm) 4.48 -Area of Debridement (cm) - Length 1.6 -Area of Debridement (cm) - Width 2.8 -Total Square (Area) (cm) 4.48 -Tunneling No -Undermining/Tunneling No -Circular Undermining No -Wound/Ulcer Outcome Not Healed Not Healed -Ulcer Cleansing Rinsed/ Irrigated with Saline -Foul Odor after Cleansing No -Bioengineered Tissue Yes -Type of Bioengineered Tissue Epicord -Expiration Date 08/06/25 -Product Lot Number [id number] -Percent Used 100 -Lot number of Saline Used [id number] -Bleeding Controlled with Pressure -Offloading Yes -Type of Offloading Surgical Shoe -Treatment Response Procedure Tolerated Well -Debridement - Subq, 1st 20sq cm No -Apply Skin Sub - 1st 25 sq cm - Feet 1 -Epicord (per sq cm) 6 5-right plantar foot -Time -Correct Patient -Correct Side, Site, Position -Correct Procedure -Procedure Performed -Post Debridement (cm) - Length -Post Debridement (cm) - Width -Post Debridement (cm) - Depth -Total Square (Post) (cm) -Area of Debridement (cm) - Length -Area of Debridement (cm) - Width -Total Square (Area) (cm) -Tunneling -Undermining/Tunneling -Circular Undermining -Wound/Ulcer Outcome -Offloading -Type of Offloading #4 right heel -Time 11:51 -Correct Patient Yes No -Correct Side, Site, Position Yes No -Correct Procedure Yes No -Procedure Performed Yes No -Type of Procedure Debridement -Clinical Debridement Subcutaneous -Tissue Removed Subcutaneous -Post Debridement (cm) - Length 1.6 -Post Debridement (cm) - Width 2.8 -Post Debridement (cm) - Depth 0.7 -Total Square (Post) (cm) 4.48 -Area of Debridement (cm) - Length 1.6 -Area of Debridement (cm) - Width 2.8 -Total Square (Area) (cm) 4.48 -Tunneling No -Undermining/Tunneling No -Circular Undermining No -Wound/Ulcer Outcome Not Healed Not Healed -Ulcer Cleansing Rinsed/ Irrigated with Saline -Foul Odor after Cleansing No -Bioengineered Tissue No -Bleeding Controlled with Pressure -Offloading Yes -Type of Offloading Surgical Shoe -Treatment Response Procedure Tolerated Well -Debridement - Subq, 1st 20sq cm Yes Pain Scale: 0-10 Numeric Is Patient Pain Free? Yes Yes WC - Nurse 3 - General Ulcer D/C NN Start: 10/07/20 14:26 Freq: Status: Active Protocol: Activity Type Activity Date Activity User E-Sign Co-Sign Detail Recorded Client Recorded Date Recorded By Document 10/07/20 15:40 RB [id number] 10/07/20 15:42 RB Document 10/14/20 15:55 RB [id number] 10/14/20 15:55 RB Document 10/21/20 11:55 RB [id number] 10/21/20 11:56 RB Document 11/04/20 11:25 DL Desktop 11/04/20 11:27 DL 10/07/20 10/14/20 10/21/20 15:40 15:55 11:55 Wound Care Nurse 3 #6 R Grt Toe -Ulcer Cleansing Wound Cleanser -Foul Odor after Cleansing -Primary Dressing Applied Nugauze, Plain Iodoform -Other Dressing -Primary Dressing Covered/Secured with Dry Gauze,Dry Dry Gauze,Dry Dry Gauze, Gauze & Roll Gauze & Roll Secured with Gauze,Secured Gauze,Secured Tape with Tape with Tape -Nugauze, Plain Iodoform 1/4 1 #4 right heel -Foul Odor after Cleansing -Primary Dressing Applied Promogran Maranda Matter -Other Dressing -Primary Dressing Covered/Secured with Dry Gauze,Dry Gauze & Roll Gauze,Secured with Tape -Promogran Maranda Matter 1 Treatment Response Procedure Procedure Tolerated Well Tolerated Well Pain Scale: 0-10 Numeric Is Patient Pain Free? Yes Yes Yes WC - Visit Discharge Discharge Condition Stable Stable Stable Ambulatory Status Ambulatory, Ambulatory Ambulatory Walker Transportation Private Auto Private Auto Private Auto Medication Reconcilliation completed & No No No provided to patient/care provider Clinical Summary of Care Provided Yes Yes Yes Notes: kneewalker knee walker 11/04/20 11:25 Wound Care Nurse 3 #6 R Grt Toe -Ulcer Cleansing -Foul Odor after Cleansing No -Primary Dressing Applied -Other Dressing Epifix -Primary Dressing Covered/Secured with Dry Gauze,Dry Gauze & Roll Gauze,Secured with Tape -Nugauze, Plain Iodoform 1/4 #4 right heel -Foul Odor after Cleansing No -Primary Dressing Applied -Other Dressing Epifix -Primary Dressing Covered/Secured with Dry Gauze,Dry Gauze & Roll Gauze,Secured with Tape -Promogran Maranda Matter Treatment Response Procedure Tolerated Well Pain Scale: 0-10 Numeric Is Patient Pain Free? Yes WC - Visit Discharge Discharge Condition Stable Ambulatory Status Ambulatory Transportation Private Auto Medication Reconcilliation completed & provided to patient/care provider Clinical Summary of Care Provided Notes: Type of Debridement: - Assessment/Plan Assessment/Plan (1) Non-pressure chronic ulcer of other part of right foot with necrosis of bone: CODE(S): L97.514 - Non-pressure chronic ulcer of other part of right foot with necrosis of bone (2) Chronic heel ulcer with fat layer exposed: CODE(S): L97.402 - Non-pressure chronic ulcer of unspecified heel and midfoot with fat layer exposed QUALIFIERS: Laterality: right Qualified Code(s): L97.412 - Non-pressure chronic ulcer of right heel and midfoot with fat layer exposed (3) Type 2 diabetes mellitus with diabetic polyneuropathy: CODE(S): E11.42 - Type 2 diabetes mellitus with diabetic polyneuropathy QUALIFIERS: Diabetes mellitus [facility] insulin use: unspecified manager terminal insulin use status Qualified Code(s): E11.42 - Type 2 diabetes mellitus with diabetic polyneuropathy (4) Osteomyelitis: CODE(S): M86.9 - Osteomyelitis, unspecified QUALIFIERS: Osteomyelitis type: other acute Osteomyelitis location: foot Laterality: right Qualified Code(s): M86.171 - Other acute osteomyelitis, right ankle and foot (5) Delayed wound healing: CODE(S): T14.8XXD - Other injury of unspecified body region, subsequent encounter PLAN: The patient was seen and examined at the wound center today and her case was reviewed. Debridement was not performed today. The epi cord was left intact. Reapplication will be considered next week. A new wound veil was used to secure the incorporating epi cord in place with Steri-Strips. The purpose of offloading offloading techniques was reviewed. I do not recommend that she wears her close diabetic shoe even for short periods. I recommend she hangs her heel over stacked blankets or pillows while in bed to keep pressure off of the ulcer. I recommend she obtains a donut pillow to help with her offloading. She is at risk for amputation further illness of limb loss. Although she has palpable pulses I do recommend screening her with a noninvasive vascular study to evaluate for any potential perfusion deficits. Her medical records from the [facility] will be requested. Her noninvasive vascular studies were reviewed from [facility] January 07, 2020 with triphasic waveforms bilateral and right ABIs of 1.21 and 1.07 and left ABIs of 1.2 and 1.09. The digital pressures were 105 mmHg on the right and 141 mmHg on the left. She also had normal PVR waveforms to the ankle and digital level bilateral. X-rays and MRI of the right foot were reviewed from her last hospital admission. MRI from 09-16-20 supports osteomyelitis of phalanx of right hallux. She is also treated for osteomyelitis under the management of infectious disease specialist. She is on IV Zosyn and vancomycin. Vancomycin was oordinated with her hemodialysis schedule. She was also on oral Augmentin. She completed both antibiotics is 10-27-20. She had cultures previously with MRSA and anaerobic growth. She was reassured no local signs of infection are noted today. Her labs from -2020 were reviewed. She had resolution of leukocytosis prior to hospital discharge. Her last ESR was on 09-15-20 and was 116. She is at continued risk for limb loss. Hyperbaric oxygen therapy and advancing healing product application recommended and are medically necessary for limb salvage. To return to the wound healing center in 1 week or call sooner if she has any questions or concerns or signs of infection. I answered all of her questions today. Note: nothingGrinder speech recognition mine surveyor software was used to create portions of this document. Sound-alike and misspelled words, as well as other mine surveyor errors may be contained in the documentation. The medical decision making level is low. There is noted low risk of morbidity after considering this treatment plan and diagnostic data. The problems addressed require a low medical decision making level which includes two or more minor problems, a stable chronic illness, or an acute uncomplicated illness or injury.
== END 2020-11-04 23:59 ==
LOC: WC 11:15
PROVIDERS: PCP Family Medicine; Visit Provider Podiatrist
DX: E11.621 Type 2 diabetes mellitus with foot ulcer (principal); L97.514 Non-pressure chronic ulcer of other part of right foot with necrosis of bone; L97.412 Non-pressure chronic ulcer of right heel and midfoot with fat layer exposed; E11.69 Type 2 diabetes mellitus with other specified complication; M86.171 Other acute osteomyelitis, right ankle and foot; E11.42 Type 2 diabetes mellitus with diabetic polyneuropathy; N19 Unspecified kidney failure; E66.3 Overweight; Z68.27 Body mass index [BMI] 27.0-27.9, adult; Z79.4 Long term (current) use of insulin; Z79.01 Long term (current) use of anticoagulants; Z79.02 Long term (current) use of antithrombotics/antiplatelets; Z79.899 Other long term (current) drug therapy
CPT/HCPCS: 11042; 15275; 99213; Q4187; G0463

== ENCOUNTER 2020-12-02 12:30 | Outpatient (RCR) | payer MEDICARE, MEDICAID, SELFPAY ==
[2020-11-05 00:12] VITALS: BP 158/89; PULSE 77; RESP 18; TEMP 36.6
[2020-11-11 11:24] VITALS: BP 98/50; PULSE 80; RESP 18; TEMP 36.1; BMI 27.1
--- NOTE | 2020-11-11 12:25 | PN.PCM_ITS ---
History of Present Illness Date of Service: 11/11/20 Chief Complaint: hallux ulcers new second toe ulcer History of Wound: She was seen today for right heel and hallux ulcerations. During her hospital admission she was diagnosed with right hallux osteomyelitis and had a bedside debridement performed by Dr. Green. The onset of this ulcer was 09-12-20 when she had increased toe walking while looking at some property with her . She completed a course of 10/27 completing an antibiotic cour se for treatment of osteomyelitis. She was also previously under the management of infectious disease specialist, Dr. Herrera. She left her epi cord dressing as intact as she could. She also has a new ulcer to her second toe and denies redness or odors Progress of Wound: Improving hallux New ulcer second toe Objective Data Objective Data Vital Signs: Vital Signs Temp Pulse Resp BP 97 F L 80 18 98/50 L 11/11/20 11:24 11/11/20 11:24 11/11/20 11:24 11/11/20 11:24 Weight: 72.91 kg Body Mass Index (BMI) 27.1 Physical Exam Const alert and oriented x3 General Appearance: cooperative HEENT normocephalic Extremity Extremity Narrative: No calf tenderness Diminished pulses Muscle wasting noted General Extremity: edema and no tenderness to palpation of joints or extremities; Negative for cyanosis Skin Skin Narrative: no purulence, no streaking, no odor, no infection . Adjacent skin is hairless and atrophic. The heel ulcer is healed and has full epithelialization. There is reduced ulcer depth to both hallux ulcer sites without any visualized bone or tendon. The ulcer bed is granular. There is a new skin discontinuity to the medial right second toe that has 90% granulation tissue 10% fibrous tissue General Skin Exam: Negative for erythema Neuro Neuro Narrative: lack of normal epicritic sensation via light touch is consistent with neuropathy status Psych cooperative and affect normal Debridement Note Debridement Note Post-Debridement Measurements and Additional Note: Post-Debridement Measurements/Treatment NATHAN - Nurse 1 - General Ulcer Assessment Start: 11/11/20 11:24 Freq: Status: Active Protocol: DAVID Activity Type Activity Date Activity User E-Sign Co-Sign Detail Recorded Client Recorded Date Recorded By Document 11/11/20 11:24 GARO [id number] 11/11/20 11:31 RB 11/11/20 11:24 - Today's Visit Information Type of service Follow-up Visit (Physician/HOD CARRIER ) Arrival Mode Ambulatory Transfer Assistance None Patient Identification Verified (Name & Yes ) Patient Requires Transmission-Based No Precautions Height and Weight Body Mass Index (BMI) 27.1 BMI Classification Overweight Vital Signs Temperature (97.8 F-99.1 F) 97 F L Temperature Source Temporal Pulse Rate (60-100) 80 Pulse Location Monitor Respiratory Rate (12-18) 18 Respiratory rate source Observation Blood Pressure (90/60-120/80) 98/50 L Blood Pressure Mean (mm Hg) 66 Source Monitor Position Semi-Fowlers Blood Pressure Location Left Arm History Since Last Visit- (Skip if this is Patient's initial visit) Have you changed medications since your No last visit? Any new allergies or adverse reactions No Had a fall/change in ADL's that may No increase risk of falls Signs or symptoms of abuse and/or No neglect since last visit Have you been in the hospital since your No last visit? Has dressing in place as prescribed Yes Has compression in place as prescribed No Has offloadiing in place as prescribed No Experienced any changes in pain level or No management Left Footwear Regular Shoe Right Footwear Regular Shoe Pain Scale: 0-10 Numeric Is Patient Pain Free? Yes WC - Nurse 1 - General Ulcer Measurement Start: 11/11/20 11:24 Freq: Status: Active Protocol: Activity Type Activity Date Activity User E-Sign Co-Sign Detail Recorded Client Recorded Date Recorded By Document 11/11/20 11:24 GARO [id number] 11/11/20 11:31 GARO 11/11/20 11:24 Wound Center Nurse 1 7. R SECOND TOE -Combined with other wound No -Current Size (cm) - Length 0.9 -Current Size (cm) - Width 1 -Current Size (cm) - Depth 0.1 -Total Square Cm 0.9 -Tunneling No -Undermining/Tunneling No -Circular Undermining No -Granulation Amt Large (67-100%) -Granulation Quality [place] -Slough/Fibrin Yes -Necrosis Amt Small (1-33%) -Necrotic Tissue Type Adherent Slough -Structure Exposed N/A -Texture (Colleen-wound Skin Appearance) Assessed -Moisture (Colleen-wound Skin Appearance) Assessed -Color (Colleen-wound Skin Appearance) Erythema -Temperature (Colleen-wound Skin No Abnormality Appearance) (Pt Warm) -Tenderness on Palpation (Colleen-wound No Skin Appearance) -Ulcer Cleansing Wound Cleanser -Foul Odor after Cleansing No -Anesthetic Used 5% Lidocaine Gel #6 R Grt Toe -Combined with other wound No -Current Size (cm) - Length 1.2 -Current Size (cm) - Width 0.5 -Current Size (cm) - Depth 0.4 -Total Square Cm 0.60 -Tunneling No -Undermining/Tunneling No -Circular Undermining No -Exudate Amt Medium -Exudate Type Serosanguineous -Wound Margin Distinct, Outline Attached -Granulation Amt Medium (34-66%) -Granulation Quality [place] -Slough/Fibrin Yes -Necrosis Amt Medium (34-66%) -Necrotic Tissue Type Adherent Slough -Structure Exposed N/A -Texture (Colleen-wound Skin Appearance) Assessed -Moisture (Colleen-wound Skin Appearance) Assessed -Color (Colleen-wound Skin Appearance) Erythema -Temperature (Colleen-wound Skin No Abnormality Appearance) (Pt Warm) -Tenderness on Palpation (Colleen-wound No Skin Appearance) -Ulcer Cleansing Wound Cleanser -Foul Odor after Cleansing No -Anesthetic Used 5% Lidocaine Gel #4 right heel -Combined with other wound No -Current Size (cm) - Length 0.1 -Current Size (cm) - Width 0.1 -Current Size (cm) - Depth 0.1 -Total Square Cm 0.01 -Tunneling No -Undermining/Tunneling No -Circular Undermining No -Wound Margin Flat & Intact -Granulation Amt Medium (34-66%) -Granulation Quality [place] -Slough/Fibrin Yes -Necrosis Amt Large (67-100%) -Necrotic Tissue Type Adherent Slough -Structure Exposed N/A -Texture (Colleen-wound Skin Appearance) Callus -Moisture (Colleen-wound Skin Appearance) Dry/Scaly -Color (Colleen-wound Skin Appearance) Assessed -Temperature (Colleen-wound Skin No Abnormality Appearance) (Pt Warm) -Tenderness on Palpation (Colleen-wound No Skin Appearance) -Ulcer Cleansing Wound Cleanser -Foul Odor after Cleansing No -Anesthetic Used 5% Lidocaine Gel WC - Nurse 2 - General Ulcer CM Notes Start: 11/11/20 11:24 Freq: Status: Active Protocol: Activity Type Activity Date Activity User E-Sign Co-Sign Detail Recorded Client Recorded Date Recorded By Document 11/11/20 11:50 VITO [id number] 11/11/20 12:04 VITO 11/11/20 11:50 Wound Center Nurse 2 7. R SECOND TOE -Time 12:01 -Correct Patient Yes -Correct Side, Site, Position Yes -Correct Procedure Yes -Procedure Performed Yes -Type of Procedure Debridement -Clinical Debridement Subcutaneous -Tissue Removed Subcutaneous -Post Debridement (cm) - Length 1 -Post Debridement (cm) - Width 1 -Post Debridement (cm) - Depth 0.1 -Total Square (Post) (cm) 1 -Area of Debridement (cm) - Length 1 -Area of Debridement (cm) - Width 1 -Total Square (Area) (cm) 1 -Tunneling No -Undermining/Tunneling No -Circular Undermining No -Wound/Ulcer Outcome Not Healed -Ulcer Cleansing Rinsed/ Irrigated with Saline -Foul Odor after Cleansing No -Bioengineered Tissue No -Bleeding Controlled with Pressure -Offloading Yes -Type of Offloading Surgical Shoe -Treatment Response Procedure Tolerated Well -Debridement - Subq, 1st 20sq cm Yes #6 R Grt Toe -Time 12:02 -Correct Patient Yes -Correct Side, Site, Position Yes -Correct Procedure Yes -Procedure Performed Yes -Type of Procedure Debridement -Clinical Debridement Subcutaneous -Tissue Removed Subcutaneous -Post Debridement (cm) - Length 1.2 -Post Debridement (cm) - Width 0.6 -Post Debridement (cm) - Depth 0.4 -Total Square (Post) (cm) 0.72 -Area of Debridement (cm) - Length 1.2 -Area of Debridement (cm) - Width 0.6 -Total Square (Area) (cm) 0.72 -Tunneling No -Undermining/Tunneling No -Circular Undermining No -Wound/Ulcer Outcome Not Healed -Ulcer Cleansing Rinsed/ Irrigated with Saline -Foul Odor after Cleansing No -Bioengineered Tissue Yes -Type of Bioengineered Tissue Epifix -Expiration Date 07/06/25 -Product Lot Number [id number] -Percent Used 100 -Lot number of Saline Used [id number] -Bleeding Controlled with Pressure -Offloading Yes -Type of Offloading Surgical Shoe -Treatment Response Procedure Tolerated Well -Debridement - Subq, 1st 20sq cm No -Apply Skin Sub - 1st 25 sq cm - Feet 1 -Epifix (per sq cm) 4 #4 right heel -Correct Patient No -Correct Side, Site, Position No -Correct Procedure No -Procedure Performed No -Post Debridement (cm) - Length 0 -Post Debridement (cm) - Width 0 -Post Debridement (cm) - Depth 0 -Total Square (Post) (cm) 0 -Area of Debridement (cm) - Length 0 -Area of Debridement (cm) - Width 0 -Total Square (Area) (cm) 0 -Wound/Ulcer Outcome Healed- Epithelialized Pain Scale: 0-10 Numeric Is Patient Pain Free? Yes - Nurse 3 - General Ulcer D/C NN Start: 11/11/20 11:24 Freq: Status: Active Protocol: Activity Type Activity Date Activity User E-Sign Co-Sign Detail Recorded Client Recorded Date Recorded By Document 11/11/20 12:08 VITO [id number] 11/11/20 12:09 VITO 11/11/20 12:08 Wound Care Nurse 3 7. R SECOND TOE -Ulcer Cleansing Rinsed/ Irrigated with Saline -Foul Odor after Cleansing No -Primary Dressing Covered/Secured with Dry Gauze & Roll Gauze #6 R Grt Toe -Primary Dressing Covered/Secured with Dry Gauze & Roll Gauze, Secured with Tape Pain Scale: 0-10 Numeric Is Patient Pain Free? Yes - Visit Discharge Discharge Condition Stable Ambulatory Status Ambulatory Transportation Private Auto Medication Reconcilliation completed & Yes provided to patient/care provider Clinical Summary of Care Provided Yes Wound debrided: cluster hallux Wound Grade/Stage: 3 Type of Debridement: Excisional debridement Anesthesia Used: 4% Lidocaine Solution Depth: in the subcutaneous layer Percentage of wound debrided: 100 and 60 Instrument Used: #15 blade Tissue Removed: fibrous, devitalized subcutaneous, biofilm, slough Severity: Fat Layer Exposed Amount of bleeding with debridement: Mild Bleeding Controlled with: Pressure Patient tolerated procedure: Patient tolerated procedure well Assessment/Plan Assessment/Plan (1) Non-pressure chronic ulcer of other part of right foot with necrosis of bone: CODE(S): L97.514 - Non-pressure chronic ulcer of other part of right foot with necrosis of bone (2) Chronic heel ulcer with fat layer exposed: CODE(S): L97.402 - Non-pressure chronic ulcer of unspecified heel and midfoot with fat layer exposed QUALIFIERS: Laterality: right Qualified Code(s): L97.412 - Non- pressure chronic ulcer of right heel and midfoot with fat layer exposed (3) Type 2 diabetes mellitus with diabetic polyneuropathy: CODE(S): E11.42 - Type 2 diabetes mellitus with diabetic polyneuropathy QUALIFIERS: Diabetes mellitus jail insulin use: unspecified terminal worker insulin use status Qualified Code(s): E11.42 - Type 2 diabetes mellitus with diabetic polyneuropathy (4) Dialysis patient: CODE(S): Z99.2 - Dependence on renal dialysis (5) Type 2 diabetes mellitus with diabetic polyneuropathy: CODE(S): E11.42 - Type 2 diabetes mellitus with diabetic polyneuropathy (6) Ulcer of right foot with fat layer exposed: CODE(S): L97.512 - Non-pressure chronic ulcer of other part of right foot with fat layer exposed (7) Delayed wound healing: CODE(S): T14.8XXD - Other injury of unspecified body region, subsequent encounter PLAN: Procedure- Location: medial right second toe grade 1 Excisional debridement performed Anesthesia: 5% lidocaine plain Debridement layer: subcutaneous Amount of debridement: 100% Instrumentation used: 15 blade Tissue debrided: fibrous, devitalized subcutaneous, biofilm, slough Exposed tissue: fat layer Bleeding: mild Hemostasis controlled: pressure The patient tolerated the procedure well The patient was seen and examined at the wound center today and her case was reviewed. Debridement was performed today. Her heel ulcer is healed and she was advised to continue offloading this and to change the dressing with a gauze. Verbal consent was obtained today to apply an updated advanced wound healing product for the hallux. Epi fix was applied today. According to standard protocol. A wound veil and Steri-Strips were applied. A secondary dressing was applied. She tolerated this well. She was advised to keep this clean, dry, and intact until follow-up next week. Additional debridement and application wound healing product will be considered next week. The purpose of offloading offloading techniques was reviewed. I do not recommend that she wears her close diabetic shoe even for short periods. I recommend she hangs her heel over stacked blankets or pillows while in bed to keep pressure off of the ulcer. I recommend she obtains a donut pillow to help with her offloading. She is at risk for amputation further illness of limb loss. Her new ulcer to the second toe was noted and she will use a gauze toe spacer to keep pressure off of these abutting ulcer sites. Although she has palpable pulses I do recommend screening her with a noninvasive vascular study to evaluate for any potential perfusion deficits. Her medical records from the [facility] will be requested. Her noninvasive vascular studies were reviewed from [facility] January 07, 2020 with triphasic waveforms bilateral and right ABIs of 1.21 and 1.07 and left ABIs of 1.2 and 1.09. The digital pressures were 105 mmHg on the right and 141 mmHg on the left. She also had normal PVR waveforms to the ankle and digital level bilateral. X-rays and MRI of the right foot were reviewed from her last hospital admission. MRI from 09-16-20 supports osteomyelitis of phalanx of right hallux. She is also treated for osteomyelitis under the management of infectious disease specialist. She is on IV Zosyn and vancomycin. Vancomycin was oordinated with her hemodialysis schedule. She was also on oral Augmentin. This was completed on 10-27-20. She had cultures previously with MRSA and anaerobic growth. She was reassured no local signs of infection are noted today. Her labs from were reviewed. She had resolution of leukocytosis prior to hospital discharge. Her last ESR was on 09-15-20 and was 116. She is at continued risk for limb loss. Hyperbaric oxygen therapy and advancing healing product application recommended and are medically necessary for limb salvage. To return to the wound healing center in 1 week or call sooner if she has any questions or concerns or signs of infection. I answered all of her questions today. Note: [employer] speech recognition graphics production specialist software was used to create portions of this document. Sound-alike and misspelled words, as well as other graphics production specialist errors may be contained in the documentation. The medical decision making level is low. There is noted low risk of morbidity after considering this treatment plan and diagnostic data. The problems addressed require a low medical decision making level which includes two or more minor problems, a stable chronic illness, or an acute uncom plicated illness or injury.
[2020-11-18 11:27] VITALS: BP 106/63; PULSE 82; RESP 18; TEMP 36.6; BMI 27.1
--- NOTE | 2020-11-18 14:25 | PCM.WC.PN ---
History of Present Illness Date of Service: 11/18/20 Chief Complaint: hallux ulcers second toe ulcer History of Wound: She was seen today for right heel and hallux ulcerations. During her hospital admission she was diagnosed with right hallux osteomyelitis and had a bedside debridement performed by Dr. Green. The onset of this ulcer was 09-12-20 when she had increased toe walking while looking at some property with her . She completed a course of 10/27 completing an antibiotic course for treatment of osteomyelitis. She was also previously under the management of infectious disease specialist, Dr. Herrera. She left her epi cord dressing as intact as she could. She also has a newer ulcer to her second toe and denies redness or odors. She has not been able to wear toe spacer. Progress of Wound: All sites are improving Objective Data Objective Data Vital Signs: Vital Signs Temp Pulse Resp BP 97.8 F 82 18 106/63 11/18/20 11:27 11/18/20 11:27 11/18/20 11:27 11/18/20 11:27 Weight: 72.91 kg Body Mass Index (BMI) 27.1 Physical Exam Const alert and oriented x3 General Appearance: cooperative HEENT normocephalic Extremity Extremity Narrative: No calf tenderness Diminished pulses Muscle wasting noted General Extremity: edema and no tenderness to palpation of joints or extremities; Negative for cyanosis Skin Skin Narrative: no purulence, no streaking, no odor, no infection . Adjacent skin is hairless and atrophic. There is reduced ulcer depth to both hallux ulcer sites without any visualized bone or tendon. The ulcer bed is granular. There is a skin discontinuity to the medial right second toe that has 100% granulation tissue General Skin Exam: Negative for erythema Neuro Neuro Narrative: lack of normal epicritic sensation via light touch is consistent with neuropathy status Psych cooperative and affect normal Debridement Note Debridement Note Post-Debridement Measurements and Additional Note: Post-Debridement Measurements/Treatment WC - Nurse 1 - General Ulcer Assessment Start: 11/11/20 11:24 Freq: Status: Active Protocol: DAVID Activity Type Activity Date Activity User E-Sign Co-Sign Detail Recorded Client Recorded Date Recorded By Document 11/11/20 11:24 RB [id number] 11/11/20 11:31 RB Document 11/18/20 11:27 DL [id number] 11/18/20 11:41 DL 11/11/20 11/18/20 11:24 11:27 - Today's Visit Information Type of service Follow-up Visit Follow-up Visit (Physician/CHARGEMASTER ANALYST (Physician/CHARGEMASTER ANALYST ) ) Arrival Mode Ambulatory Ambulatory Transfer Assistance None None Patient Identification Verified (Name & Yes Yes ) Patient Requires Transmission-Based No No Precautions Height and Weight Body Mass Index (BMI) 27.1 27.1 BMI Classification Overweight Overweight Vital Signs Temperature (97.8 F-99.1 F) 97 F L 97.8 F Temperature Source Temporal Temporal Pulse Rate (60-100) 80 82 Pulse Location Monitor Monitor Respiratory Rate (12-18) 18 18 Respiratory rate source Observation Observation Blood Pressure (90/60-120/80) 98/50 L 106/63 Blood Pressure Mean (mm Hg) 66 77 Source Monitor Monitor Position Semi-Fowlers Blood Pressure Location Left Arm History Since Last Visit- (Skip if this is Patient's initial visit) Have you changed medications since your No No last visit? Any new allergies or adverse reactions No No Had a fall/change in ADL's that may No No increase risk of falls Signs or symptoms of abuse and/or No No neglect since last visit Have you been in the hospital since your No Yes last visit? Has dressing in place as prescribed Yes Yes Has compression in place as prescribed No N/A Has offloadiing in place as prescribed No Yes Experienced any changes in pain level or No No management Left Footwear Regular Shoe Right Footwear Regular Shoe Removable Cast Walker/Walking Boot Pain Scale: 0-10 Numeric Is Patient Pain Free? Yes Yes - Nurse 1 - General Ulcer Measurement Start: 11/11/20 11:24 Freq: Status: Active Protocol: Activity Type Activity Date Activity User E-Sign Co-Sign Detail Recorded Client Recorded Date Recorded By Document 11/11/20 11:24 RB [id number] 11/11/20 11:31 RB Document 11/18/20 11:27 DL [id number] 11/18/20 11:41 DL 11/11/20 11/18/20 11:24 11:27 Wound Center Nurse 1 7. R SECOND TOE -Combined with other wound No -Current Size (cm) - Length 0.9 0.9 -Current Size (cm) - Width 1 0.5 -Current Size (cm) - Depth 0.1 0.1 -Total Square Cm 0.9 0.45 -Photo Taken No -Tunneling No -Undermining/Tunneling No -Circular Undermining No -Exudate Amt Medium -Exudate Type Serosanguineous -Wound Margin Distinct, Outline Attached -Granulation Amt Large (67-100%) Small (1-33%) -Granulation Quality [facility] -Slough/Fibrin Yes -Necrosis Amt Small (1-33%) Small (1-33%) -Necrotic Tissue Type Adherent Slough Adherent Slough -Structure Exposed N/A N/A -Texture (Colleen-wound Skin Appearance) Assessed Localized Edema ,Scarring -Moisture (Colleen-wound Skin Appearance) Assessed Maceration -Color (Colleen-wound Skin Appearance) Erythema Erythema -Temperature (Colleen-wound Skin No Abnormality No Abnormality Appearance) (Pt Warm) (Pt Warm) -Tenderness on Palpation (Colleen-wound No No Skin Appearance) -Ulcer Cleansing Wound Cleanser Wound Cleanser -Foul Odor after Cleansing No No -Anesthetic Used 5% Lidocaine 4% Lidocaine Gel Solution #6 R Grt Toe -Combined with other wound No -Current Size (cm) - Length 1.2 1 -Current Size (cm) - Width 0.5 0.6 -Current Size (cm) - Depth 0.4 0.3 -Total Square Cm 0.60 0.6 -Photo Taken No -Tunneling No -Undermining/Tunneling No -Circular Undermining No -Exudate Amt Medium Medium -Exudate Type Serosanguineous Serosanguineous -Wound Margin Distinct, Distinct, Outline Outline Attached Attached -Granulation Amt Medium (34-66%) Medium (34-66%) -Granulation Quality [facility] -Slough/Fibrin Yes -Necrosis Amt Medium (34-66%) Medium (34-66%) -Necrotic Tissue Type Adherent Slough Adherent Slough -Structure Exposed N/A N/A -Texture (Colleen-wound Skin Appearance) Assessed Localized Edema ,Scarring -Moisture (Colleen-wound Skin Appearance) Assessed Maceration -Color (Colleen-wound Skin Appearance) Erythema Erythema -Temperature (Colleen-wound Skin No Abnormality No Abnormality Appearance) (Pt Warm) (Pt Warm) -Tenderness on Palpation (Colleen-wound No Skin Appearance) -Ulcer Cleansing Wound Cleanser Wound Cleanser -Foul Odor after Cleansing No Yes, Due to Product Use -Anesthetic Used 5% Lidocaine 4% Lidocaine Gel Solution #4 right heel -Combined with other wound No -Current Size (cm) - Length 0.1 -Current Size (cm) - Width 0.1 -Current Size (cm) - Depth 0.1 -Total Square Cm 0.01 -Tunneling No -Undermining/Tunneling No -Circular Undermining No -Wound Margin Flat & Intact -Granulation Amt Medium (34-66%) -Granulation Quality [facility] -Slough/Fibrin Yes -Necrosis Amt Large (67-100%) -Necrotic Tissue Type Adherent Slough -Structure Exposed N/A -Texture (Colleen-wound Skin Appearance) Callus -Moisture (Colleen-wound Skin Appearance) Dry/Scaly -Color (Colleen-wound Skin Appearance) Assessed -Temperature (Colleen-wound Skin No Abnormality Appearance) (Pt Warm) -Tenderness on Palpation (Colleen-wound No Skin Appearance) -Ulcer Cleansing Wound Cleanser -Foul Odor after Cleansing No -Anesthetic Used 5% Lidocaine Gel WC - Nurse 2 - General Ulcer CM Notes Start: 11/11/20 11:24 Freq: Status: Active Protocol: Activity Type Activity Date Activity User E-Sign Co-Sign Detail Recorded Client Recorded Date Recorded By Document 11/11/20 11:50 JF [id number] 11/11/20 12:04 JF Document 11/18/20 12:49 PL [id number] 11/18/20 13:03 PL Edit Result 11/18/20 12:49 PL (1) [id number] 11/18/20 13:07 PL (1) 7. R SECOND TOE - Debridement - Subq, 1st 20sq cm Yes => No #6 R Grt Toe - Bioengineered Tissue No => Yes - Type of Bioengineered Tissue => Epifix - Expiration Date => 07/06/25 - Product Lot Number => [id number] - Apply Skin Sub - 1st 25 sq cm - Feet => 1 - Epifix (per sq cm) => 4 Is Patient Pain Free? => Yes 11/11/20 11/18/20 11:50 12:49 Wound Center Nurse 2 7. R SECOND TOE -Time 12:01 12:00 -Correct Patient Yes Yes -Correct Side, Site, Position Yes Yes -Correct Procedure Yes Yes -Procedure Performed Yes Yes -Type of Procedure Debridement Debridement -Clinical Debridement Subcutaneous Subcutaneous -Tissue Removed Subcutaneous Subcutaneous -Post Debridement (cm) - Length 1 0.9 -Post Debridement (cm) - Width 1 0.5 -Post Debridement (cm) - Depth 0.1 0.1 -Total Square (Post) (cm) 1 0.45 -Area of Debridement (cm) - Length 1 0.9 -Area of Debridement (cm) - Width 1 0.5 -Total Square (Area) (cm) 1 0.45 -Tunneling No No -Undermining/Tunneling No No -Circular Undermining No No -Wound/Ulcer Outcome Not Healed Not Healed -Ulcer Cleansing Rinsed/ Rinsed/ Irrigated with Irrigated with Saline Saline -Foul Odor after Cleansing No No -Bioengineered Tissue No No -Bleeding Controlled with Pressure -Offloading Yes -Type of Offloading Surgical Shoe -Treatment Response Procedure Tolerated Well -Debridement - Subq, 1st 20sq cm Yes No #6 R Grt Toe -Time 12:02 12:00 -Correct Patient Yes Yes -Correct Side, Site, Position Yes Yes -Correct Procedure Yes Yes -Procedure Performed Yes Yes -Type of Procedure Debridement Debridement -Clinical Debridement Subcutaneous Subcutaneous -Tissue Removed Subcutaneous Subcutaneous -Post Debridement (cm) - Length 1.2 1.0 -Post Debridement (cm) - Width 0.6 0.6 -Post Debridement (cm) - Depth 0.4 0.3 -Total Square (Post) (cm) 0.72 0.60 -Area of Debridement (cm) - Length 1.2 1.0 -Area of Debridement (cm) - Width 0.6 0.6 -Total Square (Area) (cm) 0.72 0.60 -Tunneling No No -Undermining/Tunneling No No -Circular Undermining No No -Wound/Ulcer Outcome Not Healed Not Healed -Ulcer Cleansing Rinsed/ Rinsed/ Irrigated with Irrigated with Saline Saline -Foul Odor after Cleansing No No -Bioengineered Tissue Yes Yes -Type of Bioengineered Tissue Epifix Epifix -Expiration Date 07/06/25 07/06/25 -Product Lot Number [id number] -Percent Used 100 -Lot number of Saline Used [id number] -Bleeding Controlled with Pressure Pressure -Offloading Yes -Type of Offloading Surgical Shoe -Treatment Response Procedure Procedure Tolerated Well Tolerated Well -Debridement - Subq, 1st 20sq cm No No -Apply Skin Sub - 1st 25 sq cm - Feet 1 1 -Epifix (per sq cm) 4 4 #4 right heel -Correct Patient No -Correct Side, Site, Position No -Correct Procedure No -Procedure Performed No -Post Debridement (cm) - Length 0 -Post Debridement (cm) - Width 0 -Post Debridement (cm) - Depth 0 -Total Square (Post) (cm) 0 -Area of Debridement (cm) - Length 0 -Area of Debridement (cm) - Width 0 -Total Square (Area) (cm) 0 -Wound/Ulcer Outcome Healed- Epithelialized Pain Scale: 0-10 Numeric Is Patient Pain Free? Yes Yes - Nurse 3 - General Ulcer D/C NN Start: 11/11/20 11:24 Freq: Status: Active Protocol: Activity Type Activity Date Activity User E-Sign Co-Sign Detail Recorded Client Recorded Date Recorded By Document 11/11/20 12:08 [id number] 11/11/20 12:09 Document 11/18/20 12:19 FL [id number] 11/18/20 12:20 FL 11/11/20 11/18/20 12:08 12:19 Wound Care Nurse 3 7. R SECOND TOE -Ulcer Cleansing Rinsed/ Irrigated with Saline -Foul Odor after Cleansing No -Primary Dressing Covered/Secured with Dry Gauze & Dry Gauze, Roll Gauze Secured with Tape #6 R Grt Toe -Primary Dressing Covered/Secured with Dry Gauze & Roll Gauze, Secured with Tape Pain Scale: 0-10 Numeric Is Patient Pain Free? Yes - Visit Discharge Discharge Condition Stable Stable Ambulatory Status Ambulatory Ambulatory Transportation Private Auto Private Auto Medication Reconcilliation completed & Yes No provided to patient/care provider Clinical Summary of Care Provided Yes Yes Wound debrided: dorsal and medial hallux, right Wound Grade/Stage: 3 Type of Debridement: Excisional debridement Anesthesia Used: 4% Lidocaine Solution Depth: in the subcutaneous layer Percentage of wound debrided: 100 Instrument Used: #15 blade Tissue Removed: fibrous, devitalized subcutaneous, biofilm, slough Severity: Fat Layer Exposed Amount of bleeding with debridement: Mild Bleeding Controlled with: Pressure Patient tolerated procedure: Patient tolerated procedure well Assessment/Plan Assessment/Plan (1) Non-pressure chronic ulcer of other part of right foot with necrosis of bone: CODE(S): L97.514 - Non-pressure chronic ulcer of other part of right foot with necrosis of bone (2) Chronic heel ulcer with fat layer exposed: CODE(S): L97.402 - Non-pressure chronic ulcer of unspecified heel and midfoot with fat layer exposed QUALIFIERS: Laterality: right Qualified Code(s): L97.412 - Non-pressure chronic ulcer of right heel and midfoot with fat layer exposed (3) Type 2 diabetes mellitus with diabetic polyneuropathy: CODE(S): E11.42 - Type 2 diabetes mellitus with diabetic polyneuropathy QUALIFIERS: Diabetes mellitus ferry terminal supervisor insulin use: unspecified custodial insulin use status Qualified Code(s): E11.42 - Type 2 diabetes mellitus with diabetic polyneuropathy (4) Dialysis patient: CODE(S): Z99.2 - Dependence on renal dialysis (5) Ulcer of right foot with fat layer exposed: CODE(S): L97.512 - Non-pressure chronic ulcer of other part of right foot with fat layer exposed (6) Delayed wound healing: CODE(S): T14.8XXD - Other injury of unspecified body region, subsequent encounter PLAN: Procedure- Location: medial right second toe grade 1 Excisional debridement performed Anesthesia: 5% lidocaine plain Debridement layer: subcutaneous Amount of debridement: 100% Instrumentation used: 15 blade Tissue debrided: fibrous, devitalized subcutaneous, biofilm, slough Exposed tissue: fat layer Bleeding: mild Hemostasis controlled: pressure The patient tolerated the procedure well The patient was seen and examined at the wound center today and her case was reviewed. Debridement was performed today. Verbal consent was obtained today to apply an updated advanced wound healing product for the hallux. Epi fix was applied today. According to standard protocol. A wound veil and Steri-Strips were applied. A secondary dressing was applied. She tolerated this well. She was advised to keep this clean, dry, and intact until follow-up next week. Additional debridement and application wound healing product will be considered next week. The purpose of offloading offloading techniques was reviewed. I do not recommend that she wears her close diabetic shoe even for short periods. I recommend she hangs her heel over stacked blankets or pillows while in bed to keep pressure off of the ulcer. I recommend she obtains a donut pillow to help with her offloading. She is at risk for amputation further illness of limb loss. Her new ulcer to the second toe was noted and she will use a gauze toe spacer to keep pressure off of these abutting ulcer sites. Although she has palpable pulses I do recommend screening her with a noninvasive vascular study to evaluate for any potential perfusion deficits. Her medical records from the [facility] will be requested. Her noninvasive vascular studies were reviewed from [facility] January 07, 2020 with triphasic waveforms bilateral and right ABIs of 1.21 and 1.07 and left ABIs of 1.2 and 1.09. The digital pressures were 105 mmHg on the right and 141 mmHg on the left. She also had normal PVR waveforms to the ankle and digital level bilateral. X-rays and MRI of the right foot were reviewed from her last hospital admission. MRI from 09-16-20 supports osteomyelitis of phalanx of right hallux. She is also treated for osteomyelitis under the management of infectious disease specialist. She is on IV Zosyn and vancomycin. Vancomycin was oordinated with her hemodialysis schedule. She was also on oral Augmentin. This was completed on 10-27-20. She had cultures previously with MRSA and anaerobic growth. She was reassured no local signs of infection are noted today. Her labs from -2020 were reviewed. She had resolution of leukocytosis prior to hospital discharge. Her last ESR was on 09-15-20 and was 116. She is at continued risk for limb loss. Hyperbaric oxygen therapy and advancing healing product application recommended and are medically necessary for limb salvage. To return to the wound healing center in 1 week or call sooner if she has any questions or concerns or signs of infection. I answered all of her questions today. Note: [employer] speech recognition distance learning technician software was used to create portions of this document. Sound-alike and misspelled words, as well as other distance learning technician errors may be contained in the documentation.
[2020-11-25 11:19] VITALS: BP 102/80; PULSE 80; RESP 18; TEMP 36.1; BMI 27.1
--- NOTE | 2020-11-25 12:13 | PCM.WC.PN ---
History of Present Illness Date of Service: 11/25/20 Chief Complaint: hallux ulcers second toe ulcer History of Wound: She was seen today for right second toe and hallux ulcerations. During her hospital admission she was diagnosed with right hallux osteomyelitis and had a bedside debridement performed by Dr. Green. The onset of this ulcer was 09-12-20 when she had increased toe walking while looking at some property with her . She completed a course of 10/27 completing an antibiotic course for treatment of osteomyelitis. She was also previously under the management of infectious disease specialist, Dr. Herrera. She left her epi fix dressing as intact as she could. She wore toe spacer last week and was actually a folded gauze Progress of Wound: All sites are improving and the dorsal part of the right hallux ulcer is healed Objective Data Objective Data Vital Signs: Vital Signs Temp Pulse Resp BP 97 F L 80 18 102/80 11/25/20 11:19 11/25/20 11:19 11/25/20 11:19 11/25/20 11:19 Oxygen Delivery Method Room Air Weight: 72.91 kg Body Mass Index (BMI) 27.1 Physical Exam Const alert and oriented x3 General Appearance: cooperative HEENT normocephalic Extremity Extremity Narrative: No calf tenderness Diminished pulses Muscle wasting noted General Extremity: edema and no tenderness to palpation of joints or extremities; Negative for cyanosis Skin Skin Narrative: no purulence, no streaking, no odor, no infection . Adjacent skin is hairless and atrophic. There is a skin discontinuity to the medial right second toe that has 100% granulation tissue; significant size reduction. Granular lateral right hallux ulcer with size reduction. Full epithelialization to the dorsal aspect of the right hallux ulcer. No webspace maceration or necrosis. General Skin Exam: Negative for erythema Neuro Neuro Narrative: lack of normal epicritic sensation via light touch is consistent with neuropathy status Psych cooperative and affect normal Debridement Note Debridement Note Post-Debridement Measurements and Additional Note: Post-Debridement Measurements/Treatment WC - Nurse 1 - General Ulcer Assessment Start: 11/11/20 11:24 Freq: Status: Active Protocol: DAVID Activity Type Activity Date Activity User E-Sign Co-Sign Detail Recorded Client Recorded Date Recorded By Document 11/11/20 11:24 RB [id number] 11/11/20 11:31 RB Document 11/18/20 11:27 DL [id number] 11/18/20 11:41 DL Document 11/25/20 11:19 MT Desktop 11/25/20 11:21 MT 11/11/20 11/18/20 11/25/20 11:24 11:27 11:19 - Today's Visit Information Type of service Follow-up Visit Follow-up Visit (Physician/CUSTOM [employer]ICATOR (Physician/CUSTOM MARINE [employer] FABRICATOR ) ) Arrival Mode Ambulatory Ambulatory Ambulatory Transfer Assistance None None Accompanied by self Patient Identification Verified (Name & Yes Yes Yes ) Patient Requires Transmission-Based No No Precautions Height and Weight Body Mass Index (BMI) 27.1 27.1 27.1 BMI Classification Overweight Overweight Overweight Vital Signs Temperature (97.8 F-99.1 F) 97 F L 97.8 F 97 F L Temperature Source Temporal Temporal Temporal Pulse Rate (60-100) 80 82 80 Pulse Location Monitor Monitor Monitor Respiratory Rate (12-18) 18 18 18 Respiratory rate source Observation Observation Observation Oxygen Delivery Method Room Air Blood Pressure (90/60-120/80) 98/50 L 106/63 102/80 Blood Pressure Mean (mm Hg) 66 77 87 Source Monitor Monitor Monitor Position Semi-Fowlers Sitting Blood Pressure Location Left Arm Left Arm History Since Last Visit- (Skip if this is Patient's initial visit) Have you changed medications since your No No last visit? Any new allergies or adverse reactions No No Had a fall/change in ADL's that may No No increase risk of falls Signs or symptoms of abuse and/or No No neglect since last visit Have you been in the hospital since your No Yes last visit? Has dressing in place as prescribed Yes Yes Yes Has compression in place as prescribed No N/A Yes Has offloadiing in place as prescribed No Yes Yes Experienced any changes in pain level or No No Yes management Left Footwear Regular Shoe Right Footwear Regular Shoe Removable Cast Walker/Walking Boot Pain Scale: 0-10 Numeric Is Patient Pain Free? Yes Yes - Nurse 1 - General Ulcer Measurement Start: 11/11/20 11:24 Freq: Status: Active Protocol: Activity Type Activity Date Activity User E-Sign Co-Sign Detail Recorded Client Recorded Date Recorded By Document 11/11/20 11:24 RB [id number] 11/11/20 11:31 RB Document 11/18/20 11:27 DL [id number] 11/18/20 11:41 DL Document 11/25/20 11:19 MT Desktop 11/25/20 11:21 MT 11/11/20 11/18/20 11/25/20 11:24 11:27 11:19 Wound Center Nurse 1 7. R SECOND TOE -Combined with other wound No -Current Size (cm) - Length 0.9 0.9 0.1 -Current Size (cm) - Width 1 0.5 0.1 -Current Size (cm) - Depth 0.1 0.1 0.1 -Total Square Cm 0.9 0.45 0.01 -Photo Taken No -Tunneling No -Undermining/Tunneling No -Circular Undermining No -Exudate Amt Medium -Exudate Type Serosanguineous -Wound Margin Distinct, Outline Attached -Granulation Amt Large (67-100%) Small (1-33%) Large (67-100%) -Granulation Quality [place] Pale,[place] -Slough/Fibrin Yes -Necrosis Amt Small (1-33%) Small (1-33%) -Necrotic Tissue Type Adherent Slough Adherent Slough -Structure Exposed N/A N/A -Texture (Colleen-wound Skin Appearance) Assessed Localized Edema Assessed ,Scarring -Moisture (Colleen-wound Skin Appearance) Assessed Maceration Assessed -Color (Colleen-wound Skin Appearance) Erythema Erythema Assessed -Temperature (Colleen-wound Skin No Abnormality No Abnormality No Abnormality Appearance) (Pt Warm) (Pt Warm) (Pt Warm) -Tenderness on Palpation (Colleen-wound No No No Skin Appearance) -Ulcer Cleansing Wound Cleanser Wound Cleanser Wound Cleanser -Foul Odor after Cleansing No No No -Anesthetic Used 5% Lidocaine 4% Lidocaine 4% Lidocaine Gel Solution Solution #6 R Grt Toe -Combined with other wound No -Current Size (cm) - Length 1.2 1 0.6 -Current Size (cm) - Width 0.5 0.6 0.3 -Current Size (cm) - Depth 0.4 0.3 0.2 -Total Square Cm 0.60 0.6 0.18 -Photo Taken No -Tunneling No -Undermining/Tunneling No -Circular Undermining No -Exudate Amt Medium Medium -Exudate Type Serosanguineous Serosanguineous -Wound Margin Distinct, Distinct, Thickened & Outline Outline Rolled Under Attached Attached -Granulation Amt Medium (34-66%) Medium (34-66%) Medium (34-66%) -Granulation Quality [place] Pale,[place] -Slough/Fibrin Yes -Necrosis Amt Medium (34-66%) Medium (34-66%) Medium (34-66%) -Necrotic Tissue Type Adherent Slough Adherent Slough Adherent Slough -Structure Exposed N/A N/A -Texture (Colleen-wound Skin Appearance) Assessed Localized Edema Assessed ,Scarring -Moisture (Colleen-wound Skin Appearance) Assessed Maceration Assessed -Color (Colleen-wound Skin Appearance) Erythema Erythema Assessed -Temperature (Colleen-wound Skin No Abnormality No Abnormality No Abnormality Appearance) (Pt Warm) (Pt Warm) (Pt Warm) -Tenderness on Palpation (Colleen-wound No No Skin Appearance) -Ulcer Cleansing Wound Cleanser Wound Cleanser Wound Cleanser -Foul Odor after Cleansing No Yes, Due to No Product Use -Anesthetic Used 5% Lidocaine 4% Lidocaine 4% Lidocaine Gel Solution Solution #4 right heel -Combined with other wound No -Current Size (cm) - Length 0.1 -Current Size (cm) - Width 0.1 -Current Size (cm) - Depth 0.1 -Total Square Cm 0.01 -Tunneling No -Undermining/Tunneling No -Circular Undermining No -Wound Margin Flat & Intact -Granulation Amt Medium (34-66%) -Granulation Quality [place] -Slough/Fibrin Yes -Necrosis Amt Large (67-100%) -Necrotic Tissue Type Adherent Slough -Structure Exposed N/A -Texture (Colleen-wound Skin Appearance) Callus -Moisture (Colleen-wound Skin Appearance) Dry/Scaly -Color (Colleen-wound Skin Appearance) Assessed -Temperature (Colleen-wound Skin No Abnormality Appearance) (Pt Warm) -Tenderness on Palpation (Colleen-wound No Skin Appearance) -Ulcer Cleansing Wound Cleanser -Foul Odor after Cleansing No -Anesthetic Used 5% Lidocaine Gel Lower Limb Edema Present NA WC - Nurse 2 - General Ulcer CM Notes Start: 11/11/20 11:24 Freq: Status: Active Protocol: Activity Type Activity Date Activity User E-Sign Co-Sign Detail Recorded Client Recorded Date Recorded By Document 11/11/20 11:50 JF [id number] 11/11/20 12:04 JF Document 11/18/20 12:49 ARIANNA [id number] 11/18/20 13:03 PL Edit Result 11/18/20 12:49 PL (1) [id number] 11/18/20 13:07 PL Document 11/25/20 11:37 JF [id number] 11/25/20 11:42 JF (1) 7. R SECOND TOE - Debridement - Subq, 1st 20sq cm Yes => No #6 R Grt Toe - Bioengineered Tissue No => Yes - Type of Bioengineered Tissue => Epifix - Expiration Date => 07/06/25 - Product Lot Number => [id number] - Apply Skin Sub - 1st 25 sq cm - Feet => 1 - Epifix (per sq cm) => 4 Is Patient Pain Free? => Yes 11/11/20 11/18/20 11/25/20 11:50 12:49 11:37 Wound Center Nurse 2 7. R SECOND TOE -Time 12:01 12:00 -Correct Patient Yes Yes Yes -Correct Side, Site, Position Yes Yes Yes -Correct Procedure Yes Yes Yes -Procedure Performed Yes Yes Yes -Type of Procedure Debridement Debridement Debridement -Clinical Debridement Subcutaneous Subcutaneous Subcutaneous -Tissue Removed Subcutaneous Subcutaneous Subcutaneous -Post Debridement (cm) - Length 1 0.9 0.1 -Post Debridement (cm) - Width 1 0.5 0.1 -Post Debridement (cm) - Depth 0.1 0.1 0.1 -Total Square (Post) (cm) 1 0.45 0.01 -Area of Debridement (cm) - Length 1 0.9 0.1 -Area of Debridement (cm) - Width 1 0.5 0.1 -Total Square (Area) (cm) 1 0.45 0.01 -Tunneling No No No -Undermining/Tunneling No No No -Circular Undermining No No No -Wound/Ulcer Outcome Not Healed Not Healed Not Healed -Ulcer Cleansing Rinsed/ Rinsed/ Rinsed/ Irrigated with Irrigated with Irrigated with Saline Saline Saline -Foul Odor after Cleansing No No No -Bioengineered Tissue No No No -Bleeding Controlled with Pressure Pressure -Offloading Yes Yes -Type of Offloading Surgical Shoe Surgical Shoe -Treatment Response Procedure Procedure Tolerated Well Tolerated Well -Debridement - Subq, 1st 20sq cm Yes No Yes #6 R Grt Toe -Time 12:02 12:00 11:38 -Correct Patient Yes Yes Yes -Correct Side, Site, Position Yes Yes Yes -Correct Procedure Yes Yes Yes -Procedure Performed Yes Yes Yes -Type of Procedure Debridement Debridement Debridement -Clinical Debridement Subcutaneous Subcutaneous Subcutaneous -Tissue Removed Subcutaneous Subcutaneous Subcutaneous -Post Debridement (cm) - Length 1.2 1.0 0.6 -Post Debridement (cm) - Width 0.6 0.6 0.5 -Post Debridement (cm) - Depth 0.4 0.3 0.1 -Total Square (Post) (cm) 0.72 0.60 0.30 -Area of Debridement (cm) - Length 1.2 1.0 0.6 -Area of Debridement (cm) - Width 0.6 0.6 0.5 -Total Square (Area) (cm) 0.72 0.60 0.30 -Tunneling No No No -Undermining/Tunneling No No No -Circular Undermining No No No -Wound/Ulcer Outcome Not Healed Not Healed Not Healed -Ulcer Cleansing Rinsed/ Rinsed/ Rinsed/ Irrigated with Irrigated with Irrigated with Saline Saline Saline -Foul Odor after Cleansing No No No -Bioengineered Tissue Yes Yes Yes -Type of Bioengineered Tissue Epifix Epifix Epifix 18mm Disc -Expiration Date 07/06/25 07/06/25 08/06/25 -Product Lot Number [id number] -Percent Used 100 100 -Lot number of Saline Used [id number] -Bleeding Controlled with Pressure Pressure Pressure -Offloading Yes Yes -Type of Offloading Surgical Shoe Camwalker -Treatment Response Procedure Procedure Procedure Tolerated Well Tolerated Well Tolerated Well -Debridement - Subq, 1st 20sq cm No No No -Apply Skin Sub - 1st 25 sq cm - Feet 1 1 1 -Epifix (per sq cm) 4 4 -Epifix 18mm Disc 3 #4 right heel -Correct Patient No -Correct Side, Site, Position No -Correct Procedure No -Procedure Performed No -Post Debridement (cm) - Length 0 -Post Debridement (cm) - Width 0 -Post Debridement (cm) - Depth 0 -Total Square (Post) (cm) 0 -Area of Debridement (cm) - Length 0 -Area of Debridement (cm) - Width 0 -Total Square (Area) (cm) 0 -Wound/Ulcer Outcome Healed- Epithelialized Pain Scale: 0-10 Numeric Is Patient Pain Free? Yes Yes - Nurse 3 - General Ulcer D/C NN Start: 11/11/20 11:24 Freq: Status: Active Protocol: Activity Type Activity Date Activity User E-Sign Co-Sign Detail Recorded Client Recorded Date Recorded By Document 11/11/20 12:08 [id number] 11/11/20 12:09 Document 11/18/20 12:19 CA [id number] 11/18/20 12:20 CA Document 11/25/20 11:46 [id number] 11/25/20 11:47 11/11/20 11/18/20 11/25/20 12:08 12:19 11:46 Wound Care Nurse 3 7. R SECOND TOE -Ulcer Cleansing Rinsed/ Rinsed/ Irrigated with Irrigated with Saline Saline -Foul Odor after Cleansing No No -Primary Dressing Covered/Secured with Dry Gauze & Dry Gauze, Dry Gauze & Roll Gauze Secured with Roll Gauze, Tape Secured with Tape #6 R Grt Toe -Ulcer Cleansing Rinsed/ Irrigated with Saline -Foul Odor after Cleansing No -Primary Dressing Covered/Secured with Dry Gauze & Dry Gauze & Roll Gauze, Roll Gauze, Secured with Secured with Tape Tape Pain Scale: 0-10 Numeric Is Patient Pain Free? Yes Yes - Visit Discharge Discharge Condition Stable Stable Stable Ambulatory Status Ambulatory Ambulatory Ambulatory Transportation Private Auto Private Auto Private Auto Medication Reconcilliation completed & Yes No Yes provided to patient/care provider Clinical Summary of Care Provided Yes Yes Yes Wound debrided: lateral hallux and medial second toe Wound Grade/Stage: 3 (hallux), 1 (second toe) Type of Debridement: Excisional debridement Anesthesia Used: 4% Lidocaine Solution Depth: in the subcutaneous layer Percentage of wound debrided: 100 Instrument Used: #15 blade Tissue Removed: fibrous, devitalized subcutaneous, biofilm, slough Severity: Fat Layer Exposed Amount of bleeding with debridement: Mild Bleeding Controlled with: Pressure Patient tolerated procedure: Patient tolerated procedure well Assessment/Plan Assessment/Plan (1) Non-pressure chronic ulcer of other part of right foot with necrosis of bone: CODE(S): L97.514 - Non-pressure chronic ulcer of other part of right foot with necrosis of bone (2) Chronic heel ulcer with fat layer exposed: CODE(S): L97.402 - Non-pressure chronic ulcer of unspecified heel and midfoot with fat layer exposed QUALIFIERS: Laterality: right Qualified Code(s): L97.412 - Non-pressure chronic ulcer of right heel and midfoot with fat layer exposed (3) Type 2 diabetes mellitus with diabetic polyneuropathy: CODE(S): E11.42 - Type 2 diabetes mellitus with diabetic polyneuropathy QUALIFIERS: Diabetes mellitus emt intermediate insulin use: unspecified long-term insulin use status Qualified Code(s): E11.42 - Type 2 diabetes mellitus with diabetic polyneuropathy (4) Dialysis patient: CODE(S): Z99.2 - Dependence on renal dialysis (5) Ulcer of right foot with fat layer exposed: CODE(S): L97.512 - Non-pressure chronic ulcer of other part of right foot with fat layer exposed (6) Delayed wound healing: CODE(S): T14.8XXD - Other injury of unspecified body region, subsequent encounter PLAN: The patient was seen and examined at the wound center today and her case was reviewed. Debridement was performed today. Verbal consent was obtained today to apply an updated advanced wound healing product for the hallux. Epi fix was applied today. According to standard protocol. A wound veil and Steri-Strips were applied. A secondary dressing was applied. She tolerated this well. She was advised to keep this clean, dry, and intact until follow-up next week. Additional debridement and application wound healing product will be considered next visit. 100% of the product was utilized.. The purpose of offloading offloading techniques was reviewed. I do not recommend that she wears her close diabetic shoe even for short periods. I recommend she hangs her heel over stacked blankets or pillows while in bed to keep pressure off of the ulcer. I recommend she obtains a donut pillow to help with her offloading. She is at risk for amputation further illness of limb loss. Her new ulcer to the second toe was noted and she will use a gauze toe spacer to keep pressure off of these abutting ulcer sites. Although she has palpable pulses I do recommend screening her with a noninvasive vascular study to evaluate for any potential perfusion deficits. Her medical records from the [facility] will be requested. Her noninvasive vascular studies were reviewed from [facility] January 07, 2020 with triphasic waveforms bilateral and right ABIs of 1.21 and 1.07 and left ABIs of 1.2 and 1.09. The digital pressures were 105 mmHg on the right and 141 mmHg on the left. She also had normal PVR waveforms to the ankle and digital level bilateral. X-rays and MRI of the right foot were reviewed from her last hospital admission. MRI from 09-16-20 supports osteomyelitis of phalanx of right hallux. She is also treated for osteomyelitis under the management of infectious disease specialist. She is on IV Zosyn and vancomycin. Vancomycin was oordinated with her hemodialysis schedule. She was also on oral Augmentin. This was completed on 10-27-20. She had cultures previously with MRSA and anaerobic growth. She was reassured no local signs of infection are noted today. Her labs from were reviewed. She had resolution of leukocytosis prior to hospital discharge. Her last ESR was on 09-15-20 and was 116. She is at continued risk for limb loss. Hyperbaric oxygen therapy and advancing healing product application recommended and are medically necessary for limb salvage. To return to the wound healing center in 1 week w/ nursing staff and 2 weeks with physician, or call sooner if she has any questions or concerns or signs of infection. I answered all of her questions today. Note: [employer] speech recognition ornamental plaster sticker software was used to create portions of this document. Sound-alike and misspelled words, as well as other ornamental plaster sticker errors may be contained in the documentation.
[2020-12-02 10:44] VITALS: BP 120/65; PULSE 82; RESP 18; TEMP 36.1; BMI 27.1
== END 2020-12-05 23:59 ==
LOC: WC 12:30
PROVIDERS: PCP Family Medicine; Visit Provider Podiatrist
DX: E11.621 Type 2 diabetes mellitus with foot ulcer (principal); L97.512 Non-pressure chronic ulcer of other part of right foot with fat layer exposed; E11.42 Type 2 diabetes mellitus with diabetic polyneuropathy; E66.3 Overweight; Z68.27 Body mass index [BMI] 27.0-27.9, adult; Z99.2 Dependence on renal dialysis; Z79.02 Long term (current) use of antithrombotics/antiplatelets; Z79.4 Long term (current) use of insulin; Z79.899 Other long term (current) drug therapy
CPT/HCPCS: 11042; 15275; 99212; Q4186; G0463

== ENCOUNTER 2020-12-30 11:00 | Outpatient (RCR) | payer MEDICARE, MEDICAID, SELFPAY ==
[2020-12-06 00:17] VITALS: BP 120/65; PULSE 82; RESP 18; TEMP 36.1
[2020-12-09 11:35] VITALS: BP 120/60; PULSE 83; RESP 20; TEMP 36.9; BMI 27.1
--- NOTE | 2020-12-09 16:48 | PCM.WC.PN ---
History of Present Illness Date of Service: 12/09/20 Chief Complaint: hallux ulcers second toe ulcer History of Wound: She was seen today for right second toe and hallux ulcerations. During her hospital admission she was diagnosed with right hallux osteomyelitis and had a bedside debridement performed by Dr. Green. The onset of this ulcer was 09-12-20 when she had increased toe walking while looking at some property with her . She completed a course of 10/27 completing an antibiotic course for treatment of osteomyelitis. She was also previously under the management of infectious disease specialist, Dr. Herrera. She left her epi fix dressing as intact as she could. She wore toe spacer last week and was actually a folded gauze. She is not aware that her heel ulcer has reopened Progress of Wound: Healed second toe Improved hallux ulcer New heel ulcer Objective Data Objective Data Vital Signs: Vital Signs Temp Pulse Resp BP 98.5 F 83 20 H 120/60 12/09/20 11:35 12/09/20 11:35 12/09/20 11:35 12/09/20 11:35 Weight: 72.91 kg Body Mass Index (BMI) 27.1 Physical Exam Const alert and oriented x3 General Appearance: cooperative HEENT normocephalic Extremity Extremity Narrative: No calf tenderness Diminished pulses Muscle wasting noted General Extremity: edema and no tenderness to palpation of joints or extremities; Negative for cyanosis Skin Skin Narrative: no purulence, no streaking, no odor, no infection . Adjacent skin is hairless and atrophic. There is a skin discontinuity to the medial right second toe that is now healed today with full epithelialization. Granular lateral right hallux ulcer with size reduction. Full epithelialization to the dorsal aspect of the right hallux ulcer. No webspace maceration or necrosis. New skin discontinuity to posterior plantar medial heel with granular base and no infection General Skin Exam: Negative for erythema Neuro Neuro Narrative: lack of normal epicritic sensation via light touch is consistent with neuropathy status Psych cooperative and affect normal Debridement Note Debridement Note Post-Debridement Measurements and Additional Note: Post-Debridement Measurements/Treatment WC - Nurse 1 - General Ulcer Assessment Start: 12/09/20 11:34 Freq: Status: Active Protocol: DAVID Activity Type Activity Date Activity User E-Sign Co-Sign Detail Recorded Client Recorded Date Recorded By Document 12/09/20 11:35 DL [id number] 12/09/20 11:41 12/09/20 11:35 WC - Today's Visit Information Type of service 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-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 ) Arrival Mode Ambulatory Transfer Assistance None Patient Identification Verified (Name & Yes ) Patient Requires Transmission-Based No Precautions Finger Stick Blood Sugar(mg/dl) (if 165 indicated): Blood Sugar Stated by Patient Height and Weight Body Mass Index (BMI) 27.1 BMI Classification Overweight Vital Signs Temperature (97.8 F-99.1 F) 98.5 F Temperature Source Temporal Pulse Rate (60-100) 83 Pulse Location Monitor Respiratory Rate (12-18) 20 H Respiratory rate source Observation Blood Pressure (90/60-120/80) 120/60 Blood Pressure Mean (mm Hg) 80 Source Monitor History Since Last Visit- (Skip if this is Patient's initial visit) Have you changed medications since your No last visit? Any new allergies or adverse reactions No Had a fall/change in ADL's that may No increase risk of falls Signs or symptoms of abuse and/or No neglect since last visit Have you been in the hospital since your No last visit? Has dressing in place as prescribed Yes Has compression in place as prescribed N/A Has offloadiing in place as prescribed Yes Experienced any changes in pain level or No management Pain Scale: 0-10 Numeric Is Patient Pain Free? Yes - Nurse 1 - General Ulcer Measurement Start: 12/09/20 11:34 Freq: Status: Active Protocol: Activity Type Activity Date Activity User E-Sign Co-Sign Detail Recorded Client Recorded Date Recorded By Document 12/09/20 11:35 [id number] 12/09/20 11:41 12/09/20 11:35 Wound Center Nurse 1 7. R SECOND TOE -Current Size (cm) - Length 0.1 -Current Size (cm) - Width 0.1 -Current Size (cm) - Depth 0.1 -Total Square Cm 0.01 -Photo Taken No -Exudate Amt None Present -Wound Margin Thickened -Granulation Amt Large (67-100%) -Granulation Quality Pale -Necrosis Amt None Present (0 %) -Structure Exposed N/A -Texture (Colleen-wound Skin Appearance) Scarring -Moisture (Colleen-wound Skin Appearance) No Abnormality -Color (Colleen-wound Skin Appearance) No Abnormality -Temperature (Colleen-wound Skin No Abnormality Appearance) (Pt Warm) -Tenderness on Palpation (Colleen-wound No Skin Appearance) -Ulcer Cleansing Rinsed/ Irrigated with Saline -Foul Odor after Cleansing No -Anesthetic Used 5% Lidocaine Gel #6 R Grt Toe -Current Size (cm) - Length 0.2 -Current Size (cm) - Width 0.2 -Current Size (cm) - Depth 0.2 -Total Square Cm 0.04 -Photo Taken No -Maximum Distance #2 (cm) 0.3 -Circular Undermining Yes -Exudate Amt Small -Exudate Type Serosanguineous -Wound Margin Thickened -Granulation Amt Small (1-33%) -Granulation Quality Red -Necrosis Amt None Present (0 %) -Structure Exposed N/A -Texture (Colleen-wound Skin Appearance) Scarring -Moisture (Colleen-wound Skin Appearance) Dry/Scaly -Color (Colleen-wound Skin Appearance) No Abnormality -Temperature (Colleen-wound Skin No Abnormality Appearance) (Pt Warm) -Tenderness on Palpation (Colleen-wound No Skin Appearance) -Ulcer Cleansing Rinsed/ Irrigated with Saline -Foul Odor after Cleansing No -Anesthetic Used 5% Lidocaine Gel WC - Nurse 2 - General Ulcer CM Notes Start: 12/09/20 11:34 Freq: Status: Active Protocol: Activity Type Activity Date Activity User E-Sign Co-Sign Detail Recorded Client Recorded Date Recorded By Document 12/09/20 12:00 VITO [id number] 12/09/20 12:09 VITO 12/09/20 12:00 Wound Center Nurse 2 8-right heel -Time 12:05 -Correct Patient Yes -Correct Side, Site, Position Yes -Correct Procedure Yes -Procedure Performed Yes -Type of Procedure Debridement -Clinical Debridement Subcutaneous -Tissue Removed Subcutaneous -Post Debridement (cm) - Length 1.2 -Post Debridement (cm) - Width 0.8 -Post Debridement (cm) - Depth 0.2 -Total Square (Post) (cm) 0.96 -Area of Debridement (cm) - Length 1.2 -Area of Debridement (cm) - Width 0.8 -Total Square (Area) (cm) 0.96 -Tunneling No -Undermining/Tunneling No -Circular Undermining No -Wound/Ulcer Outcome Not Healed -Ulcer Cleansing Rinsed/ Irrigated with Saline -Foul Odor after Cleansing No -Bioengineered Tissue No -Bleeding Controlled with Pressure -Offloading Yes -Type of Offloading Camwalker -Treatment Response Procedure Tolerated Well -Debridement - Subq, 1st 20sq cm Yes 7. R SECOND TOE -Correct Patient No -Correct Side, Site, Position No -Correct Procedure No -Procedure Performed No -Post Debridement (cm) - Length 0 -Post Debridement (cm) - Width 0 -Post Debridement (cm) - Depth 0 -Total Square (Post) (cm) 0 -Area of Debridement (cm) - Length 0 -Area of Debridement (cm) - Width 0 -Total Square (Area) (cm) 0 -Wound/Ulcer Outcome Healed- Epithelialized #6 R Grt Toe -Time 12:02 -Correct Patient Yes -Correct Side, Site, Position Yes -Correct Procedure Yes -Procedure Performed Yes -Type of Procedure Debridement -Clinical Debridement Subcutaneous -Tissue Removed Subcutaneous -Post Debridement (cm) - Length 0.3 -Post Debridement (cm) - Width 0.2 -Post Debridement (cm) - Depth 0.3 -Total Square (Post) (cm) 0.06 -Area of Debridement (cm) - Length 0.3 -Area of Debridement (cm) - Width 0.2 -Total Square (Area) (cm) 0.06 -Tunneling No -Undermining/Tunneling No -Circular Undermining No -Wound/Ulcer Outcome Not Healed -Ulcer Cleansing Rinsed/ Irrigated with Saline -Foul Odor after Cleansing No -Bioengineered Tissue Yes -Type of Bioengineered Tissue Epifix 18mm Disc -Expiration Date 08/06/25 -Product Lot Number [id number] -Percent Used 100 -Lot number of Saline Used [id number] -Bleeding Controlled with Pressure -Offloading Yes -Type of Offloading Surgical Shoe -Treatment Response Procedure Tolerated Well -Debridement - Subq, 1st 20sq cm No -Apply Skin Sub - 1st 25 sq cm - Feet 1 -Epifix 18mm Disc 3 Pain Scale: 0-10 Numeric Is Patient Pain Free? Yes WC - Nurse 3 - General Ulcer D/C NN Start: 12/09/20 11:34 Freq: Status: Active Protocol: Activity Type Activity Date Activity User E-Sign Co-Sign Detail Recorded Client Recorded Date Recorded By Document 12/09/20 12:12 VITO [id number] 12/09/20 12:13 VITO 12/09/20 12:12 Wound Care Nurse 3 8-right heel -Ulcer Cleansing Rinsed/ Irrigated with Saline -Foul Odor after Cleansing No -Primary Dressing Covered/Secured with Dry Gauze & Roll Gauze #6 R Grt Toe -Ulcer Cleansing Rinsed/ Irrigated with Saline -Foul Odor after Cleansing No -Primary Dressing Covered/Secured with Dry Gauze & Roll Gauze, Secured with Tape Pain Scale: 0-10 Numeric Is Patient Pain Free? Yes WC - Visit Discharge Discharge Condition Stable Ambulatory Status Ambulatory Transportation Private Auto Medication Reconcilliation completed & Yes provided to patient/care provider Clinical Summary of Care Provided Yes Wound debrided: right hallux and right heel Wound Grade/Stage: 3 (hallux), 1 (heel) Type of Debridement: Excisional debridement Anesthesia Used: 4% Lidocaine Solution Depth: in the subcutaneous layer Percentage of wound debrided: 100 Instrument Used: #15 blade Tissue Removed: fibrous, devitalized subcutaneous, biofilm, slough Severity: Fat Layer Exposed Amount of bleeding with debridement: Mild Bleeding Controlled with: Pressure Patient tolerated procedure: Patient tolerated procedure well Assessment/Plan Assessment/Plan (1) Non-pressure chronic ulcer of other part of right foot with necrosis of bone: CODE(S): L97.514 - Non-pressure chronic ulcer of other part of right foot with necrosis of bone (2) Chronic heel ulcer with fat layer exposed: CODE(S): L97.402 - Non-pressure chronic ulcer of unspecified heel and midfoot with fat layer exposed QUALIFIERS: Laterality: right Qualified Code(s): L97.412 - Non-pressure chronic ulcer of right heel and midfoot with fat layer exposed (3) Type 2 diabetes mellitus with diabetic polyneuropathy: CODE(S): E11.42 - Type 2 diabetes mellitus with diabetic polyneuropathy QUALIFIERS: Diabetes mellitus correction insulin use: unspecified correction insulin use status Qualified Code(s): E11.42 - Type 2 diabetes mellitus with diabetic polyneuropathy (4) Dialysis patient: CODE(S): Z99.2 - Dependence on renal dialysis (5) Ulcer of right foot with fat layer exposed: CODE(S): L97.512 - Non-pressure chronic ulcer of other part of right foot with fat layer exposed (6) Delayed wound healing: CODE(S): T14.8XXD - Other injury of unspecified body region, subsequent encounter PLAN: The patient was seen and examined at the wound center today and her case was reviewed. Debridement was performed today. It is in her second toe ulcer site has healed and her hallux is improving. Her heel ulcer has reopened without infection. Verbal consent was obtained today to apply an updated advanced wound healing product for the hallux. Epi fix was applied today. According to standard protocol. A wound veil and Steri-Strips were applied. A secondary dressing was applied. She tolerated this well. She was advised to keep this clean, dry, and intact until follow-up next week. Additional debridement and application wound healing product will be considered next visit. 100% of the product was utilized. The purpose of offloading offloading techniques was reviewed. I do not recommend that she wears her close diabetic shoe even for short periods. I recommend she hangs her heel over stacked blankets or pillows while in bed to keep pressure off of the ulcer. I recommend she obtains a donut pillow to help with her offloading. She is at risk for amputation further illness of limb loss. To resume compliance with offloading heel due to her new ulcer formation. Although she has palpable pulses I do recommend screening her with a noninvasive vascular study to evaluate for any potential perfusion deficits. Her medical records from the [facility] will be requested. Her noninvasive vascular studies were reviewed from [facility] January 07, 2020 with triphasic waveforms bilateral and right ABIs of 1.21 and 1.07 and left ABIs of 1.2 and 1.09. The digital pressures were 105 mmHg on the right and 141 mmHg on the left. She also had normal PVR waveforms to the ankle and digital level bilateral. X-rays and MRI of the right foot were reviewed from her last hospital admission. MRI from 09-16-20 supports osteomyelitis of phalanx of right hallux. She is also treated for osteomyelitis under the management of infectious disease specialist. She is on IV Zosyn and vancomycin. Vancomycin was oordinated with her hemodialysis schedule. She was also on oral Augmentin. This was completed on 10-27-20. She had cultures previously with MRSA and anaerobic growth. She was reassured no local signs of infection are noted today. Her labs from were reviewed. She had resolution of leukocytosis prior to hospital discharge. Her last ESR was on 09-15-20 and was 116. She is at continued risk for limb loss. Hyperbaric oxygen therapy and advancing healing product application recommended and are medically necessary for limb salvage. To return to the wound healing center in 1 week w/ nursing staff and 2 weeks with physician, or call sooner if she has any questions or concerns or signs of infection. I answered all of her questions today. Note: [employer] speech recognition laboratory engineer software was used to create portions of this document. Sound-alike and misspelled words, as well as other laboratory engineer errors may be contained in the documentation.
[2020-12-16 11:16] VITALS: BP 132/70; PULSE 79; RESP 20; TEMP 36.9; BMI 27.1
--- NOTE | 2020-12-16 11:33 | PCM.WC.PN ---
History of Present Illness Date of Service: 12/16/20 Chief Complaint: hallux ulcers heel ulcer returned History of Wound: She was seen today for right second toe and hallux ulcerations. During her hospital admission she was diagnosed with right hallux osteomyelitis and had a bedside debridement performed by Dr. Green. The onset of this ulcer was 09-12-20 when she had increased toe walking while looking at some property with her . She completed a course of 10/27 completing an antibiotic course for treatment of osteomyelitis. She was also previously under the management of infectious disease specialist, Dr. Herrera. she completed course of epifix and epicord to the hallux and denies drainage. Progress of Wound: Healed second toe Improved hallux ulcer New heel ulcer Objective Data Objective Data Vital Signs: Vital Signs Temp Pulse Resp BP 98.4 F 79 20 H 132/70 H 12/16/20 11:16 12/16/20 11:16 12/16/20 11:16 12/16/20 11:16 Weight: 72.91 kg Body Mass Index (BMI) 27.1 Physical Exam Const alert and oriented x3 General Appearance: cooperative HEENT normocephalic Extremity normal capillary refill Extremity Narrative: No calf tenderness Diminished pulses Muscle wasting noted General Extremity: edema Skin Skin Narrative: no purulence, no streaking, no odor, no infection . Adjacent skin is hairless and atrophic. There is a skin discontinuity to the medial right second toe that is now healed today with full epithelialization. full epithelialization to hallux ulcer site; healed. No webspace maceration or necrosis. skin discontinuity to posterior plantar medial heel with granular base and no infection Neuro Neuro Narrative: lack of normal epicritic sensation via light touch is consistent with neuropathy status Debridement Note Debridement Note Post-Debridement Measurements and Additional Note: Post-Debridement Measurements/Treatment NATHAN - Nurse 1 - General Ulcer Assessment Start: 12/09/20 11:34 Freq: Status: Active Protocol: DAVID Activity Type Activity Date Activity User E-Sign Co-Sign Detail Recorded Client Recorded Date Recorded By Document 12/09/20 11:35 DL [id number] 12/09/20 11:41 DL Document 12/16/20 11:16 DL [id number] 12/16/20 11:22 DL 12/09/20 12/16/20 11:35 11:16 - Today's Visit Information Type of service Follow-up Visit Follow-up Visit (Physician/MANAGER PACU (Physician/MANAGER PACU ) ) Arrival Mode Ambulatory Ambulatory Transfer Assistance None None Patient Identification Verified (Name & Yes Yes ) Patient Requires Transmission-Based No No Precautions Finger Stick Blood Sugar(mg/dl) (if 165 115 indicated): Blood Sugar Stated by Stated by Patient Patient Height and Weight Body Mass Index (BMI) 27.1 27.1 BMI Classification Overweight Overweight Vital Signs Temperature (97.8 F-99.1 F) 98.5 F 98.4 F Temperature Source Temporal Temporal Pulse Rate (60-100) 83 79 Pulse Location Monitor Monitor Respiratory Rate (12-18) 20 H 20 H Respiratory rate source Observation Observation Blood Pressure (90/60-120/80) 120/60 132/70 H Blood Pressure Mean (mm Hg) 80 90 Source Monitor Monitor History Since Last Visit- (Skip if this is Patient's initial visit) Have you changed medications since your No No last visit? Any new allergies or adverse reactions No No Had a fall/change in ADL's that may No No increase risk of falls Signs or symptoms of abuse and/or No No neglect since last visit Have you been in the hospital since your No No last visit? Has dressing in place as prescribed Yes Yes Has compression in place as prescribed N/A N/A Has offloadiing in place as prescribed Yes Yes Experienced any changes in pain level or No No management Pain Scale: 0-10 Numeric Is Patient Pain Free? Yes Yes WC - Nurse 1 - General Ulcer Measurement Start: 12/09/20 11:34 Freq: Status: Active Protocol: Activity Type Activity Date Activity User E-Sign Co-Sign Detail Recorded Client Recorded Date Recorded By Document 12/09/20 11:35 DL [id number] 12/09/20 11:41 DL Document 12/16/20 11:16 DL [id number] 12/16/20 11:22 DL 12/09/20 12/16/20 11:35 11:16 Wound Center Nurse 1 8-right heel -Current Size (cm) - Length 0.7 -Current Size (cm) - Width 0.7 -Current Size (cm) - Depth 0.5 -Total Square Cm 0.49 -Photo Taken No -Maximum Distance #2 (cm) 0.3 -Circular Undermining Yes -Exudate Amt Small -Exudate Type Serosanguineous -Wound Margin Distinct, Outline Attached -Granulation Amt Small (1-33%) -Granulation Quality Red -Necrosis Amt Small (1-33%) -Necrotic Tissue Type Adherent Slough -Structure Exposed N/A -Texture (Colleen-wound Skin Appearance) Scarring -Moisture (Colleen-wound Skin Appearance) Assessed, Maceration -Color (Colleen-wound Skin Appearance) No Abnormality -Temperature (Colleen-wound Skin No Abnormality Appearance) (Pt Warm) -Tenderness on Palpation (Colleen-wound No Skin Appearance) -Ulcer Cleansing Wound Cleanser -Foul Odor after Cleansing No -Anesthetic Used 4% Lidocaine Solution 7. R SECOND TOE -Current Size (cm) - Length 0.1 -Current Size (cm) - Width 0.1 -Current Size (cm) - Depth 0.1 -Total Square Cm 0.01 -Photo Taken No -Exudate Amt None Present -Wound Margin Thickened -Granulation Amt Large (67-100%) -Granulation Quality Pale -Necrosis Amt None Present (0 %) -Structure Exposed N/A -Texture (Colleen-wound Skin Appearance) Scarring -Moisture (Colleen-wound Skin Appearance) No Abnormality -Color (Colleen-wound Skin Appearance) No Abnormality -Temperature (Colleen-wound Skin No Abnormality Appearance) (Pt Warm) -Tenderness on Palpation (Colleen-wound No Skin Appearance) -Ulcer Cleansing Rinsed/ Irrigated with Saline -Foul Odor after Cleansing No -Anesthetic Used 5% Lidocaine Gel #6 R Grt Toe -Current Size (cm) - Length 0.2 0.1 -Current Size (cm) - Width 0.2 0.1 -Current Size (cm) - Depth 0.2 0.1 -Total Square Cm 0.04 0.01 -Photo Taken No No -Maximum Distance #2 (cm) 0.3 -Circular Undermining Yes -Exudate Amt Small None Present -Exudate Type Serosanguineous -Wound Margin Thickened Thickened -Granulation Amt Small (1-33%) Large (67-100%) -Granulation Quality Red [place] -Necrosis Amt None Present (0 Small (1-33%) %) -Necrotic Tissue Type Adherent Slough -Structure Exposed N/A N/A -Texture (Colleen-wound Skin Appearance) Scarring Scarring -Moisture (Colleen-wound Skin Appearance) Dry/Scaly No Abnormality -Color (Colleen-wound Skin Appearance) No Abnormality No Abnormality -Temperature (Colleen-wound Skin No Abnormality No Abnormality Appearance) (Pt Warm) (Pt Warm) -Tenderness on Palpation (Colleen-wound No No Skin Appearance) -Ulcer Cleansing Rinsed/ Wound Cleanser Irrigated with Saline -Foul Odor after Cleansing No No -Anesthetic Used 5% Lidocaine 4% Lidocaine Gel Solution WC - Nurse 2 - General Ulcer CM Notes Start: 12/09/20 11:34 Freq: Status: Active Protocol: Activity Type Activity Date Activity User E-Sign Co-Sign Detail Recorded Client Recorded Date Recorded By Document 12/09/20 12:00 VITO [id number] 12/09/20 12:09 VITO 12/09/20 12:00 Wound Center Nurse 2 8-right heel -Time 12:05 -Correct Patient Yes -Correct Side, Site, Position Yes -Correct Procedure Yes -Procedure Performed Yes -Type of Procedure Debridement -Clinical Debridement Subcutaneous -Tissue Removed Subcutaneous -Post Debridement (cm) - Length 1.2 -Post Debridement (cm) - Width 0.8 -Post Debridement (cm) - Depth 0.2 -Total Square (Post) (cm) 0.96 -Area of Debridement (cm) - Length 1.2 -Area of Debridement (cm) - Width 0.8 -Total Square (Area) (cm) 0.96 -Tunneling No -Undermining/Tunneling No -Circular Undermining No -Wound/Ulcer Outcome Not Healed -Ulcer Cleansing Rinsed/ Irrigated with Saline -Foul Odor after Cleansing No -Bioengineered Tissue No -Bleeding Controlled with Pressure -Offloading Yes -Type of Offloading Camwalker -Treatment Response Procedure Tolerated Well -Debridement - Subq, 1st 20sq cm Yes 7. R SECOND TOE -Correct Patient No -Correct Side, Site, Position No -Correct Procedure No -Procedure Performed No -Post Debridement (cm) - Length 0 -Post Debridement (cm) - Width 0 -Post Debridement (cm) - Depth 0 -Total Square (Post) (cm) 0 -Area of Debridement (cm) - Length 0 -Area of Debridement (cm) - Width 0 -Total Square (Area) (cm) 0 -Wound/Ulcer Outcome Healed- Epithelialized #6 R Grt Toe -Time 12:02 -Correct Patient Yes -Correct Side, Site, Position Yes -Correct Procedure Yes -Procedure Performed Yes -Type of Procedure Debridement -Clinical Debridement Subcutaneous -Tissue Removed Subcutaneous -Post Debridement (cm) - Length 0.3 -Post Debridement (cm) - Width 0.2 -Post Debridement (cm) - Depth 0.3 -Total Square (Post) (cm) 0.06 -Area of Debridement (cm) - Length 0.3 -Area of Debridement (cm) - Width 0.2 -Total Square (Area) (cm) 0.06 -Tunneling No -Undermining/Tunneling No -Circular Undermining No -Wound/Ulcer Outcome Not Healed -Ulcer Cleansing Rinsed/ Irrigated with Saline -Foul Odor after Cleansing No -Bioengineered Tissue Yes -Type of Bioengineered Tissue Epifix 18mm Disc -Expiration Date 08/06/25 -Product Lot Number [id number] -Percent Used 100 -Lot number of Saline Used [id number] -Bleeding Controlled with Pressure -Offloading Yes -Type of Offloading Surgical Shoe -Treatment Response Procedure Tolerated Well -Debridement - Subq, 1st 20sq cm No -Apply Skin Sub - 1st 25 sq cm - Feet 1 -Epifix 18mm Disc 3 Pain Scale: 0-10 Numeric Is Patient Pain Free? Yes - Nurse 3 - General Ulcer D/C NN Start: 12/09/20 11:34 Freq: Status: Active Protocol: Activity Type Activity Date Activity User E-Sign Co-Sign Detail Recorded Client Recorded Date Recorded By Document 12/09/20 12:12 VITO [id number] 12/09/20 12:13 VITO 12/09/20 12:12 Wound Care Nurse 3 8-right heel -Ulcer Cleansing Rinsed/ Irrigated with Saline -Foul Odor after Cleansing No -Primary Dressing Covered/Secured with Dry Gauze & Roll Gauze #6 R Grt Toe -Ulcer Cleansing Rinsed/ Irrigated with Saline -Foul Odor after Cleansing No -Primary Dressing Covered/Secured with Dry Gauze & Roll Gauze, Secured with Tape Pain Scale: 0-10 Numeric Is Patient Pain Free? Yes - Visit Discharge Discharge Condition Stable Ambulatory Status Ambulatory Transportation Private Auto Medication Reconcilliation completed & Yes provided to patient/care provider Clinical Summary of Care Provided Yes Wound debrided: right heel Wound Grade/Stage: 1 Type of Debridement: Excisional debridement Anesthesia Used: 4% Lidocaine Solution Depth: in the subcutaneous layer Percentage of wound debrided: 100 Instrument Used: #15 blade Tissue Removed: fibrous, devitalized subcutaneous, biofilm, slough Severity: Fat Layer Exposed Amount of bleeding with debridement: Mild Bleeding Controlled with: Pressure Patient tolerated procedure: Patient tolerated procedure well Assessment/Plan Assessment/Plan (1) Non-pressure chronic ulcer of other part of right foot with necrosis of bone: CODE(S): L97.514 - Non-pressure chronic ulcer of other part of right foot with necrosis of bone (2) Chronic heel ulcer with fat layer exposed: CODE(S): L97.402 - Non-pressure chronic ulcer of unspecified heel and midfoot with fat layer exposed QUALIFIERS: Laterality: right Qualified Code(s): L97.412 - Non-pressure chronic ulcer of right heel and midfoot with fat layer exposed (3) Type 2 diabetes mellitus with diabetic polyneuropathy: CODE(S): E11.42 - Type 2 diabetes mellitus with diabetic polyneuropathy QUALIFIERS: Diabetes mellitus acetylene torch burner insulin use: unspecified acetylene torch burner insulin use status Qualified Code(s): E11.42 - Type 2 diabetes mellitus with diabetic polyneuropathy (4) Dialysis patient: CODE(S): Z99.2 - Dependence on renal dialysis (5) Ulcer of right foot with fat layer exposed: CODE(S): L97.512 - Non-pressure chronic ulcer of other part of right foot with fat layer exposed (6) Delayed wound healing: CODE(S): T14.8XXD - Other injury of unspecified body region, subsequent encounter PLAN: The patient was seen and examined at the wound center today and her case was reviewed. Debridement was performed today to the heel. Other ulcer sites have healed and it is noted she has completed a comprehensive wound healing and osteomyelitis treatment plan. Dressing: Aquacel Ag rope Maranda daily Wash: Antibacterial soap and water The purpose of offloading offloading techniques was reviewed. I do not recommend that she wears her close diabetic shoe even for short periods. I recommend she hangs her heel over stacked blankets or pillows while in bed to keep pressure off of the ulcer. I recommend she obtains a donut pillow to help with her offloading. She is at risk for amputation further illness of limb loss. To resume compliance with offloading heel due to her new ulcer formation. Although she has palpable pulses I do recommend screening her with a noninvasive vascular study to evaluate for any potential perfusion deficits. Her medical records from the [facility] will be requested. Her noninvasive vascular studies were reviewed from [facility] January 07, 2020 with triphasic waveforms bilateral and right ABIs of 1.21 and 1.07 and left ABIs of 1.2 and 1.09. The digital pressures were 105 mmHg on the right and 141 mmHg on the left. She also had normal PVR waveforms to the ankle and digital level bilateral. Her labs from were reviewed. She had resolution of leukocytosis prior to hospital discharge. Her last ESR was on 09-15-20 and was 116. She is at continued risk for limb loss. To return to the wound healing center in 1 week, or call sooner if she has any questions or concerns or signs of infection. I answered all of her questions today. Note: Emergency [employer] speech recognition senior accountant software was used to create portions of this document. Sound-alike and misspelled words, as well as other senior accountant errors may be contained in the documentation. 12 minutes was spent on this encounter. This included face to face and non face to face care including preparing for the visit, reviewing the history, performing the exam, counseling and providing education to the patient, family, or caregiver, ordering medications/test/ procedures if indicated as documented, communicating with other healthcare providers, documenting information in the medical record, interpreting / sharing this information when indicated as documented, and care coordination.
[2020-12-23 10:39] VITALS: BP 140/74; PULSE 76; RESP 18; TEMP 36.6; BMI 27.1
--- NOTE | 2020-12-23 14:11 | PCM.PROGNOTE ---
Objective Data Objective Data Vital Signs: Vital Signs Temp Pulse Resp BP 97.8 F 76 18 140/74 H 12/23/20 10:39 12/23/20 10:39 12/23/20 10:39 12/23/20 10:39 Weight: 72.91 kg Body Mass Index (BMI) 27.1
--- NOTE | 2020-12-23 16:02 | PN.PCM_ITS ---
History of Present Illness Date of Service: 12/23/20 Chief Complaint: hallux ulcers heel ulcer returned History of Wound: She was seen today for right second toe and hallux ulcerations. During her hospital admission she was diagnosed with right hallux osteomyelitis and had a bedside debridement performed by Dr. Green. She denies fever, chill, nausea, vomiting. She has been trying to offload her heel by wearing an offloading donut pillow. She continues to wear athletic sneakers and walked in today with these shoes on. She continues on dialysis. Progress of Wound: Healed second toe Healed hallux ulcer Return heel ulcer Objective Data Objective Data Vital Signs: Vital Signs Temp Pulse Resp BP 97.8 F 76 18 140/74 H 12/23/20 10:39 12/23/20 10:39 12/23/20 10:39 12/23/20 10:39 Weight: 72.91 kg Body Mass Index (BMI) 27.1 Physical Exam Const alert and oriented x3 General Appearance: cooperative HEENT normocephalic Extremity normal capillary refill General Extremity: edema Skin Skin Narrative: no purulence, no streaking, no odor, no infection . Adjacent skin is hairless and atrophic. No webspace maceration or necrosis. skin discontinuity plantar medial heel with granular base and no infection. full epithelialization to digits Neuro Neuro Narrative: Lack of normal epicritic sensation light touch is consistent with neuropathic status. Debridement Note Debridement Note Post-Debridement Measurements and Additional Note: Post-Debridement Measurements/Treatment WC - Nurse 1 - General Ulcer Assessment Start: 12/09/20 11:34 Freq: Status: Active Protocol: DAVID Activity Type Activity Date Activity User E-Sign Co-Sign Detail Recorded Client Recorded Date Recorded By Document 12/09/20 11:35 DL [id number] 12/09/20 11:41 DL Document 12/16/20 11:16 DL [id number] 12/16/20 11:22 DL Document 12/23/20 10:39 DL Desktop 12/23/20 10:46 DL 12/09/20 12/16/20 12/23/20 11:35 11:16 10:39 - Today's Visit Information Type of service Follow-up Visit Follow-up Visit Follow-up Visit (Physician/INFORMATION CLERK BROKERAGE (Physician/INFORMATION CLERK BROKERAGE (Physician/INFORMATION CLERK BROKERAGE ) ) ) Arrival Mode Ambulatory Ambulatory Ambulatory Transfer Assistance None None None Patient Identification Verified (Name & Yes Yes Yes ) Patient Requires Transmission-Based No No No Precautions Finger Stick Blood Sugar(mg/dl) (if 165 115 indicated): Blood Sugar Stated by Stated by Patient Patient Height and Weight Body Mass Index (BMI) 27.1 27.1 27.1 BMI Classification Overweight Overweight Overweight Vital Signs Temperature (97.8 F-99.1 F) 98.5 F 98.4 F 97.8 F Temperature Source Temporal Temporal Temporal Pulse Rate (60-100) 83 79 76 Pulse Location Monitor Monitor Monitor Respiratory Rate (12-18) 20 H 20 H 18 Respiratory rate source Observation Observation Observation Blood Pressure (90/60-120/80) 120/60 132/70 H 140/74 H Blood Pressure Mean (mm Hg) 80 90 96 Source Monitor Monitor Monitor History Since Last Visit- (Skip if this is Patient's initial visit) Have you changed medications since your No No No last visit? Any new allergies or adverse reactions No No No Had a fall/change in ADL's that may No No No increase risk of falls Signs or symptoms of abuse and/or No No No neglect since last visit Have you been in the hospital since your No No No last visit? Has dressing in place as prescribed Yes Yes Yes Has compression in place as prescribed N/A N/A No Has offloadiing in place as prescribed Yes Yes Yes Experienced any changes in pain level or No No management Left Footwear Regular Shoe Right Footwear Regular Shoe Pain Scale: 0-10 Numeric Is Patient Pain Free? Yes Yes Yes WC - Nurse 1 - General Ulcer Measurement Start: 12/09/20 11:34 Freq: Status: Active Protocol: Activity Type Activity Date Activity User E-Sign Co-Sign Detail Recorded Client Recorded Date Recorded By Document 12/09/20 11:35 DL [id number] 12/09/20 11:41 DL Document 12/16/20 11:16 DL [id number] 12/16/20 11:22 DL Document 12/23/20 10:39 DL Desktop 12/23/20 10:46 DL 12/09/20 12/16/20 12/23/20 11:35 11:16 10:39 Wound Center Nurse 1 8-right heel -Current Size (cm) - Length 0.7 0.8 -Current Size (cm) - Width 0.7 0.8 -Current Size (cm) - Depth 0.5 1 -Total Square Cm 0.49 0.64 -Photo Taken No No -Maximum Distance #2 (cm) 0.3 -Circular Undermining Yes -Exudate Amt Small Small -Exudate Type Serosanguineous Serosanguineous -Wound Margin Distinct, Distinct, Outline Outline Attached Attached -Granulation Amt Small (1-33%) Large (67-100%) -Granulation Quality Red Red -Necrosis Amt Small (1-33%) Small (1-33%) -Necrotic Tissue Type Adherent Slough Adherent Slough -Structure Exposed N/A N/A -Texture (Colleen-wound Skin Appearance) Scarring Callus,Scarring -Moisture (Colleen-wound Skin Appearance) Assessed, Maceration Maceration -Color (Colleen-wound Skin Appearance) No Abnormality No Abnormality -Temperature (Colleen-wound Skin No Abnormality No Abnormality Appearance) (Pt Warm) (Pt Warm) -Tenderness on Palpation (Colleen-wound No No Skin Appearance) -Ulcer Cleansing Wound Cleanser Rinsed/ Irrigated with Saline -Foul Odor after Cleansing No No -Anesthetic Used 4% Lidocaine 5% Lidocaine Solution Gel 7. R SECOND TOE -Current Size (cm) - Length 0.1 -Current Size (cm) - Width 0.1 -Current Size (cm) - Depth 0.1 -Total Square Cm 0.01 -Photo Taken No -Exudate Amt None Present -Wound Margin Thickened -Granulation Amt Large (67-100%) -Granulation Quality Pale -Necrosis Amt None Present (0 %) -Structure Exposed N/A -Texture (Colleen-wound Skin Appearance) Scarring -Moisture (Colleen-wound Skin Appearance) No Abnormality -Color (Colleen-wound Skin Appearance) No Abnormality -Temperature (Colleen-wound Skin No Abnormality Appearance) (Pt Warm) -Tenderness on Palpation (Colleen-wound No Skin Appearance) -Ulcer Cleansing Rinsed/ Irrigated with Saline -Foul Odor after Cleansing No -Anesthetic Used 5% Lidocaine Gel #6 R Grt Toe -Current Size (cm) - Length 0.2 0.1 -Current Size (cm) - Width 0.2 0.1 -Current Size (cm) - Depth 0.2 0.1 -Total Square Cm 0.04 0.01 -Photo Taken No No -Maximum Distance #2 (cm) 0.3 -Circular Undermining Yes -Exudate Amt Small None Present -Exudate Type Serosanguineous -Wound Margin Thickened Thickened -Granulation Amt Small (1-33%) Large (67-100%) -Granulation Quality Red [place] -Necrosis Amt None Present (0 Small (1-33%) %) -Necrotic Tissue Type Adherent Slough -Structure Exposed N/A N/A -Texture (Colleen-wound Skin Appearance) Scarring Scarring -Moisture (Colleen-wound Skin Appearance) Dry/Scaly No Abnormality -Color (Colleen-wound Skin Appearance) No Abnormality No Abnormality -Temperature (Colleen-wound Skin No Abnormality No Abnormality Appearance) (Pt Warm) (Pt Warm) -Tenderness on Palpation (Colleen-wound No No Skin Appearance) -Ulcer Cleansing Rinsed/ Wound Cleanser Irrigated with Saline -Foul Odor after Cleansing No No -Anesthetic Used 5% Lidocaine 4% Lidocaine Gel Solution WC - Nurse 2 - General Ulcer CM Notes Start: 12/09/20 11:34 Freq: Status: Active Protocol: Activity Type Activity Date Activity User E-Sign Co-Sign Detail Recorded Client Recorded Date Recorded By Document 12/09/20 12:00 [id number] 12/09/20 12:09 Document 12/16/20 11:33 [id number] 12/16/20 11:37 Document 12/23/20 11:10 [id number] 12/23/20 11:13 12/09/20 12/16/20 12/23/20 12:00 11:33 11:10 Wound Center Nurse 2 8-right heel -Time 12:05 11:33 11:10 -Correct Patient Yes Yes Yes -Correct Side, Site, Position Yes Yes Yes -Correct Procedure Yes Yes Yes -Procedure Performed Yes Yes Yes -Type of Procedure Debridement Debridement Debridement -Clinical Debridement Subcutaneous Subcutaneous Subcutaneous -Tissue Removed Subcutaneous Subcutaneous Subcutaneous -Post Debridement (cm) - Length 1.2 1 0.9 -Post Debridement (cm) - Width 0.8 0.8 0.9 -Post Debridement (cm) - Depth 0.2 0.3 0.8 -Total Square (Post) (cm) 0.96 0.8 0.81 -Area of Debridement (cm) - Length 1.2 1 0.9 -Area of Debridement (cm) - Width 0.8 0.8 0.9 -Total Square (Area) (cm) 0.96 0.8 0.81 -Tunneling No No No -Undermining/Tunneling No No No -Circular Undermining No No No -Wound/Ulcer Outcome Not Healed Not Healed Not Healed -Ulcer Cleansing Rinsed/ Rinsed/ Rinsed/ Irrigated with Irrigated with Irrigated with Saline Saline Saline -Foul Odor after Cleansing No No No -Bioengineered Tissue No No No -Bleeding Controlled with Pressure Pressure Pressure -Offloading Yes No Yes -Type of Offloading Camwalker Knee Walker -Treatment Response Procedure Procedure Procedure Tolerated Well Tolerated Well Tolerated Well -Debridement - Subq, 1st 20sq cm Yes Yes Yes 7. R SECOND TOE -Correct Patient No -Correct Side, Site, Position No -Correct Procedure No -Procedure Performed No -Post Debridement (cm) - Length 0 -Post Debridement (cm) - Width 0 -Post Debridement (cm) - Depth 0 -Total Square (Post) (cm) 0 -Area of Debridement (cm) - Length 0 -Area of Debridement (cm) - Width 0 -Total Square (Area) (cm) 0 -Wound/Ulcer Outcome Healed- Epithelialized #6 R Grt Toe -Time 12:02 -Correct Patient Yes No -Correct Side, Site, Position Yes No -Correct Procedure Yes No -Procedure Performed Yes No -Type of Procedure Debridement -Clinical Debridement Subcutaneous -Tissue Removed Subcutaneous -Post Debridement (cm) - Length 0.3 0 -Post Debridement (cm) - Width 0.2 0 -Post Debridement (cm) - Depth 0.3 0 -Total Square (Post) (cm) 0.06 0 -Area of Debridement (cm) - Length 0.3 0 -Area of Debridement (cm) - Width 0.2 0 -Total Square (Area) (cm) 0.06 0 -Tunneling No -Undermining/Tunneling No -Circular Undermining No -Wound/Ulcer Outcome Not Healed Healed- Epithelialized -Ulcer Cleansing Rinsed/ Irrigated with Saline -Foul Odor after Cleansing No -Bioengineered Tissue Yes -Type of Bioengineered Tissue Epifix 18mm Disc -Expiration Date 08/06/25 -Product Lot Number [id number] -Percent Used 100 -Lot number of Saline Used [id number] -Bleeding Controlled with Pressure -Offloading Yes -Type of Offloading Surgical Shoe -Treatment Response Procedure Tolerated Well -Debridement - Subq, 1st 20sq cm No -Apply Skin Sub - 1st 25 sq cm - Feet 1 -Epifix 18mm Disc 3 Pain Scale: 0-10 Numeric Is Patient Pain Free? Yes Yes Yes - Nurse 3 - General Ulcer D/C NN Start: 12/09/20 11:34 Freq: Status: Active Protocol: Activity Type Activity Date Activity User E-Sign Co-Sign Detail Recorded Client Recorded Date Recorded By Document 12/09/20 12:12 [id number] 12/09/20 12:13 Document 12/16/20 11:37 JF [id number] 12/16/20 11:38 JF Document 12/23/20 11:22 DL Desktop 12/23/20 11:28 DL 12/09/20 12/16/20 12/23/20 12:12 11:37 11:22 Wound Care Nurse 3 8-right heel -Ulcer Cleansing Rinsed/ Rinsed/ Rinsed/ Irrigated with Irrigated with Irrigated with Saline Saline Saline -Foul Odor after Cleansing No No No -Primary Dressing Applied Promogran Promogran Keyla Matter Keyla Matter -Primary Dressing Covered/Secured with Dry Gauze & Dry Gauze & Dry Gauze & Roll Gauze Roll Gauze, Roll Gauze, Secured with Secured with Tape Tape -Promogran Keyla Matter 1 1 #6 R Grt Toe -Ulcer Cleansing Rinsed/ Irrigated with Saline -Foul Odor after Cleansing No -Primary Dressing Covered/Secured with Dry Gauze & Roll Gauze, Secured with Tape Pain Scale: 0-10 Numeric Is Patient Pain Free? Yes Yes Yes - Visit Discharge Discharge Condition Stable Stable Stable Ambulatory Status Ambulatory Ambulatory Ambulatory Transportation Private Auto Private Auto Private Auto Medication Reconcilliation completed & Yes Yes provided to patient/care provider Clinical Summary of Care Provided Yes Yes Wound debrided: right plantar heel Wound Grade/Stage: 1 Type of Debridement: Excisional debridement Anesthesia Used: 4% Lidocaine Solution Depth: in the subcutaneous layer Percentage of wound debrided: 100 Instrument Used: #15 blade Tissue Removed: fibrous, devitalized subcutaneous, biofilm, slough Severity: Fat Layer Exposed Amount of bleeding with debridement: Mild Bleeding Controlled with: Pressure Patient tolerated procedure: Patient tolerated procedure well Assessment/Plan Assessment/Plan (1) Non-pressure chronic ulcer of other part of right foot with necrosis of bone: CODE(S): L97.514 - Non-pressure chronic ulcer of other part of right foot with necrosis of bone (2) Chronic heel ulcer with fat layer exposed: CODE(S): L97.402 - Non-pressure chronic ulcer of unspecified heel and midfoot with fat layer exposed QUALIFIERS: Laterality: right Qualified Code(s): L97.412 - Non- pressure chronic ulcer of right heel and midfoot with fat layer exposed (3) Type 2 diabetes mellitus with diabetic polyneuropathy: CODE(S): E11.42 - Type 2 diabetes mellitus with diabetic polyneuropathy QUALIFIERS: Diabetes mellitus half-way insulin use: unspecified half-way insulin use status Qualified Code(s): E11.42 - Type 2 diabetes mellitus with diabetic polyneuropathy (4) Dialysis patient: CODE(S): Z99.2 - Dependence on renal dialysis (5) Ulcer of right foot with fat layer exposed: CODE(S): L97.512 - Non-pressure chronic ulcer of other part of right foot with fat layer exposed (6) Delayed wound healing: CODE(S): T14.8XXD - Other injury of unspecified body region, subsequent encounter PLAN: The patient was seen and examined at the wound center today and her case was reviewed. Debridement was performed today to the heel. Other ulcer sites have healed and it is noted she has completed a comprehensive wound healing and osteomyelitis treatment plan. Dressing:To change daily with keyla and to cover with secondary dressing of efrain and kerlix Wash: Antibacterial soap and water The purpose of offloading offloading techniques was reviewed. I do not recommend that she wears her close diabetic shoe even for short periods. I recommend she hangs her heel over stacked blankets or pillows while in bed to keep pressure off of the ulcer. I recommend she obtains a donut pillow to help with her offloading; to continue. She is at risk for amputation further illness of limb loss. To resume compliance with offloading heel due to her new ulcer formation. Although she has palpable pulses I do recommend screening her with a noninvasive vascular study to evaluate for any potential perfusion deficits. Her medical records from the [facility] will be requested. Her noninvasive vascular studies were reviewed from [facility] January 07, 2020 with triphasic waveforms bilateral and right ABIs of 1.21 and 1.07 and left ABIs of 1.2 and 1.09. The digital pressures were 105 mmHg on the right and 141 mmHg on the left. She also had normal PVR waveforms to the ankle and digital level bilateral. Her labs from were reviewed. She had resolution of leukocytosis prior to hospital discharge. Her last ESR was on 09-15-20 and was 116. She is at continued risk for limb loss. To return to the wound healing center in 1 week, or call sooner if she has any questions or concerns or signs of infection. I answered all of her questions today. Note: [employer] speech recognition manufacturer agent software was used to create portions of this document. Sound-alike and misspelled words, as well as other manufacturer agent errors may be contained in the documentation.
[2020-12-30 11:08] VITALS: BP 127/63; PULSE 81; RESP 18; TEMP 36.7; BMI 27.1
--- NOTE | 2020-12-30 12:03 | PN.PCM_ITS ---
History of Present Illness Date of Service: 12/30/20 Chief Complaint: heel ulcer History of Wound: She was seen today for right heel ulcer. She wears a cam walker boot without assistive device today. She denies fever, chill, nausea, vomiting. She has been trying to offload her heel by wearing an offloading donut pillow. She continues on dialysis. He denies reopening of the toe ulcers. Progress of Wound: Stable Objective Data Objective Data Vital Signs: Vital Signs Temp Pulse Resp BP 98.1 F 81 18 127/63 H 12/30/20 11:08 12/30/20 11:08 12/30/20 11:08 12/30/20 11:08 Weight: 72.91 kg Body Mass Index (BMI) 27.1 Physical Exam Const alert and oriented x3 General Appearance: cooperative HEENT normocephalic Extremity normal capillary refill General Extremity: edema Skin Skin Narrative: no purulence, no streaking, no odor, no infection . Adjacent skin is hairless and atrophic. No webspace maceration or necrosis. skin discontinuity plantar medial heel with granular base and no infection. moderate callous colleen heel ulcer site. no deep tissue exposure or probe to bone noted. full epithelialization to digits Neuro Neuro Narrative: Lack of normal epicritic sensation light touch is consistent with neuropathic status. Debridement Note Debridement Note Post-Debridement Measurements and Additional Note: Post-Debridement Measurements/Treatment - Nurse 1 - General Ulcer Assessment Start: 12/09/20 11:34 Freq: Status: Active Protocol: NATHAN.ANTOINETTE Activity Type Activity Date Activity User E-Sign Co-Sign Detail Recorded Client Recorded Date Recorded By Document 12/09/20 11:35 DL [id number] 12/09/20 11:41 DL Document 12/16/20 11:16 DL [id number] 12/16/20 11:22 DL Document 12/23/20 10:39 DL Desktop 12/23/20 10:46 DL Document 12/30/20 11:08 RB [id number] 12/30/20 11:14 RB 12/09/20 12/16/20 12/23/20 11:35 11:16 10:39 - Today's Visit Information Type of service Follow-up Visit Follow-up Visit Follow-up Visit (Physician/DROP COUNT ASSOCIATE (Physician/DROP COUNT ASSOCIATE (Physician/DROP COUNT ASSOCIATE ) ) ) Arrival Mode Ambulatory Ambulatory Ambulatory Transfer Assistance None None None Patient Identification Verified (Name & Yes Yes Yes ) Patient Requires Transmission-Based No No No Precautions Finger Stick Blood Sugar(mg/dl) (if 165 115 indicated): Blood Sugar Stated by Stated by Patient Patient Height and Weight Body Mass Index (BMI) 27.1 27.1 27.1 BMI Classification Overweight Overweight Overweight Vital Signs Temperature (97.8 F-99.1 F) 98.5 F 98.4 F 97.8 F Temperature Source Temporal Temporal Temporal Pulse Rate (60-100) 83 79 76 Pulse Location Monitor Monitor Monitor Respiratory Rate (12-18) 20 H 20 H 18 Respiratory rate source Observation Observation Observation Blood Pressure (90/60-120/80) 120/60 132/70 H 140/74 H Blood Pressure Mean (mm Hg) 80 90 96 Source Monitor Monitor Monitor Position Blood Pressure Location History Since Last Visit- (Skip if this is Patient's initial visit) Have you changed medications since your No No No last visit? Any new allergies or adverse reactions No No No Had a fall/change in ADL's that may No No No increase risk of falls Signs or symptoms of abuse and/or No No No neglect since last visit Have you been in the hospital since your No No No last visit? Has dressing in place as prescribed Yes Yes Yes Has compression in place as prescribed N/A N/A No Has offloadiing in place as prescribed Yes Yes Yes Experienced any changes in pain level or No No management Left Footwear Regular Shoe Right Footwear Regular Shoe Pain Scale: 0-10 Numeric Is Patient Pain Free? Yes Yes Yes 12/30/20 11:08 - Today's Visit Information Type of service Follow-up Visit (Physician/DROP COUNT ASSOCIATE ) Arrival Mode Ambulatory Transfer Assistance None Patient Identification Verified (Name & Yes ) Patient Requires Transmission-Based No Precautions Finger Stick Blood Sugar(mg/dl) (if indicated): Blood Sugar Height and Weight Body Mass Index (BMI) 27.1 BMI Classification Overweight Vital Signs Temperature (97.8 F-99.1 F) 98.1 F Temperature Source Temporal Pulse Rate (60-100) 81 Pulse Location Monitor Respiratory Rate (12-18) 18 Respiratory rate source Observation Blood Pressure (90/60-120/80) 127/63 H Blood Pressure Mean (mm Hg) 84 Source Monitor Position Semi-Fowlers Blood Pressure Location Left Arm History Since Last Visit- (Skip if this is Patient's initial visit) Have you changed medications since your No last visit? Any new allergies or adverse reactions No Had a fall/change in ADL's that may No increase risk of falls Signs or symptoms of abuse and/or neglect since last visit Have you been in the hospital since your No last visit? Has dressing in place as prescribed Yes Has compression in place as prescribed No Has offloadiing in place as prescribed No Experienced any changes in pain level or No management Left Footwear Right Footwear Pain Scale: 0-10 Numeric Is Patient Pain Free? Yes WC - Nurse 1 - General Ulcer Measurement Start: 12/09/20 11:34 Freq: Status: Active Protocol: Activity Type Activity Date Activity User E-Sign Co-Sign Detail Recorded Client Recorded Date Recorded By Document 12/09/20 11:35 DL [id number] 12/09/20 11:41 DL Document 12/16/20 11:16 DL [id number] 12/16/20 11:22 DL Document 12/23/20 10:39 DL Desktop 12/23/20 10:46 DL Document 12/30/20 11:08 RB [id number] 12/30/20 11:14 RB 12/09/20 12/16/20 12/23/20 11:35 11:16 10:39 Wound Center Nurse 1 8-right heel -Combined with other wound -Current Size (cm) - Length 0.7 0.8 -Current Size (cm) - Width 0.7 0.8 -Current Size (cm) - Depth 0.5 1 -Total Square Cm 0.49 0.64 -Photo Taken No No -Tunneling -Undermining/Tunneling -Undermining/Tunneling Starts (O'clock ) -Undermining/Tunneling Ends (O'clock) -Maximum Distance (cm) -Maximum Distance #2 (cm) 0.3 -Circular Undermining Yes -Exudate Amt Small Small -Exudate Type Serosanguineous Serosanguineous -Wound Margin Distinct, Distinct, Outline Outline Attached Attached -Granulation Amt Small (1-33%) Large (67-100%) -Granulation Quality Red Red -Slough/Fibrin -Necrosis Amt Small (1-33%) Small (1-33%) -Necrotic Tissue Type Adherent Slough Adherent Slough -Structure Exposed N/A N/A -Texture (Colleen-wound Skin Appearance) Scarring Callus,Scarring -Moisture (Colleen-wound Skin Appearance) Assessed, Maceration Maceration -Color (Colleen-wound Skin Appearance) No Abnormality No Abnormality -Temperature (Colleen-wound Skin No Abnormality No Abnormality Appearance) (Pt Warm) (Pt Warm) -Tenderness on Palpation (Colleen-wound No No Skin Appearance) -Ulcer Cleansing Wound Cleanser Rinsed/ Irrigated with Saline -Foul Odor after Cleansing No No -Anesthetic Used 4% Lidocaine 5% Lidocaine Solution Gel 7. R SECOND TOE -Current Size (cm) - Length 0.1 -Current Size (cm) - Width 0.1 -Current Size (cm) - Depth 0.1 -Total Square Cm 0.01 -Photo Taken No -Exudate Amt None Present -Wound Margin Thickened -Granulation Amt Large (67-100%) -Granulation Quality Pale -Necrosis Amt None Present (0 %) -Structure Exposed N/A -Texture (Colleen-wound Skin Appearance) Scarring -Moisture (Colleen-wound Skin Appearance) No Abnormality -Color (Colleen-wound Skin Appearance) No Abnormality -Temperature (Colleen-wound Skin No Abnormality Appearance) (Pt Warm) -Tenderness on Palpation (Colleen-wound No Skin Appearance) -Ulcer Cleansing Rinsed/ Irrigated with Saline -Foul Odor after Cleansing No -Anesthetic Used 5% Lidocaine Gel #6 R Grt Toe -Current Size (cm) - Length 0.2 0.1 -Current Size (cm) - Width 0.2 0.1 -Current Size (cm) - Depth 0.2 0.1 -Total Square Cm 0.04 0.01 -Photo Taken No No -Maximum Distance #2 (cm) 0.3 -Circular Undermining Yes -Exudate Amt Small None Present -Exudate Type Serosanguineous -Wound Margin Thickened Thickened -Granulation Amt Small (1-33%) Large (67-100%) -Granulation Quality Red [place] -Necrosis Amt None Present (0 Small (1-33%) %) -Necrotic Tissue Type Adherent Slough -Structure Exposed N/A N/A -Texture (Colleen-wound Skin Appearance) Scarring Scarring -Moisture (Colleen-wound Skin Appearance) Dry/Scaly No Abnormality -Color (Colleen-wound Skin Appearance) No Abnormality No Abnormality -Temperature (Colleen-wound Skin No Abnormality No Abnormality Appearance) (Pt Warm) (Pt Warm) -Tenderness on Palpation (Colleen-wound No No Skin Appearance) -Ulcer Cleansing Rinsed/ Wound Cleanser Irrigated with Saline -Foul Odor after Cleansing No No -Anesthetic Used 5% Lidocaine 4% Lidocaine Gel Solution 12/30/20 11:08 Wound Center Nurse 1 8-right heel -Combined with other wound No -Current Size (cm) - Length 2.3 -Current Size (cm) - Width 2.3 -Current Size (cm) - Depth 0.7 -Total Square Cm 5.29 -Photo Taken -Tunneling No -Undermining/Tunneling Yes -Undermining/Tunneling Starts (O'clock 10 ) -Undermining/Tunneling Ends (O'clock) 2 -Maximum Distance (cm) 0.5 -Maximum Distance #2 (cm) -Circular Undermining No -Exudate Amt Medium -Exudate Type Serosanguineous -Wound Margin Thickened -Granulation Amt Small (1-33%) -Granulation Quality [place] -Slough/Fibrin Yes -Necrosis Amt Large (67-100%) -Necrotic Tissue Type Adherent Slough -Structure Exposed N/A -Texture (Colleen-wound Skin Appearance) Callus -Moisture (Colleen-wound Skin Appearance) Assessed -Color (Colleen-wound Skin Appearance) Assessed -Temperature (Colleen-wound Skin No Abnormality Appearance) (Pt Warm) -Tenderness on Palpation (Colleen-wound No Skin Appearance) -Ulcer Cleansing Wound Cleanser -Foul Odor after Cleansing No -Anesthetic Used 4% Lidocaine Solution 7. R SECOND TOE -Current Size (cm) - Length -Current Size (cm) - Width -Current Size (cm) - Depth -Total Square Cm -Photo Taken -Exudate Amt -Wound Margin -Granulation Amt -Granulation Quality -Necrosis Amt -Structure Exposed -Texture (Colleen-wound Skin Appearance) -Moisture (Colleen-wound Skin Appearance) -Color (Colleen-wound Skin Appearance) -Temperature (Colleen-wound Skin Appearance) -Tenderness on Palpation (Colleen-wound Skin Appearance) -Ulcer Cleansing -Foul Odor after Cleansing -Anesthetic Used #6 R Grt Toe -Current Size (cm) - Length -Current Size (cm) - Width -Current Size (cm) - Depth -Total Square Cm -Photo Taken -Maximum Distance #2 (cm) -Circular Undermining -Exudate Amt -Exudate Type -Wound Margin -Granulation Amt -Granulation Quality -Necrosis Amt -Necrotic Tissue Type -Structure Exposed -Texture (Colleen-wound Skin Appearance) -Moisture (Colleen-wound Skin Appearance) -Color (Colleen-wound Skin Appearance) -Temperature (Colleen-wound Skin Appearance) -Tenderness on Palpation (Colleen-wound Skin Appearance) -Ulcer Cleansing -Foul Odor after Cleansing -Anesthetic Used WC - Nurse 2 - General Ulcer CM Notes Start: 12/09/20 11:34 Freq: Status: Active Protocol: Activity Type Activity Date Activity User E-Sign Co-Sign Detail Recorded Client Recorded Date Recorded By Document 12/09/20 12:00 [id number] 12/09/20 12:09 Document 12/16/20 11:33 [id number] 12/16/20 11:37 Document 12/23/20 11:10 [id number] 12/23/20 11:13 Document 12/30/20 11:25 [id number] 12/30/20 11:28 12/09/20 12/16/20 12/23/20 12:00 11:33 11:10 Wound Center Nurse 2 8-right heel -Time 12:05 11:33 11:10 -Correct Patient Yes Yes Yes -Correct Side, Site, Position Yes Yes Yes -Correct Procedure Yes Yes Yes -Procedure Performed Yes Yes Yes -Type of Procedure Debridement Debridement Debridement -Clinical Debridement Subcutaneous Subcutaneous Subcutaneous -Tissue Removed Subcutaneous Subcutaneous Subcutaneous -Post Debridement (cm) - Length 1.2 1 0.9 -Post Debridement (cm) - Width 0.8 0.8 0.9 -Post Debridement (cm) - Depth 0.2 0.3 0.8 -Total Square (Post) (cm) 0.96 0.8 0.81 -Area of Debridement (cm) - Length 1.2 1 0.9 -Area of Debridement (cm) - Width 0.8 0.8 0.9 -Total Square (Area) (cm) 0.96 0.8 0.81 -Tunneling No No No -Undermining/Tunneling No No No -Circular Undermining No No No -Wound/Ulcer Outcome Not Healed Not Healed Not Healed -Ulcer Cleansing Rinsed/ Rinsed/ Rinsed/ Irrigated with Irrigated with Irrigated with Saline Saline Saline -Foul Odor after Cleansing No No No -Bioengineered Tissue No No No -Bleeding Controlled with Pressure Pressure Pressure -Offloading Yes No Yes -Type of Offloading Camwalker Knee Walker -Treatment Response Procedure Procedure Procedure Tolerated Well Tolerated Well Tolerated Well -Debridement - Subq, 1st 20sq cm Yes Yes Yes 7. R SECOND TOE -Correct Patient No -Correct Side, Site, Position No -Correct Procedure No -Procedure Performed No -Post Debridement (cm) - Length 0 -Post Debridement (cm) - Width 0 -Post Debridement (cm) - Depth 0 -Total Square (Post) (cm) 0 -Area of Debridement (cm) - Length 0 -Area of Debridement (cm) - Width 0 -Total Square (Area) (cm) 0 -Wound/Ulcer Outcome Healed- Epithelialized #6 R Grt Toe -Time 12:02 -Correct Patient Yes No -Correct Side, Site, Position Yes No -Correct Procedure Yes No -Procedure Performed Yes No -Type of Procedure Debridement -Clinical Debridement Subcutaneous -Tissue Removed Subcutaneous -Post Debridement (cm) - Length 0.3 0 -Post Debridement (cm) - Width 0.2 0 -Post Debridement (cm) - Depth 0.3 0 -Total Square (Post) (cm) 0.06 0 -Area of Debridement (cm) - Length 0.3 0 -Area of Debridement (cm) - Width 0.2 0 -Total Square (Area) (cm) 0.06 0 -Tunneling No -Undermining/Tunneling No -Circular Undermining No -Wound/Ulcer Outcome Not Healed Healed- Epithelialized -Ulcer Cleansing Rinsed/ Irrigated with Saline -Foul Odor after Cleansing No -Bioengineered Tissue Yes -Type of Bioengineered Tissue Epifix 18mm Disc -Expiration Date 08/06/25 -Product Lot Number [id number] -Percent Used 100 -Lot number of Saline Used [id number] -Bleeding Controlled with Pressure -Offloading Yes -Type of Offloading Surgical Shoe -Treatment Response Procedure Tolerated Well -Debridement - Subq, 1st 20sq cm No -Apply Skin Sub - 1st 25 sq cm - Feet 1 -Epifix 18mm Disc 3 Pain Scale: 0-10 Numeric Is Patient Pain Free? Yes Yes Yes 12/30/20 11:25 Wound Center Nurse 2 8-right heel -Time 11:25 -Correct Patient Yes -Correct Side, Site, Position Yes -Correct Procedure Yes -Procedure Performed Yes -Type of Procedure Debridement -Clinical Debridement Subcutaneous -Tissue Removed Subcutaneous -Post Debridement (cm) - Length 2.4 -Post Debridement (cm) - Width 2.4 -Post Debridement (cm) - Depth 0.7 -Total Square (Post) (cm) 5.76 -Area of Debridement (cm) - Length 2.4 -Area of Debridement (cm) - Width 2.4 -Total Square (Area) (cm) 5.76 -Tunneling No -Undermining/Tunneling No -Circular Undermining No -Wound/Ulcer Outcome Not Healed -Ulcer Cleansing Rinsed/ Irrigated with Saline -Foul Odor after Cleansing No -Bioengineered Tissue No -Bleeding Controlled with Pressure -Offloading Yes -Type of Offloading Camwalker -Treatment Response Procedure Tolerated Well -Debridement - Subq, 1st 20sq cm Yes 7. R SECOND TOE -Correct Patient -Correct Side, Site, Position -Correct Procedure -Procedure Performed -Post Debridement (cm) - Length -Post Debridement (cm) - Width -Post Debridement (cm) - Depth -Total Square (Post) (cm) -Area of Debridement (cm) - Length -Area of Debridement (cm) - Width -Total Square (Area) (cm) -Wound/Ulcer Outcome #6 R Grt Toe -Time -Correct Patient -Correct Side, Site, Position -Correct Procedure -Procedure Performed -Type of Procedure -Clinical Debridement -Tissue Removed -Post Debridement (cm) - Length -Post Debridement (cm) - Width -Post Debridement (cm) - Depth -Total Square (Post) (cm) -Area of Debridement (cm) - Length -Area of Debridement (cm) - Width -Total Square (Area) (cm) -Tunneling -Undermining/Tunneling -Circular Undermining -Wound/Ulcer Outcome -Ulcer Cleansing -Foul Odor after Cleansing -Bioengineered Tissue -Type of Bioengineered Tissue -Expiration Date -Product Lot Number -Percent Used -Lot number of Saline Used -Bleeding Controlled with -Offloading -Type of Offloading -Treatment Response -Debridement - Subq, 1st 20sq cm -Apply Skin Sub - 1st 25 sq cm - Feet -Epifix 18mm Disc Pain Scale: 0-10 Numeric Is Patient Pain Free? Yes WC - Nurse 3 - General Ulcer D/C NN Start: 12/09/20 11:34 Freq: Status: Active Protocol: Activity Type Activity Date Activity User E-Sign Co-Sign Detail Recorded Client Recorded Date Recorded By Document 12/09/20 12:12 JF [id number] 12/09/20 12:13 JF Document 12/16/20 11:37 JF [id number] 12/16/20 11:38 JF Document 12/23/20 11:22 DL Desktop 12/23/20 11:28 DL Document 12/30/20 11:31 RB [id number] 12/30/20 11:32 RB 12/09/20 12/16/20 12/23/20 12:12 11:37 11:22 Wound Care Nurse 3 8-right heel -Ulcer Cleansing Rinsed/ Rinsed/ Rinsed/ Irrigated with Irrigated with Irrigated with Saline Saline Saline -Foul Odor after Cleansing No No No -Primary Dressing Applied Promogran Promogran Keyla Matter Keyla Matter -Other Dressing -Primary Dressing Covered/Secured with Dry Gauze & Dry Gauze & Dry Gauze & Roll Gauze Roll Gauze, Roll Gauze, Secured with Secured with Tape Tape -Promogran Keyla Matter 1 1 #6 R Grt Toe -Ulcer Cleansing Rinsed/ Irrigated with Saline -Foul Odor after Cleansing No -Primary Dressing Covered/Secured with Dry Gauze & Roll Gauze, Secured with Tape Treatment Response Pain Scale: 0-10 Numeric Is Patient Pain Free? Yes Yes Yes WC - Visit Discharge Discharge Condition Stable Stable Stable Ambulatory Status Ambulatory Ambulatory Ambulatory Transportation Private Auto Private Auto Private Auto Medication Reconcilliation completed & Yes Yes provided to patient/care provider Clinical Summary of Care Provided Yes Yes 12/30/20 11:31 Wound Care Nurse 3 8-right heel -Ulcer Cleansing Rinsed/ Irrigated with Saline -Foul Odor after Cleansing -Primary Dressing Applied -Other Dressing keyla -Primary Dressing Covered/Secured with Dry Gauze,Dry Gauze & Roll Gauze,Secured with Tape -Promogran Keyla Matter #6 R Grt Toe -Ulcer Cleansing -Foul Odor after Cleansing -Primary Dressing Covered/Secured with Treatment Response Procedure Tolerated Well Pain Scale: 0-10 Numeric Is Patient Pain Free? Yes WC - Visit Discharge Discharge Condition Stable Ambulatory Status Ambulatory Transportation Private Auto Medication Reconcilliation completed & No provided to patient/care provider Clinical Summary of Care Provided Yes Wound debrided: plantar heel right Wound Grade/Stage: 1 Type of Debridement: Excisional debridement Anesthesia Used: 4% Lidocaine Solution Depth: in the subcutaneous layer Percentage of wound debrided: 100 Instrument Used: #15 blade Tissue Removed: fibrous, devitalized subcutaneous, biofilm, slough Severity: Fat Layer Exposed Amount of bleeding with debridement: Mild Bleeding Controlled with: Pressure Patient tolerated procedure: Patient tolerated procedure well Assessment/Plan Assessment/Plan (1) Non-pressure chronic ulcer of other part of right foot with necrosis of bone: CODE(S): L97.514 - Non-pressure chronic ulcer of other part of right foot with necrosis of bone (2) Chronic heel ulcer with fat layer exposed: CODE(S): L97.402 - Non-pressure chronic ulcer of unspecified heel and midfoot with fat layer exposed QUALIFIERS: Laterality: right Qualified Code(s): L97.412 - Non- pressure chronic ulcer of right heel and midfoot with fat layer exposed (3) Type 2 diabetes mellitus with diabetic polyneuropathy: CODE(S): E11.42 - Type 2 diabetes mellitus with diabetic polyneuropathy QUALIFIERS: Diabetes mellitus bed bug exterminator insulin use: unspecified bed bug exterminator insulin use status Qualified Code(s): E11.42 - Type 2 diabetes mellitus with diabetic polyneuropathy (4) Dialysis patient: CODE(S): Z99.2 - Dependence on renal dialysis (5) Ulcer of right foot with fat layer exposed: CODE(S): L97.512 - Non-pressure chronic ulcer of other part of right foot with fat layer exposed (6) Delayed wound healing: CODE(S): T14.8XXD - Other injury of unspecified body region, subsequent encounter PLAN: The patient was seen and examined at the wound center today and her case was reviewed. Debridement was performed today to the heel. Other ulcer sites have healed and it is noted she has completed a comprehensive wound healing and osteomyelitis treatment plan. Dressing:To change daily with keyla and to cover with secondary dressing of gauze and Kerlix. Wash: Antibacterial soap and water The purpose of offloading offloading techniques was reviewed. I do not recommend that she wears her close diabetic shoe even for short periods. I recommend she hangs her heel over stacked blankets or pillows while in bed to keep pressure off of the ulcer. I recommend she obtains a donut pillow to help with her offloading; to continue. She is at risk for amputation further illness of limb loss. To resume compliance with offloading heel due to her new ulcer formation. Okay to continue with cam walker however to recommend assistive device to use such as a walker to prevent friction on this area. Although she has palpable pulses I do recommend screening her with a noninvasive vascular study to evaluate for any potential perfusion deficits. Her medical records from the [facility] will be requested. Her noninvasive vascular studies were reviewed from [facility] January 07, 2020 with triphasic waveforms bilateral and right ABIs of 1.21 and 1.07 and left ABIs of 1.2 and 1.09. The digital pressures were 105 mmHg on the right and 141 mmHg on the left. She also had normal PVR waveforms to the ankle and digital level bilateral. Her labs from -2020 were reviewed. She had resolution of leukocytosis prior to hospital discharge. Her last ESR was on 09-15-20 and was 116. She is at continued risk for limb loss. I recommend nutritional supplementation to optimize healing. Varun is recommended. To return to the wound healing center in 1 week, or call sooner if she has any questions or concerns or signs of infection. I answered all of her questions today. Note: [employer] speech recognition swage tender software was used to create portions of this document. Sound-alike and misspelled words, as well as other swage tender errors may be contained in the documentation.
== END 2021-01-05 23:59 ==
LOC: WC 11:00
PROVIDERS: PCP Family Medicine; Visit Provider Podiatrist
DX: E11.621 Type 2 diabetes mellitus with foot ulcer (principal); L97.412 Non-pressure chronic ulcer of right heel and midfoot with fat layer exposed; E11.42 Type 2 diabetes mellitus with diabetic polyneuropathy; E66.3 Overweight; Z68.27 Body mass index [BMI] 27.0-27.9, adult; Z79.4 Long term (current) use of insulin; Z79.01 Long term (current) use of anticoagulants; Z79.899 Other long term (current) drug therapy; Z87.39 Personal history of other diseases of the musculoskeletal system and connective tissue
CPT/HCPCS: 11042; 15275; Q4186

== ENCOUNTER 2021-01-01 11:56 | Emergency (ER) | payer MEDICARE, MEDICAID, SELFPAY ==
[2021-01-01 11:57] VITALS: BP 135/70; PULSE 71; RESP 16; TEMP 36.3; O2SAT 98; BMI 27.1
--- NOTE | 2021-01-01 12:28 | EX.ED.VIS.EY ---
HPI History of Present Illness Chief Complaint: Eye Problem Informant: patient Narrative Narrative: Patient presents with some redness of her left lower eyelid for about 1 to 2 days. She states it itches a little bit. No change in vision though. No trauma. No fevers or chills. No pain with moving the eye. Really nothing makes it better or worse. PFS PFS Medical History Acute hemodialysis patient Diabetes Dialysis patient Non-smoker TIA (transient ischemic attack) Home Medications Lantus U-100 Insulin 38 unit SQ QHS 02/09/16 [History Last Taken 02/08/16] clopidogrel 75 mg PO DAILY #30 tablet 02/13/16 [Rx Last Taken Unknown] pantoprazole 40 mg PO DAILY #14 tablet 02/13/16 [Rx Last Taken Unknown] amlodipine 10 mg PO MOWEFRSA 01/23/20 [History Last Taken Unknown] fenofibrate nanocrystallized 145 mg PO DAILY 01/23/20 [History Last Taken Unknown] lovastatin 40 mg PO DAILY 01/23/20 [History Last Taken Unknown] sevelamer carbonate 800 mg PO TID 01/23/20 [History Last Taken Unknown] vancomycin in 0.9 % sodium chl 500 mg IV .as directed 38 Days #16 dose 09/18/20 [Rx Last Taken Unknown] acetaminophen [Tylenol] 650 mg PO Q6H PRN PRN #0 tab 09/21/20 [Rx Last Taken Unknown] enoxaparin 30 mg SUBCUT DAILY #0 ml 09/21/20 [Rx Last Taken Unknown] insulin lispro [Humalog KwikPen Insulin] See Protocol SUBCUT ACHS #0 ml 09/21/20 [Rx Last Taken Unknown] losartan 100 mg PO DAILY #0 tab 09/21/20 [Rx Last Taken Unknown] bacitracin 1 applic LEFT EYE Q8H 7 Days g 01/01/21 [Rx Last Taken Unknown] Allergy/AdvReac Type Severity Reaction Status Date / Time atorvastatin [From Lipitor] AdvReac Nausea/Vom/ Verified 01/01/21 11:56 Diarrhea rosuvastatin [From Crestor] AdvReac Nausea/Vom/ Verified 01/01/21 11:56 Diarrhea Social History Smoking Status: Never smoker ROS ROS ED Constitutional Constitutional ED: Denies chills or fever(s) Eyes Eyes: Reports other Details: See history of present illness. ; Denies blurry vision, change in vision or diplopia ENT ENT ED: Denies rhinorrhea or sore throat Cardiovascular Cardiovascular: Denies chest pain Respiratory/Chest Respiratory/Chest: Denies dyspnea Gastrointestinal Gastrointestinal: Denies nausea or vomiting Hematologic/Lymphatic Hematologic/Lymphatic: Denies easy bleeding or easy bruising EXAM Physical Exam Const Vital Signs: 01/01/21 11:57 Temperature 97.3 F L Temperature Source Temporal Pulse Rate 71 Respiratory Rate 16 Blood Pressure 135/70 H Blood Pressure Mean 91 Pulse Ox 98 Oxygen Delivery Method Room Air Positive well nourished and well developed General Appearance ED: well developed and NAD HEENT HEENT Narrative: No rashes noted. No asymmetry. No erythema other than on the lower left lateral eyelid. atraumatic Eyes Eyes Narrative: The eye itself is not red or inflamed. No proptosis. No pain with motion. She has some swelling and erythema only to the lid margin on the left lower lid laterally. When I rolled this back she has obvious development of a small stye. Resp normal respiratory effort and clear to auscultation bilaterally Cardio regular rate GI non-tender Palpation: soft Extremity normal to inspection Extremity Narrative: Palpable thrill to left arm fistula. Neuro oriented x3 Sensorium / Orientation: alert Skin Rashes: no rashes MDM MDM MDM Narrative Medical decision making narrative: Patient has findings consistent with a stye. She has no visual change. No sign of cellulitis. I think we can treat this with lid scrubs, warm compresses and topical antibiotic ointment. We did discuss returning if she has worsening pain swelling pain with motion of the eyes, headache, nausea vomiting or any other concerns. Discharge Plan Triage Chief Complaint: Eye Problem ED Provider: Noel Thomas Dx/Rx/DC Orders Clinical Impression: Hordeolum of left lower eyelid Instructions: ED Sty Prescriptions: New bacitracin 500 unit/gram ointment 1 applic LEFT EYE Q8H 7 Days RF: 0 No Action Lantus U-100 Insulin 100 UNIT/ML solution 38 unit SQ QHS RF: 0 pantoprazole 40 MG tablet 40 mg PO DAILY Qty: 14 RF: 0 clopidogrel 75 MG tablet 75 mg PO DAILY Qty: 30 RF: 0 lovastatin 40 MG tablet 40 mg PO DAILY RF: 0 fenofibrate nanocrystallized 145 MG tablet 145 mg PO DAILY RF: 0 sevelamer carbonate 800 MG tablet 800 mg PO TID RF: 0 amlodipine 10 MG tablet 10 mg PO RF: 0 vancomycin in 0.9 % sodium chl 500 mg/100 mL piggyback 500 mg IV .as directed 38 Days Qty: 16 RF: 0 acetaminophen [Tylenol] 325 mg Tablet 650 mg PO Q6H PRN PRN (Reason: Pain Score 1-10/Temp > 100.7 F) Qty: 0 RF: 0 enoxaparin 30 mg/0.3 mL Syringe 30 mg subcut DAILY Qty: 0 RF: 0 insulin lispro [Humalog KwikPen Insulin] 100 unit/mL Insulin Pen See Protocol unit subcut ACHS Qty: 0 RF: 0 losartan 100 mg Tablet 100 mg PO DAILY Qty: 0 RF: 0 Primary Care Provider: Gabriel Beaver Referrals: Gabriel Beaver MD [Primary Care Provider] - 3-5 Days if not improving Disposition Disposition: Home, Self Care
== END 2021-01-01 12:46 | disposition home or self-care (01) ==
LOC: ED 12:37
PROVIDERS: Emergency Provider Emergency Medicine; PCP Family Medicine
DX: H00.015 Hordeolum externum left lower eyelid (principal); E11.9 Type 2 diabetes mellitus without complications; Z86.73 Personal history of transient ischemic attack (TIA), and cerebral infarction without residual deficits; Z99.2 Dependence on renal dialysis; Z79.4 Long term (current) use of insulin; Z79.899 Other long term (current) drug therapy
CPT/HCPCS: 99282

== ENCOUNTER 2021-02-03 11:30 | Outpatient (RCR) | payer MEDICARE, MEDICAID, SELFPAY ==
[2021-01-06 00:22] VITALS: BP 127/63; PULSE 81; RESP 18; TEMP 36.7; BMI 27.1
[2021-01-06 11:05] VITALS: BP 126/81; PULSE 74; RESP 20; TEMP 36.4; BMI 27.1
--- NOTE | 2021-01-06 15:57 | PCM.WC.PN ---
History of Present Illness Date of Service: 01/06/21 Chief Complaint: heel ulcer History of Wound: She was seen today for right heel ulcer. She wears a cam walker boot without assistive device today. She denies fever, chill, nausea, vomiting. She has been trying to offload her heel by wearing an offloading donut pillow. She continues on dialysis. He denies reopening of the toe ulcers. She presents today wearing an athletic sneaker and relates her offloading boot is at the truck station and she will get this back on Monday. She has not been using her walker as advised. Progress of Wound: Stable with continued callus formation Objective Data Objective Data Vital Signs: Vital Signs Temp Pulse Resp BP 97.6 F L 74 20 H 126/81 H 01/06/21 11:05 01/06/21 11:05 01/06/21 11:05 01/06/21 11:05 Weight: 72.91 kg Body Mass Index (BMI) 27.1 Physical Exam Const alert and oriented x3 General Appearance: cooperative HEENT normocephalic Extremity normal capillary refill General Extremity: edema Skin Skin Narrative: no purulence, no streaking, no odor, no infection . Adjacent skin is hairless and atrophic. No webspace maceration or necrosis. skin discontinuity plantar medial heel with granular base and no infection. moderate callous colleen heel ulcer site. no deep tissue exposure or probe to bone noted. full epithelialization to digits Neuro Neuro Narrative: Lack of normal epicritic sensation light touch is consistent with neuropathic status. Debridement Note Debridement Note Wound debrided: right heel Wound Grade/Stage: 1 Type of Debridement: Excisional debridement Anesthesia Used: 4% Lidocaine Solution Depth: in the subcutaneous layer Percentage of wound debrided: 100 Instrument Used: #15 blade Tissue Removed: fibrous, devitalized subcutaneous, biofilm, slough Severity: Fat Layer Exposed Amount of bleeding with debridement: Mild Bleeding Controlled with: Pressure Patient tolerated procedure: Patient tolerated procedure well Post-Debridement Measurements and Additional Note: Post-Debridement Measurements/Treatment NATHAN - Nurse 1 - General Ulcer Assessment Start: 01/06/21 11:05 Freq: Status: Active Protocol: DAVID Activity Type Activity Date Activity User E-Sign Co-Sign Detail Recorded Client Recorded Date Recorded By Document 01/06/21 11:05 DL [id number] 01/06/21 11:10 DL 01/06/21 11:05 - Today's Visit Information Type of service Follow-up Visit (Physician/MANAGER CONSTRUCTION ) Arrival Mode Ambulatory Transfer Assistance Stretcher Patient Identification Verified (Name & Yes ) Patient Requires Transmission-Based No Precautions Finger Stick Blood Sugar(mg/dl) (if 132 indicated): Blood Sugar Stated by Patient Height and Weight Body Mass Index (BMI) 27.1 BMI Classification Overweight Vital Signs Temperature (97.8 F-99.1 F) 97.6 F L Temperature Source Temporal Pulse Rate (60-100) 74 Pulse Location Monitor Respiratory Rate (12-18) 20 H Respiratory rate source Observation Blood Pressure (90/60-120/80) 126/81 H Blood Pressure Mean (mm Hg) 96 Source Monitor History Since Last Visit- (Skip if this is Patient's initial visit) Have you changed medications since your No last visit? Any new allergies or adverse reactions No Had a fall/change in ADL's that may No increase risk of falls Signs or symptoms of abuse and/or No neglect since last visit Have you been in the hospital since your No last visit? Has dressing in place as prescribed Yes Has compression in place as prescribed N/A Has offloadiing in place as prescribed Yes Experienced any changes in pain level or No management Left Footwear Surgical Shoe with pressure relief insole Right Footwear Regular Shoe Pain Scale: 0-10 Numeric Is Patient Pain Free? Yes - Nurse 1 - General Ulcer Measurement Start: 01/06/21 11:05 Freq: Status: Active Protocol: Activity Type Activity Date Activity User E-Sign Co-Sign Detail Recorded Client Recorded Date Recorded By Document 01/06/21 11:05 [id number] 01/06/21 11:10 01/06/21 11:05 Wound Center Nurse 1 8-right heel -Current Size (cm) - Length 1.4 -Current Size (cm) - Width 1.5 -Current Size (cm) - Depth 0.8 -Total Square Cm 2.10 -Photo Taken No -Maximum Distance #2 (cm) 0.3 -Circular Undermining Yes -Exudate Amt Medium -Exudate Type Serosanguineous -Wound Margin Thickened -Granulation Amt Medium (34-66%) -Necrosis Amt Medium (34-66%) -Necrotic Tissue Type Adherent Slough -Texture (Colleen-wound Skin Appearance) Callus,Scarring -Moisture (Colleen-wound Skin Appearance) Maceration -Color (Colleen-wound Skin Appearance) No Abnormality -Temperature (Colleen-wound Skin No Abnormality Appearance) (Pt Warm) -Tenderness on Palpation (Colleen-wound No Skin Appearance) -Ulcer Cleansing Wound Cleanser -Foul Odor after Cleansing No -Anesthetic Used 4% Lidocaine Solution WC - Nurse 2 - General Ulcer CM Notes Start: 01/06/21 11:05 Freq: Status: Active Protocol: Activity Type Activity Date Activity User E-Sign Co-Sign Detail Recorded Client Recorded Date Recorded By Document 01/06/21 11:38 [email or web address] [id number] 01/06/21 11:40 VITO 01/06/21 11:38 Wound Center Nurse 2 -Time 11:38 -Correct Patient Yes -Correct Side, Site, Position Yes -Correct Procedure Yes -Procedure Performed Yes -Type of Procedure Debridement -Clinical Debridement Subcutaneous -Tissue Removed Subcutaneous -Post Debridement (cm) - Length 1.5 -Post Debridement (cm) - Width 2 -Post Debridement (cm) - Depth 0.4 -Total Square (Post) (cm) 3.0 -Area of Debridement (cm) - Length 1.5 -Area of Debridement (cm) - Width 2 -Total Square (Area) (cm) 3.0 -Tunneling No -Undermining/Tunneling No -Circular Undermining No -Wound/Ulcer Outcome Not Healed -Ulcer Cleansing Rinsed/ Irrigated with Saline -Foul Odor after Cleansing No -Bioengineered Tissue No -Bleeding Controlled with Pressure -Type of Offloading Total Contact Cast (TCC) - Left ($) -Treatment Response Procedure Tolerated Well -Debridement - Subq, 1st 20sq cm Yes Pain Scale: 0-10 Numeric Is Patient Pain Free? Yes - Nurse 3 - General Ulcer D/C NN Start: 01/06/21 11:05 Freq: Status: Active Protocol: Activity Type Activity Date Activity User E-Sign Co-Sign Detail Recorded Client Recorded Date Recorded By Document 01/06/21 11:48 RB [id number] 01/06/21 11:51 RB 01/06/21 11:48 Wound Care Nurse 3 8-right heel -Ulcer Cleansing Rinsed/ Irrigated with Saline -Other Dressing keyla -Primary Dressing Covered/Secured with Dry Gauze,Dry Gauze & Roll Gauze,Secured with Tape Treatment Response Procedure Tolerated Well Pain Scale: 0-10 Numeric Is Patient Pain Free? Yes WC - Visit Discharge Discharge Condition Stable Transportation Private Auto Medication Reconcilliation completed & No provided to patient/care provider Clinical Summary of Care Provided Yes Assessment/Plan Assessment/Plan (1) Non-pressure chronic ulcer of other part of right foot with necrosis of bone: CODE(S): L97.514 - Non-pressure chronic ulcer of other part of right foot with necrosis of bone (2) Chronic heel ulcer with fat layer exposed: CODE(S): L97.402 - Non-pressure chronic ulcer of unspecified heel and midfoot with fat layer exposed QUALIFIERS: Laterality: right Qualified Code(s): L97.412 - Non-pressure chronic ulcer of right heel and midfoot with fat layer exposed (3) Type 2 diabetes mellitus with diabetic polyneuropathy: CODE(S): E11.42 - Type 2 diabetes mellitus with diabetic polyneuropathy QUALIFIERS: Diabetes mellitus correction insulin 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 Debridement was performed today to the heel. Other ulcer sites have healed and it is noted she has completed a comprehensive wound healing and osteomyelitis treatment plan. Dressing:To change daily with keyla and to cover with secondary dressing of gauze and Kerlix. Wash: Antibacterial soap and water The purpose of offloading offloading techniques was reviewed. I do not recommend that she wears her close diabetic shoe even for short periods. I recommend she hangs her heel over stacked blankets or pillows while in bed to keep pressure off of the ulcer. I recommend she obtains a donut pillow to help with her offloading; to continue. She is at risk for amputation further illness of limb loss. To resume compliance with offloading heel due to her new ulcer formation. Okay to continue with cam walker however to recommend assistive device to use such as a walker to prevent friction on this area. To use a walker. Although she has palpable pulses I do recommend screening her with a noninvasive vascular study to evaluate for any potential perfusion deficits. Her medical records from the [facility] will be requested. Her noninvasive vascular studies were reviewed from [facility] January 07, 2020 with triphasic waveforms bilateral and right ABIs of 1.21 and 1.07 and left ABIs of 1.2 and 1.09. The digital pressures were 105 mmHg on the right and 141 mmHg on the left. She also had normal PVR waveforms to the ankle and digital level bilateral. Her labs from were reviewed. She had resolution of leukocytosis prior to hospital discharge. Her last ESR was on 09-15-20 and was 116. She is at continued risk for limb loss. I recommend nutritional supplementation to optimize healing. Varun is recommended. To return to the wound healing center in 1 week, or call sooner if she has any questions or concerns or signs of infection. I answered all of her questions today. Note: [employer] speech recognition beach attendant software was used to create portions of this document. Sound-alike and misspelled words, as well as other beach attendant errors may be contained in the documentation.
[2021-01-13 10:53] VITALS: BP 123/63; PULSE 75; RESP 18; TEMP 36.1; BMI 27.1
--- NOTE | 2021-01-13 12:05 | PN.PCM_ITS ---
History of Present Illness Date of Service: 01/13/21 Chief Complaint: heel ulcer History of Wound: She was seen today for right heel ulcer. She wears a cam walker boot without assistive device today. She denies fever, chill, nausea, vomiting. She has been trying to offload her heel by wearing an offloading donut pillow. She relates she was not really able to implement walker or knee roller use while in her home because it is so small. She also does not present with it today in the clinical setting. She continues on dialysis. He denies reopening of the toe ulcers. She presents today wearing an athletic sneaker. Progress of Wound: Worse with increased size, no local signs of infection Objective Data Objective Data Vital Signs: Vital Signs Temp Pulse Resp BP 96.9 F L 75 18 123/63 H 01/13/21 10:53 01/13/21 10:53 01/13/21 10:53 01/13/21 10:53 Weight: 72.91 kg Body Mass Index (BMI) 27.1 Physical Exam Skin Skin Narrative: no purulence, no streaking, no odor, no infection . Adjacent skin is hairless and atrophic. No webspace maceration or necrosis. skin discontinuity plantar medial heel with granular base and no infection. moderate callous colleen heel ulcer site. no deep tissue exposure or probe to bone noted. full epithelialization to digits however callus formation is subhemorrhagic bleeding was noted to the plantar right hallux Neuro Neuro Narrative: Lack of normal epicritic sensation light touch is consistent with neuropathic status. Debridement Note Debridement Note Wound debrided: Right heel Wound Grade/Stage: 1 Type of Debridement: Excisional debridement Anesthesia Used: 4% Lidocaine Solution Depth: in the subcutaneous layer Percentage of wound debrided: 100 Instrument Used: #15 blade Tissue Removed: fibrous, devitalized subcutaneous, biofilm, slough Severity: Fat Layer Exposed Amount of bleeding with debridement: Mild Bleeding Controlled with: Pressure Patient tolerated procedure: Patient tolerated procedure well Post-Debridement Measurements and Additional Note: Post-Debridement Measurements/Treatment NATHAN - Nurse 1 - General Ulcer Assessment Start: 01/06/21 11:05 Freq: Status: Active Protocol: DAVID Activity Type Activity Date Activity User E-Sign Co-Sign Detail Recorded Client Recorded Date Recorded By Document 01/06/21 11:05 YANETH [id number] 01/06/21 11:10 DL Document 01/13/21 10:53 RB Desktop 01/13/21 10:56 RB 01/06/21 01/13/21 11:05 10:53 WC - Today's Visit Information Type of service Follow-up Visit Follow-up Visit (Physician/COMPUTER DISCOVERY TEACHER (Physician/COMPUTER DISCOVERY TEACHER ) ) Arrival Mode Ambulatory Ambulatory Transfer Assistance Stretcher None Patient Identification Verified (Name & Yes Yes ) Patient Requires Transmission-Based No No Precautions Finger Stick Blood Sugar(mg/dl) (if 132 indicated): Blood Sugar Stated by Patient Height and Weight Body Mass Index (BMI) 27.1 27.1 BMI Classification Overweight Overweight Vital Signs Temperature (97.8 F-99.1 F) 97.6 F L 96.9 F L Temperature Source Temporal Temporal Pulse Rate (60-100) 74 75 Pulse Location Monitor Monitor Respiratory Rate (12-18) 20 H 18 Respiratory rate source Observation Observation Blood Pressure (90/60-120/80) 126/81 H 123/63 H Blood Pressure Mean (mm Hg) 96 83 Source Monitor Monitor Position Semi-Fowlers Blood Pressure Location Left Arm History Since Last Visit- (Skip if this is Patient's initial visit) Have you changed medications since your No No last visit? Any new allergies or adverse reactions No No Had a fall/change in ADL's that may No No increase risk of falls Signs or symptoms of abuse and/or No No neglect since last visit Have you been in the hospital since your No No last visit? Has dressing in place as prescribed Yes Yes Has compression in place as prescribed N/A Yes Has offloadiing in place as prescribed Yes No Experienced any changes in pain level or No No management Left Footwear Surgical Shoe Regular Shoe with pressure relief insole Right Footwear Regular Shoe Removable Cast Walker/Walking Boot Pain Scale: 0-10 Numeric Is Patient Pain Free? Yes Yes - Nurse 1 - General Ulcer Measurement Start: 01/06/21 11:05 Freq: Status: Active Protocol: Activity Type Activity Date Activity User E-Sign Co-Sign Detail Recorded Client Recorded Date Recorded By Document 01/06/21 11:05 DL [id number] 01/06/21 11:10 DL Document 01/13/21 10:53 RB Desktop 01/13/21 10:56 RB 01/06/21 01/13/21 11:05 10:53 Wound Center Nurse 1 8-right heel -Combined with other wound No -Current Size (cm) - Length 1.4 1.6 -Current Size (cm) - Width 1.5 1.8 -Current Size (cm) - Depth 0.8 0.3 -Total Square Cm 2.10 2.88 -Photo Taken No -Tunneling No -Undermining/Tunneling No -Maximum Distance #2 (cm) 0.3 -Circular Undermining Yes No -Exudate Amt Medium Medium -Exudate Type Serosanguineous Serosanguineous -Wound Margin Thickened Distinct, Outline Attached -Granulation Amt Medium (34-66%) Medium (34-66%) -Granulation Quality Fieldon -Slough/Fibrin Yes -Necrosis Amt Medium (34-66%) Small (1-33%) -Necrotic Tissue Type Adherent Slough Adherent Slough -Structure Exposed N/A -Texture (Colleen-wound Skin Appearance) Callus,Scarring Callus -Moisture (Colleen-wound Skin Appearance) Maceration Assessed -Color (Colleen-wound Skin Appearance) No Abnormality Assessed -Temperature (Colleen-wound Skin No Abnormality No Abnormality Appearance) (Pt Warm) (Pt Warm) -Tenderness on Palpation (Colleen-wound No No Skin Appearance) -Ulcer Cleansing Wound Cleanser Wound Cleanser -Foul Odor after Cleansing No No -Anesthetic Used 4% Lidocaine 5% Lidocaine Solution Gel WC - Nurse 2 - General Ulcer CM Notes Start: 01/06/21 11:05 Freq: Status: Active Protocol: Activity Type Activity Date Activity User E-Sign Co-Sign Detail Recorded Client Recorded Date Recorded By Document 01/06/21 11:38 VITO [id number] 01/06/21 11:40 Edit Result 01/06/21 11:38 JF (1) [id number] 01/08/21 10:59 PL Document 01/13/21 11:02 VITO [id number] 01/13/21 11:08 JF (1) 8-right heel - Type of Offloading Total Contact Cast => (TCC) - Left ($) => 01/06/21 01/13/21 11:38 11:02 Wound Center Nurse 2 8-right heel -Time 11:38 11:03 -Correct Patient Yes Yes -Correct Side, Site, Position Yes Yes -Correct Procedure Yes Yes -Procedure Performed Yes Yes -Type of Procedure Debridement Debridement -Clinical Debridement Subcutaneous Subcutaneous -Tissue Removed Subcutaneous Subcutaneous -Post Debridement (cm) - Length 1.5 1.7 -Post Debridement (cm) - Width 2 0.8 -Post Debridement (cm) - Depth 0.4 0.4 -Total Square (Post) (cm) 3.0 1.36 -Area of Debridement (cm) - Length 1.5 1.7 -Area of Debridement (cm) - Width 2 0.8 -Total Square (Area) (cm) 3.0 1.36 -Tunneling No No -Undermining/Tunneling No No -Circular Undermining No No -Wound/Ulcer Outcome Not Healed Not Healed -Ulcer Cleansing Rinsed/ Rinsed/ Irrigated with Irrigated with Saline Saline -Foul Odor after Cleansing No No -Bioengineered Tissue No No -Bleeding Controlled with Pressure Pressure -Offloading Yes -Type of Offloading Knee Walker -Treatment Response Procedure Procedure Not Tolerated Well Tolerated Well -Debridement - Subq, 1st 20sq cm Yes Yes Pain Scale: 0-10 Numeric Is Patient Pain Free? Yes Yes - Nurse 3 - General Ulcer D/C NN Start: 01/06/21 11:05 Freq: Status: Active Protocol: Activity Type Activity Date Activity User E-Sign Co-Sign Detail Recorded Client Recorded Date Recorded By Document 01/06/21 11:48 RB [id number] 01/06/21 11:51 RB Document 01/13/21 11:10 [id number] 01/13/21 11:12 ML 01/06/21 01/13/21 11:48 11:10 Wound Care Nurse 3 8-right heel -Ulcer Cleansing Rinsed/ Rinsed/ Irrigated with Irrigated with Saline Saline -Foul Odor after Cleansing No -Primary Dressing Applied Promogran Keyla Matter -Other Dressing keyla -Primary Dressing Covered/Secured with Dry Gauze,Dry Dry Gauze & Gauze & Roll Roll Gauze, Gauze,Secured Secured with with Tape Tape -Promogran Keyla Matter 1 Treatment Response Procedure Tolerated Well Pain Scale: 0-10 Numeric Is Patient Pain Free? Yes Yes - Visit Discharge Discharge Condition Stable Stable Ambulatory Status Ambulatory Transportation Private Auto Medication Reconcilliation completed & No No provided to patient/care provider Clinical Summary of Care Provided Yes Yes Assessment/Plan Assessment/Plan (1) Non-pressure chronic ulcer of other part of right foot with necrosis of bone: CODE(S): L97.514 - Non-pressure chronic ulcer of other part of right foot with necrosis of bone (2) Chronic heel ulcer with fat layer exposed: CODE(S): L97.402 - Non-pressure chronic ulcer of unspecified heel and midfoot with fat layer exposed QUALIFIERS: Laterality: right Qualified Code(s): L97.412 - Non- pressure chronic ulcer of right heel and midfoot with fat layer exposed (3) Type 2 diabetes mellitus with diabetic polyneuropathy: CODE(S): E11.42 - Type 2 diabetes mellitus with diabetic polyneuropathy QUALIFIERS: Diabetes mellitus emt intermediate insulin use: unspecified intermediate insulin use status Qualified Code(s): E11.42 - Type 2 diabetes mellitus with diabetic polyneuropathy (4) Dialysis patient: CODE(S): Z99.2 - Dependence on renal dialysis (5) Ulcer of right foot with fat layer exposed: CODE(S): L97.512 - Non-pressure chronic ulcer of other part of right foot with fat layer exposed (6) Delayed wound healing: CODE(S): T14.8XXD - Other injury of unspecified body region, subsequent encounter PLAN: The patient was seen and examined at the wound center today and her case was reviewed. Debridement was performed today to the heel. Other ulcer sites have healed and it is noted she has completed a comprehensive wound healing and osteomyelitis treatment plan. She has some evidence of increased pressure to her hallux and although this ulcer site remains healed today it appears to be compromised. I recommend she offloads the site as well to avoid recurrence. Dressing:To change daily with keyla and to cover with secondary dressing of gauze and Kerlix. Wash: Antibacterial soap and water The purpose of offloading offloading techniques was reviewed. I do not recommend that she wears her close diabetic shoe even for short periods. I recommend she hangs her heel over stacked blankets or pillows while in bed to keep pressure off of the ulcer. I recommend she obtains a donut pillow to help with her offloading; to continue. She is at risk for amputation further illness of limb loss. To resume compliance with offloading heel due to her new ulcer formation. Okay to continue with cam walker however to recommend assistive device to use such as a walker to prevent friction on this area. To use a walker. Although she has palpable pulses I do recommend screening her with a noninvasive vascular study to evaluate for any potential perfusion deficits. Her medical records from the [facility] will be requested. Her noninvasive vascular studies were reviewed from [facility] January 07, 2020 with triphasic waveforms bilateral and right ABIs of 1.21 and 1.07 and left ABIs of 1.2 and 1.09. The digital pressures were 105 mmHg on the right and 141 mmHg on the left. She also had normal PVR waveforms to the ankle and digital level bilateral. Her labs from were reviewed. She had resolution of leukocytosis prior to hospital discharge. Her last ESR was on 09-15-20 and was 116. She is at continued risk for limb loss. I recommend nutritional supplementation to optimize healing. Varun is recommended. To return to the wound healing center in 1 week, or call sooner if she has any questions or concerns or signs of infection. I answered all of her questions today. Note: [employer] speech recognition donation worker software was used to create portions of this document. Sound-alike and misspelled words, as well as other donation worker errors may be contained in the documentation.
[2021-01-20 10:38] VITALS: BP 148/77; PULSE 76; RESP 18; TEMP 36.6; BMI 27.1
--- NOTE | 2021-01-20 12:06 | PCM.WC.PN ---
History of Present Illness Date of Service: 01/20/21 Chief Complaint: heel ulcer History of Wound: She was seen today for right heel ulcer. She wears a cam walker boot. She denies fever, chill, nausea, vomiting. She has been trying to offload her heel by wearing an offloading donut pillow. She also does not present with it today in the clinical setting. She continues on dialysis. He denies reopening of the toe ulcers. Progress of Wound: Stable with wound bed granulation improvement. Objective Data Objective Data Vital Signs: Vital Signs Temp Pulse Resp BP 97.8 F 76 18 148/77 H 01/20/21 10:38 01/20/21 10:38 01/20/21 10:38 01/20/21 10:38 Weight: 72.91 kg Body Mass Index (BMI) 27.1 Physical Exam Skin Skin Narrative: no purulence, no streaking, no odor, no infection . Adjacent skin is hairless and atrophic. No webspace maceration or necrosis. skin discontinuity plantar medial heel with granular base and no infection. Quality improved with reduced fibrous tissue. Moderate callous colleen heel ulcer site. no deep tissue exposure or probe to bone noted. full epithelialization to digits is noted and this remains healed Neuro Neuro Narrative: Lack of normal epicritic sensation light touch is consistent with neuropathic status. Debridement Note Debridement Note Wound debrided: Right heel Wound Grade/Stage: 1 Type of Debridement: Excisional debridement Anesthesia Used: 4% Lidocaine Solution Depth: in the subcutaneous layer Percentage of wound debrided: 100 Instrument Used: #15 blade Tissue Removed: fibrous, devitalized subcutaneous, biofilm, slough Severity: Fat Layer Exposed Amount of bleeding with debridement: Mild Bleeding Controlled with: Pressure Patient tolerated procedure: Patient tolerated procedure well Post-Debridement Measurements and Additional Note: Post-Debridement Measurements/Treatment NATHAN - Nurse 1 - General Ulcer Assessment Start: 01/06/21 11:05 Freq: Status: Active Protocol: DAVID Activity Type Activity Date Activity User E-Sign Co-Sign Detail Recorded Client Recorded Date Recorded By Document 01/06/21 11:05 DL [id number] 01/06/21 11:10 DL Document 01/13/21 10:53 RB Desktop 01/13/21 10:56 RB Document 01/20/21 10:38 [facility] [id number] 01/20/21 10:40 BMF 01/06/21 01/13/21 01/20/21 11:05 10:53 10:38 WC - Today's Visit Information Type of service Follow-up Visit Follow-up Visit Follow-up Visit (Physician/RURAL SERVICE ENGINEER (Physician/RURAL SERVICE ENGINEER (Physician/RURAL SERVICE ENGINEER ) ) ) Arrival Mode Ambulatory Ambulatory Ambulatory Transfer Assistance Stretcher None None Patient Identification Verified (Name & Yes Yes Yes ) Patient Requires Transmission-Based No No No Precautions Finger Stick Blood Sugar(mg/dl) (if 132 indicated): Blood Sugar Stated by Patient Height and Weight Body Mass Index (BMI) 27.1 27.1 27.1 BMI Classification Overweight Overweight Overweight Vital Signs Temperature (97.8 F-99.1 F) 97.6 F L 96.9 F L 97.8 F Temperature Source Temporal Temporal Temporal Pulse Rate (60-100) 74 75 76 Pulse Location Monitor Monitor Monitor Respiratory Rate (12-18) 20 H 18 18 Respiratory rate source Observation Observation Observation Blood Pressure (90/60-120/80) 126/81 H 123/63 H 148/77 H Blood Pressure Mean (mm Hg) 96 83 100 Source Monitor Monitor Monitor Position Semi-Fowlers Semi-Fowlers Blood Pressure Location Left Arm Left Arm History Since Last Visit- (Skip if this is Patient's initial visit) Have you changed medications since your No No No last visit? Any new allergies or adverse reactions No No No Had a fall/change in ADL's that may No No No increase risk of falls Signs or symptoms of abuse and/or No No neglect since last visit Have you been in the hospital since your No No No last visit? Has dressing in place as prescribed Yes Yes Yes Has compression in place as prescribed N/A Yes No Has offloadiing in place as prescribed Yes No No Experienced any changes in pain level or No No No management Left Footwear Surgical Shoe Regular Shoe with pressure relief insole Right Footwear Regular Shoe Removable Cast Surgical Shoe Walker/Walking with pressure Boot relief insole Pain Scale: 0-10 Numeric Is Patient Pain Free? Yes Yes Yes - Nurse 1 - General Ulcer Measurement Start: 01/06/21 11:05 Freq: Status: Active Protocol: Activity Type Activity Date Activity User E-Sign Co-Sign Detail Recorded Client Recorded Date Recorded By Document 01/06/21 11:05 DL [id number] 01/06/21 11:10 DL Document 01/13/21 10:53 RB Desktop 01/13/21 10:56 RB Document 01/20/21 10:38 [facility] [id number] 01/20/21 10:40 [facility] 01/06/21 01/13/21 01/20/21 11:05 10:53 10:38 Wound Center Nurse 1 8-right heel -Combined with other wound No No -Current Size (cm) - Length 1.4 1.6 1.4 -Current Size (cm) - Width 1.5 1.8 1.9 -Current Size (cm) - Depth 0.8 0.3 0.5 -Total Square Cm 2.10 2.88 2.66 -Photo Taken No -Tunneling No No -Undermining/Tunneling No No -Maximum Distance #2 (cm) 0.3 -Circular Undermining Yes No No -Exudate Amt Medium Medium Medium -Exudate Type Serosanguineous Serosanguineous Serosanguineous -Wound Margin Thickened Distinct, Thickened Outline Attached -Granulation Amt Medium (34-66%) Medium (34-66%) Medium (34-66%) -Granulation Quality [place] -Slough/Fibrin Yes Yes -Necrosis Amt Medium (34-66%) Small (1-33%) Small (1-33%) -Necrotic Tissue Type Adherent Slough Adherent Slough Adherent Slough -Structure Exposed N/A N/A -Texture (Colleen-wound Skin Appearance) Callus,Scarring Callus Callus -Moisture (Colleen-wound Skin Appearance) Maceration Assessed Assessed -Color (Colleen-wound Skin Appearance) No Abnormality Assessed Assessed -Temperature (Colleen-wound Skin No Abnormality No Abnormality No Abnormality Appearance) (Pt Warm) (Pt Warm) (Pt Warm) -Tenderness on Palpation (Colleen-wound No No No Skin Appearance) -Ulcer Cleansing Wound Cleanser Wound Cleanser Wound Cleanser -Foul Odor after Cleansing No No No -Anesthetic Used 4% Lidocaine 5% Lidocaine 5% Lidocaine Solution Gel Gel WC - Nurse 2 - General Ulcer CM Notes Start: 01/06/21 11:05 Freq: Status: Active Protocol: Activity Type Activity Date Activity User E-Sign Co-Sign Detail Recorded Client Recorded Date Recorded By Document 01/06/21 11:38 VITO [id number] 01/06/21 11:40 JF Edit Result 01/06/21 11:38 JF (1) [id number] 01/08/21 10:59 PL Document 01/13/21 11:02 JF [id number] 01/13/21 11:08 JF Document 01/20/21 11:16 JF [id number] 01/20/21 11:24 JF (1) 8-right heel - Type of Offloading Total Contact Cast => (TCC) - Left ($) => 01/06/21 01/13/21 01/20/21 11:38 11:02 11:16 Wound Center Nurse 2 8-right heel -Time 11:38 11:03 11:16 -Correct Patient Yes Yes Yes -Correct Side, Site, Position Yes Yes Yes -Correct Procedure Yes Yes Yes -Procedure Performed Yes Yes Yes -Type of Procedure Debridement Debridement Debridement -Clinical Debridement Subcutaneous Subcutaneous Subcutaneous -Tissue Removed Subcutaneous Subcutaneous Subcutaneous -Post Debridement (cm) - Length 1.5 1.7 1.5 -Post Debridement (cm) - Width 2 0.8 1.9 -Post Debridement (cm) - Depth 0.4 0.4 0.3 -Total Square (Post) (cm) 3.0 1.36 2.85 -Area of Debridement (cm) - Length 1.5 1.7 1.5 -Area of Debridement (cm) - Width 2 0.8 1.9 -Total Square (Area) (cm) 3.0 1.36 2.85 -Tunneling No No No -Undermining/Tunneling No No No -Circular Undermining No No No -Wound/Ulcer Outcome Not Healed Not Healed Not Healed -Ulcer Cleansing Rinsed/ Rinsed/ Rinsed/ Irrigated with Irrigated with Irrigated with Saline Saline Saline -Foul Odor after Cleansing No No No -Bioengineered Tissue No No No -Bleeding Controlled with Pressure Pressure Pressure -Offloading Yes Yes -Type of Offloading Knee Walker Surgical Shoe -Treatment Response Procedure Procedure Not Procedure Tolerated Well Tolerated Well Tolerated Well -Debridement - Subq, 1st 20sq cm Yes Yes Yes Pain Scale: 0-10 Numeric Is Patient Pain Free? Yes Yes Yes WC - Nurse 3 - General Ulcer D/C NN Start: 01/06/21 11:05 Freq: Status: Active Protocol: Activity Type Activity Date Activity User E-Sign Co-Sign Detail Recorded Client Recorded Date Recorded By Document 01/06/21 11:48 RB [id number] 01/06/21 11:51 RB Document 01/13/21 11:10 ML [id number] 01/13/21 11:12 ML Document 01/20/21 11:28 DL [id number] 01/20/21 11:29 DL 01/06/21 01/13/21 01/20/21 11:48 11:10 11:28 Wound Care Nurse 3 8-right heel -Ulcer Cleansing Rinsed/ Rinsed/ Rinsed/ Irrigated with Irrigated with Irrigated with Saline Saline Saline -Foul Odor after Cleansing No No -Primary Dressing Applied Promogran Keyla Matter -Other Dressing keyla keyla -Primary Dressing Covered/Secured with Dry Gauze,Dry Dry Gauze & Dry Gauze & Gauze & Roll Roll Gauze, Roll Gauze, Gauze,Secured Secured with Secured with with Tape Tape Tape -Promogran Keyla Matter 1 Treatment Response Procedure Procedure Tolerated Well Tolerated Well Pain Scale: 0-10 Numeric Is Patient Pain Free? Yes Yes Yes WC - Visit Discharge Discharge Condition Stable Stable Stable Ambulatory Status Ambulatory Ambulatory Transportation Private Auto Medication Reconcilliation completed & No No provided to patient/care provider Clinical Summary of Care Provided Yes Yes Notes: dressing applied by Bakari cooney. Assessment/Plan Assessment/Plan (1) Non-pressure chronic ulcer of other part of right foot with necrosis of bone: CODE(S): L97.514 - Non-pressure chronic ulcer of other part of right foot with necrosis of bone (2) Chronic heel ulcer with fat layer exposed: CODE(S): L97.402 - Non-pressure chronic ulcer of unspecified heel and midfoot with fat layer exposed QUALIFIERS: Laterality: right Qualified Code(s): L97.412 - Non-pressure chronic ulcer of right heel and midfoot with fat layer exposed (3) Type 2 diabetes mellitus with diabetic polyneuropathy: CODE(S): E11.42 - Type 2 diabetes mellitus with diabetic polyneuropathy QUALIFIERS: Diabetes mellitus equipment operator intermodal yard insulin use: unspecified equipment operator intermodal yard insulin use status Qualified Code(s): E11.42 - Type 2 diabetes mellitus with diabetic polyneuropathy (4) Dialysis patient: CODE(S): Z99.2 - Dependence on renal dialysis (5) Ulcer of right foot with fat layer exposed: CODE(S): L97.512 - Non-pressure chronic ulcer of other part of right foot with fat layer exposed (6) Delayed wound healing: CODE(S): T14.8XXD - Other injury of unspecified body region, subsequent encounter PLAN: The patient was seen and examined at the wound center today and her case was reviewed. Debridement was performed today to the heel. Dressing:To change daily with keyla and to cover with secondary dressing of gauze and Kerlix. Wash: Antibacterial soap and water I recommend the application of advanced wound healing product, epi fix or epi cord. This is medically necessary for limb salvage. Is noted she is high risk for limb loss and continued recurrent infections with her condition. She is try conservative comprehensive wound healing plan thus far. It is noted she did have advanced wound in the proximal applied to a different wound site on her toes and had great success. The current ulcer site of interest is the right heel and this has delays in healing. The quality of the ulcer base appears stable and granular and is appropriate for advanced wound healing product application at this time. Prior authorization with insurance is pending. The purpose of offloading offloading techniques was reviewed. I do not recommend that she wears her close diabetic shoe even for short periods. I recommend she hangs her heel over stacked blankets or pillows while in bed to keep pressure off of the ulcer. I recommend she obtains a donut pillow to help with her offloading; to continue. She is at risk for amputation further illness of limb loss. Okay to continue with cam walker however to recommend assistive device to use such as a walker to prevent friction on this area. To use a walker. Also offered her total contact cast application and she is not able to do this because she is responsible for driving herself to dialysis and other appointments. If she happens to get a inventory associate and driver for 1 of these week she was advised to consider this. Although she has palpable pulses I do recommend screening her with a noninvasive vascular study to evaluate for any potential perfusion deficits. Her medical records from the [facility] will be requested. Her noninvasive vascular studies were reviewed from [facility] January 07, 2020 with triphasic waveforms bilateral and right ABIs of 1.21 and 1.07 and left ABIs of 1.2 and 1.09. The digital pressures were 105 mmHg on the right and 141 mmHg on the left. She also had normal PVR waveforms to the ankle and digital level bilateral. Her labs from were reviewed. She had resolution of leukocytosis prior to hospital discharge. Her last ESR was on 09-15-20 and was 116. She is at continued risk for limb loss. I recommend nutritional supplementation to optimize healing. Varun is recommended. To return to the wound healing center in 1 week, or call sooner if she has any questions or concerns or signs of infection. I answered all of her questions today. Note: ViS speech recognition cinder block mason software was used to create portions of this document. Sound-alike and misspelled words, as well as other cinder block mason errors may be contained in the documentation.
[2021-01-27 10:38] VITALS: BP 142/77; PULSE 78; RESP 20; TEMP 36.7; BMI 27.1
--- NOTE | 2021-01-27 20:27 | PCM.WC.PN ---
History of Present Illness Date of Service: 01/27/21 Chief Complaint: heel ulcer History of Wound: She was seen today for right heel ulcer. She denies fever, chill, nausea, vomiting. She has been trying to offload her heel by wearing an offloading donut pillow and cam walker sometimes. She also does not present with it today in the clinical setting. She continues on dialysis. Progress of Wound: Stable with wound bed granulation improvement. Objective Data Objective Data Vital Signs: Vital Signs Temp Pulse Resp BP 98.1 F 78 20 H 142/77 H 01/27/21 10:38 01/27/21 10:38 01/27/21 10:38 01/27/21 10:38 Weight: 72.91 kg Body Mass Index (BMI) 27.1 Physical Exam Skin Skin Narrative: no purulence, no streaking, no odor, no infection . Adjacent skin is hairless and atrophic. No webspace maceration or necrosis. skin discontinuity plantar medial heel with granular base and no infection. Increased depth but no deep tissues exposed quality improved with reduced fibrous tissue. Minor peripheral callus noted. Full epithelialization to digits is noted and this remains healed Neuro Neuro Narrative: Lack of normal epicritic sensation light touch is consistent with neuropathic status. Debridement Note Debridement Note Wound debrided: right heel Wound Grade/Stage: one Type of Debridement: Excisional debridement Anesthesia Used: 4% Lidocaine Solution Depth: in the subcutaneous layer Percentage of wound debrided: 100 Instrument Used: #15 blade Tissue Removed: fibrous, devitalized subcutaneous, biofilm, slough Severity: Fat Layer Exposed Amount of bleeding with debridement: Mild Bleeding Controlled with: Pressure Patient tolerated procedure: Patient tolerated procedure well Post-Debridement Measurements and Additional Note: Post-Debridement Measurements/Treatment - Nurse 1 - General Ulcer Assessment Start: 01/06/21 11:05 Freq: Status: Active Protocol: DAVID Activity Type Activity Date Activity User E-Sign Co-Sign Detail Recorded Client Recorded Date Recorded By Document 01/06/21 11:05 DL [id number] 01/06/21 11:10 DL Document 01/13/21 10:53 RB Desktop 01/13/21 10:56 RB Document 01/20/21 10:38 BMF [id number] 01/20/21 10:40 BMF Document 01/27/21 10:38 DL [id number] 01/27/21 10:41 DL 01/06/21 01/13/21 01/20/21 11:05 10:53 10:38 WC - Today's Visit Information Type of service Follow-up Visit Follow-up Visit Follow-up Visit (Physician/CONSTRUCTION CONTRACTOR (Physician/CONSTRUCTION CONTRACTOR (Physician/CONSTRUCTION CONTRACTOR ) ) ) Arrival Mode Ambulatory Ambulatory Ambulatory Transfer Assistance Stretcher None None Patient Identification Verified (Name & Yes Yes Yes ) Patient Requires Transmission-Based No No No Precautions Finger Stick Blood Sugar(mg/dl) (if 132 indicated): Blood Sugar Stated by Patient Height and Weight Body Mass Index (BMI) 27.1 27.1 27.1 BMI Classification Overweight Overweight Overweight Vital Signs Temperature (97.8 F-99.1 F) 97.6 F L 96.9 F L 97.8 F Temperature Source Temporal Temporal Temporal Pulse Rate (60-100) 74 75 76 Pulse Location Monitor Monitor Monitor Respiratory Rate (12-18) 20 H 18 18 Respiratory rate source Observation Observation Observation Blood Pressure (90/60-120/80) 126/81 H 123/63 H 148/77 H Blood Pressure Mean (mm Hg) 96 83 100 Source Monitor Monitor Monitor Position Semi-Fowlers Semi-Fowlers Blood Pressure Location Left Arm Left Arm History Since Last Visit- (Skip if this is Patient's initial visit) Have you changed medications since your No No No last visit? Any new allergies or adverse reactions No No No Had a fall/change in ADL's that may No No No increase risk of falls Signs or symptoms of abuse and/or No No neglect since last visit Have you been in the hospital since your No No No last visit? Has dressing in place as prescribed Yes Yes Yes Has compression in place as prescribed N/A Yes No Has offloadiing in place as prescribed Yes No No Experienced any changes in pain level or No No No management Left Footwear Surgical Shoe Regular Shoe with pressure relief insole Right Footwear Regular Shoe Removable Cast Surgical Shoe Walker/Walking with pressure Boot relief insole Pain Scale: 0-10 Numeric Is Patient Pain Free? Yes Yes Yes 01/27/21 10:38 WC - Today's Visit Information Type of service Follow-up Visit (Physician/CONSTRUCTION CONTRACTOR ) Arrival Mode Ambulatory Transfer Assistance None Patient Identification Verified (Name & Yes ) Patient Requires Transmission-Based No Precautions Finger Stick Blood Sugar(mg/dl) (if not checked indicated): Blood Sugar Stated by Patient Height and Weight Body Mass Index (BMI) 27.1 BMI Classification Overweight Vital Signs Temperature (97.8 F-99.1 F) 98.1 F Temperature Source Temporal Pulse Rate (60-100) 78 Pulse Location Monitor Respiratory Rate (12-18) 20 H Respiratory rate source Observation Blood Pressure (90/60-120/80) 142/77 H Blood Pressure Mean (mm Hg) 98 Source Monitor Position Blood Pressure Location History Since Last Visit- (Skip if this is Patient's initial visit) Have you changed medications since your No last visit? Any new allergies or adverse reactions No Had a fall/change in ADL's that may No increase risk of falls Signs or symptoms of abuse and/or No neglect since last visit Have you been in the hospital since your No last visit? Has dressing in place as prescribed No Has compression in place as prescribed Yes Has offloadiing in place as prescribed Yes Experienced any changes in pain level or No management Left Footwear Right Footwear Pain Scale: 0-10 Numeric Is Patient Pain Free? Yes WC - Nurse 1 - General Ulcer Measurement Start: 01/06/21 11:05 Freq: Status: Active Protocol: Activity Type Activity Date Activity User E-Sign Co-Sign Detail Recorded Client Recorded Date Recorded By Document 01/06/21 11:05 DL [id number] 01/06/21 11:10 DL Document 01/13/21 10:53 RB Desktop 01/13/21 10:56 RB Document 01/20/21 10:38 [facility] [id number] 01/20/21 10:40 [facility] Document 01/27/21 10:38 DL [id number] 01/27/21 10:41 DL 01/06/21 01/13/21 01/20/21 11:05 10:53 10:38 Wound Center Nurse 1 8-right heel -Combined with other wound No No -Current Size (cm) - Length 1.4 1.6 1.4 -Current Size (cm) - Width 1.5 1.8 1.9 -Current Size (cm) - Depth 0.8 0.3 0.5 -Total Square Cm 2.10 2.88 2.66 -Photo Taken No -Tunneling No No -Undermining/Tunneling No No -Maximum Distance #2 (cm) 0.3 -Circular Undermining Yes No No -Exudate Amt Medium Medium Medium -Exudate Type Serosanguineous Serosanguineous Serosanguineous -Wound Margin Thickened Distinct, Thickened Outline Attached -Granulation Amt Medium (34-66%) Medium (34-66%) Medium (34-66%) -Granulation Quality [place] -Slough/Fibrin Yes Yes -Necrosis Amt Medium (34-66%) Small (1-33%) Small (1-33%) -Necrotic Tissue Type Adherent Slough Adherent Slough Adherent Slough -Structure Exposed N/A N/A -Texture (Colleen-wound Skin Appearance) Callus,Scarring Callus Callus -Moisture (Colleen-wound Skin Appearance) Maceration Assessed Assessed -Color (Colleen-wound Skin Appearance) No Abnormality Assessed Assessed -Temperature (Colleen-wound Skin No Abnormality No Abnormality No Abnormality Appearance) (Pt Warm) (Pt Warm) (Pt Warm) -Tenderness on Palpation (Colleen-wound No No No Skin Appearance) -Ulcer Cleansing Wound Cleanser Wound Cleanser Wound Cleanser -Foul Odor after Cleansing No No No -Anesthetic Used 4% Lidocaine 5% Lidocaine 5% Lidocaine Solution Gel Gel 01/27/21 10:38 Wound Center Nurse 1 8-right heel -Combined with other wound -Current Size (cm) - Length 1 -Current Size (cm) - Width 1.4 -Current Size (cm) - Depth 0.9 -Total Square Cm 1.4 -Photo Taken No -Tunneling -Undermining/Tunneling -Maximum Distance #2 (cm) -Circular Undermining -Exudate Amt Small -Exudate Type Serosanguineous -Wound Margin Distinct, Outline Attached -Granulation Amt Medium (34-66%) -Granulation Quality Red -Slough/Fibrin -Necrosis Amt Medium (34-66%) -Necrotic Tissue Type Adherent Slough -Structure Exposed N/A -Texture (Colleen-wound Skin Appearance) Scarring -Moisture (Colleen-wound Skin Appearance) No Abnormality -Color (Colleen-wound Skin Appearance) No Abnormality -Temperature (Colleen-wound Skin No Abnormality Appearance) (Pt Warm) -Tenderness on Palpation (Colleen-wound No Skin Appearance) -Ulcer Cleansing Rinsed/ Irrigated with Saline -Foul Odor after Cleansing No -Anesthetic Used 4% Lidocaine Solution WC - Nurse 2 - General Ulcer CM Notes Start: 01/06/21 11:05 Freq: Status: Active Protocol: Activity Type Activity Date Activity User E-Sign Co-Sign Detail Recorded Client Recorded Date Recorded By Document 01/06/21 11:38 JF [id number] 01/06/21 11:40 JF Edit Result 01/06/21 11:38 JF (1) [id number] 01/08/21 10:59 PL Document 01/13/21 11:02 JF [id number] 01/13/21 11:08 JF Document 01/20/21 11:16 JF [id number] 01/20/21 11:24 JF Document 01/27/21 10:58 JF [id number] 01/27/21 11:03 JF (1) 8-right heel - Type of Offloading Total Contact Cast => (TCC) - Left ($) => 01/06/21 01/13/21 01/20/21 11:38 11:02 11:16 Wound Center Nurse 2 8-right heel -Time 11:38 11:03 11:16 -Correct Patient Yes Yes Yes -Correct Side, Site, Position Yes Yes Yes -Correct Procedure Yes Yes Yes -Procedure Performed Yes Yes Yes -Type of Procedure Debridement Debridement Debridement -Clinical Debridement Subcutaneous Subcutaneous Subcutaneous -Tissue Removed Subcutaneous Subcutaneous Subcutaneous -Post Debridement (cm) - Length 1.5 1.7 1.5 -Post Debridement (cm) - Width 2 0.8 1.9 -Post Debridement (cm) - Depth 0.4 0.4 0.3 -Total Square (Post) (cm) 3.0 1.36 2.85 -Area of Debridement (cm) - Length 1.5 1.7 1.5 -Area of Debridement (cm) - Width 2 0.8 1.9 -Total Square (Area) (cm) 3.0 1.36 2.85 -Tunneling No No No -Undermining/Tunneling No No No -Circular Undermining No No No -Wound/Ulcer Outcome Not Healed Not Healed Not Healed -Ulcer Cleansing Rinsed/ Rinsed/ Rinsed/ Irrigated with Irrigated with Irrigated with Saline Saline Saline -Foul Odor after Cleansing No No No -Bioengineered Tissue No No No -Type of Bioengineered Tissue -Expiration Date -Product Lot Number -Percent Used -Lot number of Saline Used -Bleeding Controlled with Pressure Pressure Pressure -Offloading Yes Yes -Type of Offloading Knee Walker Surgical Shoe -Treatment Response Procedure Procedure Not Procedure Tolerated Well Tolerated Well Tolerated Well -Debridement - Subq, 1st 20sq cm Yes Yes Yes -Apply Skin Sub - 1st 25 sq cm - Feet -Epicord (per sq cm) Pain Scale: 0-10 Numeric Is Patient Pain Free? Yes Yes Yes 01/27/21 10:58 Wound Center Nurse 2 8-right heel -Time 10:58 -Correct Patient Yes -Correct Side, Site, Position Yes -Correct Procedure Yes -Procedure Performed Yes -Type of Procedure Debridement -Clinical Debridement Subcutaneous -Tissue Removed Subcutaneous -Post Debridement (cm) - Length 1.1 -Post Debridement (cm) - Width 1.5 -Post Debridement (cm) - Depth 0.9 -Total Square (Post) (cm) 1.65 -Area of Debridement (cm) - Length 1.1 -Area of Debridement (cm) - Width 1.5 -Total Square (Area) (cm) 1.65 -Tunneling No -Undermining/Tunneling No -Circular Undermining No -Wound/Ulcer Outcome Not Healed -Ulcer Cleansing Rinsed/ Irrigated with Saline -Foul Odor after Cleansing No -Bioengineered Tissue Yes -Type of Bioengineered Tissue Epicord -Expiration Date 08/06/25 -Product Lot Number [id number] -Percent Used 100 -Lot number of Saline Used [id number] -Bleeding Controlled with Pressure -Offloading Yes -Type of Offloading Surgical Shoe -Treatment Response Procedure Tolerated Well -Debridement - Subq, 1st 20sq cm No -Apply Skin Sub - 1st 25 sq cm - Feet 1 -Epicord (per sq cm) 6 Pain Scale: 0-10 Numeric Is Patient Pain Free? Yes - Nurse 3 - General Ulcer D/C NN Start: 01/06/21 11:05 Freq: Status: Active Protocol: Activity Type Activity Date Activity User E-Sign Co-Sign Detail Recorded Client Recorded Date Recorded By Document 01/06/21 11:48 RB [id number] 01/06/21 11:51 RB Document 01/13/21 11:10 ML [id number] 01/13/21 11:12 ML Document 01/20/21 11:28 DL [id number] 01/20/21 11:29 DL Document 01/27/21 11:12 RB [id number] 01/27/21 11:13 RB 09/05/2801/13/21 01/20/21 11:48 11:10 11:28 Wound Care Nurse 3 8-right heel -Ulcer Cleansing Rinsed/ Rinsed/ Rinsed/ Irrigated with Irrigated with Irrigated with Saline Saline Saline -Foul Odor after Cleansing No No -Primary Dressing Applied Promogran Keyla Matter -Other Dressing keyla keyla -Primary Dressing Covered/Secured with Dry Gauze,Dry Dry Gauze & Dry Gauze & Gauze & Roll Roll Gauze, Roll Gauze, Gauze,Secured Secured with Secured with with Tape Tape Tape -Promogran Keyla Matter 1 Treatment Response Procedure Procedure Tolerated Well Tolerated Well Pain Scale: 0-10 Numeric Is Patient Pain Free? Yes Yes Yes WC - Visit Discharge Discharge Condition Stable Stable Stable Ambulatory Status Ambulatory Ambulatory Transportation Private Auto Medication Reconcilliation completed & No No provided to patient/care provider Clinical Summary of Care Provided Yes Yes Notes: dressing applied by Bakari Kendall today. 01/27/21 11:12 Wound Care Nurse 3 8-right heel -Ulcer Cleansing -Foul Odor after Cleansing -Primary Dressing Applied -Other Dressing abd nurses hat -Primary Dressing Covered/Secured with Dry Gauze,Dry Gauze & Roll Gauze,Secured with Tape -Promogran Keyla Matter Treatment Response Procedure Tolerated Well Pain Scale: 0-10 Numeric Is Patient Pain Free? WC - Visit Discharge Discharge Condition Stable Ambulatory Status Ambulatory Transportation Private Auto Medication Reconcilliation completed & No provided to patient/care provider Clinical Summary of Care Provided Yes Notes: Assessment/Plan Assessment/Plan (1) Type 2 diabetes mellitus with diabetic polyneuropathy: CODE(S): E11.42 - Type 2 diabetes mellitus with diabetic polyneuropathy QUALIFIERS: Diabetes mellitus snf insulin use: unspecified termite control service representative insulin use status Qualified Code(s): E11.42 - Type 2 diabetes mellitus with diabetic polyneuropathy (2) Dialysis patient: CODE(S): Z99.2 - Dependence on renal dialysis (3) Ulcer of right foot with fat layer exposed: CODE(S): L97.512 - Non-pressure chronic ulcer of other part of right foot with fat layer exposed (4) Delayed wound healing: CODE(S): T14.8XXD - Other injury of unspecified body region, subsequent encounter PLAN: The patient was seen and examined at the wound center today and her case was reviewed. Debridement was performed today to the heel. Dressing: Advancing healing product, epi fix was applied today after verbal consent was obtained. This was were performed according to standard protocol and she tolerated this well. This was secured in place with Steri-Strips and a wound veil. A secondary dressing of gauze and Kerlix was applied. She is advised to keep this clean, dry, and intact. The benefits and indications were reviewed again today. 100% of the product was utilized. She will keep this intact until she follows up next week. Wash: Antibacterial soap and water The purpose of offloading offloading techniques was reviewed. I do not recommend that she wears her close diabetic shoe even for short periods. I recommend she hangs her heel over stacked blankets or pillows while in bed to keep pressure off of the ulcer. I recommend she obtains a donut pillow to help with her offloading; to continue. She is at risk for amputation further illness of limb loss. Okay to continue with cam walker however to recommend assistive device to use such as a walker to prevent friction on this area. To use a walker. Also offered her total contact cast application and she is not able to do this because she is responsible for driving herself to dialysis and other appointments. If she happens to get a road train driver for 1 of these week she was advised to consider this. Although she has palpable pulses I do recommend screening her with a noninvasive vascular study to evaluate for any potential perfusion deficits. Her medical records from the [facility] will be requested. Her noninvasive vascular studies were reviewed from [facility] January 07, 2020 with triphasic waveforms bilateral and right ABIs of 1.21 and 1.07 and left ABIs of 1.2 and 1.09. The digital pressures were 105 mmHg on the right and 141 mmHg on the left. She also had normal PVR waveforms to the ankle and digital level bilateral. Her labs from -2020 were reviewed. She had resolution of leukocytosis prior to hospital discharge. Her last ESR was on 09-15-20 and was 116. She is at continued risk for limb loss. I recommend nutritional supplementation to optimize healing. Varun is recommended. To return to the wound healing center in 1 week, or call sooner if she has any questions or concerns or signs of infection. I answered all of her questions today. Note: [employer] speech recognition audiology director software was used to create portions of this document. Sound-alike and misspelled words, as well as other audiology director errors may be contained in the documentation.
[2021-02-03 11:30] VITALS: BP 127/74; PULSE 88; RESP 16; TEMP 36.4; BMI 27.1
--- NOTE | 2021-02-03 12:53 | PCM.WC.PN ---
History of Present Illness Date of Service: 02/03/21 Chief Complaint: heel ulcer History of Wound: She was seen today for right heel ulcer. She denies fever, chill, nausea, vomiting. She has been trying to offload her heel by wearing an offloading donut pillow and cam walker sometimes. She continues on dialysis. She kept the epi cord clean and dry last week. Progress of Wound: Stable with wound bed granulation improvement. Objective Data Objective Data Vital Signs: Vital Signs Temp Pulse Resp BP 97.5 F L 88 16 127/74 H 02/03/21 11:30 02/03/21 11:30 02/03/21 11:30 02/03/21 11:30 Oxygen Delivery Method Room Air Weight: 72.91 kg Body Mass Index (BMI) 27.1 Physical Exam Skin Skin Narrative: no purulence, no streaking, no odor, no infection . Adjacent skin is hairless and atrophic. No webspace maceration or necrosis. skin discontinuity plantar medial heel with granular base and no infection. 0.9 cm depth but no deep tissues exposed quality improved with reduced fibrous tissue. Minor peripheral callus noted. Full epithelialization to digits is noted and this remains healed Neuro Neuro Narrative: Lack of normal epicritic sensation light touch is consistent with neuropathic status. Debridement Note Debridement Note Wound debrided: Plantar right heel Wound Grade/Stage: 1 Type of Debridement: Excisional debridement Anesthesia Used: 4% Lidocaine Solution Depth: in the subcutaneous layer Percentage of wound debrided: 100 Instrument Used: #15 blade Tissue Removed: fibrous, devitalized subcutaneous, biofilm, slough Severity: Fat Layer Exposed Amount of bleeding with debridement: Mild Bleeding Controlled with: Pressure Patient tolerated procedure: Patient tolerated procedure well Post-Debridement Measurements and Additional Note: Post-Debridement Measurements/Treatment - Nurse 1 - General Ulcer Assessment Start: 01/06/21 11:05 Freq: Status: Active Protocol: NATHAN.ANTOINETTE Activity Type Activity Date Activity User E-Sign Co-Sign Detail Recorded Client Recorded Date Recorded By Document 01/06/21 11:05 DL [id number] 01/06/21 11:10 DL Document 01/13/21 10:53 RB Desktop 01/13/21 10:56 RB Document 01/20/21 10:38 BMF [id number] 01/20/21 10:40 BMF Document 01/27/21 10:38 DL [id number] 01/27/21 10:41 DL Document 02/03/21 11:30 BMF Desktop 02/03/21 11:37 BMF 01/06/21 01/13/21 01/20/21 11:05 10:53 10:38 WC - Today's Visit Information Type of service Follow-up Visit Follow-up Visit Follow-up Visit (Physician/KNOWLEDGE MANAGEMENT CONSULTANT (Physician/KNOWLEDGE MANAGEMENT CONSULTANT (Physician/KNOWLEDGE MANAGEMENT CONSULTANT ) ) ) Arrival Mode Ambulatory Ambulatory Ambulatory Transfer Assistance Stretcher None None Patient Identification Verified (Name & Yes Yes Yes ) Patient Requires Transmission-Based No No No Precautions Finger Stick Blood Sugar(mg/dl) (if 132 indicated): Blood Sugar Stated by Patient Height and Weight Body Mass Index (BMI) 27.1 27.1 27.1 BMI Classification Overweight Overweight Overweight Vital Signs Temperature (97.8 F-99.1 F) 97.6 F L 96.9 F L 97.8 F Temperature Source Temporal Temporal Temporal Pulse Rate (60-100) 74 75 76 Pulse Location Monitor Monitor Monitor Respiratory Rate (12-18) 20 H 18 18 Respiratory rate source Observation Observation Observation Oxygen Delivery Method Blood Pressure (90/60-120/80) 126/81 H 123/63 H 148/77 H Blood Pressure Mean (mm Hg) 96 83 100 Source Monitor Monitor Monitor Position Semi-Fowlers Semi-Fowlers Blood Pressure Location Left Arm Left Arm History Since Last Visit- (Skip if this is Patient's initial visit) Have you changed medications since your No No No last visit? Any new allergies or adverse reactions No No No Had a fall/change in ADL's that may No No No increase risk of falls Signs or symptoms of abuse and/or No No neglect since last visit Have you been in the hospital since your No No No last visit? Has dressing in place as prescribed Yes Yes Yes Has compression in place as prescribed N/A Yes No Has offloadiing in place as prescribed Yes No No Experienced any changes in pain level or No No No management Left Footwear Surgical Shoe Regular Shoe with pressure relief insole Right Footwear Regular Shoe Removable Cast Surgical Shoe Walker/Walking with pressure Boot relief insole Pain Scale: 0-10 Numeric Is Patient Pain Free? Yes Yes Yes 01/27/21 02/03/21 10:38 11:30 WC - Today's Visit Information Type of service Follow-up Visit Follow-up Visit (Physician/KNOWLEDGE MANAGEMENT CONSULTANT (Physician/KNOWLEDGE MANAGEMENT CONSULTANT ) ) Arrival Mode Ambulatory Ambulatory Transfer Assistance None None Patient Identification Verified (Name & Yes Yes ) Patient Requires Transmission-Based No No Precautions Finger Stick Blood Sugar(mg/dl) (if not checked 98 indicated): Blood Sugar Stated by Stated by Patient Patient Height and Weight Body Mass Index (BMI) 27.1 27.1 BMI Classification Overweight Overweight Vital Signs Temperature (97.8 F-99.1 F) 98.1 F 97.5 F L Temperature Source Temporal Temporal Pulse Rate (60-100) 78 88 Pulse Location Monitor Monitor Respiratory Rate (12-18) 20 H 16 Respiratory rate source Observation Observation Oxygen Delivery Method Room Air Blood Pressure (90/60-120/80) 142/77 H 127/74 H Blood Pressure Mean (mm Hg) 98 91 Source Monitor Monitor Position Sitting Blood Pressure Location Right Arm History Since Last Visit- (Skip if this is Patient's initial visit) Have you changed medications since your No No last visit? Any new allergies or adverse reactions No No Had a fall/change in ADL's that may No No increase risk of falls Signs or symptoms of abuse and/or No No neglect since last visit Have you been in the hospital since your No No last visit? Has dressing in place as prescribed No Yes Has compression in place as prescribed Yes N/A Has offloadiing in place as prescribed Yes N/A Experienced any changes in pain level or No No management Left Footwear Regular Shoe Right Footwear Wedge Shoe Pain Scale: 0-10 Numeric Is Patient Pain Free? Yes Yes WC - Nurse 1 - General Ulcer Measurement Start: 01/06/21 11:05 Freq: Status: Active Protocol: Activity Type Activity Date Activity User E-Sign Co-Sign Detail Recorded Client Recorded Date Recorded By Document 01/06/21 11:05 DL [id number] 01/06/21 11:10 DL Document 01/13/21 10:53 RB Desktop 01/13/21 10:56 RB Document 01/20/21 10:38 BMF [id number] 01/20/21 10:40 BMF Document 01/27/21 10:38 DL [id number] 01/27/21 10:41 DL Document 02/03/21 11:30 BMF Desktop 02/03/21 11:37 BMF [id number] 01/20/21 11:05 10:53 10:38 Wound Center Nurse 1 8-right heel -Combined with other wound No No -Current Size (cm) - Length 1.4 1.6 1.4 -Current Size (cm) - Width 1.5 1.8 1.9 -Current Size (cm) - Depth 0.8 0.3 0.5 -Total Square Cm 2.10 2.88 2.66 -Date of Last Picture (Recall this field) -Photo Taken No -Epithelialization -Tunneling No No -Undermining/Tunneling No No -Maximum Distance #2 (cm) 0.3 -Circular Undermining Yes No No -Exudate Amt Medium Medium Medium -Exudate Type Serosanguineous Serosanguineous Serosanguineous -Wound Margin Thickened Distinct, Thickened Outline Attached -Granulation Amt Medium (34-66%) Medium (34-66%) Medium (34-66%) -Granulation Quality Box Elder Box Elder -Slough/Fibrin Yes Yes -Necrosis Amt Medium (34-66%) Small (1-33%) Small (1-33%) -Necrotic Tissue Type Adherent Slough Adherent Slough Adherent Slough -Structure Exposed N/A N/A -Texture (Colleen-wound Skin Appearance) Callus,Scarring Callus Callus -Moisture (Colleen-wound Skin Appearance) Maceration Assessed Assessed -Color (Colleen-wound Skin Appearance) No Abnormality Assessed Assessed -Temperature (Colelen-wound Skin No Abnormality No Abnormality No Abnormality Appearance) (Pt Warm) (Pt Warm) (Pt Warm) -Tenderness on Palpation (Colleen-wound No No No Skin Appearance) -Ulcer Cleansing Wound Cleanser Wound Cleanser Wound Cleanser -Foul Odor after Cleansing No No No -Anesthetic Used 4% Lidocaine 5% Lidocaine 5% Lidocaine Solution Gel Gel 01/27/21 02/03/21 10:38 11:30 Wound Center Nurse 1 8-right heel -Combined with other wound No -Current Size (cm) - Length 1 1 -Current Size (cm) - Width 1.4 1.3 -Current Size (cm) - Depth 0.9 0.7 -Total Square Cm 1.4 1.3 -Date of Last Picture (Recall this 02/03/21 field) -Photo Taken No Yes -Epithelialization Small 1-33% -Tunneling No -Undermining/Tunneling No -Maximum Distance #2 (cm) -Circular Undermining No -Exudate Amt Small Medium -Exudate Type Serosanguineous Serosanguineous -Wound Margin Distinct, Distinct, Outline Outline Attached Attached -Granulation Amt Medium (34-66%) Medium (34-66%) -Granulation Quality Red Box Elder -Slough/Fibrin Yes -Necrosis Amt Medium (34-66%) Small (1-33%) -Necrotic Tissue Type Adherent Slough Adherent Slough -Structure Exposed N/A -Texture (Colleen-wound Skin Appearance) Scarring Assessed,Callus ,Scarring -Moisture (Colleen-wound Skin Appearance) No Abnormality Assessed, Maceration -Color (Colleen-wound Skin Appearance) No Abnormality Assessed,Palor -Temperature (Colleen-wound Skin No Abnormality No Abnormality Appearance) (Pt Warm) (Pt Warm) -Tenderness on Palpation (Colleen-wound No No Skin Appearance) -Ulcer Cleansing Rinsed/ Soap and Water Irrigated with Saline -Foul Odor after Cleansing No No -Anesthetic Used 4% Lidocaine 5% Lidocaine Solution Gel WC - Nurse 2 - General Ulcer CM Notes Start: 01/06/21 11:05 Freq: Status: Active Protocol: Activity Type Activity Date Activity User E-Sign Co-Sign Detail Recorded Client Recorded Date Recorded By Document 01/06/21 11:38 [id number] 01/06/21 11:40 Edit Result 01/06/21 11:38 JF (1) [id number] 01/08/21 10:59 Document 01/13/21 11:02 [id number] 01/13/21 11:08 Document 01/20/21 11:16 [id number] 01/20/21 11:24 Document 01/27/21 10:58 [id number] 01/27/21 11:03 Document 02/03/21 11:42 [id number] 02/03/21 11:47 JF (1) 8-right heel - Type of Offloading Total Contact Cast => (TCC) - Left ($) => 01/06/21 01/13/21 01/20/21 11:38 11:02 11:16 Wound Center Nurse 2 8-right heel -Time 11:38 11:03 11:16 -Correct Patient Yes Yes Yes -Correct Side, Site, Position Yes Yes Yes -Correct Procedure Yes Yes Yes -Procedure Performed Yes Yes Yes -Type of Procedure Debridement Debridement Debridement -Clinical Debridement Subcutaneous Subcutaneous Subcutaneous -Tissue Removed Subcutaneous Subcutaneous Subcutaneous -Post Debridement (cm) - Length 1.5 1.7 1.5 -Post Debridement (cm) - Width 2 0.8 1.9 -Post Debridement (cm) - Depth 0.4 0.4 0.3 -Total Square (Post) (cm) 3.0 1.36 2.85 -Area of Debridement (cm) - Length 1.5 1.7 1.5 -Area of Debridement (cm) - Width 2 0.8 1.9 -Total Square (Area) (cm) 3.0 1.36 2.85 -Tunneling No No No -Undermining/Tunneling No No No -Circular Undermining No No No -Wound/Ulcer Outcome Not Healed Not Healed Not Healed -Ulcer Cleansing Rinsed/ Rinsed/ Rinsed/ Irrigated with Irrigated with Irrigated with Saline Saline Saline -Foul Odor after Cleansing No No No -Bioengineered Tissue No No No -Type of Bioengineered Tissue -Expiration Date -Product Lot Number -Percent Used -Lot number of Saline Used -Bleeding Controlled with Pressure Pressure Pressure -Offloading Yes Yes -Type of Offloading Knee Walker Surgical Shoe -Treatment Response Procedure Procedure Not Procedure Tolerated Well Tolerated Well Tolerated Well -Debridement - Subq, 1st 20sq cm Yes Yes Yes -Apply Skin Sub - 1st 25 sq cm - Feet -Epicord (per sq cm) Pain Scale: 0-10 Numeric Is Patient Pain Free? Yes Yes Yes 01/27/21 02/03/21 10:58 11:42 Wound Center Nurse 2 8-right heel -Time 10:58 11:42 -Correct Patient Yes Yes -Correct Side, Site, Position Yes Yes -Correct Procedure Yes Yes -Procedure Performed Yes Yes -Type of Procedure Debridement Debridement -Clinical Debridement Subcutaneous Subcutaneous -Tissue Removed Subcutaneous Epidermis, Subcutaneous -Post Debridement (cm) - Length 1.1 1.1 -Post Debridement (cm) - Width 1.5 1.3 -Post Debridement (cm) - Depth 0.9 0.9 -Total Square (Post) (cm) 1.65 1.43 -Area of Debridement (cm) - Length 1.1 1.1 -Area of Debridement (cm) - Width 1.5 1.3 -Total Square (Area) (cm) 1.65 1.43 -Tunneling No No -Undermining/Tunneling No No -Circular Undermining No No -Wound/Ulcer Outcome Not Healed Not Healed -Ulcer Cleansing Rinsed/ Rinsed/ Irrigated with Irrigated with Saline Saline -Foul Odor after Cleansing No No -Bioengineered Tissue Yes Yes -Type of Bioengineered Tissue Epicord Epicord -Expiration Date 08/06/25 10/06/25 -Product Lot Number [id number] -Percent Used 100 100 -Lot number of Saline Used [id number] -Bleeding Controlled with Pressure Pressure -Offloading Yes Yes -Type of Offloading Surgical Shoe Camwalker -Treatment Response Procedure Procedure Tolerated Well Tolerated Well -Debridement - Subq, 1st 20sq cm No No -Apply Skin Sub - 1st 25 sq cm - Feet 1 1 -Epicord (per sq cm) 6 6 Pain Scale: 0-10 Numeric Is Patient Pain Free? Yes Yes WC - Nurse 3 - General Ulcer D/C NN Start: 01/06/21 11:05 Freq: Status: Active Protocol: Activity Type Activity Date Activity User E-Sign Co-Sign Detail Recorded Client Recorded Date Recorded By Document 01/06/21 11:48 RB [id number] 01/06/21 11:51 RB Document 01/13/21 11:10 ML [id number] 01/13/21 11:12 ML Document 01/20/21 11:28 DL [id number] 01/20/21 11:29 DL Document 01/27/21 11:12 RB [id number] 01/27/21 11:13 RB Document 02/03/21 11:58 RB Desktop 02/03/21 11:59 RB 01/06/21 01/13/21 01/20/21 11:48 11:10 11:28 Wound Care Nurse 3 8-right heel -Ulcer Cleansing Rinsed/ Rinsed/ Rinsed/ Irrigated with Irrigated with Irrigated with Saline Saline Saline -Foul Odor after Cleansing No No -Primary Dressing Applied Promogran Keyla Matter -Other Dressing keyla keyla -Primary Dressing Covered/Secured with Dry Gauze,Dry Dry Gauze & Dry Gauze & Gauze & Roll Roll Gauze, Roll Gauze, Gauze,Secured Secured with Secured with with Tape Tape Tape -Promogran Keyla Matter 1 Treatment Response Procedure Procedure Tolerated Well Tolerated Well Pain Scale: 0-10 Numeric Is Patient Pain Free? Yes Yes Yes WC - Visit Discharge Discharge Condition Stable Stable Stable Ambulatory Status Ambulatory Ambulatory Transportation Private Auto Medication Reconcilliation completed & No No provided to patient/care provider Clinical Summary of Care Provided Yes Yes Notes: dressing applied by Bakari Kendall today. 01/27/21 02/03/21 11:12 11:58 Wound Care Nurse 3 8-right heel -Ulcer Cleansing -Foul Odor after Cleansing -Primary Dressing Applied -Other Dressing abd nurses hat -Primary Dressing Covered/Secured with Dry Gauze,Dry Dry Gauze,Dry Gauze & Roll Gauze & Roll Gauze,Secured Gauze,Secured with Tape with Tape -Promogran Keyla Matter Treatment Response Procedure Procedure Tolerated Well Tolerated Well Pain Scale: 0-10 Numeric Is Patient Pain Free? Yes WC - Visit Discharge Discharge Condition Stable Stable Ambulatory Status Ambulatory Ambulatory Transportation Private Auto Private Auto Medication Reconcilliation completed & No No provided to patient/care provider Clinical Summary of Care Provided Yes Yes Notes: right surgical shoe placed ON PT Assessment/Plan Assessment/Plan (1) Type 2 diabetes mellitus with diabetic polyneuropathy: CODE(S): E11.42 - Type 2 diabetes mellitus with diabetic polyneuropathy QUALIFIERS: Diabetes mellitus manager clinical pharmacy insulin use: unspecified manager clinical pharmacy insulin use status Qualified Code(s): E11.42 - Type 2 diabetes mellitus with diabetic polyneuropathy (2) Dialysis patient: CODE(S): Z99.2 - Dependence on renal dialysis (3) Ulcer of right foot with fat layer exposed: CODE(S): L97.512 - Non-pressure chronic ulcer of other part of right foot with fat layer exposed (4) Delayed wound healing: CODE(S): T14.8XXD - Other injury of unspecified body region, subsequent encounter PLAN: The patient was seen and examined at the wound center today and her case was reviewed. Debridement was performed today to the heel. Dressing: Advancing healing product, epi cord was applied today after verbal consent was obtained. This was were performed according to standard protocol and she tolerated this well. This was secured in place with Steri-Strips and a wound veil. A secondary dressing of gauze and Kerlix was applied. She is advised to keep this clean, dry, and intact. The benefits and indications were reviewed again today. 100% of the product was utilized. She will keep this intact until she follows up next week. Wash: Antibacterial soap and water The purpose of offloading offloading techniques was reviewed. I do not recommend that she wears her close diabetic shoe even for short periods. I recommend she hangs her heel over stacked blankets or pillows while in bed to keep pressure off of the ulcer. I recommend she obtains a donut pillow to help with her offloading; to continue. She is at risk for amputation further illness of limb loss. Okay to continue with cam walker however to recommend assistive device to use such as a walker to prevent friction on this area. To use a walker. Although she has palpable pulses I do recommend screening her with a noninvasive vascular study to evaluate for any potential perfusion deficits. Her medical records from the [facility] will be requested. Her noninvasive vascular studies were reviewed from [facility] January 07, 2020 with triphasic waveforms bilateral and right ABIs of 1.21 and 1.07 and left ABIs of 1.2 and 1.09. The digital pressures were 105 mmHg on the right and 141 mmHg on the left. She also had normal PVR waveforms to the ankle and digital level bilateral. Her labs from were reviewed. She had resolution of leukocytosis prior to hospital discharge. Her last ESR was on 09-15-20 and was 116. She is at continued risk for limb loss. I recommend nutritional supplementation to optimize healing. Varun is recommended. To return to the wound healing center in 1 week, or call sooner if she has any questions or concerns or signs of infection. I answered all of her questions today. Note: [employer] speech recognition slot machine repairer software was used to create portions of this document. Sound-alike and misspelled words, as well as other slot machine repairer errors may be contained in the documentation.
== END 2021-02-04 23:59 ==
LOC: WC 11:30
PROVIDERS: PCP Family Medicine; Visit Provider Podiatrist
DX: E11.621 Type 2 diabetes mellitus with foot ulcer (principal); L97.412 Non-pressure chronic ulcer of right heel and midfoot with fat layer exposed; E11.42 Type 2 diabetes mellitus with diabetic polyneuropathy; Z99.2 Dependence on renal dialysis; E66.3 Overweight; Z68.27 Body mass index [BMI] 27.0-27.9, adult; Z79.01 Long term (current) use of anticoagulants; Z79.02 Long term (current) use of antithrombotics/antiplatelets; Z79.4 Long term (current) use of insulin; Z79.899 Other long term (current) drug therapy
CPT/HCPCS: 11042; 15275; 29445; Q4187

== ENCOUNTER 2021-03-03 11:00 | Outpatient (RCR) | payer MEDICARE, MEDICAID, SELFPAY ==
[2021-02-05 00:17] VITALS: BP 127/74; PULSE 88; RESP 16; TEMP 36.4; BMI 27.1
[2021-02-10 10:39] VITALS: BP 143/89; PULSE 81; RESP 18; TEMP 36.3; BMI 27.1
--- NOTE | 2021-02-10 11:23 | PN.PCM_ITS ---
History of Present Illness Date of Service: 02/10/21 Chief Complaint: heel ulcer History of Wound: She was seen today for right heel ulcer. She denies fever, chill, nausea, vomiting. She has been trying to offload her heel by wearing an offloading donut pillow and cam walker sometimes. She continues on dialysis. She kept the epi cord clean and dry last week. She is not to use the walker at all times and is trying to get a cane. She thinks she will be able to get this this upcoming week. Progress of Wound: Improving Objective Data Objective Data Vital Signs: Vital Signs Temp Pulse Resp BP 97.3 F L 81 18 143/89 H 02/10/21 10:39 02/10/21 10:39 02/10/21 10:39 02/10/21 10:39 Weight: 72.91 kg Body Mass Index (BMI) 27.1 Physical Exam Skin Skin Narrative: no purulence, no streaking, no odor, no infection . Adjacent skin is hairless and atrophic. No webspace maceration or necrosis. skin discontinuity plantar medial heel with granular base and no infection. 0.6 cm depth but no deep tissues exposed quality improved with reduced fibrous tissue. Minor peripheral callus noted. Full epithelialization to digits is noted and this remains healed Neuro Neuro Narrative: Lack of normal epicritic sensation light touch is consistent with neuropathic status. Debridement Note Debridement Note Wound debrided: Plantar right heel Wound Grade/Stage: 1 Type of Debridement: Excisional debridement Anesthesia Used: 4% Lidocaine Solution Depth: in the subcutaneous layer Percentage of wound debrided: 100 Instrument Used: #15 blade Tissue Removed: fibrous, devitalized subcutaneous, biofilm, slough Severity: Fat Layer Exposed Amount of bleeding with debridement: Mild Bleeding Controlled with: Pressure Patient tolerated procedure: Patient tolerated procedure well Post-Debridement Measurements and Additional Note: Post-Debridement Measurements/Treatment - Nurse 1 - General Ulcer Assessment Start: 02/10/21 10:39 Freq: Status: Active Protocol: DAVID Activity Type Activity Date Activity User E-Sign Co-Sign Detail Recorded Client Recorded Date Recorded By Document 02/10/21 10:39 ML [id number] 02/10/21 10:42 ML 02/10/21 10:39 - Today's Visit Information Type of service Follow-up Visit (Physician/RESIN MIXER ) Arrival Mode Ambulatory Transfer Assistance None Patient Identification Verified (Name & Yes ) Patient Requires Transmission-Based No Precautions Safety Precautions NA Height and Weight Body Mass Index (BMI) 27.1 BMI Classification Overweight Vital Signs Temperature (97.8 F-99.1 F) 97.3 F L Temperature Source Temporal Pulse Rate (60-100) 81 Pulse Location Monitor Respiratory Rate (12-18) 18 Respiratory rate source Monitor Blood Pressure (90/60-120/80) 143/89 H Blood Pressure Mean (mm Hg) 107 Source Monitor Position Sitting Blood Pressure Location Left Arm History Since Last Visit- (Skip if this is Patient's initial visit) Have you changed medications since your No last visit? Any new allergies or adverse reactions No Had a fall/change in ADL's that may No increase risk of falls Signs or symptoms of abuse and/or No neglect since last visit Have you been in the hospital since your No last visit? Has dressing in place as prescribed Yes Has compression in place as prescribed No Has offloadiing in place as prescribed Yes Experienced any changes in pain level or No management Left Footwear Regular Shoe Right Footwear Surgical Shoe with pressure relief insole Pain Scale: 0-10 Numeric Is Patient Pain Free? Yes WC - Nurse 1 - General Ulcer Measurement Start: 02/10/21 10:39 Freq: Status: Active Protocol: Activity Type Activity Date Activity User E-Sign Co-Sign Detail Recorded Client Recorded Date Recorded By Document 02/10/21 10:39 ML [id number] 02/10/21 10:42 ML 02/10/21 10:39 Wound Center Nurse 1 8-right heel -Current Size (cm) - Length 0.8 -Current Size (cm) - Width 0.8 -Current Size (cm) - Depth 0.4 -Total Square Cm 0.64 -Exudate Amt Medium -Exudate Type Serosanguineous -Wound Margin Distinct, Outline Attached -Granulation Amt Medium (34-66%) -Slough/Fibrin Yes -Necrosis Amt Medium (34-66%) -Necrotic Tissue Type Adherent Slough -Texture (Colleen-wound Skin Appearance) Assessed -Moisture (Colleen-wound Skin Appearance) Assessed -Color (Colleen-wound Skin Appearance) Assessed -Temperature (Colleen-wound Skin No Abnormality Appearance) (Pt Warm) -Ulcer Cleansing Soap and Water -Foul Odor after Cleansing No -Anesthetic Used 4% Lidocaine Solution WC - Nurse 2 - General Ulcer CM Notes Start: 02/10/21 10:39 Freq: Status: Active Protocol: Activity Type Activity Date Activity User E-Sign Co-Sign Detail Recorded Client Recorded Date Recorded By Document 02/10/21 10:53 VITO [id number] 02/10/21 10:57 VITO 02/10/21 10:53 Wound Center Nurse 2 -Time 10:54 -Correct Patient Yes -Correct Side, Site, Position Yes -Correct Procedure Yes -Procedure Performed Yes -Type of Procedure Debridement -Clinical Debridement Subcutaneous -Tissue Removed Subcutaneous -Post Debridement (cm) - Length 1 -Post Debridement (cm) - Width 1 -Post Debridement (cm) - Depth 0.6 -Total Square (Post) (cm) 1 -Area of Debridement (cm) - Length 1 -Area of Debridement (cm) - Width 1 -Total Square (Area) (cm) 1 -Tunneling No -Undermining/Tunneling No -Circular Undermining No -Wound/Ulcer Outcome Not Healed -Ulcer Cleansing Rinsed/ Irrigated with Saline -Foul Odor after Cleansing No -Bioengineered Tissue Yes -Type of Bioengineered Tissue Epicord -Expiration Date 10/06/25 -Product Lot Number [id number] -Percent Used 100 -Lot number of Saline Used [id number] -Bleeding Controlled with Pressure -Offloading Yes -Type of Offloading Knee Walker -Treatment Response Procedure Tolerated Well -Debridement - Subq, 1st 20sq cm No -Apply Skin Sub - 1st 25 sq cm - Feet 1 -Epicord (per sq cm) 6 Pain Scale: 0-10 Numeric Is Patient Pain Free? Yes - Nurse 3 - General Ulcer D/C NN Start: 02/10/21 10:39 Freq: Status: Active Protocol: Activity Type Activity Date Activity User E-Sign Co-Sign Detail Recorded Client Recorded Date Recorded By Document 02/10/21 11:18 RB [id number] 02/10/21 11:18 RB 02/10/21 11:18 Wound Care Nurse 3 8-right heel -Primary Dressing Covered/Secured with Dry Gauze,Dry Gauze & Roll Gauze,Secured with Tape Treatment Response Procedure Tolerated Well Pain Scale: 0-10 Numeric Is Patient Pain Free? Yes - Visit Discharge Discharge Condition Stable Ambulatory Status Ambulatory Transportation Private Auto Medication Reconcilliation completed & No provided to patient/care provider Clinical Summary of Care Provided Yes Assessment/Plan Assessment/Plan (1) Type 2 diabetes mellitus with diabetic polyneuropathy: CODE(S): E11.42 - Type 2 diabetes mellitus with diabetic polyneuropathy QUALIFIERS: Diabetes mellitus fci insulin use: unspecified fci insulin use status Qualified Code(s): E11.42 - Type 2 diabetes mellitus with diabetic polyneuropathy (2) Dialysis patient: CODE(S): Z99.2 - Dependence on renal dialysis (3) Ulcer of right foot with fat layer exposed: CODE(S): L97.512 - Non-pressure chronic ulcer of other part of right foot with fat layer exposed (4) Delayed wound healing: CODE(S): T14.8XXD - Other injury of unspecified body region, subsequent encounter PLAN: The patient was seen and examined at the wound center today and her case was reviewed. Debridement was performed today to the heel. Dressing: Advancing healing product, epi cord was applied today after verbal consent was obtained. This was were performed according to standard protocol and she tolerated this well. This was secured in place with Steri-Strips and a wound veil. A secondary dressing of gauze and Kerlix was applied. She is advised to keep this clean, dry, and intact. The benefits and indications were reviewed again today. 100% of the product was utilized. She will keep this intact until she follows up next week. Wash: Antibacterial soap and water The purpose of offloading offloading techniques was reviewed. I do not recommend that she wears her close diabetic shoe even for short periods. I rec ommend she hangs her heel over stacked blankets or pillows while in bed to keep pressure off of the ulcer. I recommend she obtains a donut pillow to help with her offloading; to continue. She is at risk for amputation further illness of limb loss. Okay to continue with cam walker however to recommend assistive device to use such as a walker to prevent friction on this area. To use a walker. She is also trying to get a cane as a backup plan and this is noted. Although she has palpable pulses I do recommend screening her with a noninvasive vascular study to evaluate for any potential perfusion deficits. Her medical records from the [facility] [place] will be requested. Her noninvasive vascular studies were reviewed from [facility] [place] January 07, 2020 with triphasic waveforms bilateral and right ABIs of 1.21 and 1.07 and left ABIs of 1.2 and 1.09. The digital pressures were 105 mmHg on the right and 141 mmHg on the left. She also had normal PVR waveforms to the ankle and digital level bilateral. Her labs from -2020 were reviewed. She had resolution of leukocytosis prior to hospital discharge. Her last ESR was on 09-15-20 and was 116. She is at continued risk for limb loss. I recommend nutritional supplementation to optimize healing. Varun is recommended. To return to the wound healing center in 1 week, or call sooner if she has any questions or concerns or signs of infection. I answered all of her questions today. Note: [employer] speech recognition hospital plan administrator software was used to create portions of this document. Sound-alike and misspelled words, as well as other hospital plan administrator errors may be contained in the documentation.
[2021-02-17 10:43] VITALS: BP 149/73; PULSE 75; RESP 16; BMI 27.1
--- NOTE | 2021-02-17 11:47 | PN.PCM_ITS ---
History of Present Illness Date of Service: 02/17/21 Chief Complaint: heel ulcer History of Wound: She was seen today for right heel ulcer. She denies fever, chill, nausea, vomiting. She uses cam walker and tries to use an assistive device to keep pressure off of this. She continues on dialysis. She kept the epi cord clean and dry last week. She relates she is moving to [place] within the next couple weeks. Progress of Wound: Improving Objective Data Objective Data Vital Signs: Vital Signs Temp Pulse Resp BP 97.3 F L 75 16 149/73 H 02/10/21 10:39 02/17/21 10:43 02/17/21 10:43 02/17/21 10:43 Oxygen Delivery Method Room Air Weight: 72.91 kg Body Mass Index (BMI) 27.1 Physical Exam Skin Skin Narrative: no purulence, no streaking, no odor, no infection . Adjacent skin is hairless and atrophic. No webspace maceration or necrosis. skin discontinuity plantar medial heel with granular base and no infection. No peripheral callus noted. Neuro Neuro Narrative: Lack of normal epicritic sensation light touch is consistent with neuropathic status. Debridement Note Debridement Note Wound debrided: right heel Wound Grade/Stage: 1 Type of Debridement: Excisional debridement Anesthesia Used: 4% Lidocaine Solution Depth: in the subcutaneous layer Percentage of wound debrided: 100 Instrument Used: #15 blade Tissue Removed: fibrous, devitalized subcutaneous, biofilm, slough Severity: Fat Layer Exposed Amount of bleeding with debridement: Mild Bleeding Controlled with: Pressure Patient tolerated procedure: Patient tolerated procedure well Post-Debridement Measurements and Additional Note: Post-Debridement Measurements/Treatment - Nurse 1 - General Ulcer Assessment Start: 02/10/21 10:39 Freq: Status: Active Protocol: [email or web address] Activity Type Activity Date Activity User E-Sign Co-Sign Detail Recorded Client Recorded Date Recorded By Document 02/10/21 10:39 ML [id number] 02/10/21 10:42 ML Document 02/17/21 10:43 [facility] Desktop 02/17/21 10:51 BMF 02/10/21 02/17/21 10:39 10:43 - Today's Visit Information Type of service Follow-up Visit Follow-up Visit (Physician/PSYCHOLOGY PROFESSOR (Physician/PSYCHOLOGY PROFESSOR ) ) Arrival Mode Ambulatory Ambulatory Transfer Assistance None None Patient Identification Verified (Name & Yes Yes ) Patient Requires Transmission-Based No No Precautions Safety Precautions NA Finger Stick Blood Sugar(mg/dl) (if 212 indicated): Blood Sugar Stated by Patient Height and Weight Body Mass Index (BMI) 27.1 27.1 BMI Classification Overweight Overweight Vital Signs Temperature (97.8 F-99.1 F) 97.3 F L Temperature Source Temporal Pulse Rate (60-100) 81 75 Pulse Location Monitor Monitor Respiratory Rate (12-18) 18 16 Respiratory rate source Monitor Observation Oxygen Delivery Method Room Air Blood Pressure (90/60-120/80) 143/89 H 149/73 H Blood Pressure Mean (mm Hg) 107 98 Source Monitor Monitor Position Sitting Sitting Blood Pressure Location Left Arm Right Arm History Since Last Visit- (Skip if this is Patient's initial visit) Have you changed medications since your No No last visit? Any new allergies or adverse reactions No No Had a fall/change in ADL's that may No No increase risk of falls Signs or symptoms of abuse and/or No No neglect since last visit Have you been in the hospital since your No No last visit? Has dressing in place as prescribed Yes Yes Has compression in place as prescribed No N/A Has offloadiing in place as prescribed Yes N/A Experienced any changes in pain level or No No management Left Footwear Regular Shoe Regular Shoe Right Footwear Surgical Shoe Surgical Shoe with pressure with pressure relief insole relief insole Pain Scale: 0-10 Numeric Is Patient Pain Free? Yes Yes WC - Nurse 1 - General Ulcer Measurement Start: 02/10/21 10:39 Freq: Status: Active Protocol: Activity Type Activity Date Activity User E-Sign Co-Sign Detail Recorded Client Recorded Date Recorded By Document 02/10/21 10:39 ML [id number] 02/10/21 10:42 ML Document 02/17/21 10:43 [facility] Desktop 02/17/21 10:51 BMF 02/10/21 02/17/21 10:39 10:43 Wound Center Nurse 1 8-right heel -Combined with other wound No -Current Size (cm) - Length 0.8 0.5 -Current Size (cm) - Width 0.8 0.8 -Current Size (cm) - Depth 0.4 0.5 -Total Square Cm 0.64 0.40 -Photo Taken No -Epithelialization None Present -Tunneling No -Undermining/Tunneling No -Circular Undermining No -Exudate Amt Medium Medium -Exudate Type Serosanguineous Serosanguineous -Wound Margin Distinct, Thickened & Outline Rolled Under Attached -Granulation Amt Medium (34-66%) Medium (34-66%) -Granulation Quality Pale,[place] -Slough/Fibrin Yes Yes -Necrosis Amt Medium (34-66%) Medium (34-66%) -Necrotic Tissue Type Adherent Slough Adherent Slough -Texture (Colleen-wound Skin Appearance) Assessed Assessed, Scarring -Moisture (Colleen-wound Skin Appearance) Assessed Assessed,Dry/ Scaly -Color (Colleen-wound Skin Appearance) Assessed Assessed -Temperature (Colleen-wound Skin No Abnormality No Abnormality Appearance) (Pt Warm) (Pt Warm) -Tenderness on Palpation (Colleen-wound No Skin Appearance) -Ulcer Cleansing Soap and Water Soap and Water -Foul Odor after Cleansing No No -Anesthetic Used 4% Lidocaine 5% Lidocaine Solution Gel WC - Nurse 2 - General Ulcer CM Notes Start: 02/10/21 10:39 Freq: Status: Active Protocol: Activity Type Activity Date Activity User E-Sign Co-Sign Detail Recorded Client Recorded Date Recorded By Document 02/10/21 10:53 JF [id number] 02/10/21 10:57 Document 02/17/21 11:27 JF [id number] 02/17/21 11:32 02/10/21 02/17/21 10:53 11:27 Wound Center Nurse 2 8-right heel -Time 10:54 11:28 -Correct Patient Yes Yes -Correct Side, Site, Position Yes Yes -Correct Procedure Yes Yes -Procedure Performed Yes Yes -Type of Procedure Debridement Debridement -Clinical Debridement Subcutaneous Subcutaneous -Tissue Removed Subcutaneous Subcutaneous -Post Debridement (cm) - Length 1 0.6 -Post Debridement (cm) - Width 1 0.8 -Post Debridement (cm) - Depth 0.6 0.2 -Total Square (Post) (cm) 1 0.48 -Area of Debridement (cm) - Length 1 0.6 -Area of Debridement (cm) - Width 1 0.8 -Total Square (Area) (cm) 1 0.48 -Tunneling No No -Undermining/Tunneling No No -Circular Undermining No No -Wound/Ulcer Outcome Not Healed Not Healed -Ulcer Cleansing Rinsed/ Rinsed/ Irrigated with Irrigated with Saline Saline -Foul Odor after Cleansing No No -Bioengineered Tissue Yes No -Type of Bioengineered Tissue Epicord -Expiration Date 10/06/25 10/06/25 -Product Lot Number [id number] -Percent Used 100 100 -Lot number of Saline Used [id number] -Bleeding Controlled with Pressure Pressure -Offloading Yes Yes -Type of Offloading Knee Walker Surgical Shoe -Treatment Response Procedure Procedure Tolerated Well Tolerated Well -Debridement - Subq, 1st 20sq cm No No -Apply Skin Sub - 1st 25 sq cm - Feet 1 1 -Epicord (per sq cm) 6 6 Pain Scale: 0-10 Numeric Is Patient Pain Free? Yes Yes - Nurse 3 - General Ulcer D/C NN Start: 02/10/21 10:39 Freq: Status: Active Protocol: Activity Type Activity Date Activity User E-Sign Co-Sign Detail Recorded Client Recorded Date Recorded By Document 02/10/21 11:18 [id number] 02/10/21 11:18 RB Document 02/17/21 11:42 Desktop 02/17/21 11:42 RB 02/10/21 02/17/21 11:18 11:42 Wound Care Nurse 3 8-right heel -Primary Dressing Covered/Secured with Dry Gauze,Dry Dry Gauze,Dry Gauze & Roll Gauze & Roll Gauze,Secured Gauze,Secured with Tape with Tape Treatment Response Procedure Procedure Tolerated Well Tolerated Well Pain Scale: 0-10 Numeric Is Patient Pain Free? Yes Yes - Visit Discharge Discharge Condition Stable Stable Ambulatory Status Ambulatory Ambulatory Transportation Private Auto Private Auto Medication Reconcilliation completed & No No provided to patient/care provider Clinical Summary of Care Provided Yes Yes Assessment/Plan Assessment/Plan (1) Type 2 diabetes mellitus with diabetic polyneuropathy: CODE(S): E11.42 - Type 2 diabetes mellitus with diabetic polyneuropathy QUALIFIERS: Diabetes mellitus prison insulin use: unspecified prison insulin use status Qualified Code(s): E11.42 - Type 2 diabetes mellitus with diabetic polyneuropathy (2) Dialysis patient: CODE(S): Z99.2 - Dependence on renal dialysis (3) Ulcer of right foot with fat layer exposed: CODE(S): L97.512 - Non-pressure chronic ulcer of other part of right foot with fat layer exposed (4) Delayed wound healing: CODE(S): T14.8XXD - Other injury of unspecified body region, subsequent encounter PLAN: The patient was seen and examined at the wound center today and her case was reviewed. Debridement was performed today to the heel. Dressing: Advancing healing product, epi cord was applied today after verbal consent was obtained. This was were performed according to standard protocol and she tolerated this well. This was secured in place with Steri-Strips and a wound veil. A secondary dressing of gauze and Kerlix was applied. She is advised to keep this clean, dry, and intact. The benefits and indications were reviewed again today. 100% of the product was utilized. She will keep this intact until she follows up next week. Wash: Antibacterial soap and water The purpose of offloading offloading techniques was reviewed. I do not recommend that she wears her close diabetic shoe even for short periods. I recommend she hangs her heel over stacked blankets or pillows while in bed to keep pressure off of the ulcer. I recommend she obtains a donut pillow to help with her offloading; to continue. She is at risk for amputation further illness of limb loss. Okay to continue with cam walker however to recommend assisti ve device to use such as a walker to prevent friction on this area. To use a walker. She is also trying to get a cane as a backup plan and this is noted. Although she has palpable pulses I do recommend screening her with a noninvasive vascular study to evaluate for any potential perfusion deficits. Her medical records from the [facility] will be requested. Her noninvasive vascular studies were reviewed from [facility] January 07, 2020 with triphasic waveforms bilateral and right ABIs of 1.21 and 1.07 and left ABIs of 1.2 and 1.09. The digital pressures were 105 mmHg on the right and 141 mmHg on the left. She also had normal PVR waveforms to the ankle and digital level bilateral. Her labs from -2020 were reviewed. She had resolution of leukocytosis prior to hospital discharge. Her last ESR was on 09-15-20 and was 116. She is at continued risk for limb loss. I recommend nutritional supplementation to optimize healing. Varun is recommended. To return to the wound healing center in 1 week, or call sooner if she has any questions or concerns or signs of infection. I answered all of her questions today. I offered the provide a referral in [place] to a local [facility] hygienist wound healing center and she is interested in obtaining this information. Note: [employer] speech recognition stone decorator software was used to create portions of this document. Sound-alike and misspelled words, as well as other stone decorator errors may be contained in the documentation.
[2021-02-24 10:44] VITALS: BP 131/71; PULSE 79; RESP 16; TEMP 36.1; BMI 27.1
--- NOTE | 2021-02-24 12:58 | PN.PCM_ITS ---
History of Present Illness Date of Service: 02/24/21 Chief Complaint: heel ulcer History of Wound: She was seen today for right heel ulcer. She denies fever, chill, nausea, vomiting. She uses cam walker and tries to use an assistive device to keep pressure off of this. She continues on dialysis. She kept the epi cord clean and dry last week. She relates she is moving to [place] a little later with anticipated time around . Progress of Wound: Improving Objective Data Objective Data Vital Signs: Vital Signs Temp Pulse Resp BP 96.9 F L 79 16 131/71 H 02/24/21 10:44 02/24/21 10:44 02/24/21 10:44 02/24/21 10:44 Oxygen Delivery Method Room Air Weight: 72.91 kg Body Mass Index (BMI) 27.1 Physical Exam Skin Skin Narrative: no purulence, no streaking, no odor, no infection . Adjacent skin is hairless and atrophic. No webspace maceration or necrosis. skin discontinuity plantar medial heel with granular base and no infection. No peripheral callus noted. Reduced ulcer depth is progressingRight heel Neuro Neuro Narrative: Lack of normal epicritic sensation light touch is consistent with neuropathic status. Debridement Note Debridement Note Wound debrided: Right heel Wound Grade/Stage: 1 Type of Debridement: Excisional debridement Anesthesia Used: 4% Lidocaine Solution Depth: in the subcutaneous layer Percentage of wound debrided: 100 Instrument Used: #15 blade Tissue Removed: fibrous, devitalized subcutaneous, biofilm, slough Severity: Fat Layer Exposed Amount of bleeding with debridement: Mild Bleeding Controlled with: Pressure Patient tolerated procedure: Patient tolerated procedure well Post-Debridement Measurements and Additional Note: Post-Debridement Measurements/Treatment - Nurse 1 - General Ulcer Assessment Start: 02/10/21 10:39 Freq: Status: Active Protocol: [email or web address] Hugo Activity Type Activity Date Activity User E-Sign Co-Sign Detail Recorded Client Recorded Date Recorded By Document 02/10/21 10:39 ML [id number] 02/10/21 10:42 ML Document 02/17/21 10:43 BMF Desktop 02/17/21 10:51 BMF Document 02/24/21 10:44 BMF [id number] 02/24/21 10:49 BMF 02/10/21 02/17/21 02/24/21 10:39 10:43 10:44 - Today's Visit Information Type of service Follow-up Visit Follow-up Visit Follow-up Visit (Physician/DERRICK MAN (Physician/DERRICK MAN (Physician/DERRICK MAN ) ) ) Arrival Mode Ambulatory Ambulatory Ambulatory Transfer Assistance None None None Patient Identification Verified (Name & Yes Yes Yes ) Patient Requires Transmission-Based No No No Precautions Safety Precautions NA Finger Stick Blood Sugar(mg/dl) (if 212 indicated): Blood Sugar Stated by Patient Height and Weight Body Mass Index (BMI) 27.1 27.1 27.1 BMI Classification Overweight Overweight Overweight Vital Signs Temperature (97.8 F-99.1 F) 97.3 F L 96.9 F L Temperature Source Temporal Temporal Pulse Rate (60-100) 81 75 79 Pulse Location Monitor Monitor Monitor Respiratory Rate (12-18) 18 16 16 Respiratory rate source Monitor Observation Observation Oxygen Delivery Method Room Air Room Air Blood Pressure (90/60-120/80) 143/89 H 149/73 H 131/71 H Blood Pressure Mean (mm Hg) 107 98 91 Source Monitor Monitor Monitor Position Sitting Sitting Sitting Blood Pressure Location Left Arm Right Arm Right Arm History Since Last Visit- (Skip if this is Patient's initial visit) Have you changed medications since your No No No last visit? Any new allergies or adverse reactions No No No Had a fall/change in ADL's that may No No No increase risk of falls Signs or symptoms of abuse and/or No No No neglect since last visit Have you been in the hospital since your No No No last visit? Has dressing in place as prescribed Yes Yes Yes Has compression in place as prescribed No N/A N/A Has offloadiing in place as prescribed Yes N/A Yes Experienced any changes in pain level or No No No management Left Footwear Regular Shoe Regular Shoe Regular Shoe Right Footwear Surgical Shoe Surgical Shoe Wedge Shoe with pressure with pressure relief insole relief insole Pain Scale: 0-10 Numeric Is Patient Pain Free? Yes Yes Yes - Nurse 1 - General Ulcer Measurement Start: 02/10/21 10:39 Freq: Status: Active Protocol: Activity Type Activity Date Activity User E-Sign Co-Sign Detail Recorded Client Recorded Date Recorded By Document 02/10/21 10:39 ML [id number] 02/10/21 10:42 ML Document 02/17/21 10:43 BMF Desktop 02/17/21 10:51 BMF Document 02/24/21 10:44 [facility] [id number] 02/24/21 10:49 BMF 02/10/21 02/17/21 02/24/21 10:39 10:43 10:44 Wound Center Nurse 1 8-right heel -Combined with other wound No -Current Size (cm) - Length 0.8 0.5 0.5 -Current Size (cm) - Width 0.8 0.8 0.6 -Current Size (cm) - Depth 0.4 0.5 0.4 -Total Square Cm 0.64 0.40 0.30 -Photo Taken No -Epithelialization None Present -Tunneling No -Undermining/Tunneling No Yes -Undermining/Tunneling Starts (O'clock 7 ) -Undermining/Tunneling Ends (O'clock) 2 -Maximum Distance #2 (cm) 0.5 -Circular Undermining No -Exudate Amt Medium Medium Medium -Exudate Type Serosanguineous Serosanguineous Serosanguineous -Wound Margin Distinct, Thickened & Distinct, Outline Rolled Under Outline Attached Attached -Granulation Amt Medium (34-66%) Medium (34-66%) Medium (34-66%) -Granulation Quality Pale,[place] -Slough/Fibrin Yes Yes Yes -Necrosis Amt Medium (34-66%) Medium (34-66%) Medium (34-66%) -Necrotic Tissue Type Adherent Slough Adherent Slough Adherent Slough -Texture (Colleen-wound Skin Appearance) Assessed Assessed, Assessed Scarring -Moisture (Colleen-wound Skin Appearance) Assessed Assessed,Dry/ Assessed Scaly -Color (Colleen-wound Skin Appearance) Assessed Assessed Assessed -Temperature (Colleen-wound Skin No Abnormality No Abnormality No Abnormality Appearance) (Pt Warm) (Pt Warm) (Pt Warm) -Tenderness on Palpation (Colleen-wound No No Skin Appearance) -Ulcer Cleansing Soap and Water Soap and Water Soap and Water -Foul Odor after Cleansing No No No -Anesthetic Used 4% Lidocaine 5% Lidocaine 5% Lidocaine Solution Gel Gel WC - Nurse 2 - General Ulcer CM Notes Start: 02/10/21 10:39 Freq: Status: Active Protocol: Activity Type Activity Date Activity User E-Sign Co-Sign Detail Recorded Client Recorded Date Recorded By Document 02/10/21 10:53 [id number] 02/10/21 10:57 Document 02/17/21 11:27 [id number] 02/17/21 11:32 Document 02/24/21 11:13 [id number] 02/24/21 11:16 02/10/21 02/17/21 02/24/21 10:53 11:27 11:13 Wound Center Nurse 2 8-right heel -Time 10:54 11:28 11:14 -Correct Patient Yes Yes Yes -Correct Side, Site, Position Yes Yes Yes -Correct Procedure Yes Yes Yes -Procedure Performed Yes Yes Yes -Type of Procedure Debridement Debridement Debridement -Clinical Debridement Subcutaneous Subcutaneous Subcutaneous -Tissue Removed Subcutaneous Subcutaneous Subcutaneous -Post Debridement (cm) - Length 1 0.6 0.7 -Post Debridement (cm) - Width 1 0.8 0.9 -Post Debridement (cm) - Depth 0.6 0.2 0.3 -Total Square (Post) (cm) 1 0.48 0.63 -Area of Debridement (cm) - Length 1 0.6 0.7 -Area of Debridement (cm) - Width 1 0.8 0.9 -Total Square (Area) (cm) 1 0.48 0.63 -Tunneling No No No -Undermining/Tunneling No No No -Circular Undermining No No No -Wound/Ulcer Outcome Not Healed Not Healed Not Healed -Ulcer Cleansing Rinsed/ Rinsed/ Rinsed/ Irrigated with Irrigated with Irrigated with Saline Saline Saline -Foul Odor after Cleansing No No No -Bioengineered Tissue Yes No Yes -Type of Bioengineered Tissue Epicord Epicord -Expiration Date 10/06/25 10/06/25 10/06/25 -Product Lot Number [id number] -Percent Used 100 100 100 -Lot number of Saline Used [id number] -Bleeding Controlled with Pressure Pressure Pressure -Offloading Yes Yes Yes -Type of Offloading Knee Walker Surgical Shoe Knee Walker -Treatment Response Procedure Procedure Procedure Tolerated Well Tolerated Well Tolerated Well -Debridement - Subq, 1st 20sq cm No No No -Apply Skin Sub - 1st 25 sq cm - Feet 1 1 1 -Epicord (per sq cm) 6 6 6 Pain Scale: 0-10 Numeric Is Patient Pain Free? Yes Yes Yes WC - Nurse 3 - General Ulcer D/C NN Start: 02/10/21 10:39 Freq: Status: Active Protocol: Activity Type Activity Date Activity User E-Sign Co-Sign Detail Recorded Client Recorded Date Recorded By Document 02/10/21 11:18 RB [id number] 02/10/21 11:18 RB Document 02/17/21 11:42 RB Desktop 02/17/21 11:42 RB Document 02/24/21 11:29 DL [id number] 02/24/21 11:30 DL 02/10/21 02/17/21 02/24/21 11:18 11:42 11:29 Wound Care Nurse 3 8-right heel -Foul Odor after Cleansing No -Primary Dressing Covered/Secured with Dry Gauze,Dry Dry Gauze,Dry Dry Gauze & Gauze & Roll Gauze & Roll Roll Gauze, Gauze,Secured Gauze,Secured Secured with with Tape with Tape Tape Treatment Response Procedure Procedure Procedure Tolerated Well Tolerated Well Tolerated Well Pain Scale: 0-10 Numeric Is Patient Pain Free? Yes Yes Yes WC - Visit Discharge Discharge Condition Stable Stable Stable Ambulatory Status Ambulatory Ambulatory Ambulatory Transportation Private Auto Private Auto Private Auto Medication Reconcilliation completed & No No provided to patient/care provider Clinical Summary of Care Provided Yes Yes Assessment/Plan Assessment/Plan (1) Type 2 diabetes mellitus with diabetic polyneuropathy: CODE(S): E11.42 - Type 2 diabetes mellitus with diabetic polyneuropathy QUALIFIERS: Diabetes mellitus watermelon inspector insulin use: unspecified long-term insulin use status Qualified Code(s): E11.42 - Type 2 diabetes mellitus with diabetic polyneuropathy (2) Dialysis patient: CODE(S): Z99.2 - Dependence on renal dialysis (3) Ulcer of right foot with fat layer exposed: CODE(S): L97.512 - Non-pressure chronic ulcer of other part of right foot with fat layer exposed (4) Delayed wound healing: CODE(S): T14.8XXD - Other injury of unspecified body region, subsequent encounter PLAN: The patient was seen and examined at the wound center today and her case was reviewed. Debridement was performed today to the heel. Dressing: Advancing healing product, epi cord was applied today after verbal consent was obtained. This was were performed according to standard protocol and she tolerated this well. This was secured in place with Steri-Strips and a wound veil. A secondary dressing of gauze and Kerlix was applied. She is advised to keep this clean, dry, and intact. The benefits and indications were reviewed again today. 100% of the product was utilized. She will keep this intact until she follows up next week. Wash: Antibacterial soap and water The purpose of offloading offloading techniques was reviewed. I do not recommend that she wears her close diabetic shoe even for short periods. I recommend she hangs her heel over stacked blankets or pillows while in bed to keep pressure off of the ulcer. I recommend she obtains a donut pillow to help with her offloading; to continue. She is at risk for amputation further illness of limb loss. Okay to continue with cam walker however to recommend assistive device to use such as a walker to prevent friction on this area. To use a walker. She is also trying to get a cane as a backup plan and this is noted. Although she has palpable pulses I do recommend screening her with a noninvasive vascular study to evaluate for any potential perfusion deficits. Her medical records from the [facility] will be requested. Her noninvasive vascular studies were reviewed from [facility] January 07, 2020 with triphasic waveforms bilateral and right ABIs of 1.21 and 1.07 and left ABIs of 1.2 and 1.09. The digital pressures were 105 mmHg on the right and 141 mmHg on the left. She also had normal PVR waveforms to the ankle and digital level bilateral. Her labs from were reviewed. She had resolution of leukocytosis prior to hospital discharge. Her last ESR was on 09-15-20 and was 116. She is at continued risk for limb loss. I recommend nutritional supplementation to optimize healing. Varun is recommended. She is advised to focus on eating whole food diet with enough fresh fruits and vegetables. To return to the wound healing center in 1 week, or call sooner if she has any questions or concerns or signs of infection. I answered all of her questions today. I offered the provide a referral in [place] to a local [facility] wound healing center and she is interested in obtaining this information. Note: [employer] speech recognition concrete boom pump operator software was used to create portions of this document. Sound-alike and misspelled words, as well as other concrete boom pump operator errors may be contained in the documentation.
[2021-03-03 11:18] VITALS: BP 146/58; PULSE 84; RESP 18; TEMP 36.2; BMI 27.1
--- NOTE | 2021-03-03 11:55 | PCM.WC.PN ---
History of Present Illness Date of Service: 03/03/21 Chief Complaint: heel ulcer History of Wound: She was seen today for right heel ulcer. She denies fever, chill, nausea, vomiting. She uses cam walker and tries to use an assistive device to keep pressure off of this. She continues on dialysis. She kept the epi cord clean and dry last week. She relates she is no longer moving to [place] because she is anticipating a kidney transplant this upcoming April. She relates she has to have this wound healed to be a candidate for the transplant. Progress of Wound: Improving Objective Data Objective Data Vital Signs: Vital Signs Temp Pulse Resp BP 97.1 F L 84 18 146/58 H 03/03/21 11:18 03/03/21 11:18 03/03/21 11:18 03/03/21 11:18 Oxygen Delivery Method Room Air Weight: 72.91 kg Body Mass Index (BMI) 27.1 Physical Exam Skin Skin Narrative: no purulence, no streaking, no odor, no infection . Adjacent skin is hairless and atrophic. No webspace maceration or necrosis. skin discontinuity plantar medial heel with granular base and no infection. No peripheral callus noted. Reduced ulcer depth is progressingRight heel Neuro Neuro Narrative: Lack of normal epicritic sensation light touch is consistent with neuropathic status. Debridement Note Debridement Note Wound debrided: Right heel Wound Grade/Stage: 1 Type of Debridement: Excisional debridement Anesthesia Used: 4% Lidocaine Solution Depth: in the subcutaneous layer Percentage of wound debrided: 100 Instrument Used: #15 blade Tissue Removed: fibrous, devitalized subcutaneous, biofilm, slough Severity: Fat Layer Exposed Amount of bleeding with debridement: Mild Bleeding Controlled with: Pressure Patient tolerated procedure: Patient tolerated procedure well Post-Debridement Measurements and Additional Note: Post-Debridement Measurements/Treatment NATHAN - Nurse 1 - General Ulcer Assessment Start: 02/10/21 10:39 Freq: Status: Active Protocol: DAVID Activity Type Activity Date Activity User E-Sign Co-Sign Detail Recorded Client Recorded Date Recorded By Document 02/10/21 10:39 ML [id number] 02/10/21 10:42 ML Document 02/17/21 10:43 BMF Desktop 02/17/21 10:51 BMF Document 02/24/21 10:44 BMF [id number] 02/24/21 10:49 BMF Document 03/03/21 11:18 RB Desktop 03/03/21 11:20 RB 02/10/21 02/17/21 02/24/21 10:39 10:43 10:44 WC - Today's Visit Information Type of service Follow-up Visit Follow-up Visit Follow-up Visit (Physician/LOOM FIXER HELPER (Physician/LOOM FIXER HELPER (Physician/LOOM FIXER HELPER ) ) ) Arrival Mode Ambulatory Ambulatory Ambulatory Transfer Assistance None None None Patient Identification Verified (Name & Yes Yes Yes ) Patient Requires Transmission-Based No No No Precautions Safety Precautions NA Finger Stick Blood Sugar(mg/dl) (if 212 indicated): Blood Sugar Stated by Patient Height and Weight Body Mass Index (BMI) 27.1 27.1 27.1 BMI Classification Overweight Overweight Overweight Vital Signs Temperature (97.8 F-99.1 F) 97.3 F L 96.9 F L Temperature Source Temporal Temporal Pulse Rate (60-100) 81 75 79 Pulse Location Monitor Monitor Monitor Respiratory Rate (12-18) 18 16 16 Respiratory rate source Monitor Observation Observation Oxygen Delivery Method Room Air Room Air Blood Pressure (90/60-120/80) 143/89 H 149/73 H 131/71 H Blood Pressure Mean (mm Hg) 107 98 91 Source Monitor Monitor Monitor Position Sitting Sitting Sitting Blood Pressure Location Left Arm Right Arm Right Arm History Since Last Visit- (Skip if this is Patient's initial visit) Have you changed medications since your No No No last visit? Any new allergies or adverse reactions No No No Had a fall/change in ADL's that may No No No increase risk of falls Signs or symptoms of abuse and/or No No No neglect since last visit Have you been in the hospital since your No No No last visit? Has dressing in place as prescribed Yes Yes Yes Has compression in place as prescribed No N/A N/A Has offloadiing in place as prescribed Yes N/A Yes Experienced any changes in pain level or No No No management Left Footwear Regular Shoe Regular Shoe Regular Shoe Right Footwear Surgical Shoe Surgical Shoe Wedge Shoe with pressure with pressure relief insole relief insole Pain Scale: 0-10 Numeric Is Patient Pain Free? Yes Yes Yes 03/03/21 11:18 WC - Today's Visit Information Type of service Follow-up Visit (Physician/LOOM FIXER HELPER ) Arrival Mode Ambulatory Transfer Assistance None Patient Identification Verified (Name & Yes ) Patient Requires Transmission-Based No Precautions Safety Precautions Finger Stick Blood Sugar(mg/dl) (if indicated): Blood Sugar Height and Weight Body Mass Index (BMI) 27.1 BMI Classification Overweight Vital Signs Temperature (97.8 F-99.1 F) 97.1 F L Temperature Source Temporal Pulse Rate (60-100) 84 Pulse Location Monitor Respiratory Rate (12-18) 18 Respiratory rate source Observation Oxygen Delivery Method Blood Pressure (90/60-120/80) 146/58 H Blood Pressure Mean (mm Hg) 87 Source Monitor Position Sitting Blood Pressure Location Right Arm History Since Last Visit- (Skip if this is Patient's initial visit) Have you changed medications since your No last visit? Any new allergies or adverse reactions No Had a fall/change in ADL's that may No increase risk of falls Signs or symptoms of abuse and/or No neglect since last visit Have you been in the hospital since your No last visit? Has dressing in place as prescribed Yes Has compression in place as prescribed No Has offloadiing in place as prescribed Yes Experienced any changes in pain level or No management Left Footwear Regular Shoe Right Footwear Surgical Shoe with pressure relief insole Pain Scale: 0-10 Numeric Is Patient Pain Free? Yes WC - Nurse 1 - General Ulcer Measurement Start: 02/10/21 10:39 Freq: Status: Active Protocol: Activity Type Activity Date Activity User E-Sign Co-Sign Detail Recorded Client Recorded Date Recorded By Document 02/10/21 10:39 ML [id number] 02/10/21 10:42 ML Document 02/17/21 10:43 [facility] Desktop 02/17/21 10:51 BMF Document 02/24/21 10:44 [facility] [id number] 02/24/21 10:49 BM Document 03/03/21 11:18 RB Desktop 03/03/21 11:20 RB 02/10/21 02/17/21 02/24/21 10:39 10:43 10:44 Wound Center Nurse 1 8-right heel -Combined with other wound No -Current Size (cm) - Length 0.8 0.5 0.5 -Current Size (cm) - Width 0.8 0.8 0.6 -Current Size (cm) - Depth 0.4 0.5 0.4 -Total Square Cm 0.64 0.40 0.30 -Photo Taken No -Epithelialization None Present -Tunneling No -Undermining/Tunneling No Yes -Undermining/Tunneling Starts (O'clock 7 ) -Undermining/Tunneling Ends (O'clock) 2 -Maximum Distance (cm) -Maximum Distance #2 (cm) 0.5 -Circular Undermining No -Exudate Amt Medium Medium Medium -Exudate Type Serosanguineous Serosanguineous Serosanguineous -Wound Margin Distinct, Thickened & Distinct, Outline Rolled Under Outline Attached Attached -Granulation Amt Medium (34-66%) Medium (34-66%) Medium (34-66%) -Granulation Quality Pale,[place] -Slough/Fibrin Yes Yes Yes -Necrosis Amt Medium (34-66%) Medium (34-66%) Medium (34-66%) -Necrotic Tissue Type Adherent Slough Adherent Slough Adherent Slough -Structure Exposed -Texture (Colleen-wound Skin Appearance) Assessed Assessed, Assessed Scarring -Moisture (Colleen-wound Skin Appearance) Assessed Assessed,Dry/ Assessed Scaly -Color (Colleen-wound Skin Appearance) Assessed Assessed Assessed -Temperature (Colleen-wound Skin No Abnormality No Abnormality No Abnormality Appearance) (Pt Warm) (Pt Warm) (Pt Warm) -Tenderness on Palpation (Colleen-wound No No Skin Appearance) -Ulcer Cleansing Soap and Water Soap and Water Soap and Water -Foul Odor after Cleansing No No No -Anesthetic Used 4% Lidocaine 5% Lidocaine 5% Lidocaine Solution Gel Gel 03/03/21 11:18 Wound Center Nurse 1 8-right heel -Combined with other wound No -Current Size (cm) - Length 0.3 -Current Size (cm) - Width 0.6 -Current Size (cm) - Depth 0.3 -Total Square Cm 0.18 -Photo Taken -Epithelialization -Tunneling No -Undermining/Tunneling Yes -Undermining/Tunneling Starts (O'clock 12 ) -Undermining/Tunneling Ends (O'clock) 12 -Maximum Distance (cm) 0.3 -Maximum Distance #2 (cm) -Circular Undermining -Exudate Amt Medium -Exudate Type Serosanguineous -Wound Margin Thickened & Rolled Under -Granulation Amt Medium (34-66%) -Granulation Quality [place] -Slough/Fibrin Yes -Necrosis Amt Small (1-33%) -Necrotic Tissue Type Adherent Slough -Structure Exposed N/A -Texture (Colleen-wound Skin Appearance) Callus -Moisture (Colleen-wound Skin Appearance) Assessed -Color (Colleen-wound Skin Appearance) Assessed -Temperature (Colleen-wound Skin No Abnormality Appearance) (Pt Warm) -Tenderness on Palpation (Colleen-wound No Skin Appearance) -Ulcer Cleansing Wound Cleanser -Foul Odor after Cleansing No -Anesthetic Used 4% Lidocaine Solution WC - Nurse 2 - General Ulcer CM Notes Start: 02/10/21 10:39 Freq: Status: Active Protocol: Activity Type Activity Date Activity User E-Sign Co-Sign Detail Recorded Client Recorded Date Recorded By Document 02/10/21 10:53 [id number] 02/10/21 10:57 Document 02/17/21 11:27 [id number] 02/17/21 11:32 Document 02/24/21 11:13 [id number] 02/24/21 11:16 Document 03/03/21 11:37 [id number] 03/03/21 11:44 02/10/21 02/17/21 02/24/21 10:53 11:27 11:13 Wound Center Nurse 2 8-right heel -Time 10:54 11:28 11:14 -Correct Patient Yes Yes Yes -Correct Side, Site, Position Yes Yes Yes -Correct Procedure Yes Yes Yes -Procedure Performed Yes Yes Yes -Type of Procedure Debridement Debridement Debridement -Clinical Debridement Subcutaneous Subcutaneous Subcutaneous -Tissue Removed Subcutaneous Subcutaneous Subcutaneous -Post Debridement (cm) - Length 1 0.6 0.7 -Post Debridement (cm) - Width 1 0.8 0.9 -Post Debridement (cm) - Depth 0.6 0.2 0.3 -Total Square (Post) (cm) 1 0.48 0.63 -Area of Debridement (cm) - Length 1 0.6 0.7 -Area of Debridement (cm) - Width 1 0.8 0.9 -Total Square (Area) (cm) 1 0.48 0.63 -Tunneling No No No -Undermining/Tunneling No No No -Circular Undermining No No No -Wound/Ulcer Outcome Not Healed Not Healed Not Healed -Ulcer Cleansing Rinsed/ Rinsed/ Rinsed/ Irrigated with Irrigated with Irrigated with Saline Saline Saline -Foul Odor after Cleansing No No No -Bioengineered Tissue Yes No Yes -Type of Bioengineered Tissue Epicord Epicord -Expiration Date 10/06/25 10/06/25 10/06/25 -Product Lot Number [id number] -Percent Used 100 100 100 -Lot number of Saline Used [id number] -Bleeding Controlled with Pressure Pressure Pressure -Offloading Yes Yes Yes -Type of Offloading Knee Walker Surgical Shoe Knee Walker -Treatment Response Procedure Procedure Procedure Tolerated Well Tolerated Well Tolerated Well -Debridement - Subq, 1st 20sq cm No No No -Apply Skin Sub - 1st 25 sq cm - Feet 1 1 1 -Epicord (per sq cm) 6 6 6 -Epifix 18mm Disc Pain Scale: 0-10 Numeric Is Patient Pain Free? Yes Yes Yes 03/03/21 11:37 Wound Center Nurse 2 8-right heel -Time 11:37 -Correct Patient Yes -Correct Side, Site, Position Yes -Correct Procedure Yes -Procedure Performed Yes -Type of Procedure Debridement -Clinical Debridement Subcutaneous -Tissue Removed Subcutaneous -Post Debridement (cm) - Length 0.4 -Post Debridement (cm) - Width 0.6 -Post Debridement (cm) - Depth 0.3 -Total Square (Post) (cm) 0.24 -Area of Debridement (cm) - Length 0.4 -Area of Debridement (cm) - Width 0.6 -Total Square (Area) (cm) 0.24 -Tunneling No -Undermining/Tunneling No -Circular Undermining No -Wound/Ulcer Outcome Not Healed -Ulcer Cleansing Rinsed/ Irrigated with Saline -Foul Odor after Cleansing No -Bioengineered Tissue Yes -Type of Bioengineered Tissue Epifix 18mm Disc -Expiration Date 11/05/25 -Product Lot Number [id number] -Percent Used 100 -Lot number of Saline Used [id number] -Bleeding Controlled with Pressure -Offloading No -Type of Offloading -Treatment Response Procedure Tolerated Well -Debridement - Subq, 1st 20sq cm No -Apply Skin Sub - 1st 25 sq cm - Feet 1 -Epicord (per sq cm) -Epifix 18mm Disc 3 Pain Scale: 0-10 Numeric Is Patient Pain Free? Yes WC - Nurse 3 - General Ulcer D/C NN Start: 02/10/21 10:39 Freq: Status: Active Protocol: Activity Type Activity Date Activity User E-Sign Co-Sign Detail Recorded Client Recorded Date Recorded By Document 02/10/21 11:18 RB [id number] 02/10/21 11:18 RB Document 02/17/21 11:42 RB Desktop 02/17/21 11:42 RB Document 02/24/21 11:29 DL [id number] 02/24/21 11:30 DL Document 03/03/21 11:52 BMF [id number] 03/03/21 11:53 BMF 02/10/21 02/17/21 02/24/21 11:18 11:42 11:29 Wound Care Nurse 3 8-right heel -Foul Odor after Cleansing No -Other Dressing -Primary Dressing Covered/Secured with Dry Gauze,Dry Dry Gauze,Dry Dry Gauze & Gauze & Roll Gauze & Roll Roll Gauze, Gauze,Secured Gauze,Secured Secured with with Tape with Tape Tape Treatment Response Procedure Procedure Procedure Tolerated Well Tolerated Well Tolerated Well Pain Scale: 0-10 Numeric Is Patient Pain Free? Yes Yes Yes WC - Visit Discharge Discharge Condition Stable Stable Stable Ambulatory Status Ambulatory Ambulatory Ambulatory Transportation Private Auto Private Auto Private Auto Medication Reconcilliation completed & No No provided to patient/care provider Clinical Summary of Care Provided Yes Yes 03/03/21 11:52 Wound Care Nurse 3 8-right heel -Foul Odor after Cleansing -Other Dressing epifix -Primary Dressing Covered/Secured with Dry Gauze, Secured with Tape Treatment Response Procedure Tolerated Well Pain Scale: 0-10 Numeric Is Patient Pain Free? Yes WC - Visit Discharge Discharge Condition Stable Ambulatory Status Ambulatory Transportation Private Auto Medication Reconcilliation completed & provided to patient/care provider Clinical Summary of Care Provided Assessment/Plan Assessment/Plan (1) Type 2 diabetes mellitus with diabetic polyneuropathy: CODE(S): E11.42 - Type 2 diabetes mellitus with diabetic polyneuropathy QUALIFIERS: Diabetes mellitus termite renewal inspector insulin use: unspecified care home insulin use status Qualified Code(s): E11.42 - Type 2 diabetes mellitus with diabetic polyneuropathy (2) Dialysis patient: CODE(S): Z99.2 - Dependence on renal dialysis (3) Ulcer of right foot with fat layer exposed: CODE(S): L97.512 - Non-pressure chronic ulcer of other part of right foot with fat layer exposed (4) Delayed wound healing: CODE(S): T14.8XXD - Other injury of unspecified body region, subsequent encounter PLAN: The patient was seen and examined at the wound center today and her case was reviewed. Debridement was performed today to the heel. Dressing: Advancing healing product, epi fix was applied today after verbal consent was obtained. This was were performed according to standard protocol and she tolerated this well. This was secured in place with Steri-Strips and a wound veil. A secondary dressing of gauze and Kerlix was applied. She is advised to keep this clean, dry, and intact. The benefits and indications were reviewed again today. 100% of the product was utilized. She will keep this intact until she follows up next week. Wash: Antibacterial soap and water The purpose of offloading offloading techniques was reviewed. I do not recommend that she wears her close diabetic shoe even for short periods. I recommend she hangs her heel over stacked blankets or pillows while in bed to keep pressure off of the ulcer. I recommend she obtains a donut pillow to help with her offloading; to continue. She is at risk for amputation further illness of limb loss. Okay to continue with cam walker however to recommend assistive device to use such as a walker to prevent friction on this area. To use a walker. She is also trying to get a cane as a backup plan and this is noted. Although she has palpable pulses I do recommend screening her with a noninvasive vascular study to evaluate for any potential perfusion deficits. Her medical records from the [facility] will be requested. Her noninvasive vascular studies were reviewed from [facility] January 07, 2020 with triphasic waveforms bilateral and right ABIs of 1.21 and 1.07 and left ABIs of 1.2 and 1.09. The digital pressures were 105 mmHg on the right and 141 mmHg on the left. She also had normal PVR waveforms to the ankle and digital level bilateral. Her labs from -2020 were reviewed. She had resolution of leukocytosis prior to hospital discharge. Her last ESR was on 09-15-20 and was 116. She is at continued risk for limb loss. I recommend nutritional supplementation to optimize healing. Varun is recommended. She is advised to focus on eating whole food diet with enough fresh fruits and vegetables. To return to the wound healing center in 1 week, or call sooner if she has any questions or concerns or signs of infection. I answered all of her questions today. Note: [employer] speech recognition laboratory courier software was used to create portions of this document. Sound-alike and misspelled words, as well as other laboratory courier errors may be contained in the documentation.
== END 2021-03-07 23:59 ==
LOC: WC 11:00
PROVIDERS: PCP Family Medicine; Visit Provider Podiatrist
DX: E11.621 Type 2 diabetes mellitus with foot ulcer (principal); L97.412 Non-pressure chronic ulcer of right heel and midfoot with fat layer exposed; E11.42 Type 2 diabetes mellitus with diabetic polyneuropathy; E66.3 Overweight; Z68.27 Body mass index [BMI] 27.0-27.9, adult; Z99.2 Dependence on renal dialysis; Z79.01 Long term (current) use of anticoagulants; Z79.02 Long term (current) use of antithrombotics/antiplatelets; Z79.4 Long term (current) use of insulin; Z79.899 Other long term (current) drug therapy
CPT/HCPCS: 15275; Q4186; Q4187

== ENCOUNTER 2021-03-31 11:00 | Outpatient (RCR) | payer MEDICARE, MEDICAID, SELFPAY ==
[2021-03-08 00:13] VITALS: BP 146/58; PULSE 84; RESP 18; TEMP 36.2; BMI 27.1
[2021-03-10 11:18] VITALS: BP 139/77; PULSE 85; RESP 18; TEMP 36.4; BMI 27.1
--- NOTE | 2021-03-10 11:41 | PN.PCM_ITS ---
History of Present Illness Date of Service: 03/10/21 Chief Complaint: heel ulcer History of Wound: She was seen today for right heel ulcer. She denies fever, chill, nausea, vomiting. She uses cam walker and tries to use an assistive device to keep pressure off of this. She continues on dialysis. She kept the epi cord clean and dry last week. She relates she is no longer moving to [place] because she is anticipating a kidney transplant this upcoming April. She relates she has to have this wound healed to be a candidate for the transplant. Progress of Wound: Improving Objective Data Objective Data Vital Signs: Vital Signs Temp Pulse Resp BP 97.6 F L 85 18 139/77 H 03/10/21 11:18 03/10/21 11:18 03/10/21 11:18 03/10/21 11:18 Weight: 72.91 kg Body Mass Index (BMI) 27.1 Physical Exam Skin Skin Narrative: no purulence, no streaking, no odor, no infection . Adjacent skin is hairless and atrophic. No webspace maceration or necrosis. skin discontinuity plantar medial heel with granular base and no infection. No peripheral callus noted. Continued reduced ulcer depth is progressing Right heel Neuro Neuro Narrative: Lack of normal epicritic sensation light touch is consistent with neuropathic status. Debridement Note Debridement Note Wound debrided: Right heel Wound Grade/Stage: 1 Type of Debridement: Excisional debridement Anesthesia Used: 4% Lidocaine Solution Depth: in the subcutaneous layer Percentage of wound debrided: 100 Instrument Used: #15 blade Tissue Removed: fibrous, devitalized subcutaneous, biofilm, slough Severity: Fat Layer Exposed Amount of bleeding with debridement: Mild Bleeding Controlled with: Pressure Patient tolerated procedure: Patient tolerated procedure well Post-Debridement Measurements and Additional Note: Post-Debridement Measurements/Treatment - Nurse 1 - General Ulcer Assessment Start: 03/10/21 11:18 Freq: Status: Active Protocol: DAVID Activity Type Activity Date Activity User E-Sign Co-Sign Detail Recorded Client Recorded Date Recorded By Document 03/10/21 11:18 GARO [id number] 03/10/21 11:20 RB 03/10/21 11:18 - Today's Visit Information Type of service Follow-up Visit (Physician/GUIDE DOG MOBILITY INSTRUCTOR ) Arrival Mode Ambulatory Transfer Assistance None Patient Identification Verified (Name & Yes ) Patient Requires Transmission-Based No Precautions Height and Weight Body Mass Index (BMI) 27.1 BMI Classification Overweight Vital Signs Temperature (97.8 F-99.1 F) 97.6 F L Temperature Source Temporal Pulse Rate (60-100) 85 Pulse Location Monitor Respiratory Rate (12-18) 18 Respiratory rate source Observation Blood Pressure (90/60-120/80) 139/77 H Blood Pressure Mean (mm Hg) 97 Source Monitor Position Semi-Fowlers Blood Pressure Location Left Arm History Since Last Visit- (Skip if this is Patient's initial visit) Have you changed medications since your No last visit? Any new allergies or adverse reactions No Had a fall/change in ADL's that may No increase risk of falls Signs or symptoms of abuse and/or No neglect since last visit Have you been in the hospital since your No last visit? Has dressing in place as prescribed Yes Has compression in place as prescribed No Has offloadiing in place as prescribed Yes Experienced any changes in pain level or No management Left Footwear Regular Shoe Right Footwear Regular Shoe Pain Scale: 0-10 Numeric Is Patient Pain Free? Yes WC - Nurse 1 - General Ulcer Measurement Start: 03/10/21 11:18 Freq: Status: Active Protocol: Activity Type Activity Date Activity User E-Sign Co-Sign Detail Recorded Client Recorded Date Recorded By Document 03/10/21 11:18 [id number] 03/10/21 11:20 RB 03/10/21 11:18 Wound Center Nurse 1 8-right heel -Combined with other wound No -Current Size (cm) - Length 0.5 -Current Size (cm) - Width 0.5 -Current Size (cm) - Depth 0.4 -Total Square Cm 0.25 -Tunneling No -Undermining/Tunneling No -Circular Undermining No -Exudate Amt Medium -Exudate Type Serosanguineous -Wound Margin Thickened & Rolled Under -Granulation Amt Medium (34-66%) -Granulation Quality Red -Slough/Fibrin Yes -Necrosis Amt Small (1-33%) -Necrotic Tissue Type Adherent Slough -Structure Exposed N/A -Texture (Colleen-wound Skin Appearance) Assessed,Callus -Moisture (Colleen-wound Skin Appearance) Assessed -Color (Colleen-wound Skin Appearance) Assessed -Temperature (Colleen-wound Skin No Abnormality Appearance) (Pt Warm) -Tenderness on Palpation (Colleen-wound No Skin Appearance) -Ulcer Cleansing Wound Cleanser -Foul Odor after Cleansing No -Anesthetic Used 4% Lidocaine Solution WC - Nurse 2 - General Ulcer CM Notes Start: 03/10/21 11:18 Freq: Status: Active Protocol: Activity Type Activity Date Activity User E-Sign Co-Sign Detail Recorded Client Recorded Date Recorded By Document 03/10/21 11:36 VITO [id number] 03/10/21 11:40 VITO 03/10/21 11:36 Wound Center Nurse 2 -Time 11:37 -Correct Patient Yes -Correct Side, Site, Position Yes -Correct Procedure Yes -Procedure Performed Yes -Type of Procedure Debridement -Clinical Debridement Subcutaneous -Tissue Removed Subcutaneous -Post Debridement (cm) - Length 0.5 -Post Debridement (cm) - Width 0.5 -Post Debridement (cm) - Depth 0.4 -Total Square (Post) (cm) 0.25 -Area of Debridement (cm) - Length 0.5 -Area of Debridement (cm) - Width 0.5 -Total Square (Area) (cm) 0.25 -Tunneling No -Undermining/Tunneling No -Circular Undermining No -Wound/Ulcer Outcome Not Healed -Ulcer Cleansing Rinsed/ Irrigated with Saline -Foul Odor after Cleansing No -Bioengineered Tissue Yes -Type of Bioengineered Tissue Epifix 18mm Disc -Expiration Date 07/06/25 -Product Lot Number [id number] -Percent Used 100 -Lot number of Saline Used [id number] -Bleeding Controlled with Pressure -Offloading Yes -Type of Offloading Surgical Shoe -Treatment Response Procedure Tolerated Well -Debridement - Subq, 1st 20sq cm No -Apply Skin Sub - 1st 25 sq cm - Feet 1 -Epifix 18mm Disc 3 Pain Scale: 0-10 Numeric Is Patient Pain Free? Yes Assessment/Plan Assessment/Plan (1) Type 2 diabetes mellitus with diabetic polyneuropathy: CODE(S): E11.42 - Type 2 diabetes mellitus with diabetic polyneuropathy QUALIFIERS: Diabetes mellitus prison insulin use: unspecified watermaster insulin use status Qualified Code(s): E11.42 - Type 2 diabetes mellitus with diabetic polyneuropathy (2) Dialysis patient: CODE(S): Z99.2 - Dependence on renal dialysis (3) Ulcer of right foot with fat layer exposed: CODE(S): L97.512 - Non-pressure chronic ulcer of other part of right foot with fat layer exposed (4) Delayed wound healing: CODE(S): T14.8XXD - Other injury of unspecified body region, subsequent encounter PLAN: The patient was seen and examined at the wound center today and her case was reviewed. Debridement was performed today to the heel. Dressing: Advancing healing product, epi fix was applied today after verbal consent was obtained. This was were performed according to standard protocol and she tolerated this well. This was secured in place with Steri-Strips and a wound veil. A secondary dressing of gauze and Kerlix was applied. She is advised to keep this clean, dry, and intact. The benefits and indications were reviewed again today. 100% of the product was utilized. She will keep this intact until she follows up next week. Wash: Antibacterial soap and water The purpose of offloading offloading techniques was reviewed. I do not recommend that she wears her close diabetic shoe even for short periods. I recommend she hangs her heel over stacked blankets or pillows while in bed to keep pressure off of the ulcer. I recommend she obtains a donut pillow to help with her offloading; to continue. She is at risk for amputation further illness of limb loss. Okay to continue with cam walker however to recommend assistive device to use such as a walker to prevent friction on this area. To use a walker. She is also trying to get a cane as a backup plan and this is noted. Although she has palpable pulses I do recommend screening her with a noninvasive vascular study to evaluate for any potential perfusion deficits. Her medical records from the [facility] will be requested. Her noninvasive vascular studies were reviewed from [facility] January 07, 2020 with triphasic waveforms bilateral and right ABIs of 1.21 and 1.07 and left ABIs of 1.2 and 1.09. The digital pressures were 105 mmHg on the right and 141 mmHg on the left. She also had normal PVR waveforms to the ankle and digital level bilateral. Her labs from -2020 were reviewed. She had resolution of leukocytosis prior to hospital discharge. Her last ESR was on 09-15-20 and was 116. She is at continued risk for limb loss. I recommend nutritional supplementation to optimize healing. Varun is recommended. She is advised to focus on eating whole food diet with enough fresh fruits and vegetables. To return to the wound healing center in 1 week, or call sooner if she has any questions or concerns or signs of infection. I answered all of her questions today. Note: [employer] speech recognition registered medical transcriptionist software was used to create port ions of this document. Sound-alike and misspelled words, as well as other registered medical transcriptionist errors may be contained in the documentation.
[2021-03-17 11:02] VITALS: BP 141/65; PULSE 79; RESP 18; TEMP 36.2; BMI 27.1
--- NOTE | 2021-03-17 11:38 | PCM.WC.PN ---
History of Present Illness Date of Service: 03/17/21 Chief Complaint: heel ulcer History of Wound: She was seen today for right heel ulcer. She denies fever, chill, nausea, vomiting. She uses cam walker and tries to use an assistive device to keep pressure off of this. She continues on dialysis. She kept the epi cord clean and dry last week. She is waiting for kidney transplant. She relates she has to have this wound healed to be a candidate for the transplant. Progress of Wound: Improving Objective Data Objective Data Vital Signs: Vital Signs Temp Pulse Resp BP 97.1 F L 79 18 141/65 H 03/17/21 11:02 03/17/21 11:02 03/17/21 11:02 03/17/21 11:02 Weight: 72.91 kg Body Mass Index (BMI) 27.1 Physical Exam Skin Skin Narrative: no purulence, no streaking, no odor, no infection . Adjacent skin is hairless and atrophic. No webspace maceration or necrosis. skin discontinuity plantar medial heel with granular base and no infection. No peripheral callus noted. Continued reduced ulcer depth is progressing Right heel Neuro Neuro Narrative: Lack of normal epicritic sensation light touch is consistent with neuropathic status. Debridement Note Debridement Note Wound debrided: Right heel Wound Grade/Stage: 1 Type of Debridement: Excisional debridement Anesthesia Used: 4% Lidocaine Solution Depth: in the subcutaneous layer Percentage of wound debrided: 100 Instrument Used: #15 blade Tissue Removed: fibrous, devitalized subcutaneous, biofilm, slough Severity: Fat Layer Exposed Amount of bleeding with debridement: Mild Bleeding Controlled with: Pressure Patient tolerated procedure: Patient tolerated procedure well Post-Debridement Measurements and Additional Note: Post-Debridement Measurements/Treatment - Nurse 1 - General Ulcer Assessment Start: 03/10/21 11:18 Freq: Status: Active Protocol: DAVID Activity Type Activity Date Activity User E-Sign Co-Sign Detail Recorded Client Recorded Date Recorded By Document 03/10/21 11:18 RB [id number] 03/10/21 11:20 RB Document 03/17/21 11:02 DL [id number] 03/17/21 11:08 DL 03/10/21 03/17/21 11:18 11:02 - Today's Visit Information Type of service Follow-up Visit Follow-up Visit (Physician/TECHNICAL SERVICES SPECIALIST (Physician/TECHNICAL SERVICES SPECIALIST ) ) Arrival Mode Ambulatory Ambulatory Transfer Assistance None None Patient Identification Verified (Name & Yes Yes ) Patient Requires Transmission-Based No No Precautions Finger Stick Blood Sugar(mg/dl) (if 193 indicated): Blood Sugar Stated by Patient Height and Weight Body Mass Index (BMI) 27.1 27.1 BMI Classification Overweight Overweight Vital Signs Temperature (97.8 F-99.1 F) 97.6 F L 97.1 F L Temperature Source Temporal Temporal Pulse Rate (60-100) 85 79 Pulse Location Monitor Monitor Respiratory Rate (12-18) 18 18 Respiratory rate source Observation Observation Blood Pressure (90/60-120/80) 139/77 H 141/65 H Blood Pressure Mean (mm Hg) 97 90 Source Monitor Monitor Position Semi-Fowlers Blood Pressure Location Left Arm History Since Last Visit- (Skip if this is Patient's initial visit) Have you changed medications since your No No last visit? Any new allergies or adverse reactions No No Had a fall/change in ADL's that may No No increase risk of falls Signs or symptoms of abuse and/or No No neglect since last visit Have you been in the hospital since your No No last visit? Has dressing in place as prescribed Yes Yes Has compression in place as prescribed No N/A Has offloadiing in place as prescribed Yes Yes Experienced any changes in pain level or No No management Left Footwear Regular Shoe Right Footwear Regular Shoe Pain Scale: 0-10 Numeric Is Patient Pain Free? Yes Yes WC - Nurse 1 - General Ulcer Measurement Start: 03/10/21 11:18 Freq: Status: Active Protocol: Activity Type Activity Date Activity User E-Sign Co-Sign Detail Recorded Client Recorded Date Recorded By Document 03/10/21 11:18 RB [id number] 03/10/21 11:20 RB Document 03/17/21 11:02 DL [id number] 03/17/21 11:08 DL 03/10/21 03/17/21 11:18 11:02 Wound Center Nurse 1 8-right heel -Combined with other wound No -Current Size (cm) - Length 0.5 0.2 -Current Size (cm) - Width 0.5 0.2 -Current Size (cm) - Depth 0.4 0.3 -Total Square Cm 0.25 0.04 -Photo Taken No -Tunneling No -Undermining/Tunneling No -Maximum Distance #2 (cm) 0.4 -Circular Undermining No Yes -Exudate Amt Medium Small -Exudate Type Serosanguineous -Wound Margin Thickened & Thickened Rolled Under -Granulation Amt Medium (34-66%) None Present (0 %) -Granulation Quality Red -Slough/Fibrin Yes -Necrosis Amt Small (1-33%) Small (1-33%) -Necrotic Tissue Type Adherent Slough Adherent Slough -Structure Exposed N/A N/A -Texture (Colleen-wound Skin Appearance) Assessed,Callus Scarring -Moisture (Colleen-wound Skin Appearance) Assessed Dry/Scaly -Color (Colleen-wound Skin Appearance) Assessed No Abnormality -Temperature (Colleen-wound Skin No Abnormality No Abnormality Appearance) (Pt Warm) (Pt Warm) -Tenderness on Palpation (Colleen-wound No No Skin Appearance) -Ulcer Cleansing Wound Cleanser Soap and Water -Foul Odor after Cleansing No No -Anesthetic Used 4% Lidocaine 5% Lidocaine Solution Gel WC - Nurse 2 - General Ulcer CM Notes Start: 03/10/21 11:18 Freq: Status: Active Protocol: Activity Type Activity Date Activity User E-Sign Co-Sign Detail Recorded Client Recorded Date Recorded By Document 03/10/21 11:36 JF [id number] 03/10/21 11:40 Document 03/17/21 11:34 JF [id number] 03/17/21 11:37 03/10/21 03/17/21 11:36 11:34 Wound Center Nurse 2 8-right heel -Time 11:37 11:36 -Correct Patient Yes Yes -Correct Side, Site, Position Yes Yes -Correct Procedure Yes Yes -Procedure Performed Yes Yes -Type of Procedure Debridement Debridement -Clinical Debridement Subcutaneous Subcutaneous -Tissue Removed Subcutaneous Subcutaneous -Post Debridement (cm) - Length 0.5 0.3 -Post Debridement (cm) - Width 0.5 0.3 -Post Debridement (cm) - Depth 0.4 0.2 -Total Square (Post) (cm) 0.25 0.09 -Area of Debridement (cm) - Length 0.5 0.3 -Area of Debridement (cm) - Width 0.5 0.3 -Total Square (Area) (cm) 0.25 0.09 -Tunneling No No -Undermining/Tunneling No No -Circular Undermining No No -Wound/Ulcer Outcome Not Healed Not Healed -Ulcer Cleansing Rinsed/ Rinsed/ Irrigated with Irrigated with Saline Saline -Foul Odor after Cleansing No No -Bioengineered Tissue Yes Yes -Type of Bioengineered Tissue Epifix 18mm Epifix 18mm Disc Disc -Expiration Date 07/06/25 07/06/25 -Product Lot Number [id number] -Percent Used 100 100 -Lot number of Saline Used [id number] -Bleeding Controlled with Pressure Pressure -Offloading Yes Yes -Type of Offloading Surgical Shoe Surgical Shoe -Treatment Response Procedure Procedure Tolerated Well Tolerated Well -Debridement - Subq, 1st 20sq cm No No -Apply Skin Sub - 1st 25 sq cm - Feet 1 1 -Epifix 18mm Disc 3 3 Pain Scale: 0-10 Numeric Is Patient Pain Free? Yes - Nurse 3 - General Ulcer D/C NN Start: 03/10/21 11:18 Freq: Status: Active Protocol: Activity Type Activity Date Activity User E-Sign Co-Sign Detail Recorded Client Recorded Date Recorded By Document 03/10/21 11:46 DL [id number] 03/10/21 11:47 DL 03/10/21 11:46 Wound Care Nurse 3 -Foul Odor after Cleansing No -Other Dressing Epifix -Primary Dressing Covered/Secured with Dry Gauze & Roll Gauze, Secured with Tape Treatment Response Procedure Tolerated Well Pain Scale: 0-10 Numeric Is Patient Pain Free? Yes - Visit Discharge Discharge Condition Stable Ambulatory Status Ambulatory Transportation Private Auto Assessment/Plan Assessment/Plan (1) Type 2 diabetes mellitus with diabetic polyneuropathy: CODE(S): E11.42 - Type 2 diabetes mellitus with diabetic polyneuropathy QUALIFIERS: Diabetes mellitus nursing home insulin use: unspecified nursing home insulin use status Qualified Code(s): E11.42 - Type 2 diabetes mellitus with diabetic polyneuropathy (2) Dialysis patient: CODE(S): Z99.2 - Dependence on renal dialysis (3) Ulcer of right foot with fat layer exposed: CODE(S): L97.512 - Non-pressure chronic ulcer of other part of right foot with fat layer exposed (4) Delayed wound healing: CODE(S): T14.8XXD - Other injury of unspecified body region, subsequent encounter PLAN: The patient was seen and examined at the wound center today and her case was reviewed. Debridement was performed today to the heel. Dressing: Advancing healing product, epi fix was applied today after verbal consent was obtained. This was were performed according to standard protocol and she tolerated this well. This was secured in place with Steri-Strips and a wound veil. A secondary dressing of gauze and Kerlix was applied. She is advised to keep this clean, dry, and intact. The benefits and indications were reviewed again today. 100% of the product was utilized. She will keep this intact until she follows up next week. Wash: Antibacterial soap and water The purpose of offloading offloading techniques was reviewed. I do not recommend that she wears her close diabetic shoe even for short periods. I recommend she hangs her heel over stacked blankets or pillows while in bed to keep pressure off of the ulcer. I recommend she obtains a donut pillow to help with her offloading; to continue. She is at risk for amputation further illness of limb loss. Okay to continue with cam walker however to recommend assistive device to use such as a walker to prevent friction on this area. To use a walker. She is also trying to get a cane as a backup plan and this is noted. Although she has palpable pulses I do recommend screening her with a noninvasive vascular study to evaluate for any potential perfusion deficits. Her medical records from the [facility] will be requested. Her noninvasive vascular studies were reviewed from [facility] January 07, 2020 with triphasic waveforms bilateral and right ABIs of 1.21 and 1.07 and left ABIs of 1.2 and 1.09. The digital pressures were 105 mmHg on the right and 141 mmHg on the left. She also had normal PVR waveforms to the ankle and digital level bilateral. Her labs from were reviewed. She had resolution of leukocytosis prior to hospital discharge. Her last ESR was on 09-15-20 and was 116. She is at continued risk for limb loss. I recommend nutritional supplementation to optimize healing. Varun is recommended. She is advised to focus on eating whole food diet with enough fresh fruits and vegetables. To return to the wound healing center in 1 week, or call sooner if she has any questions or concerns or signs of infection. I answered all of her questions today. Note: [employer] speech recognition special ed assistant software was used to create portions of this document. Sound-alike and misspelled words, as well as other special ed assistant errors may be contained in the documentation.
[2021-03-24 11:06] VITALS: BP 145/80; PULSE 74; RESP 18; TEMP 36.2; BMI 27.1
--- NOTE | 2021-03-24 12:00 | PCM.WC.PN ---
History of Present Illness Date of Service: 03/24/21 Chief Complaint: heel ulcer History of Wound: She was seen today for right heel ulcer. She denies fever, chill, nausea, vomiting. She uses cam walker and tries to use an assistive device to keep pressure off of this. She continues on dialysis. She kept the epi cord clean and dry last week. She is waiting for kidney transplant. She relates she has to have this wound healed to be a candidate for the transplant. Progress of Wound: Improving Objective Data Objective Data Vital Signs: Vital Signs Temp Pulse Resp BP 97.1 F L 74 18 145/80 H 03/24/21 11:06 03/24/21 11:06 03/24/21 11:06 03/24/21 11:06 Weight: 72.91 kg Body Mass Index (BMI) 27.1 Physical Exam Skin Skin Narrative: no purulence, no streaking, no odor, no infection . Adjacent skin is hairless and atrophic. No webspace maceration or necrosis. skin discontinuity plantar medial heel with granular base and no infection. No peripheral callus noted. Continued reduced ulcer depth is progressing Right heel Neuro Neuro Narrative: Lack of normal epicritic sensation light touch is consistent with neuropathic status. Debridement Note Debridement Note Wound debrided: Right heel Wound Grade/Stage: 1 Type of Debridement: Excisional debridement Anesthesia Used: 4% Lidocaine Solution Depth: in the subcutaneous layer Percentage of wound debrided: 100 Instrument Used: #15 blade Tissue Removed: fibrous, devitalized subcutaneous, biofilm, slough Severity: Fat Layer Exposed Amount of bleeding with debridement: Mild Bleeding Controlled with: Pressure Patient tolerated procedure: Patient tolerated procedure well Post-Debridement Measurements and Additional Note: Post-Debridement Measurements/Treatment WC - Nurse 1 - General Ulcer Assessment Start: 03/10/21 11:18 Freq: Status: Active Protocol: NATHAN.ANTOINETTE Activity Type Activity Date Activity User E-Sign Co-Sign Detail Recorded Client Recorded Date Recorded By Document 03/10/21 11:18 RB [id number] 03/10/21 11:20 RB Document 03/17/21 11:02 DL [id number] 03/17/21 11:08 DL Document 03/24/21 11:06 VITO [id number] 03/24/21 11:07 VITO Edit Result 03/24/21 11:06 VITO (1) [id number] 03/24/21 11:19 JF (1) Pulse Rate (60-100) => 74 Pulse Location => Monitor Respiratory Rate (12-18) => 18 Respiratory rate source => Observation Blood Pressure (90/60-120/80) => 145/80 H Blood Pressure Mean (mm Hg) => 101 Source => Monitor Position => Semi-Fowlers Blood Pressure Location => Right Arm 03/10/21 03/17/21 03/24/21 11:18 11:02 11:06 WC - Today's Visit Information Type of service Follow-up Visit Follow-up Visit Follow-up Visit (Physician/LIVE AMMUNITION INSPECTOR (Physician/LIVE AMMUNITION INSPECTOR (Physician/LIVE AMMUNITION INSPECTOR ) ) ) Arrival Mode Ambulatory Ambulatory Ambulatory Transfer Assistance None None Patient Identification Verified (Name & Yes Yes ) Patient Requires Transmission-Based No No No Precautions Finger Stick Blood Sugar(mg/dl) (if 193 139 indicated): Blood Sugar Stated by Stated by Patient Patient Height and Weight Body Mass Index (BMI) 27.1 27.1 27.1 BMI Classification Overweight Overweight Overweight Vital Signs Temperature (97.8 F-99.1 F) 97.6 F L 97.1 F L 97.1 F L Temperature Source Temporal Temporal Temporal Pulse Rate (60-100) 85 79 74 Pulse Location Monitor Monitor Monitor Respiratory Rate (12-18) 18 18 18 Respiratory rate source Observation Observation Observation Blood Pressure (90/60-120/80) 139/77 H 141/65 H 145/80 H Blood Pressure Mean (mm Hg) 97 90 101 Source Monitor Monitor Monitor Position Semi-Fowlers Semi-Fowlers Blood Pressure Location Left Arm Right Arm History Since Last Visit- (Skip if this is Patient's initial visit) Have you changed medications since your No No No last visit? Any new allergies or adverse reactions No No No Had a fall/change in ADL's that may No No No increase risk of falls Signs or symptoms of abuse and/or No No No neglect since last visit Have you been in the hospital since your No No No last visit? Has dressing in place as prescribed Yes Yes Yes Has compression in place as prescribed No N/A N/A Has offloadiing in place as prescribed Yes Yes Yes Experienced any changes in pain level or No No No management Left Footwear Regular Shoe Regular Shoe Right Footwear Regular Shoe Surgical Shoe with pressure relief insole Pain Scale: 0-10 Numeric Is Patient Pain Free? Yes Yes Yes WC - Nurse 1 - General Ulcer Measurement Start: 03/10/21 11:18 Freq: Status: Active Protocol: Activity Type Activity Date Activity User E-Sign Co-Sign Detail Recorded Client Recorded Date Recorded By Document 03/10/21 11:18 RB [id number] 03/10/21 11:20 RB Document 03/17/21 11:02 DL [id number] 03/17/21 11:08 DL Document 03/24/21 11:06 [id number] 03/24/21 11:07 JF 03/10/21 03/17/21 03/24/21 11:18 11:02 11:06 Wound Center Nurse 1 8-right heel -Combined with other wound No No -Current Size (cm) - Length 0.5 0.2 0.2 -Current Size (cm) - Width 0.5 0.2 0.2 -Current Size (cm) - Depth 0.4 0.3 0.2 -Total Square Cm 0.25 0.04 0.04 -Photo Taken No No -Epithelialization Large 67-100% -Tunneling No No -Undermining/Tunneling No No -Maximum Distance #2 (cm) 0.4 -Circular Undermining No Yes No -Exudate Amt Medium Small Small -Exudate Type Serosanguineous Serosanguineous -Wound Margin Thickened & Thickened Flat & Intact Rolled Under -Granulation Amt Medium (34-66%) None Present (0 Small (1-33%) %) -Granulation Quality [place] -Slough/Fibrin Yes Yes -Necrosis Amt Small (1-33%) Small (1-33%) Small (1-33%) -Necrotic Tissue Type Adherent Slough Adherent Slough Adherent Slough -Structure Exposed N/A N/A N/A -Texture (Colleen-wound Skin Appearance) Assessed,Callus Scarring Assessed -Moisture (Colleen-wound Skin Appearance) Assessed Dry/Scaly Assessed,Dry/ Scaly -Color (Colleen-wound Skin Appearance) Assessed No Abnormality Assessed -Temperature (Colleen-wound Skin No Abnormality No Abnormality No Abnormality Appearance) (Pt Warm) (Pt Warm) (Pt Warm) -Tenderness on Palpation (Colleen-wound No No No Skin Appearance) -Ulcer Cleansing Wound Cleanser Soap and Water Rinsed/ Irrigated with Saline -Foul Odor after Cleansing No No No -Anesthetic Used 4% Lidocaine 5% Lidocaine 4% Lidocaine Solution Gel Solution Lower Limb Edema Present NA WC - Nurse 2 - General Ulcer CM Notes Start: 03/10/21 11:18 Freq: Status: Active Protocol: Activity Type Activity Date Activity User E-Sign Co-Sign Detail Recorded Client Recorded Date Recorded By Document 03/10/21 11:36 [id number] 03/10/21 11:40 Document 03/17/21 11:34 [id number] 03/17/21 11:37 Document 03/24/21 11:20 [id number] 03/24/21 11:22 03/10/21 03/17/21 03/24/21 11:36 11:34 11:20 Wound Center Nurse 2 8-right heel -Time 11:37 11:36 11:20 -Correct Patient Yes Yes Yes -Correct Side, Site, Position Yes Yes Yes -Correct Procedure Yes Yes Yes -Procedure Performed Yes Yes Yes -Type of Procedure Debridement Debridement Debridement -Clinical Debridement Subcutaneous Subcutaneous Subcutaneous -Tissue Removed Subcutaneous Subcutaneous Subcutaneous -Post Debridement (cm) - Length 0.5 0.3 0.3 -Post Debridement (cm) - Width 0.5 0.3 0.2 -Post Debridement (cm) - Depth 0.4 0.2 0.2 -Total Square (Post) (cm) 0.25 0.09 0.06 -Area of Debridement (cm) - Length 0.5 0.3 0.3 -Area of Debridement (cm) - Width 0.5 0.3 0.2 -Total Square (Area) (cm) 0.25 0.09 0.06 -Tunneling No No No -Undermining/Tunneling No No No -Circular Undermining No No No -Wound/Ulcer Outcome Not Healed Not Healed Not Healed -Ulcer Cleansing Rinsed/ Rinsed/ Rinsed/ Irrigated with Irrigated with Irrigated with Saline Saline Saline -Foul Odor after Cleansing No No No -Bioengineered Tissue Yes Yes Yes -Type of Bioengineered Tissue Epifix 18mm Epifix 18mm Epifix 18mm Disc Disc Disc -Expiration Date 07/06/25 07/06/25 03/08/25 -Product Lot Number [id number] -Percent Used 100 100 100 -Lot number of Saline Used [id number] -Bleeding Controlled with Pressure Pressure Pressure -Offloading Yes Yes Yes -Type of Offloading Surgical Shoe Surgical Shoe Surgical Shoe -Treatment Response Procedure Procedure Procedure Tolerated Well Tolerated Well Tolerated Well -Debridement - Subq, 1st 20sq cm No No No -Apply Skin Sub - 1st 25 sq cm - Feet 1 1 1 -Epifix 18mm Disc 3 3 3 Pain Scale: 0-10 Numeric Is Patient Pain Free? Yes Yes - Nurse 3 - General Ulcer D/C NN Start: 03/10/21 11:18 Freq: Status: Active Protocol: Activity Type Activity Date Activity User E-Sign Co-Sign Detail Recorded Client Recorded Date Recorded By Document 03/10/21 11:46 DL [id number] 03/10/21 11:47 DL Document 03/17/21 11:41 [facility] [id number] 03/17/21 11:42 [facility] Document 03/24/21 11:27 KR [id number] 03/24/21 11:28 KR 03/10/21 03/17/21 03/24/21 11:46 11:41 11:27 Wound Care Nurse 3 8-right heel -Foul Odor after Cleansing No -Primary Dressing Applied Mepilex Border -Other Dressing Epifix epifix -Primary Dressing Covered/Secured with Dry Gauze & Dry Gauze, Roll Gauze, Secured with Secured with Tape Tape -Other Covering drsg per rb rn -Mepilex Border 1 Treatment Response Procedure Procedure Tolerated Well Tolerated Well Pain Scale: 0-10 Numeric Is Patient Pain Free? Yes Yes Yes - Visit Discharge Discharge Condition Stable Stable Stable Ambulatory Status Ambulatory Ambulatory Ambulatory Transportation Private Auto Private Auto Private Auto Assessment/Plan Assessment/Plan (1) Type 2 diabetes mellitus with diabetic polyneuropathy: CODE(S): E11.42 - Type 2 diabetes mellitus with diabetic polyneuropathy QUALIFIERS: Diabetes mellitus half-way insulin use: unspecified intermediate teacher insulin use status Qualified Code(s): E11.42 - Type 2 diabetes mellitus with diabetic polyneuropathy (2) Dialysis patient: CODE(S): Z99.2 - Dependence on renal dialysis (3) Ulcer of right foot with fat layer exposed: CODE(S): L97.512 - Non-pressure chronic ulcer of other part of right foot with fat layer exposed (4) Delayed wound healing: CODE(S): T14.8XXD - Other injury of unspecified body region, subsequent encounter PLAN: The patient was seen and examined at the wound center today and her case was reviewed. Debridement was performed today to the heel. Dressing: Advancing healing product, epi fix was applied today after verbal consent was obtained. This was were performed according to standard protocol and she tolerated this well. This was secured in place with Steri-Strips and a wound veil. A secondary dressing of gauze and Kerlix was applied. She is advised to keep this clean, dry, and intact. The benefits and indications were reviewed again today. 100% of the product was utilized. She will keep this intact until she follows up next week. Wash: Antibacterial soap and water The purpose of offloading offloading techniques was reviewed. I do not recommend that she wears her close diabetic shoe even for short periods. I recommend she hangs her heel over stacked blankets or pillows while in bed to keep pressure off of the ulcer. I recommend she obtains a donut pillow to help with her offloading; to continue. She is at risk for amputation further illness of limb loss. Okay to continue with cam walker however to recommend assistive device to use such as a walker to prevent friction on this area. To use a walker. She is also trying to get a cane as a backup plan and this is noted. Although she has palpable pulses I do recommend screening her with a noninvasive vascular study to evaluate for any potential perfusion deficits. Her medical records from the [facility] will be requested. Her noninvasive vascular studies were reviewed from [facility] January 07, 2020 with triphasic waveforms bilateral and right ABIs of 1.21 and 1.07 and left ABIs of 1.2 and 1.09. The digital pressures were 105 mmHg on the right and 141 mmHg on the left. She also had normal PVR waveforms to the ankle and digital level bilateral. Her labs from -2020 were reviewed. She had resolution of leukocytosis prior to hospital discharge. Her last ESR was on 09-15-20 and was 116. She is at continued risk for limb loss. I recommend nutritional supplementation to optimize healing. Varun is recommended. She is advised to focus on eating whole food diet with enough fresh fruits and vegetables. To return to the wound healing center in 1 week, or call sooner if she has any questions or concerns or signs of infection. I answered all of her questions today. Note: [employer] speech recognition manager international software was used to create portions of this document. Sound-alike and misspelled words, as well as other manager international errors may be contained in the documentation.
[2021-03-31 10:58] VITALS: BP 148/79; PULSE 77; TEMP 36.1; BMI 27.1
--- NOTE | 2021-03-31 11:01 | ED.RN ---
Epifix got wet on Monday. She used a waterproof bandaid to reapply epifix and to hold in place. Wound looked macerated but epifix was in place.
--- NOTE | 2021-03-31 12:00 | PCM.WC.PN ---
History of Present Illness Date of Service: 03/31/21 Chief Complaint: heel ulcer History of Wound: She was seen today for right heel ulcer. She denies fever, chill, nausea, vomiting. She uses cam walker and tries to use an assistive device to keep pressure off of this. She continues on dialysis. She kept the epi cord clean and dry last week. She is waiting for kidney transplant. She relates she has to have this wound healed to be a candidate for the transplant. She is now residing in a hotel but she no longer has her home. She had trouble keeping her shower bag intact in the hotel bathtub and got her dressing wet. Progress of Wound: Improving Objective Data Objective Data Vital Signs: Vital Signs Temp Pulse Resp BP 96.9 F L 77 18 148/79 H 03/31/21 10:58 03/31/21 10:58 03/24/21 11:06 03/31/21 10:58 Weight: 72.91 kg Body Mass Index (BMI) 27.1 Physical Exam Skin Skin Narrative: no purulence, no streaking, no odor, no infection . Adjacent skin is hairless and atrophic. No webspace maceration or necrosis. skin discontinuity plantar medial heel with granular base and no infection. No peripheral callus noted. Continued reduced ulcer depth is progressing Right heel Neuro Neuro Narrative: Lack of normal epicritic sensation light touch is consistent with neuropathic status. Debridement Note Debridement Note Wound debrided: plantar right foot Wound Grade/Stage: 1 Type of Debridement: Excisional debridement Anesthesia Used: 4% Lidocaine Solution Depth: in the subcutaneous layer Percentage of wound debrided: 100 Instrument Used: #15 blade Tissue Removed: fibrous, devitalized subcutaneous, biofilm, slough Severity: Fat Layer Exposed Amount of bleeding with debridement: Mild Bleeding Controlled with: Pressure Patient tolerated procedure: Patient tolerated procedure well Post-Debridement Measurements and Additional Note: Post-Debridement Measurements/Treatment NATHAN - Nurse 1 - General Ulcer Assessment Start: 03/10/21 11:18 Freq: Status: Active Protocol: DAVID Activity Type Activity Date Activity User E-Sign Co-Sign Detail Recorded Client Recorded Date Recorded By Document 03/10/21 11:18 RB [id number] 03/10/21 11:20 RB Document 03/17/21 11:02 DL [id number] 03/17/21 11:08 DL Document 03/24/21 11:06 JF [id number] 03/24/21 11:07 JF Edit Result 03/24/21 11:06 JF (1) [id number] 03/24/21 11:19 JF Document 03/31/21 10:58 AK [id number] 03/31/21 11:02 AK (1) Pulse Rate (60-100) => 74 Pulse Location => Monitor Respiratory Rate (12-18) => 18 Respiratory rate source => Observation Blood Pressure (90/60-120/80) => 145/80 H Blood Pressure Mean (mm Hg) => 101 Source => Monitor Position => Semi-Fowlers Blood Pressure Location => Right Arm 03/10/21 03/17/21 03/24/21 11:18 11:02 11:06 WC - Today's Visit Information Type of service Follow-up Visit Follow-up Visit Follow-up Visit (Physician/LEASING DIRECTOR (Physician/LEASING DIRECTOR (Physician/LEASING DIRECTOR ) ) ) Arrival Mode Ambulatory Ambulatory Ambulatory Transfer Assistance None None Patient Identification Verified (Name & Yes Yes ) Patient Requires Transmission-Based No No No Precautions Safety Precautions Finger Stick Blood Sugar(mg/dl) (if 193 139 indicated): Blood Sugar Stated by Stated by Patient Patient Height and Weight Body Mass Index (BMI) 27.1 27.1 27.1 BMI Classification Overweight Overweight Overweight Vital Signs Temperature (97.8 F-99.1 F) 97.6 F L 97.1 F L 97.1 F L Temperature Source Temporal Temporal Temporal Pulse Rate (60-100) 85 79 74 Pulse Location Monitor Monitor Monitor Respiratory Rate (12-18) 18 18 18 Respiratory rate source Observation Observation Observation Blood Pressure (90/60-120/80) 139/77 H 141/65 H 145/80 H Blood Pressure Mean (mm Hg) 97 90 101 Source Monitor Monitor Monitor Position Semi-Fowlers Semi-Fowlers Blood Pressure Location Left Arm Right Arm History Since Last Visit- (Skip if this is Patient's initial visit) Have you changed medications since your No No No last visit? Any new allergies or adverse reactions No No No Had a fall/change in ADL's that may No No No increase risk of falls Signs or symptoms of abuse and/or No No No neglect since last visit Have you been in the hospital since your No No No last visit? Has dressing in place as prescribed Yes Yes Yes Has compression in place as prescribed No N/A N/A Has offloadiing in place as prescribed Yes Yes Yes Experienced any changes in pain level or No No No management Left Footwear Regular Shoe Regular Shoe Right Footwear Regular Shoe Surgical Shoe with pressure relief insole Pain Scale: 0-10 Numeric Is Patient Pain Free? Yes Yes Yes 03/31/21 10:58 WC - Today's Visit Information Type of service Follow-up Visit (Physician/LEASING DIRECTOR ) Arrival Mode Ambulatory Transfer Assistance Patient Identification Verified (Name & Yes ) Patient Requires Transmission-Based No Precautions Safety Precautions NA Finger Stick Blood Sugar(mg/dl) (if indicated): Blood Sugar Height and Weight Body Mass Index (BMI) 27.1 BMI Classification Overweight Vital Signs Temperature (97.8 F-99.1 F) 96.9 F L Temperature Source Temporal Pulse Rate (60-100) 77 Pulse Location Monitor Respiratory Rate (12-18) Respiratory rate source Blood Pressure (90/60-120/80) 148/79 H Blood Pressure Mean (mm Hg) 102 Source Monitor Position Blood Pressure Location History Since Last Visit- (Skip if this is Patient's initial visit) Have you changed medications since your No last visit? Any new allergies or adverse reactions No Had a fall/change in ADL's that may No increase risk of falls Signs or symptoms of abuse and/or No neglect since last visit Have you been in the hospital since your No last visit? Has dressing in place as prescribed Yes Has compression in place as prescribed N/A Has offloadiing in place as prescribed N/A Experienced any changes in pain level or No management Left Footwear Regular Shoe Right Footwear Regular Shoe Pain Scale: 0-10 Numeric Is Patient Pain Free? - Nurse 1 - General Ulcer Measurement Start: 03/10/21 11:18 Freq: Status: Active Protocol: Activity Type Activity Date Activity User E-Sign Co-Sign Detail Recorded Client Recorded Date Recorded By Document 03/10/21 11:18 RB [id number] 03/10/21 11:20 RB Document 03/17/21 11:02 DL [id number] 03/17/21 11:08 DL Document 03/24/21 11:06 VTIO [id number] 03/24/21 11:07 JF Document 03/31/21 10:58 AK [id number] 03/31/21 11:02 AK 03/10/21 03/17/21 03/24/21 11:18 11:02 11:06 Wound Center Nurse 1 8-right heel -Combined with other wound No No -Current Size (cm) - Length 0.5 0.2 0.2 -Current Size (cm) - Width 0.5 0.2 0.2 -Current Size (cm) - Depth 0.4 0.3 0.2 -Total Square Cm 0.25 0.04 0.04 -Photo Taken No No -Epithelialization Large 67-100% -Tunneling No No -Undermining/Tunneling No No -Maximum Distance #2 (cm) 0.4 -Circular Undermining No Yes No -Exudate Amt Medium Small Small -Exudate Type Serosanguineous Serosanguineous -Wound Margin Thickened & Thickened Flat & Intact Rolled Under -Granulation Amt Medium (34-66%) None Present (0 Small (1-33%) %) -Granulation Quality [place] -Slough/Fibrin Yes Yes -Necrosis Amt Small (1-33%) Small (1-33%) Small (1-33%) -Necrotic Tissue Type Adherent Slough Adherent Slough Adherent Slough -Structure Exposed N/A N/A N/A -Texture (Colleen-wound Skin Appearance) Assessed,Callus Scarring Assessed -Moisture (Colleen-wound Skin Appearance) Assessed Dry/Scaly Assessed,Dry/ Scaly -Color (Colleen-wound Skin Appearance) Assessed No Abnormality Assessed -Temperature (Colleen-wound Skin No Abnormality No Abnormality No Abnormality Appearance) (Pt Warm) (Pt Warm) (Pt Warm) -Tenderness on Palpation (Colleen-wound No No No Skin Appearance) -Ulcer Cleansing Wound Cleanser Soap and Water Rinsed/ Irrigated with Saline -Foul Odor after Cleansing No No No -Anesthetic Used 4% Lidocaine 5% Lidocaine 4% Lidocaine Solution Gel Solution Lower Limb Edema Present NA 03/31/21 10:58 Wound Center Nurse 1 8-right heel -Combined with other wound No -Current Size (cm) - Length 0.3 -Current Size (cm) - Width 0.3 -Current Size (cm) - Depth 0.2 -Total Square Cm 0.09 -Photo Taken No -Epithelialization Small 1-33% -Tunneling No -Undermining/Tunneling No -Maximum Distance #2 (cm) -Circular Undermining No -Exudate Amt Medium -Exudate Type Serosanguineous -Wound Margin -Granulation Amt Small (1-33%) -Granulation Quality [place] -Slough/Fibrin No -Necrosis Amt None Present (0 %) -Necrotic Tissue Type -Structure Exposed N/A -Texture (Colleen-wound Skin Appearance) No Abnormality, Assessed -Moisture (Colleen-wound Skin Appearance) Assessed, Maceration -Color (Colleen-wound Skin Appearance) No Abnormality, Assessed -Temperature (Colleen-wound Skin No Abnormality Appearance) (Pt Warm) -Tenderness on Palpation (Colleen-wound No Skin Appearance) -Ulcer Cleansing Rinsed/ Irrigated with Saline -Foul Odor after Cleansing -Anesthetic Used 5% Lidocaine Gel Lower Limb Edema Present 03/31/21 11:01 ED Nursing Note by EdithJesus Epifix got wet on Monday. She used a waterproof bandaid to reapply epifix and to hold in place. Wound looked macerated but epifix was in place. Initialized on 03/31/21 11:01 - END OF NOTE WC - Nurse 2 - General Ulcer CM Notes Start: 03/10/21 11:18 Freq: Status: Active Protocol: Activity Type Activity Date Activity User E-Sign Co-Sign Detail Recorded Client Recorded Date Recorded By Document 03/10/21 11:36 [id number] 03/10/21 11:40 Document 03/17/21 11:34 [id number] 03/17/21 11:37 Document 03/24/21 11:20 [id number] 03/24/21 11:22 Document 03/31/21 11:00 [id number] 03/31/21 11:05 03/10/21 03/17/21 03/24/21 11:36 11:34 11:20 Wound Center Nurse 2 8-right heel -Time 11:37 11:36 11:20 -Correct Patient Yes Yes Yes -Correct Side, Site, Position Yes Yes Yes -Correct Procedure Yes Yes Yes -Procedure Performed Yes Yes Yes -Type of Procedure Debridement Debridement Debridement -Clinical Debridement Subcutaneous Subcutaneous Subcutaneous -Tissue Removed Subcutaneous Subcutaneous Subcutaneous -Post Debridement (cm) - Length 0.5 0.3 0.3 -Post Debridement (cm) - Width 0.5 0.3 0.2 -Post Debridement (cm) - Depth 0.4 0.2 0.2 -Total Square (Post) (cm) 0.25 0.09 0.06 -Area of Debridement (cm) - Length 0.5 0.3 0.3 -Area of Debridement (cm) - Width 0.5 0.3 0.2 -Total Square (Area) (cm) 0.25 0.09 0.06 -Tunneling No No No -Undermining/Tunneling No No No -Circular Undermining No No No -Wound/Ulcer Outcome Not Healed Not Healed Not Healed -Ulcer Cleansing Rinsed/ Rinsed/ Rinsed/ Irrigated with Irrigated with Irrigated with Saline Saline Saline -Foul Odor after Cleansing No No No -Bioengineered Tissue Yes Yes Yes -Type of Bioengineered Tissue Epifix 18mm Epifix 18mm Epifix 18mm Disc Disc Disc -Expiration Date 07/06/25 07/06/25 03/08/25 -Product Lot Number [id number] -Percent Used 100 100 100 -Lot number of Saline Used [id number] -Bleeding Controlled with Pressure Pressure Pressure -Offloading Yes Yes Yes -Type of Offloading Surgical Shoe Surgical Shoe Surgical Shoe -Treatment Response Procedure Procedure Procedure Tolerated Well Tolerated Well Tolerated Well -Debridement - Subq, 1st 20sq cm No No No -Apply Skin Sub - 1st 25 sq cm - Feet 1 1 1 -Epifix 18mm Disc 3 3 3 Pain Scale: 0-10 Numeric Is Patient Pain Free? Yes Yes 03/31/21 11:00 Wound Center Nurse 2 8-right heel -Time 11:03 -Correct Patient Yes -Correct Side, Site, Position Yes -Correct Procedure Yes -Procedure Performed Yes -Type of Procedure Debridement -Clinical Debridement Subcutaneous -Tissue Removed Subcutaneous -Post Debridement (cm) - Length 0.4 -Post Debridement (cm) - Width 0.5 -Post Debridement (cm) - Depth 0.3 -Total Square (Post) (cm) 0.20 -Area of Debridement (cm) - Length 0.4 -Area of Debridement (cm) - Width 0.5 -Total Square (Area) (cm) 0.20 -Tunneling No -Undermining/Tunneling No -Circular Undermining No -Wound/Ulcer Outcome Not Healed -Ulcer Cleansing Rinsed/ Irrigated with Saline -Foul Odor after Cleansing No -Bioengineered Tissue Yes -Type of Bioengineered Tissue Epifix 18mm Disc -Expiration Date 03/08/24 -Product Lot Number [id number] -Percent Used 100 -Lot number of Saline Used [id number] -Bleeding Controlled with Pressure -Offloading Yes -Type of Offloading Surgical Shoe -Treatment Response Procedure Tolerated Well -Debridement - Subq, 1st 20sq cm No -Apply Skin Sub - 1st 25 sq cm - Feet 1 -Epifix 18mm Disc 3 Pain Scale: 0-10 Numeric Is Patient Pain Free? - Nurse 3 - General Ulcer D/C NN Start: 03/10/21 11:18 Freq: Status: Active Protocol: Activity Type Activity Date Activity User E-Sign Co-Sign Detail Recorded Client Recorded Date Recorded By Document 03/10/21 11:46 DL [id number] 03/10/21 11:47 DL Document 03/17/21 11:41 [facility] [id number] 03/17/21 11:42 BMF Document 03/24/21 11:27 KR [id number] 03/24/21 11:28 KR 03/10/21 03/17/21 03/24/21 11:46 11:41 11:27 Wound Care Nurse 3 8-right heel -Foul Odor after Cleansing No -Primary Dressing Applied Mepilex Border -Other Dressing Epifix epifix -Primary Dressing Covered/Secured with Dry Gauze & Dry Gauze, Roll Gauze, Secured with Secured with Tape Tape -Other Covering drsg per rb rn -Mepilex Border 1 Treatment Response Procedure Procedure Tolerated Well Tolerated Well Pain Scale: 0-10 Numeric Is Patient Pain Free? Yes Yes Yes WC - Visit Discharge Discharge Condition Stable Stable Stable Ambulatory Status Ambulatory Ambulatory Ambulatory Transportation Private Auto Private Auto Private Auto Assessment/Plan Assessment/Plan (1) Type 2 diabetes mellitus with diabetic polyneuropathy: CODE(S): E11.42 - Type 2 diabetes mellitus with diabetic polyneuropathy QUALIFIERS: Diabetes mellitus intermediate frame tender insulin use: unspecified intermediate frame tender insulin use status Qualified Code(s): E11.42 - Type 2 diabetes mellitus with diabetic polyneuropathy (2) Dialysis patient: CODE(S): Z99.2 - Dependence on renal dialysis (3) Ulcer of right foot with fat layer exposed: CODE(S): L97.512 - Non-pressure chronic ulcer of other part of right foot with fat layer exposed (4) Delayed wound healing: CODE(S): T14.8XXD - Other injury of unspecified body region, subsequent encounter PLAN: The patient was seen and examined at the wound center today and her case was reviewed. Debridement was performed today to the heel. Dressing: Advancing healing product, epi fix was applied today after verbal consent was obtained. This was were performed according to standard protocol and she tolerated this well. This was secured in place with Steri-Strips and a wound veil. A secondary dressing of gauze and Kerlix was applied. She is advised to keep this clean, dry, and intact. The benefits and indications were reviewed again today. 100% of the product was utilized. She will keep this intact until she follows up next week. Wash: Antibacterial soap and water The purpose of offloading offloading techniques was reviewed. I do not recommend that she wears her close diabetic shoe even for short periods. I recommend she hangs her heel over stacked blankets or pillows while in bed to keep pressure off of the ulcer. I recommend she obtains a donut pillow to help with her offloading; to continue. She is at risk for amputation further illness of limb loss. Okay to continue with cam walker however to recommend assistive device to use such as a walker to prevent friction on this area. To use a walker. She is also trying to get a cane as a backup plan and this is noted. Although she has palpable pulses I do recommend screening her with a noninvasive vascular study to evaluate for any potential perfusion deficits. Her medical records from the [facility] will be requested. Her noninvasive vascular studies were reviewed from [facility] January 07, 2020 with triphasic waveforms bilateral and right ABIs of 1.21 and 1.07 and left ABIs of 1.2 and 1.09. The digital pressures were 105 mmHg on the right and 141 mmHg on the left. She also had normal PVR waveforms to the ankle and digital level bilateral. Her labs from -2020 were reviewed. She had resolution of leukocytosis prior to hospital discharge. Her last ESR was on 09-15-20 and was 116. She is at continued risk for limb loss. I recommend nutritional supplementation to optimize healing. Varun is recommended. She is advised to focus on eating whole food diet with enough fresh fruits and vegetables. To return to the wound healing center in 1 week, or call sooner if she has any questions or concerns or signs of infection. I answered all of her questions today. Note: [employer] speech recognition primary products inspectors software was used to create portions of this document. Sound-alike and misspelled words, as well as other primary products inspectors errors may be contained in the documentation.
== END 2021-04-06 23:59 ==
LOC: WC 11:00
PROVIDERS: PCP Family Medicine; Visit Provider Podiatrist
DX: E11.621 Type 2 diabetes mellitus with foot ulcer (principal); L97.412 Non-pressure chronic ulcer of right heel and midfoot with fat layer exposed; E11.42 Type 2 diabetes mellitus with diabetic polyneuropathy; Z99.2 Dependence on renal dialysis; E66.3 Overweight; Z68.27 Body mass index [BMI] 27.0-27.9, adult; Z76.82 Awaiting organ transplant status; Z79.4 Long term (current) use of insulin; Z79.01 Long term (current) use of anticoagulants; Z79.02 Long term (current) use of antithrombotics/antiplatelets; Z79.899 Other long term (current) drug therapy
CPT/HCPCS: 15275; Q4186

== ENCOUNTER 2021-04-21 11:00 | Outpatient (RCR) | payer MEDICARE, MEDICAID, SELFPAY ==
[2021-04-07 00:18] VITALS: BP 148/79; PULSE 77; RESP 18; TEMP 36.1; BMI 27.1
[2021-04-07 10:49] VITALS: BP 140/77; PULSE 88; RESP 18; TEMP 36.6; BMI 27.1
--- NOTE | 2021-04-07 11:47 | PCM.WC.PN ---
History of Present Illness Date of Service: 04/07/21 Chief Complaint: heel ulcer History of Wound: She was seen today for right heel ulcer. She denies fever, chill, nausea, vomiting. She uses cam walker and tries to use an assistive device to keep pressure off of this. She continues on dialysis. She kept the epi cord clean and dry last week. She is waiting for kidney transplant. She relates she has to have this wound healed to be a candidate for the transplant. She is now residing in a hotel but she no longer has her home. Progress of Wound: improving Objective Data Objective Data Vital Signs: Vital Signs Temp Pulse Resp BP 97.8 F 88 18 140/77 H 04/07/21 10:49 04/07/21 10:49 04/07/21 10:49 04/07/21 10:49 Weight: 72.91 kg Body Mass Index (BMI) 27.1 Physical Exam Skin Skin Narrative: no purulence, no streaking, no odor, no infection . Adjacent skin is hairless and atrophic. No webspace maceration or necrosis. skin discontinuity plantar medial heel with granular base and no infection. No peripheral callus noted. Continued reduced ulcer depth is progressing Right heel Neuro Neuro Narrative: Lack of normal epicritic sensation light touch is consistent with neuropathic status. Debridement Note Debridement Note Wound debrided: right heel Wound Grade/Stage: 1 Type of Debridement: Excisional debridement Anesthesia Used: 4% Lidocaine Solution Depth: in the subcutaneous layer Percentage of wound debrided: 100 Instrument Used: #15 blade Tissue Removed: fibrous, devitalized subcutaneous, biofilm, slough Severity: Fat Layer Exposed Amount of bleeding with debridement: Mild Bleeding Controlled with: Pressure Patient tolerated procedure: Patient tolerated procedure well Post-Debridement Measurements and Additional Note: Post-Debridement Measurements/Treatment - Nurse 1 - General Ulcer Assessment Start: 04/07/21 10:49 Freq: Status: Active Protocol: DAVID Activity Type Activity Date Activity User E-Sign Co-Sign Detail Recorded Client Recorded Date Recorded By Document 04/07/21 10:49 GARO [id number] 04/07/21 10:50 RB 04/07/21 10:49 - Today's Visit Information Type of service Follow-up Visit (Physician/MANAGER OFFICE SERVICES ) Arrival Mode Ambulatory Transfer Assistance None Patient Identification Verified (Name & Yes ) Patient Requires Transmission-Based No Precautions Height and Weight Body Mass Index (BMI) 27.1 BMI Classification Overweight Vital Signs Temperature (97.8 F-99.1 F) 97.8 F Temperature Source Temporal Pulse Rate (60-100) 88 Pulse Location Monitor Respiratory Rate (12-18) 18 Respiratory rate source Observation Blood Pressure (90/60-120/80) 140/77 H Blood Pressure Mean (mm Hg) 98 Source Monitor Position Semi-Fowlers Blood Pressure Location Left Arm History Since Last Visit- (Skip if this is Patient's initial visit) Have you changed medications since your No last visit? Any new allergies or adverse reactions No Had a fall/change in ADL's that may No increase risk of falls Signs or symptoms of abuse and/or No neglect since last visit Have you been in the hospital since your No last visit? Has dressing in place as prescribed Yes Has compression in place as prescribed No Has offloadiing in place as prescribed No Experienced any changes in pain level or No management Pain Scale: 0-10 Numeric Is Patient Pain Free? Yes WC - Nurse 1 - General Ulcer Measurement Start: 04/07/21 10:49 Freq: Status: Active Protocol: Activity Type Activity Date Activity User E-Sign Co-Sign Detail Recorded Client Recorded Date Recorded By Document 04/07/21 10:49 GARO [id number] 04/07/21 10:50 GARO 04/07/21 10:49 Wound Center Nurse 1 8-right heel -Combined with other wound No -Current Size (cm) - Length 0.1 -Current Size (cm) - Width 0.1 -Current Size (cm) - Depth 0.1 -Total Square Cm 0.01 -Tunneling No -Undermining/Tunneling No -Circular Undermining No -Exudate Amt Small -Exudate Type Serosanguineous -Wound Margin Flat & Intact -Granulation Amt Medium (34-66%) -Granulation Quality [place] -Slough/Fibrin Yes -Necrosis Amt Small (1-33%) -Necrotic Tissue Type Adherent Slough -Structure Exposed N/A -Texture (Colleen-wound Skin Appearance) Assessed,Callus -Moisture (Colleen-wound Skin Appearance) Assessed -Color (Colleen-wound Skin Appearance) Assessed -Temperature (Colleen-wound Skin No Abnormality Appearance) (Pt Warm) -Tenderness on Palpation (Colleen-wound No Skin Appearance) -Ulcer Cleansing Wound Cleanser -Foul Odor after Cleansing No -Anesthetic Used 4% Lidocaine Solution - Nurse 2 - General Ulcer CM Notes Start: 04/07/21 10:49 Freq: Status: Active Protocol: Activity Type Activity Date Activity User E-Sign Co-Sign Detail Recorded Client Recorded Date Recorded By Document 04/07/21 11:01 VITO [id number] 04/07/21 11:06 VITO 04/07/21 11:01 Wound Center Nurse 2 -Time 11:03 -Correct Patient Yes -Correct Side, Site, Position Yes -Correct Procedure Yes -Procedure Performed Yes -Type of Procedure Debridement -Clinical Debridement Subcutaneous -Tissue Removed Subcutaneous -Post Debridement (cm) - Length 0.3 -Post Debridement (cm) - Width 0.6 -Post Debridement (cm) - Depth 0.2 -Total Square (Post) (cm) 0.18 -Area of Debridement (cm) - Length 0.3 -Area of Debridement (cm) - Width 0.6 -Total Square (Area) (cm) 0.18 -Tunneling No -Undermining/Tunneling No -Circular Undermining No -Wound/Ulcer Outcome Not Healed -Ulcer Cleansing Rinsed/ Irrigated with Saline -Foul Odor after Cleansing No -Bioengineered Tissue No -Bleeding Controlled with Pressure -Offloading Yes -Type of Offloading Surgical Shoe -Treatment Response Procedure Tolerated Well -Debridement - Subq, 1st 20sq cm Yes Pain Scale: 0-10 Numeric Is Patient Pain Free? Yes - Nurse 3 - General Ulcer D/C NN Start: 04/07/21 10:49 Freq: Status: Active Protocol: Activity Type Activity Date Activity User E-Sign Co-Sign Detail Recorded Client Recorded Date Recorded By Document 04/07/21 11:19 [id number] 04/07/21 11:20 RB 04/07/21 11:19 Wound Care Nurse 3 8-right heel -Ulcer Cleansing Wound Cleanser -Primary Dressing Applied Aquacel AG 4x4 -Primary Dressing Covered/Secured with Dry Gauze,Dry Gauze & Roll Gauze,Secured with Tape -Aquacel AG 4x4 1 Treatment Response Procedure Tolerated Well WC - Visit Discharge Discharge Condition Stable Ambulatory Status Ambulatory Transportation Private Auto Medication Reconcilliation completed & No provided to patient/care provider Clinical Summary of Care Provided Yes Assessment/Plan Assessment/Plan (1) Type 2 diabetes mellitus with diabetic polyneuropathy: CODE(S): E11.42 - Type 2 diabetes mellitus with diabetic polyneuropathy QUALIFIERS: Diabetes mellitus terminal press operator insulin use: unspecified terminal press operator insulin use status Qualified Code(s): E11.42 - Type 2 diabetes mellitus with diabetic polyneuropathy (2) Dialysis patient: CODE(S): Z99.2 - Dependence on renal dialysis (3) Ulcer of right foot with fat layer exposed: CODE(S): L97.512 - Non-pressure chronic ulcer of other part of right foot with fat layer exposed (4) Delayed wound healing: CODE(S): T14.8XXD - Other injury of unspecified body region, subsequent encounter PLAN: The patient was seen and examined at the wound center today and her case was reviewed. Debridement was performed today to the heel. Dressing: She completed a course of advanced product, epi fix. Now she is advised to change daily with Aquacel Ag. Wash: Antibacterial soap and water The purpose of offloading offloading techniques was reviewed. I do not recommend that she wears her close diabetic shoe even for short periods. I recommend she hangs her heel over stacked blankets or pillows while in bed to keep pressure off of the ulcer. I recommend she obtains a donut pillow to help with her offloading; to continue. She is at risk for amputation further illness of limb loss. Okay to continue with cam walker however to recommend assistive device to use such as a walker to prevent friction on this area. To use a walker. She is also trying to get a cane as a backup plan and this is noted. Although she has palpable pulses I do recommend screening her with a noninvasive vascular study to evaluate for any potential perfusion deficits. Her medical records from the [facility] will be requested. Her noninvasive vascular studies were reviewed from [facility] January 07, 2020 with triphasic waveforms bilateral and right ABIs of 1.21 and 1.07 and left ABIs of 1.2 and 1.09. The digital pressures were 105 mmHg on the right and 141 mmHg on the left. She also had normal PVR waveforms to the ankle and digital level bilateral. Her labs from -2020 were reviewed. She had resolution of leukocytosis prior to hospital discharge. Her last ESR was on 09-15-20 and was 116. She is at continued risk for limb loss. I recommend nutritional supplementation to optimize healing. Varun is recommended. She is advised to focus on eating whole food diet with enough fresh fruits and vegetables. To return to the wound healing center in 1 week, or call sooner if she has any questions or concerns or signs of infection. I answered all of her questions today. Note: [employer] speech recognition tar heat exchanger cleaner software was used to create portions of this document. Sound-alike and misspelled words, as well as other tar heat exchanger cleaner errors may be contained in the documentation.
[2021-04-21 10:58] VITALS: BP 129/66; PULSE 78; RESP 18; TEMP 36.5; BMI 27.1
--- NOTE | 2021-04-21 13:05 | PCM.WC.PN ---
History of Present Illness Date of Service: 04/21/21 Chief Complaint: heel ulcer History of Wound: She was seen today for right heel ulcer. She denies fever, chill, nausea, vomiting. She uses cam walker and tries to use an assistive device to keep pressure off of this. She continues on dialysis. She kept the epi cord clean and dry last week. She is waiting for kidney transplant. She relates she has to have this wound healed to be a candidate for the transplant. She is now residing in a hotel but she no longer has her home. she denies drainage and thinks this site has healed. Progress of Wound: healed Objective Data Objective Data Vital Signs: Vital Signs Temp Pulse Resp BP 97.7 F L 78 18 129/66 H 04/21/21 10:58 04/21/21 10:58 04/21/21 10:58 04/21/21 10:58 Weight: 72.91 kg Body Mass Index (BMI) 27.1 Physical Exam Skin Skin Narrative: no purulence, no streaking, no odor, no infection . Adjacent skin is hairless and atrophic. No webspace maceration or necrosis. Healed ulcer with full epithelialization to heal. No new ulcers are noted or infections. Neuro Neuro Narrative: Lack of normal epicritic sensation light touch is consistent with neuropathic status. Debridement Note Debridement Note Post-Debridement Measurements and Additional Note: Post-Debridement Measurements/Treatment - Nurse 1 - General Ulcer Assessment Start: 04/07/21 10:49 Freq: Status: Active Protocol: [email or web address].[email or web address] Activity Type Activity Date Activity User E-Sign Co-Sign Detail Recorded Client Recorded Date Recorded By Document 04/07/21 10:49 [id number] 04/07/21 10:50 RB Document 04/21/21 10:58 RB [id number] 04/21/21 10:59 RB 04/07/21 04/21/21 10:49 10:58 - Today's Visit Information Type of service Follow-up Visit Follow-up Visit (Physician/INSTRUMENTATION SPECIALIST (Physician/INSTRUMENTATION SPECIALIST ) ) Arrival Mode Ambulatory Ambulatory Transfer Assistance None None Patient Identification Verified (Name & Yes Yes ) Patient Requires Transmission-Based No Precautions Height and Weight Body Mass Index (BMI) 27.1 27.1 BMI Classification Overweight Overweight Vital Signs Temperature (97.8 F-99.1 F) 97.8 F 97.7 F L Temperature Source Temporal Temporal Pulse Rate (60-100) 88 78 Pulse Location Monitor Monitor Respiratory Rate (12-18) 18 18 Respiratory rate source Observation Observation Blood Pressure (90/60-120/80) 140/77 H 129/66 H Blood Pressure Mean (mm Hg) 98 87 Source Monitor Monitor Position Semi-Fowlers Semi-Fowlers Blood Pressure Location Left Arm Left Arm History Since Last Visit- (Skip if this is Patient's initial visit) Have you changed medications since your No No last visit? Any new allergies or adverse reactions No No Had a fall/change in ADL's that may No No increase risk of falls Signs or symptoms of abuse and/or No No neglect since last visit Have you been in the hospital since your No No last visit? Has dressing in place as prescribed Yes Yes Has compression in place as prescribed No No Has offloadiing in place as prescribed No No Experienced any changes in pain level or No No management Pain Scale: 0-10 Numeric Is Patient Pain Free? Yes Yes WC - Nurse 1 - General Ulcer Measurement Start: 04/07/21 10:49 Freq: Status: Active Protocol: Activity Type Activity Date Activity User E-Sign Co-Sign Detail Recorded Client Recorded Date Recorded By Document 04/07/21 10:49 RB [id number] 04/07/21 10:50 RB Document 04/21/21 10:58 RB [id number] 04/21/21 10:59 RB 04/07/21 04/21/21 10:49 10:58 Wound Center Nurse 1 8-right heel -Combined with other wound No -Current Size (cm) - Length 0.1 0.1 -Current Size (cm) - Width 0.1 0.1 -Current Size (cm) - Depth 0.1 0.1 -Total Square Cm 0.01 0.01 -Tunneling No No -Undermining/Tunneling No No -Circular Undermining No No -Exudate Amt Small Medium -Exudate Type Serosanguineous Serosanguineous -Wound Margin Flat & Intact Flat & Intact -Granulation Amt Medium (34-66%) Medium (34-66%) -Granulation Quality [place] -Slough/Fibrin Yes Yes -Necrosis Amt Small (1-33%) Small (1-33%) -Necrotic Tissue Type Adherent Slough Adherent Slough -Structure Exposed N/A N/A -Texture (Colleen-wound Skin Appearance) Assessed,Callus Callus -Moisture (Colleen-wound Skin Appearance) Assessed Assessed -Color (Colleen-wound Skin Appearance) Assessed Assessed -Temperature (Colleen-wound Skin No Abnormality No Abnormality Appearance) (Pt Warm) (Pt Warm) -Tenderness on Palpation (Colleen-wound No No Skin Appearance) -Ulcer Cleansing Wound Cleanser Rinsed/ Irrigated with Saline -Foul Odor after Cleansing No No -Anesthetic Used 4% Lidocaine 5% Lidocaine Solution Gel - Nurse 2 - General Ulcer CM Notes Start: 04/07/21 10:49 Freq: Status: Active Protocol: Activity Type Activity Date Activity User E-Sign Co-Sign Detail Recorded Client Recorded Date Recorded By Document 04/07/21 11:01 [id number] 04/07/21 11:06 Document 04/21/21 11:15 [id number] 04/21/21 11:20 04/07/21 04/21/21 11:01 11:15 Wound Center Nurse 2 8-right heel -Time 11:03 -Correct Patient Yes No -Correct Side, Site, Position Yes No -Correct Procedure Yes No -Procedure Performed Yes No -Type of Procedure Debridement -Clinical Debridement Subcutaneous -Tissue Removed Subcutaneous -Post Debridement (cm) - Length 0.3 0 -Post Debridement (cm) - Width 0.6 0 -Post Debridement (cm) - Depth 0.2 0 -Total Square (Post) (cm) 0.18 0 -Area of Debridement (cm) - Length 0.3 0 -Area of Debridement (cm) - Width 0.6 0 -Total Square (Area) (cm) 0.18 0 -Tunneling No -Undermining/Tunneling No -Circular Undermining No -Wound/Ulcer Outcome Not Healed Healed- Epithelialized -Ulcer Cleansing Rinsed/ Irrigated with Saline -Foul Odor after Cleansing No -Bioengineered Tissue No -Bleeding Controlled with Pressure -Offloading Yes -Type of Offloading Surgical Shoe -Treatment Response Procedure Tolerated Well -Debridement - Subq, 1st 20sq cm Yes Pain Scale: 0-10 Numeric Is Patient Pain Free? Yes Yes - Nurse 3 - General Ulcer D/C NN Start: 04/07/21 10:49 Freq: Status: Active Protocol: Activity Type Activity Date Activity User E-Sign Co-Sign Detail Recorded Client Recorded Date Recorded By Document 04/07/21 11:19 RB [id number] 04/07/21 11:20 RB Document 04/21/21 11:20 VITO [id number] 04/21/21 11:20 VITO 04/07/21 04/21/21 11:19 11:20 Wound Care Nurse 3 8-right heel -Ulcer Cleansing Wound Cleanser -Primary Dressing Applied Aquacel AG 4x4 -Primary Dressing Covered/Secured with Dry Gauze,Dry Gauze & Roll Gauze,Secured with Tape -Aquacel AG 4x4 1 Treatment Response Procedure Tolerated Well Pain Scale: 0-10 Numeric Is Patient Pain Free? Yes WC - Visit Discharge Discharge Condition Stable Stable Ambulatory Status Ambulatory Ambulatory Transportation Private Auto Private Auto Medication Reconcilliation completed & No Yes provided to patient/care provider Clinical Summary of Care Provided Yes Yes Assessment/Plan Assessment/Plan (1) Type 2 diabetes mellitus with diabetic polyneuropathy: CODE(S): E11.42 - Type 2 diabetes mellitus with diabetic polyneuropathy QUALIFIERS: Diabetes mellitus care home insulin use: unspecified care home insulin use status Qualified Code(s): E11.42 - Type 2 diabetes mellitus with diabetic polyneuropathy (2) Dialysis patient: CODE(S): Z99.2 - Dependence on renal dialysis (3) Ulcer of right foot with fat layer exposed: CODE(S): L97.512 - Non-pressure chronic ulcer of other part of right foot with fat layer exposed (4) Delayed wound healing: CODE(S): T14.8XXD - Other injury of unspecified body region, subsequent encounter PLAN: The patient was seen and examined at the wound center today and her case was reviewed. The ulcer is healed. To discontinue dressing care. To allow skin remodeling over the next couple of weeks. I recommend continued strict offloading with wedge heel offloading surgical shoe and crutches. To moisturize adjacent skin to improve skin integrity. To follow-up with the wound healing center for healed wound check in 3 weeks. I answered all of her questions. 20 minutes was spent on this encounter. This included face to face and non face to face care including preparing for the visit, reviewing the history, performing the exam, counseling and providing education to the patient, family, or caregiver, ordering medications/test/ procedures if indicated as documented, communicating with other healthcare providers, documenting information in the medical record, interpreting / sharing this information when indicated as documented, and care coordination.
== END 2021-05-07 23:59 ==
LOC: WC 11:00
PROVIDERS: PCP Family Medicine; Visit Provider Podiatrist
DX: E11.621 Type 2 diabetes mellitus with foot ulcer (principal); L97.412 Non-pressure chronic ulcer of right heel and midfoot with fat layer exposed; E11.42 Type 2 diabetes mellitus with diabetic polyneuropathy; E66.3 Overweight; Z68.27 Body mass index [BMI] 27.0-27.9, adult; Z76.82 Awaiting organ transplant status; Z99.2 Dependence on renal dialysis; Z79.4 Long term (current) use of insulin; Z79.02 Long term (current) use of antithrombotics/antiplatelets; Z79.01 Long term (current) use of anticoagulants; Z79.899 Other long term (current) drug therapy
CPT/HCPCS: 11042; 99213; G0463

== ENCOUNTER 2021-05-12 11:00 | Outpatient (RCR) | payer MEDICARE, MEDICAID, SELFPAY ==
[2021-05-08 00:18] VITALS: BP 129/66; PULSE 78; RESP 18; TEMP 36.5; BMI 27.1
[2021-05-12 10:52] VITALS: BP 140/73; PULSE 83; RESP 18; TEMP 36.8; BMI 27.1
--- NOTE | 2021-05-12 22:30 | PN.PCM_ITS ---
History of Present Illness Date of Service: 05/12/21 Chief Complaint: heel ulcer History of Wound: She was seen today for healed right heel ulcer. She denies fever, chill, nausea, vomiting. She uses cam walker and tries to use an assistive device to keep pressure off of this. She continues on dialysis. She is waiting for kidney transplant. She relates she has to have this wound healed to be a candidate for the transplant. she denies drainage and thinks this site has remained healed. Progress of Wound: remains healed Objective Data Objective Data Vital Signs: Vital Signs Temp Pulse Resp BP 98.2 F 83 18 140/73 H 05/12/21 10:52 05/12/21 10:52 05/12/21 10:52 05/12/21 10:52 Weight: 72.91 kg Body Mass Index (BMI) 27.1 Physical Exam Skin Skin Narrative: no purulence, no streaking, no odor, no infection . Adjacent skin is hairless and atrophic. No webspace maceration or necrosis. Healed ulcer with full epithelialization to heal. No new ulcers are noted or infections. Neuro Neuro Narrative: Lack of normal epicritic sensation light touch is consistent with neuropathic status. Assessment/Plan Assessment/Plan (1) Type 2 diabetes mellitus with diabetic polyneuropathy: CODE(S): E11.42 - Type 2 diabetes mellitus with diabetic polyneuropathy QUALIFIERS: Diabetes mellitus local company intermodal truck driver insulin use: unspecified local company intermodal truck driver insulin use status Qualified Code(s): E11.42 - Type 2 diabetes mellitus with diabetic polyneuropathy (2) Dialysis patient: CODE(S): Z99.2 - Dependence on renal dialysis (3) Ulcer of right foot with fat layer exposed: CODE(S): L97.512 - Non-pressure chronic ulcer of other part of right foot with fat layer exposed (4) Delayed wound healing: CODE(S): T14.8XXD - Other injury of unspecified body region, subsequent encounter PLAN: The patient was seen and examined at the wound center today and her case was reviewed. The ulcer is healed. To discontinue dressing care. To allow skin remodeling over the next couple of weeks. I recommend continued strict offloading with wedge heel offloading surgical shoe and crutches. To moisturize adjacent skin to improve skin integrity. To follow-up with line department supervisor at [facility], Dr. Testrake. She is discharged from wound healing center at this time. Note: [employer] speech recognition photo cartographer software was used to create portions of this document. Sound-alike and misspelled words, as well as other photo cartographer errors may be contained in the documentation. The medical decision making level is moderate. There is noted moderate risk of morbidity after considering this treatment plan and diagnostic data. Considera tions were given to prescription management, decisions regarding surgical options, or social determinants of health. The problems addressed require a moderate decision making level which includes one or more chronic illnesses (w/ exacerbation, progression, or side effects), two or more stable chronic illnesses, one undiagnosed new problem w/ uncertain prognosis, one acute illness with systemic symptoms, or one acute complicated injury.
== END 2021-05-12 12:04 | disposition home or self-care (01) ==
LOC: WC 11:00
PROVIDERS: PCP Family Medicine; Visit Provider Podiatrist
DX: Z09 Encounter for follow-up examination after completed treatment for conditions other than malignant neoplasm (principal); Z99.2 Dependence on renal dialysis; E11.42 Type 2 diabetes mellitus with diabetic polyneuropathy
CPT/HCPCS: 99213; G0463